=== PATIENT | female | born 1930 | race Two or more races ===

== ENCOUNTER 2016-05-08 20:47 | Inpatient (IN) | payer MEDICARE, OTHER ==
[~2016-05-08] VITALS: Ht 157.5 cm; Wt 71.2 kg
[2016-05-08 20:55] VITALS: BP 116/47
[2016-05-08] MEDS ORDERED: Albuterol ud Inhalation HHN SCH (21:30)
[2016-05-08] MEDS ORDERED: Ipratropium 0.02% Inh Soln 2.5ml UD HHN SCH (21:30)
[2016-05-08] MEDS ORDERED: Azithromycin 500 MG in NS 275 ML IV ONE (21:30)
[2016-05-08] MEDS ORDERED: Solu-MEDROL 125mg Inj IVP ONE (21:30)
[2016-05-08] MEDS ORDERED: FUROSEMIDE20 M1 ORAL (22:22)
[2016-05-08 22:28] VITALS: BP 111/32
[2016-05-08 22:50] LABS: MEAN CORPUSCULAR HEMOGLOBIN 28.2 PG (27.0-31.0); MEAN CORPUSCULAR HGB CONC 31.2 G/DL (32.0-36.0); MEAN CORPUSCULAR VOLUME 91 FL (80-99); MEAN PLATELET VOLUME 6.8 FL (6.5-10.1); PLATELET COUNT 260 K/UL (150-450); RED BLOOD COUNT 2.87 M/UL (4.20-5.40); RED CELL DISTRIBUTION WIDTH 13.7 % (11.6-14.8); WHITE BLOOD COUNT 19.9 K/UL (4.8-10.8)
[2016-05-08 23:01] LABS: ALANINE AMINOTRANSFERASE 34 U/L (3-33); ALBUMIN/GLOBULIN RATIO 1.1 (1.0-2.7); ANION GAP 16 (5-15); ASPARTATE AMINO TRANSFERASE 59 U/L (5-40); CALCIUM 9.6 mg/dL (8.6-10.2); CARBON DIOXIDE 22 mEQ/L (20-30); CHLORIDE 93 mEQ/L (98-107); HEMOLYSIS 3; SODIUM 131 mEQ/L (135-145); TOTAL PROTEIN 6.8 g/dL (6.6-8.7); TROPONIN I < 0.30 ng/mL (<=0.30)
[2016-05-08 23:12] LABS: CKMB < 1.5 ng/mL (< 3.8)
--- NOTE | 2016-05-08 23:14 | Emergency Room Report ---
History of Present Illness General Chief Complaint: Dyspnea/Respdistress Source: EMS Present Illness HPI 85 YO F SAV with acute respiratory distress. Daughter endorses history of CHF. Didnt take Lasix today. Patient not providing additional HPI at this time , ?Dementia. Family not available to talk with me at bedside. No other history available. Allergies: Coded Allergies: SPIRONOLACTONE (Unverified Allergy, Intermediate, 05/08/16) Patient History Past Medical History: CHF Past Surgical History: unable to obtain Pertinent Family History: unable to obtain Social History: Denies: alcohol use, drug use, smoking Now: No Immunizations: UTD Reviewed Nursing Documentation: PMH: Agreed, PSxH: Agreed Nursing Documentation-PMH Past Medical History: No History, Except For Hx Cardiac Problems: Yes - BRADYCARDIA Hx Hypertension: Yes Hx COPD: Yes Hx Diabetes: Yes Review of Systems All Other Systems: negative except mentioned in HPI Physical Exam Vital Signs Date Time Temp Pulse Resp B/P Pulse Ox O2 Delivery O2 Flow Rate FiO2 05/08/16 19:30 71 27 100 Facial 35 05/08/16 20:36 15.0 05/08/16 20:55 116/47 05/08/16 22:28 98.3 Sp02 EP Interpretation: reviewed, normal General Appearance: normal inspection, well appearing, alert, GCS 15, non-toxic , moderate distress Head: normocephalic, atraumatic Eyes: bilateral eye EOMI, bilateral eye PERRL ENT: normal ENT inspection, hearing grossly normal, normal voice Neck: normal inspection, full range of motion, supple, no bony tend Respiratory: normal inspection, respiratory distress, rhonchi, wheezing Cardiovascular #1: regular rate, rhythm, no edema Gastrointestinal: normal inspection, normal bowel sounds, non tender, soft, no guarding, no hernia Genitourinary: no CVA tenderness Musculoskeletal: normal inspection, back normal, normal range of motion, Massimo' s Sign negative Neurologic: normal inspection, alert, oriented x3, responsive, v block saw operator III-XII nml as tested, motor strength/tone normal, speech normal Psychiatric: normal inspection, judgement/insight normal, mood/affect normal Skin: normal inspection, normal color, no rash Medical Decision Making Medicare Attestation I Juancarlos Krishnamurthy MD hereby attest that the medical record entry for date of service, 03/04/16 accurately reflects signatures/notations that I made in my capacity as MD when I treated/diagnosed the above listed Medicare beneficiary. I attest that this information is true, accurate and complete to the best of my knowledge. I understand that any falsification, omission, or concealment of material fact may subject me to administrative, civil, or criminal liability. This patient warrants hospital admission for extreme of age and has a condition that cannot be treated as outpatient. Diagnostic Impression: Primary Impression: Acute on chronic diastolic CHF (congestive heart failure) Additional Impressions: Pneumonia Qualified Codes: J18.9 - Pneumonia, unspecified organism Respiratory distress Hyperkalemia LBBB (left bundle branch block) BRENDEN (acute kidney injury) ER Course 85 YOF with acute on chronic CHF, possible PNA Improved with BIPAP, Lasix, empiric ABX Leuks 19k CMP: HyperK. SerumCr 3. Glucose 402 Given hyperK and widened QRS, LBBB on ECG will give Calcium gluconate, insulin, and kayexelate. Insulin will also help lower hyperglycemia CXR with bilateral pulm congestion and PNA Endorsed to Dr Weir for [facility] admission at 1110pm EKG Diagnostic Results Rate: other - LBBB, LAD Rhythm Strip Diag. Results EP Interpretation: yes Rate: 74 Rhythm: no PVC's, no ectopy Chest X-Ray Diagnostic Results EP Interpretation: Yes Findings: no acute cardiopulmonary disease, other - bilateral pulm congeestion , PNA Last Vital Signs Date Time Temp Pulse Resp B/P Pulse Ox O2 Delivery O2 Flow Rate FiO2 05/08/16 22:28 98.3 64 17 111/32 100 Bi-pap 30 05/08/16 20:55 2.0 Status: improved Disposition: ADMITTED INPATIENT Condition: Critical Referrals: NON PHYSICIAN (PCP) JUANCARLOS KRISHNAMURTHY M.D. May 08, 2016 23:14
[2016-05-08] MEDS ORDERED: Piperacillin/Tazobactam 3.375 GM in NS 110 ML IVPB ONE (23:15)
[2016-05-08] MEDS ORDERED: Vancomycin 1 GM in NS 275 ML IVPB ONE (23:15)
[2016-05-08] MEDS ORDERED: Nitroglycerin Subl 0.4mg tab (Bottle Of 25) SL PRN (23:15)
[2016-05-08] MEDS ORDERED: Miralax 17gm pkt ORAL PRN (23:15)
[2016-05-08] MEDS ORDERED: Mylanta II UD 30ml ORAL PRN (23:15)
[2016-05-08 23:17] LABS: POTASSIUM 6.5 mEQ/L (3.4-4.9)
[2016-05-08] MEDS ORDERED: Zosyn 3.375gm inj ONE (23:17)
[2016-05-08 23:30] VITALS: BP 115/40
[2016-05-08 23:30] LABS: BAND NEUTROPHILS % (MANUAL) 12 % (0-8); LYMPHOCYTES % (MANUAL) 4 % (20-45); NEUTROPHILS % (MANUAL) 80 % (45-75); TOTAL CELLS COUNTED 100
[2016-05-08] MEDS ORDERED: Sodium Polystyrene Sulfonate 15gm Powder ORAL ONE (23:30)
[2016-05-08] MEDS ORDERED: Calcium Gluconate 10% 2 GM in NS 110 ML IVPB ONE (23:30)
[2016-05-08 23:31] LABS: BASOPHILS % (MANUAL) 0 % (0-2); EOSINOPHILS % (MANUAL) 0 % (0-3); PLATELET ESTIMATE ADEQUATE; PLATELET MORPHOLOGY NORMAL
[2016-05-08] MEDS ORDERED: Calcium Gluconate 1gm/10ml vial ONE (23:43)
[2016-05-08] MEDS ORDERED: Vancomycin 1gm inj IVPB ONE (23:44)
[2016-05-09] MEDS ORDERED: Calcium Gluconate 1gm/10ml vial ONE (00:49)
[2016-05-09 01:40] VITALS: BP 110/48
[2016-05-09 04:00] VITALS: BP_SYST 107; BP_SYST 108; BP_DIAS 52; BP_DIAS 62
[2016-05-09 04:34] LABS: MEAN CORPUSCULAR HEMOGLOBIN 28.5 PG (27.0-31.0); MEAN CORPUSCULAR HGB CONC 31.5 G/DL (32.0-36.0); MEAN CORPUSCULAR VOLUME 91 FL (80-99); MEAN PLATELET VOLUME 6.7 FL (6.5-10.1); PLATELET COUNT 235 K/UL (150-450); RED BLOOD COUNT 2.48 M/UL (4.20-5.40); RED CELL DISTRIBUTION WIDTH 13.6 % (11.6-14.8); WHITE BLOOD COUNT 17.4 K/UL (4.8-10.8)
[2016-05-09 04:39] LABS: INR 2.5 (0.9-1.1); PROTHROMBIN TIME 26.1 SEC (9.30-11.50)
[2016-05-09 04:51] LABS: ALANINE AMINOTRANSFERASE 32 U/L (3-33); ALBUMIN/GLOBULIN RATIO 0.9 (1.0-2.7); ANION GAP 17 (5-15); ASPARTATE AMINO TRANSFERASE 39 U/L (5-40); CALCIUM 9.2 mg/dL (8.6-10.2); CARBON DIOXIDE 20 mEQ/L (20-30); CHLORIDE 97 mEQ/L (98-107); CREATININE 2.9 mg/dL (0.5-0.9); HEMOLYSIS 0; MAGNESIUM 2.1 mg/dL (1.7-2.5); PHOSPHORUS 4.6 mg/dL (2.5-4.8); POTASSIUM 5.6 mEQ/L (3.4-4.9); SODIUM 134 mEQ/L (135-145); TOTAL PROTEIN 5.9 g/dL (6.6-8.7)
[2016-05-09] MEDS: NovoLOG Insulin Flexpen SUBQ SCH ×4 (06:34→22:10)
[2016-05-09] MEDS: DuoNeb 0.5-3(2.5)mg/3ml neb HHN PRN ×2 (07:17→15:24)
[2016-05-09 08:00] VITALS: BP 104/43
[2016-05-09] MEDS ORDERED: Heparin 5000 units/ml inj SUBQ SCH (09:00)
[2016-05-09] MEDS: Cefepime HCl 1 GM in D5W 55 ML IV SCH (09:06)
[2016-05-09 09:40] LABS: BAND NEUTROPHILS % (MANUAL) 2 % (0-8); BASOPHILS % (MANUAL) 0 % (0-2); EOSINOPHILS % (MANUAL) 0 % (0-3); HYPOCHROMASIA 1+; LYMPHOCYTES % (MANUAL) 8 % (20-45); NEUTROPHILS % (MANUAL) 86 % (45-75); PLATELET ESTIMATE ADEQUATE; PLATELET MORPHOLOGY NORMAL; TOTAL CELLS COUNTED 100
[2016-05-09] MEDS ORDERED: Vancomycin 500mg/D5W 110ml IVPB ONE ×2 (11:00)
[2016-05-09 12:00] VITALS: BP 99/42
--- NOTE | 2016-05-09 13:19 | History and Physical ---
History of Present Illness General Date patient seen: May 09, 2016 Reason for Hospitalization: Dyspnea/Respdistress Present Illness HPI 85 year old female with hx of CHF, COPD, home O2, Dementia, started having cough and dyspnea a few days ago, her daughter was taking her to [facility], when she got worse and the daughter had to chain puller and call 911. Initially she was unresponsive as reported by daughter. She received supplemental O2 from paramedics and transferred to [facility] [place]. She was diagnosed to have acute pulmonary edema and admitted to [facility]. Allergies: Coded Allergies: SPIRONOLACTONE (Unverified Allergy, Intermediate, 05/08/16) Medication History Scheduled Furosemide* (Lasix*), 20 MG ORAL DAILY, (Reported) Patient History Healthcare decision maker Resuscitation status Full Code Advanced Directive on File No Past Medical/Surgical History Past Medical/Surgical History: (1) CHF (congestive heart failure) (2) COPD (chronic obstructive pulmonary disease) (3) Dementia Social History Social History: (1) Lives in single-family home Review of Systems Constitutional: Reports: weakness Respiratory: Reports: shortness of breath, sputum Physical Exam General Appearance: WD/WN, no apparent distress Lines, tubes and drains: peripheral, central line HEENT: normocephalic, atraumatic Neck: non-tender, supple Respiratory/Chest: chest wall non-tender, lungs clear Cardiovascular/Chest: normal peripheral pulses, normal rate Abdomen: normal bowel sounds, non tender Genitourinary/Rectal: normal genital exam Last 24 Hour Vital Signs Date Time Temp Pulse Resp B/P Pulse Ox O2 Delivery O2 Flow Rate FiO2 05/09/16 12:00 59 05/09/16 08:00 72 05/09/16 08:00 98.0 70 19 104/43 100 Nasal Cannula 3.0 05/09/16 07:20 80 22 98 Venturi Mask 10.0 45 05/09/16 07:09 78 22 98 Venturi Mask 10.0 45 05/09/16 05:18 71 24 100 Facial 35 05/09/16 04:00 30 05/09/16 04:00 97.7 65 17 108/52 99 Bi-pap 35 05/09/16 03:47 61 05/09/16 03:09 35 05/09/16 03:05 79 24 100 Facial 35 05/09/16 02:04 74 05/09/16 02:00 30 05/09/16 01:40 98.4 72 22 110/48 100 2.0 35 05/09/16 01:40 98.4 72 22 110/48 100 2.0 35 05/09/16 01:13 72 25 100 Facial 35 05/08/16 23:30 68 16 115/40 100 Bi-pap 2.0 30 05/08/16 22:28 98.3 64 17 111/32 100 Bi-pap 30 05/08/16 21:20 79 26 100 Facial 35 05/08/16 20:55 35 05/08/16 20:55 70 22 116/47 94 Nasal Cannula 2.0 05/08/16 20:47 75 32 Non-Rebreather 15.0 05/08/16 20:36 75 32 100 Non-Rebreather 15.0 05/08/16 19:30 71 27 100 Facial 35 Intake and Output 05/08/16 05/09/16 19:00 07:00 Intake Total 361 ml Output Total 360 ml Balance 1 ml IV Total 361 ml Output Urine Total 360 ml # Bowel Movements 1 Laboratory Tests Test 05/08/16 20:56 05/09/16 03:50 05/09/16 09:05 White Blood Count 19.9 K/UL (4.8-10.8) H 17.4 K/UL (4.8-10.8) H Red Blood Count 2.87 M/UL (4.20-5.40) L 2.48 M/UL (4.20-5.40) L Hemoglobin 8.1 G/DL (12.0-16.0) L 7.1 G/DL (12.0-16.0) L Hematocrit 26.0 % (37.0-47.0) L 22.5 % (37.0-47.0) L Mean Corpuscular Volume 91 FL (80-99) 91 FL (80-99) Mean Corpuscular Hemoglobin 28.2 PG (27.0-31.0) 28.5 PG (27.0-31.0) Mean Corpuscular Hemoglobin Concent 31.2 G/DL (32.0-36.0) L 31.5 G/DL (32.0-36.0) L Red Cell Distribution Width 13.7 % (11.6-14.8) 13.6 % (11.6-14.8) Platelet Count 260 K/UL (150-450) 235 K/UL (150-450) Mean Platelet Volume 6.8 FL (6.5-10.1) 6.7 FL (6.5-10.1) Neutrophils (%) (Auto) % (45.0-75.0) % (45.0-75.0) Lymphocytes (%) (Auto) % (20.0-45.0) % (20.0-45.0) Monocytes (%) (Auto) % (1.0-10.0) % (1.0-10.0) Eosinophils (%) (Auto) % (0.0-3.0) % (0.0-3.0) Basophils (%) (Auto) % (0.0-2.0) % (0.0-2.0) Differential Total Cells Counted 100 100 Neutrophils % (Manual) 80 % (45-75) H 86 % (45-75) H Lymphocytes % (Manual) 4 % (20-45) L 8 % (20-45) L Monocytes % (Manual) 4 % (1-10) 4 % (1-10) Eosinophils % (Manual) 0 % (0-3) 0 % (0-3) Basophils % (Manual) 0 % (0-2) 0 % (0-2) Band Neutrophils 12 % (0-8) H 2 % (0-8) Platelet Estimate Adequate Adequate Platelet Morphology Normal Normal Red Blood Cell Morphology Normal Sodium Level 131 mEQ/L (135-145) L 134 mEQ/L (135-145) L Potassium Level 6.5 mEQ/L (3.4-4.9) *H 5.6 mEQ/L (3.4-4.9) H Chloride Level 93 mEQ/L (98-107) L 97 mEQ/L (98-107) L Carbon Dioxide Level 22 mEQ/L (20-30) 20 mEQ/L (20-30) Anion Gap 16 (5-15) H 17 (5-15) H Blood Urea Nitrogen 78 mg/dL (7-23) H 76 mg/dL (7-23) H Creatinine 3.0 mg/dL (0.5-0.9) H 2.9 mg/dL (0.5-0.9) H Estimat Glomerular Filtration Rate mL/min (>60) mL/min (>60) Glucose Level 402 mg/dL (74-106) H 387 mg/dL (74-106) H Calcium Level 9.6 mg/dL (8.6-10.2) 9.2 mg/dL (8.6-10.2) Total Bilirubin 0.4 mg/dL (0.0-1.2) 0.4 mg/dL (0.0-1.2) Aspartate Amino Transf (AST/SGOT) 59 U/L (5-40) H 39 U/L (5-40) Alanine Aminotransferase (ALT/SGPT) 34 U/L (3-33) H 32 U/L (3-33) Alkaline Phosphatase 112 U/L (35-104) H 90 U/L (35-104) Total Creatine Kinase 28 U/L (26-140) Creatine Kinase MB < 1.5 ng/mL (< 3.8) Creatine Kinase MB Relative Index Troponin I < 0.30 ng/mL (<=0.30) Pro-B-Type Natriuretic Peptide 20212 pg/mL (0-450) H Total Protein 6.8 g/dL (6.6-8.7) 5.9 g/dL (6.6-8.7) L Albumin 3.6 g/dL (3.5-5.2) 2.8 g/dL (3.5-5.2) L Globulin 3.2 g/dL 3.1 g/dL Albumin/Globulin Ratio 1.1 (1.0-2.7) 0.9 (1.0-2.7) L Hypochromasia 1+ Prothrombin Time 26.1 SEC (9.30-11.50) H Prothromb Time International Ratio 2.5 (0.9-1.1) H Activated Partial Thromboplast Time 35 SEC (23-33) H Phosphorus Level 4.6 mg/dL (2.5-4.8) Magnesium Level 2.1 mg/dL (1.7-2.5) Urine Legionella Antigen Pending Height (Feet): 5 Height (Inches): 2.00 Weight (Pounds): 157 Medications Current Medications Medications (Trade) Dose Ordered Sig/Abril Route PRN Reason Start Time Stop Time Status Last Admin Dose Admin Acetaminophen (Tylenol) 650 mg Q4H PRN ORAL fever 05/08/16 23:15 06/07/16 23:14 05/09/16 07:04 Al Hydroxide/Mg Hydroxide (Mylanta II) 30 ml Q6H PRN ORAL dyspepsia 05/08/16 23:15 06/07/16 23:14 Albuterol/ Ipratropium 3 ml 3 ml EVERY 4 HOURS PRN HHN Shortness of Breath 05/08/16 23:15 05/13/16 23:14 05/09/16 07:17 Cefepime HCl/ Dextrose (Maxipime/D5W) 55 ml @ 110 mls/hr Q24H IV 05/09/16 09:00 05/16/16 08:59 05/09/16 09:06 Dextrose (Dextrose 50%) STAT PRN IV Hypoglycemia 05/08/16 23:15 06/07/16 23:14 Furosemide/ Dextrose (Lasix/D5W) 110 ml @ 11 mls/hr Q10H IV 05/09/16 14:00 06/08/16 13:59 Heparin Sodium (Porcine) (Heparin 5000 units/ml) 5,000 units EVERY 12 HOURS SUBQ 05/09/16 09:00 06/08/16 08:59 Insulin Aspart (NovoLOG) BEFORE MEALS AND HS SUBQ 05/09/16 06:30 06/08/16 06:29 05/09/16 11:14 Nitroglycerin (Ntg) 0.4 mg Q5M PRN SL Prn Chest Pain 05/08/16 23:15 06/07/16 23:14 Ondansetron HCl (Zofran) 4 mg Q6H PRN IVP Nausea & Vomiting 05/08/16 23:15 06/07/16 23:14 Polyethylene Glycol (Miralax) 17 gm DAILYPRN PRN ORAL Constipation 05/08/16 23:15 06/07/16 23:14 Temazepam (Restoril) 15 mg HSPRN PRN ORAL Insomnia 05/08/16 23:15 05/15/16 23:14 Vancomycin HCl 1 ea 1 ea DAILY PRN MISC Per rx protocol 05/08/16 23:15 06/07/16 23:14 Assessment/Plan Problem List: (1) Acute respiratory distress ICD Codes: R06.00 - Dyspnea, unspecified SNOMED: 142392214 (2) Acute on chronic diastolic CHF (congestive heart failure) ICD Codes: I50.33 - Acute on chronic diastolic (congestive) heart failure SNOMED: 633373632, 44923739 (3) Hyperkalemia ICD Codes: E87.5 - Hyperkalemia SNOMED: 23339574 (4) LBBB (left bundle branch block) ICD Codes: I44.7 - Left bundle-branch block, unspecified SNOMED: 33905711 (5) BRENDEN (acute kidney injury) ICD Codes: N17.9 - Acute kidney failure, unspecified SNOMED: 89158408 (6) Severe anemia ICD Codes: D64.9 - Anemia, unspecified SNOMED: 101403423 (7) Purulent bronchitis ICD Codes: J41.1 - Mucopurulent chronic bronchitis SNOMED: 98125839 (8) Patient is Orthodox ICD Codes: Z78.9 - Other specified health status SNOMED: 72942288 (9) Dementia ICD Codes: F03.90 - Unspecified dementia without behavioral disturbance SNOMED: 22931444 Qualifiers: (10) COPD (chronic obstructive pulmonary disease) ICD Codes: J44.9 - Chronic obstructive pulmonary disease, unspecified SNOMED: 01697177 Assessment/Plan diuretic respiratory treatment IV antibiotics repeat cxr in am echo titrate cardiac meds check sputum ILIR WALLACE May 09, 2016 13:19
[2016-05-09] MEDS ORDERED: Vitamin B12 1000mcg/ml Inj IM ONE (14:00)
[2016-05-09 14:06] LABS: PATH BLOOD SMEAR/OMC SENT TO PATHOLOGIST
--- NOTE | 2016-05-09 15:45 | Consultation ---
Consult Note Consult Note ID CONSULT: Bill# [id number] Assessment/Plan ASSESSMENT: 85 y/o female with: // Possible CAP - unable to produce sputum, legionella UAg pending - CXR: pending // r/o UTI // Leukocytosis - improved, afebrile // Acute on chronic diastolic CHF exacerbation - trop(-) x1, elevated BNP // O2-dependent COPD // Elevated LFTs - resolved // ARF // Severe normocytic anemia - Faith, no blood products // Elevated CEA // DM2 // Dementia // No ABX allergies // Full Code PLAN: - continue empiric IV vancomycin, cefepime d# 1 - f/u cultures - monitor CBC, temperatures - monitor BMP - monitor CXR - f/u - diuresis d/w family at bedside Thanks! Will follow GEORGIE HOLLOWAY May 09, 2016 15:45
[2016-05-09 16:00] VITALS: BP 95/40
[2016-05-09 16:19] LABS: INR 2.6 (0.9-1.1); PROTHROMBIN TIME 27.8 SEC (9.30-11.50)
[2016-05-09 20:34] VITALS: BP 101/44
[2016-05-09] MEDS ORDERED: Epogen (for non ESRD use) SUBQ SCH (21:00)
[2016-05-09] MEDS ORDERED: Iron Sucrose 100 MG in NS 55 ML IVPB SCH (21:00)
[2016-05-09] MEDS: Epogen (for non ESRD use) SUBQ SCH (22:07)
--- NOTE | 2016-05-09 22:07 | Cardiology Progress Note ---
Assessment/Plan Assessment/Plan [id number] Bronchospam bronchitis / pneumonia anemia gavi bedoyaruhaley cm chronci LBBB chf chronic iron deff coagulopathy need hhn check of influenza conitneu diuretics continue anticoagulation standard chf med Past cardaic history 1. History of coronary artery disease and status post coronary artery bypass graft surgery to 3 vessels around 1994, with a coronary artery bypass graft surgery to the left anterior descending circumflex and right coronary artery at that time. 2. Status post multiple percutaneous transluminal coronary angioplasties and stenting of the right coronary artery obtuse marginal and diagonal branch. 3. Status post mitral valve replacement using a 25-mm Magna pericardial valve with a coronary artery bypass graft surgery using reverse saphenous vein graft to the left anterior descending on June 14, 2010, by Dr. Wen. 4. Postoperative paroxysmal atrial fibrillation complicated by thromboembolic event to the right femoral artery. 5. Status post right iliac embolectomy and extended endarterectomy of the common femoral artery, profunda femoris and superficial femoral artery on July 21, 2010, with subsequent incision and drainage of a right groin wound infection. 6. 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 7. History of systemic hypertension, resolved. 8. Adult-onset diabetes mellitus. 9. History of deep vein thrombosis and status post inferior vena cava filter placement in October of 2009. 10.History of small previous cerebrovascular accident with mild residual right upper extremity weakness. 11.History of pulmonary embolism related to deep vein thrombosis as previously described. 12.Peripheral vascular disease. prior med 2011: amiodarone (PACERONE) 200 mg tablet TAKE 1 TABLET BY MOUTH EVERY DAY amiodarone (PACERONE) 200 mg tablet TAKE 1 TABLET BY MOUTH EVERY DAY ASCORBIC ACID (VITAMIN C PO) Take 1 Tab by mouth daily. CALCIUM CARBONATE/VITAMIN D3 (VITAMIN D-3 PO) Take 1 capsule by mouth daily. carvedilol (COREG) 6.25 mg oral tablet Take 6.25 mg by mouth 2 times daily. cholecalciferol, Vitamin D3, (VITAMIN D) 1,000 unit oral tablet Take 400 Units by mouth daily. fluticasone-salmeterol (ADVAIR DISKUS) 250-50 mcg/dose disk device for inhalation Inhale 1 Puff 2 times daily. furosemide (LASIX) 20 mg oral tablet Take 40 mg by mouth 2 times daily. GLIPIZIDE PO, GLIPIZIDE, Take 5 mg by mouth. 5 mg qam 2.5 mg qpm. INSULIN LISPRO SC Inject 10 Units subcutaneously as needed. losartan (COZAAR) 50 mg oral tablet Take 50 mg by mouth 2 times daily. omeprazole 20 mg EC tablet Take 20 mg by mouth daily. potassium chloride (KLOR-CON) 8 mEq SR tablet Take 8 mEq by mouth daily. simvastatin (ZOCOR) 40 mg oral tablet Take 40 mg by mouth every evening. sitaGLIPtin (JANUVIA) 100 mg oral tablet Take 100 mg by mouth daily. spironolactone (ALDACTONE) 25 mg oral tablet Take 25 mg by mouth daily. tiotropium (SPIRIVA WITH HANDIHALER) 18 mcg inhaler device Inhale 1 Cap daily. tramadol-acetaminophen (ULTRACET) 37.5-325 mg oral tablet Take 1 Tab by mouth 4 times daily as needed. WARFARIN SODIUM (WARFARIN PO) Take by mouth. As directed Objective Last 24 Hour Vital Signs Date Time Temp Pulse Resp B/P Pulse Ox O2 Delivery O2 Flow Rate FiO2 05/09/16 20:34 97.0 56 20 101/44 99 Nasal Cannula 2.0 05/09/16 16:00 97.7 67 20 95/40 100 Nasal Cannula 3.0 05/09/16 16:00 67 05/09/16 15:30 69 20 100 Nasal Cannula 2.0 05/09/16 15:20 76 20 98 Nasal Cannula 2.0 05/09/16 12:00 97.0 63 19 99/42 99 Nasal Cannula 3.0 05/09/16 12:00 59 05/09/16 08:00 72 05/09/16 08:00 98.0 70 19 104/43 100 Nasal Cannula 3.0 05/09/16 07:20 80 22 98 Venturi Mask 10.0 45 05/09/16 07:09 78 22 98 Venturi Mask 10.0 45 05/09/16 05:18 71 24 100 Facial 35 05/09/16 04:00 30 05/09/16 04:00 97.7 65 17 108/52 99 Bi-pap 35 05/09/16 03:47 61 05/09/16 03:09 35 05/09/16 03:05 79 24 100 Facial 35 05/09/16 02:04 74 05/09/16 02:00 30 05/09/16 01:40 98.4 72 22 110/48 100 2.0 35 05/09/16 01:40 98.4 72 22 110/48 100 2.0 35 05/09/16 01:13 72 25 100 Facial 35 05/08/16 23:30 68 16 115/40 100 Bi-pap 2.0 30 05/08/16 22:28 98.3 64 17 111/32 100 Bi-pap 30 Intake and Output 05/08/16 05/09/16 19:00 07:00 Intake Total 361 ml Output Total 360 ml Balance 1 ml IV Total 361 ml Output Urine Total 360 ml # Bowel Movements 1 Laboratory Tests Test 05/09/16 03:50 05/09/16 09:05 05/09/16 14:56 White Blood Count 17.4 K/UL (4.8-10.8) H Red Blood Count 2.48 M/UL (4.20-5.40) L Hemoglobin 7.1 G/DL (12.0-16.0) L Hematocrit 22.5 % (37.0-47.0) L Mean Corpuscular Volume 91 FL (80-99) Mean Corpuscular Hemoglobin 28.5 PG (27.0-31.0) Mean Corpuscular Hemoglobin Concent 31.5 G/DL (32.0-36.0) L Red Cell Distribution Width 13.6 % (11.6-14.8) Platelet Count 235 K/UL (150-450) Mean Platelet Volume 6.7 FL (6.5-10.1) Neutrophils (%) (Auto) % (45.0-75.0) Lymphocytes (%) (Auto) % (20.0-45.0) Monocytes (%) (Auto) % (1.0-10.0) Eosinophils (%) (Auto) % (0.0-3.0) Basophils (%) (Auto) % (0.0-2.0) Differential Total Cells Counted 100 Neutrophils % (Manual) 86 % (45-75) H Lymphocytes % (Manual) 8 % (20-45) L Monocytes % (Manual) 4 % (1-10) Eosinophils % (Manual) 0 % (0-3) Basophils % (Manual) 0 % (0-2) Band Neutrophils 2 % (0-8) Platelet Estimate Adequate Platelet Morphology Normal Hypochromasia 1+ Prothrombin Time 26.1 SEC (9.30-11.50) H 27.8 SEC (9.30-11.50) H Prothromb Time International Ratio 2.5 (0.9-1.1) H 2.6 (0.9-1.1) H Activated Partial Thromboplast Time 35 SEC (23-33) H 37 SEC (23-33) H Sodium Level 134 mEQ/L (135-145) L Potassium Level 5.6 mEQ/L (3.4-4.9) H Chloride Level 97 mEQ/L (98-107) L Carbon Dioxide Level 20 mEQ/L (20-30) Anion Gap 17 (5-15) H Blood Urea Nitrogen 76 mg/dL (7-23) H Creatinine 2.9 mg/dL (0.5-0.9) H Estimat Glomerular Filtration Rate mL/min (>60) Glucose Level 387 mg/dL (74-106) H Calcium Level 9.2 mg/dL (8.6-10.2) Phosphorus Level 4.6 mg/dL (2.5-4.8) Magnesium Level 2.1 mg/dL (1.7-2.5) Iron Level 13 ug/dL (37-145) L Total Iron Binding Capacity 237 ug/dL (250-400) L Percent Iron Saturation 5 % (15-50) L Unsaturated Iron Binding 224 ug/dL (112-346) Total Bilirubin 0.4 mg/dL (0.0-1.2) Aspartate Amino Transf (AST/SGOT) 39 U/L (5-40) Alanine Aminotransferase (ALT/SGPT) 32 U/L (3-33) Alkaline Phosphatase 90 U/L (35-104) Lactate Dehydrogenase 259 U/L (135-230) H Total Protein 5.9 g/dL (6.6-8.7) L Albumin 2.8 g/dL (3.5-5.2) L Globulin 3.1 g/dL Albumin/Globulin Ratio 0.9 (1.0-2.7) L Carcinoembryonic Antigen 8.4 ng/mL H Vitamin B12 Level 1223 pg/mL (211-946) H Folate Pending Urine Legionella Antigen Pending Erythrocyte Sedimentation Rate 134 MM/HR (0-42) H Reticulocyte Count 1.0 % (0.0-2.0) GUILLE MEDINA May 09, 2016 22:07
--- NOTE | 2016-05-09 23:08 | Consultation ---
DATE OF CONSULTATION: 05/09/2016 INFECTIOUS DISEASE CONSULTATION CONSULTING PHYSICIAN: Saud Arias M.D. REQUESTING PHYSICIAN: Emilee Weir M.D. REASON FOR CONSULTATION: Leukocytosis. HISTORY OF PRESENT ILLNESS: This is an 85-year-old female with a history of oxygen-dependent chronic obstructive pulmonary disease, and diastolic congestive heart failure, admitted on 05/08 with shortness of breath. Her chest x-ray is pending. BNP is elevated and troponin is negative x1. Also, evidence of leukocytosis that is improved today and is afebrile. Cultures are pending and the patient has been started on empiric vancomycin and cefepime. ID now consulted to assist in management. PAST MEDICAL HISTORY: 1. Diastolic congestive heart failure. 2. Oxygen dependent chronic obstructive pulmonary disease. 3. Diabetes. 4. Dementia. 5. Chronic anemia. PAST SURGICAL HISTORY: None. FAMILY HISTORY: Noncontributory. SOCIAL HISTORY: The patient is a Christian. No active tobacco, alcohol, or illicit drug abuse. ALLERGIES: Spironolactone. MEDICATIONS: 1. Vancomycin day #1. 2. Cefepime day #1. 3. Lasix. 4. Procrit. 5. Iron. 6. Folate. REVIEW OF SYSTEMS: Unable to obtain. PHYSICAL EXAMINATION: VITAL SIGNS: Maximum temperature 98.4, blood pressure 104/43, heart rate in the 70s, respiratory rate 20, and saturating 98% on two liters nasal cannula. GENERAL: No apparent distress. Nontoxic appearing. CARDIOVASCULAR: Regular rate and rhythm. No murmurs. PULMONARY: Coarse breath sounds bilaterally. ABDOMEN: Bowel sounds present. Soft, nondistended, and nontender. Sheppard catheter in place with cloudy yellow urine. EXTREMITIES: Edema. LABORATORY DATA: White blood cell count 17.4, decreased from 19.9 with left shift, hemoglobin 7.1, platelets 235,00. Sodium 134, potassium 5.6, chloride 97, bicarbonate 20, BUN 76, creatinine 2.9. INR 2.5, troponin negative x1. BNP 39,159. MICROBIOLOGY: 1. On 05/08/2016, blood culture pending. 2. On 05/08/2016, sputum culture pending. IMAGING: On 05/08/2016 chest x-ray pending. ASSESSMENT: 1. Possible community-acquired pneumonia. The patient is unable to produce sputum. Legionella urine antigen and chest x-ray are pending. 2. Rule out urinary tract infection. 3. Leukocytosis, improved and afebrile. 4. Acute on chronic diastolic congestive heart failure exacerbation. BNP is elevated and troponin is negative x1. 5. Oxygen-dependent chronic obstructive pulmonary disease at baseline. 6. Elevated liver function tests, resolved. 7. Acute renal failure. 8. Severe normocytic anemia. 9. Elevated CEA. 10. Diabetes type 2. 11. Dementia. 12. No antibiotic allergies. 13. Full Code. PLAN: 1. Continue empiric IV vancomycin and cefepime day #1. 2. Follow up cultures. 3. Monitor CBC and temperatures. 4. Monitor BMP. 5. Monitor chest x-ray. 6. Diuresis. Discussed with family at bedside. Thank you. We will follow. Saud Arias M.D. DR: LARISA/DUSTIN JOB#: [id number] CC: Emilee Weir M.D.; Fax#: [phone] Smith, M.D. Andrea Zarate M.D; Fax#: [phone]
[2016-05-10] VITALS: BP 100/46
[2016-05-10] MEDS: DuoNeb 0.5-3(2.5)mg/3ml neb HHN PRN (03:58)
[2016-05-10 04:30] VITALS: BP 97/44
[2016-05-10 06:12] LABS: MEAN CORPUSCULAR HEMOGLOBIN 27.7 PG (27.0-31.0); MEAN CORPUSCULAR VOLUME 89 FL (80-99); MEAN PLATELET VOLUME 6.3 FL (6.5-10.1); PLATELET COUNT 253 K/UL (150-450); RED BLOOD COUNT 2.65 M/UL (4.20-5.40); RED CELL DISTRIBUTION WIDTH 13.4 % (11.6-14.8); WHITE BLOOD COUNT 18.3 K/UL (4.8-10.8)
[2016-05-10 06:22] LABS: INR 2.4 (0.9-1.1); PROTHROMBIN TIME 25.4 SEC (9.30-11.50)
[2016-05-10] MEDS: NovoLOG Insulin Flexpen SUBQ SCH ×4 (06:24→21:23)
[2016-05-10 07:00] LABS: ALANINE AMINOTRANSFERASE 28 U/L (3-33); ALBUMIN/GLOBULIN RATIO 0.9 (1.0-2.7); ANION GAP 20 (5-15); ASPARTATE AMINO TRANSFERASE 28 U/L (5-40); CALCIUM 8.9 mg/dL (8.6-10.2); CARBON DIOXIDE 23 mEQ/L (20-30); CHLORIDE 97 mEQ/L (98-107); CREATININE 3.1 mg/dL (0.5-0.9); HEMOLYSIS 2; POTASSIUM 3.4 mEQ/L (3.4-4.9); SODIUM 140 mEQ/L (135-145); TOTAL PROTEIN 6.1 g/dL (6.6-8.7)
[2016-05-10 07:24] LABS: APPEARANCE,URINE SLIGHTLY CLOUDY; KETONES,URINE NEGATIVE (NEGATIVE); LEUKOCYTE ESTERASE ,URINE 2+ (NEGATIVE); NITRITE,URINE NEGATIVE (NEGATIVE); PH,URINE 5 (4.5-8.0); PROTEIN,URINE 2+ (NEGATIVE); UROBILINOGEN,URINE NORMAL MG/DL (0.0-1.0)
[2016-05-10 07:46] LABS: BACTERIA,URINE OCCASIONAL /HPF; SQUAMOUS EPITHELIAL CELL,UR FEW /LPF (NONE/OCC)
[2016-05-10 08:00] VITALS: BP 87/45
[2016-05-10 09:22] LABS: BAND NEUTROPHILS % (MANUAL) 4 % (0-8); LYMPHOCYTES % (MANUAL) 5 % (20-45); NEUTROPHILS % (MANUAL) 88 % (45-75); TOTAL CELLS COUNTED 100
[2016-05-10 09:25] LABS: BASOPHILS % (MANUAL) 0 % (0-2); EOSINOPHILS % (MANUAL) 0 % (0-3); PLATELET ESTIMATE ADEQUATE; PLATELET MORPHOLOGY NORMAL
[2016-05-10] MEDS: Amiodarone 200mg tab ORAL SCH (10:33)
[2016-05-10] MEDS: Cefepime HCl 1 GM in D5W 55 ML IV SCH (10:34)
[2016-05-10 12:00] VITALS: BP 98/43
[2016-05-10] MEDS: Metolazone 5mg tab ORAL SCH (12:00)
--- NOTE | 2016-05-10 12:18 | Pulmonology Progress Note ---
Assessment/Plan Problems: (1) Acute respiratory distress (2) Acute on chronic diastolic CHF (congestive heart failure) (3) Hyperkalemia (4) LBBB (left bundle branch block) (5) BRENDEN (acute kidney injury) (6) Severe anemia (7) Purulent bronchitis (8) Patient is Cheondoism (9) Dementia (10) COPD (chronic obstructive pulmonary disease) Assessment/Plan on lasix drip add zaroxyline cxr still not changed CT abd, pelvis ordered for increased CEA contineu antibioitcs no cultures available yet cardiolgy note reviewed discussed with pts daughter. Subjective ROS Limited/Unobtainable: No Interval Events: feeling slightly better Allergies: Coded Allergies: SPIRONOLACTONE (Unverified Allergy, Intermediate, 05/08/16) Objective Last 24 Hour Vital Signs Date Time Temp Pulse Resp B/P Pulse Ox O2 Delivery O2 Flow Rate FiO2 05/10/16 08:00 96.8 60 18 87/45 99 Nasal Cannula 2.0 05/10/16 08:00 58 05/10/16 07:43 Nasal Cannula 2.0 05/10/16 07:42 100 Nasal Cannula 2.0 05/10/16 04:30 97.9 99 24 97/44 98 Nasal Cannula 2.0 05/10/16 04:08 74 05/10/16 04:04 77 22 98 Nasal Cannula 2.0 28 05/10/16 03:58 75 24 97 Nasal Cannula 2.0 28 05/10/16 00:00 97.5 65 24 100/46 98 Nasal Cannula 2.0 05/09/16 23:33 59 05/09/16 22:36 2.0 05/09/16 22:24 69 20 98 2.0 28 05/09/16 21:00 Nasal Cannula 2.0 28 05/09/16 21:00 98 Nasal Cannula 2.0 28 05/09/16 20:34 97.0 56 20 101/44 99 Nasal Cannula 2.0 05/09/16 20:00 67 05/09/16 16:00 97.7 67 20 95/40 100 Nasal Cannula 3.0 05/09/16 16:00 67 05/09/16 15:30 69 20 100 Nasal Cannula 2.0 05/09/16 15:20 76 20 98 Nasal Cannula 2.0 Intake and Output 05/09/16 05/10/16 19:00 07:00 Intake Total 461 ml 361 ml Output Total 200 ml 300 ml Balance 261 ml 61 ml Intake Oral 120 ml 240 ml IV Total 341 ml 121 ml Output Urine Total 200 ml 300 ml # Bowel Movements 3 3 General Appearance: WD/WN HEENT: normocephalic, anicteric Respiratory/Chest: chest wall non-tender, accessory muscle use, crackles/rales Cardiovascular: normal peripheral pulses, normal rate Abdomen: normal bowel sounds, no organomegaly Genitourinary: normal external genitalia Neurologic/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, normal mood/affect Microbiology Date/Time Source Procedure Growth Status 05/08/16 21:06 Arm Right Blood Culture - Preliminary NO GROWTH AFTER 24 HOURS Resulted 05/08/16 20:56 Arm Right Blood Culture - Preliminary NO GROWTH AFTER 24 HOURS Resulted Laboratory Tests 05/09/16 14:56: Erythrocyte Sedimentation Rate 134H, Reticulocyte Count 1.0, Prothrombin Time 27.8H, Prothromb Time International Ratio 2.6H, Activated Partial Thromboplast Time 37H 05/10/16 00:30: Stool Occult Blood Positive 05/10/16 04:00: Prothrombin Time 25.4H, Prothromb Time International Ratio 2.4H, White Blood Count 18.3H, Red Blood Count 2.65L, Hemoglobin 7.4L, Hematocrit 23.7L, Mean Corpuscular Volume 89, Mean Corpuscular Hemoglobin 27.7, Mean Corpuscular Hemoglobin Concent 31.0L, Red Cell Distribution Width 13.4, Platelet Count 253, Mean Platelet Volume 6.3L, Neutrophils (%) (Auto) , Lymphocytes (%) (Auto) , Monocytes (%) (Auto) , Eosinophils (%) (Auto) , Basophils (%) (Auto) , Differential Total Cells Counted 100, Neutrophils % (Manual) 88H, Lymphocytes % (Manual) 5L, Monocytes % (Manual) 3, Eosinophils % (Manual) 0, Basophils % ( Manual) 0, Band Neutrophils 4, Platelet Estimate Adequate, Platelet Morphology Normal, Red Blood Cell Morphology Normal, Sodium Level 140, Potassium Level 3.4 , Chloride Level 97L, Carbon Dioxide Level 23, Anion Gap 20H, Blood Urea Nitrogen 86H, Creatinine 3.1H, Estimat Glomerular Filtration Rate , Glucose Level 91#, Calcium Level 8.9, Total Bilirubin 0.3, Aspartate Amino Transf (AST/ SGOT) 28, Alanine Aminotransferase (ALT/SGPT) 28, Alkaline Phosphatase 129H, Pro -B-Type Natriuretic Peptide [id number], Total Protein 6.1L, Albumin 3.0L, Globulin 3.1, Albumin/Globulin Ratio 0.9L 05/10/16 05:00: Urine Color Yellow, Urine Appearance Slightly cloudy, Urine pH 5, Urine Specific [place] 1.015, Urine Protein 2+H, Urine Glucose (UA) Negative, Urine Ketones Negative, Urine Occult Blood 5+H, Urine Nitrite Negative, Urine Bilirubin Negative, Urine Urobilinogen Normal, Urine Leukocyte Esterase 2+H, Urine RBC 5-10H, Urine WBC 2-4, Urine Squamous Epithelial Cells Few, Urine Bacteria Occasional Current Medications Medications (Trade) Dose Ordered Sig/Abril Route PRN Reason Start Time Stop Time Status Last Admin Dose Admin Acetaminophen (Tylenol) 650 mg Q4H PRN ORAL fever 05/08/16 23:15 06/07/16 23:14 05/09/16 07:04 Al Hydroxide/Mg Hydroxide (Mylanta II) 30 ml Q6H PRN ORAL dyspepsia 05/08/16 23:15 06/07/16 23:14 Albuterol/ Ipratropium 3 ml 3 ml EVERY 4 HOURS PRN HHN Shortness of Breath 05/08/16 23:15 05/13/16 23:14 05/10/16 03:58 Amiodarone HCl (Cordarone) 200 mg DAILY ORAL 05/10/16 09:00 06/09/16 08:59 05/10/16 10:33 Atorvastatin Calcium (Lipitor) 40 mg BEDTIME ORAL 05/10/16 21:00 06/09/16 20:59 Cefepime HCl/ Dextrose (Maxipime/D5W) 55 ml @ 110 mls/hr Q24H IV 05/09/16 09:00 05/16/16 08:59 05/10/16 10:34 Dextrose (Dextrose 50%) STAT PRN IV Hypoglycemia 05/08/16 23:15 06/07/16 23:14 Epoetin Fish (Procrit (for non ESRD use)) 10,000 units Q48H SUBQ 05/09/16 21:00 06/08/16 20:59 05/09/16 22:07 Folic Acid (Folate) 1 mg DAILY ORAL 05/09/16 14:00 06/08/16 13:59 05/10/16 10:33 Furosemide/ Dextrose (Lasix/D5W) 110 ml @ 11 mls/hr Q10H IV 05/09/16 14:00 06/08/16 13:59 05/10/16 10:33 Insulin Aspart (NovoLOG) BEFORE MEALS AND HS SUBQ 05/09/16 06:30 06/08/16 06:29 05/10/16 11:47 Iron Sucrose/ Sodium Chloride (Venofer/Sodium Chloride) 115 ml @ 460 mls/hr BEDTIME IVPB 05/10/16 21:00 05/13/16 21:14 Nitroglycerin (Ntg) 0.4 mg Q5M PRN SL Prn Chest Pain 05/08/16 23:15 06/07/16 23:14 Ondansetron HCl (Zofran) 4 mg Q6H PRN IVP Nausea & Vomiting 05/08/16 23:15 06/07/16 23:14 Polyethylene Glycol (Miralax) 17 gm DAILYPRN PRN ORAL Constipation 05/08/16 23:15 06/07/16 23:14 Temazepam (Restoril) 15 mg HSPRN PRN ORAL Insomnia 05/08/16 23:15 05/15/16 23:14 Vancomycin HCl 1 ea 1 ea DAILY PRN MISC Per rx protocol 05/08/16 23:15 06/07/16 23:14 Warfarin Sodium (Coumadin per pharmacy) 1 ea DAILY PRN MISC Per rx protocol 05/10/16 10:00 06/09/16 09:59 Warfarin Sodium 3 mg 3 mg COUMADIN ORAL 05/10/16 17:00 05/15/16 16:59 ILIR WALLACE May 10, 2016 12:18
--- NOTE | 2016-05-10 14:05 | Infectious Diseases Prog Note ---
Assessment/Plan Assessment/Plan ASSESSMENT: 85 y/o female with: // Possible CAP - unable to produce sputum, legionella UAg pending - CXR: pending // Leukocytosis - persistent, stable, afebrile. Cultures NGTD // Acute on chronic diastolic CHF exacerbation - trop(-) x1, elevated BNP // O2-dependent COPD // Elevated LFTs - resolved // ARF - worse // Severe normocytic anemia - Hgb stable - Jewish, no blood products // Elevated CEA // DM2 // Dementia // No ABX allergies // Full Code PLAN: - continue empiric IV vancomycin, cefepime d# 2 - f/u cultures - f/u CT A/P - monitor CBC, temperatures - monitor BMP - monitor CXR - diuresis Subjective Allergies: Coded Allergies: SPIRONOLACTONE (Unverified Allergy, Intermediate, 05/08/16) Subjective remains afebrile persistent leukocytosis cultures NGTD CT A/P ordered Objective Vital Signs Last 24 Hour Vital Signs Date Time Temp Pulse Resp B/P Pulse Ox O2 Delivery O2 Flow Rate FiO2 05/10/16 08:00 96.8 60 18 87/45 99 Nasal Cannula 2.0 05/10/16 08:00 58 05/10/16 07:43 Nasal Cannula 2.0 05/10/16 07:42 100 Nasal Cannula 2.0 05/10/16 04:30 97.9 99 24 97/44 98 Nasal Cannula 2.0 05/10/16 04:08 74 05/10/16 04:04 77 22 98 Nasal Cannula 2.0 28 05/10/16 03:58 75 24 97 Nasal Cannula 2.0 28 05/10/16 00:00 97.5 65 24 100/46 98 Nasal Cannula 2.0 05/09/16 23:33 59 05/09/16 22:36 2.0 05/09/16 22:24 69 20 98 2.0 28 05/09/16 21:00 Nasal Cannula 2.0 28 05/09/16 21:00 98 Nasal Cannula 2.0 28 05/09/16 20:34 97.0 56 20 101/44 99 Nasal Cannula 2.0 05/09/16 20:00 67 05/09/16 16:00 97.7 67 20 95/40 100 Nasal Cannula 3.0 05/09/16 16:00 67 05/09/16 15:30 69 20 100 Nasal Cannula 2.0 05/09/16 15:20 76 20 98 Nasal Cannula 2.0 Height (Feet): 5 Height (Inches): 2.00 Weight (Pounds): 157 General Appearance: no acute distress Respiratory/Chest: no respiratory distress Cardiovascular: normal rate, regular rhythm Abdomen: normal bowel sounds, soft, non tender, non distended Microbiology Date/Time Source Procedure Growth Status 05/08/16 21:06 Arm Right Blood Culture - Preliminary NO GROWTH AFTER 24 HOURS Resulted 05/08/16 20:56 Arm Right Blood Culture - Preliminary NO GROWTH AFTER 24 HOURS Resulted Laboratory Tests Test 05/09/16 14:56 05/10/16 00:30 05/10/16 04:00 05/10/16 05:00 Erythrocyte Sedimentation Rate 134 MM/HR (0-42) H Reticulocyte Count 1.0 % (0.0-2.0) Prothrombin Time 27.8 SEC (9.30-11.50) H 25.4 SEC (9.30-11.50) H Prothromb Time International Ratio 2.6 (0.9-1.1) H 2.4 (0.9-1.1) H Activated Partial Thromboplast Time 37 SEC (23-33) H Stool Occult Blood Positive (NEGATIVE) White Blood Count 18.3 K/UL (4.8-10.8) H Red Blood Count 2.65 M/UL (4.20-5.40) L Hemoglobin 7.4 G/DL (12.0-16.0) L Hematocrit 23.7 % (37.0-47.0) L Mean Corpuscular Volume 89 FL (80-99) Mean Corpuscular Hemoglobin 27.7 PG (27.0-31.0) Mean Corpuscular Hemoglobin Concent 31.0 G/DL (32.0-36.0) L Red Cell Distribution Width 13.4 % (11.6-14.8) Platelet Count 253 K/UL (150-450) Mean Platelet Volume 6.3 FL (6.5-10.1) L Neutrophils (%) (Auto) % (45.0-75.0) Lymphocytes (%) (Auto) % (20.0-45.0) Monocytes (%) (Auto) % (1.0-10.0) Eosinophils (%) (Auto) % (0.0-3.0) Basophils (%) (Auto) % (0.0-2.0) Differential Total Cells Counted 100 Neutrophils % (Manual) 88 % (45-75) H Lymphocytes % (Manual) 5 % (20-45) L Monocytes % (Manual) 3 % (1-10) Eosinophils % (Manual) 0 % (0-3) Basophils % (Manual) 0 % (0-2) Band Neutrophils 4 % (0-8) Platelet Estimate Adequate Platelet Morphology Normal Red Blood Cell Morphology Normal Sodium Level 140 mEQ/L (135-145) Potassium Level 3.4 mEQ/L (3.4-4.9) Chloride Level 97 mEQ/L (98-107) L Carbon Dioxide Level 23 mEQ/L (20-30) Anion Gap 20 (5-15) H Blood Urea Nitrogen 86 mg/dL (7-23) H Creatinine 3.1 mg/dL (0.5-0.9) H Estimat Glomerular Filtration Rate mL/min (>60) Glucose Level 91 mg/dL (74-106) # Calcium Level 8.9 mg/dL (8.6-10.2) Total Bilirubin 0.3 mg/dL (0.0-1.2) Aspartate Amino Transf (AST/SGOT) 28 U/L (5-40) Alanine Aminotransferase (ALT/SGPT) 28 U/L (3-33) Alkaline Phosphatase 129 U/L (35-104) H Pro-B-Type Natriuretic Peptide 33569 pg/mL (0-450) H Total Protein 6.1 g/dL (6.6-8.7) L Albumin 3.0 g/dL (3.5-5.2) L Globulin 3.1 g/dL Albumin/Globulin Ratio 0.9 (1.0-2.7) L Urine Color Yellow Urine Appearance Slightly cloudy Urine pH 5 (4.5-8.0) Urine Specific [place] 1.015 (1.005-1.035) Urine Protein 2+ (NEGATIVE) H Urine Glucose (UA) Negative (NEGATIVE) Urine Ketones Negative (NEGATIVE) Urine Occult Blood 5+ (NEGATIVE) H Urine Nitrite Negative (NEGATIVE) Urine Bilirubin Negative (NEGATIVE) Urine Urobilinogen Normal MG/DL (0.0-1.0) Urine Leukocyte Esterase 2+ (NEGATIVE) H Urine RBC 5-10 /HPF (0 - 2) H Urine WBC 2-4 /HPF (0 - 2) Urine Squamous Epithelial Cells Few /LPF (NONE/OCC) Urine Bacteria Occasional /HPF (NONE) Current Medications Medications (Trade) Dose Ordered Sig/Abril Route PRN Reason Start Time Stop Time Status Last Admin Dose Admin Acetaminophen (Tylenol) 650 mg Q4H PRN ORAL fever 05/08/16 23:15 06/07/16 23:14 05/09/16 07:04 Al Hydroxide/Mg Hydroxide (Mylanta II) 30 ml Q6H PRN ORAL dyspepsia 05/08/16 23:15 06/07/16 23:14 Albuterol/ Ipratropium 3 ml 3 ml EVERY 4 HOURS PRN HHN Shortness of Breath 05/08/16 23:15 05/13/16 23:14 05/10/16 03:58 Amiodarone HCl (Cordarone) 200 mg DAILY ORAL 05/10/16 09:00 06/09/16 08:59 05/10/16 10:33 Atorvastatin Calcium (Lipitor) 40 mg BEDTIME ORAL 05/10/16 21:00 06/09/16 20:59 Cefepime HCl/ Dextrose (Maxipime/D5W) 55 ml @ 110 mls/hr Q24H IV 05/09/16 09:00 05/16/16 08:59 05/10/16 10:34 Dextrose (Dextrose 50%) STAT PRN IV Hypoglycemia 05/08/16 23:15 06/07/16 23:14 Epoetin Fish (Procrit (for non ESRD use)) 10,000 units Q48H SUBQ 05/09/16 21:00 06/08/16 20:59 05/09/16 22:07 Folic Acid (Folate) 1 mg DAILY ORAL 05/09/16 14:00 06/08/16 13:59 05/10/16 10:33 Furosemide/ Dextrose (Lasix/D5W) 110 ml @ 11 mls/hr Q10H IV 05/09/16 14:00 06/08/16 13:59 05/10/16 10:33 Insulin Aspart (NovoLOG) BEFORE MEALS AND HS SUBQ 05/09/16 06:30 06/08/16 06:29 05/10/16 11:47 Iron Sucrose/ Sodium Chloride (Venofer/Sodium Chloride) 115 ml @ 460 mls/hr BEDTIME IVPB 05/10/16 21:00 05/13/16 21:14 Metolazone (Zaroxolyn) 5 mg DAILY ORAL 05/10/16 12:00 06/09/16 11:59 05/10/16 12:00 Nitroglycerin (Ntg) 0.4 mg Q5M PRN SL Prn Chest Pain 05/08/16 23:15 06/07/16 23:14 Ondansetron HCl (Zofran) 4 mg Q6H PRN IVP Nausea & Vomiting 05/08/16 23:15 06/07/16 23:14 Polyethylene Glycol (Miralax) 17 gm DAILYPRN PRN ORAL Constipation 05/08/16 23:15 06/07/16 23:14 Temazepam (Restoril) 15 mg HSPRN PRN ORAL Insomnia 05/08/16 23:15 05/15/16 23:14 Vancomycin HCl 1 ea 1 ea DAILY PRN MISC Per rx protocol 05/08/16 23:15 06/07/16 23:14 Warfarin Sodium (Coumadin per pharmacy) 1 ea DAILY PRN MISC Per rx protocol 05/10/16 10:00 06/09/16 09:59 Warfarin Sodium 3 mg 3 mg COUMADIN ORAL 05/10/16 17:00 05/15/16 16:59 GEORGIE HOLLOWAY May 10, 2016 14:05
[2016-05-10 16:00] VITALS: BP 101/50
--- NOTE | 2016-05-10 16:50 | Consultation ---
Consult Note Consult Note asked to evaluate for renal failure- This is an 85-year-old female with a history of oxygen-dependent chronic obstructive pulmonary disease, and diastolic congestive heart failure, admitted on 05/08 with shortness of breath. PAST MEDICAL HISTORY: 1. Diastolic congestive heart failure. 2. Oxygen dependent chronic obstructive pulmonary disease. 3. Diabetes. 4. Dementia. 5. Chronic anemia. patient examined- data reviewed . Assessment/Plan Renal failure : Chronic vs Acute? status: - Acute respiratory distress - Acute on chronic diastolic CHF (congestive heart failure) - Hyperkalemia, on admission, resolved - LBBB (left bundle branch block) - Severe anemia - Purulent bronchitis - Patient is Tenriism - Dementia - COPD (chronic obstructive pulmonary disease) Plan: Kidney MISSY- Urine eosinophils- stop Vanco, check levels 2D Echo Urine studies- Per orders epo , folate, Iron Protonix GILLES CUELLAR May 10, 2016 16:50
[2016-05-10] MEDS: Warfarin Sodium 3mg ORAL SCH (17:29)
[2016-05-10] MEDS: Thiamine 100mg tab ORAL SCH (19:18)
[2016-05-10] MEDS: Vitamin B12 1000mcg/ml Inj SUBQ SCH (19:18)
--- NOTE | 2016-05-10 19:58 | Cardiology Progress Note ---
Assessment/Plan Assessment/Plan Bronchospam bronchitis / pneumonia anemia renal failure cm chronci LBBB chf chronic iron deff coagulopathy hs off dvt s/p ivc filter cad s/p cabg twice MVR bioprosthetic hx of thromboembolic complication previously off anticoagulation jahovah witness need hhn is anemic stool ob + but stable hgb in light of prior embolic evnet i am hesitant to dc anticoagulation unless acute bleeding of sig degree dtr feel pt has had hemorrhoids check of influenza continue diuretics continue anticoagulation standard chf med except bb until bronchospasm improve extensicvely d/w dtr Subjective Cardiovascular: Denies: chest pain Respiratory: Reports: cough, shortness of breath, sputum, wheezing Gastrointestinal/Abdominal: Denies: abdominal pain, blood in stool Genitourinary: Denies: burning Objective Last 24 Hour Vital Signs Date Time Temp Pulse Resp B/P Pulse Ox O2 Delivery O2 Flow Rate FiO2 05/10/16 19:18 97 Nasal Cannula 2.0 05/10/16 19:18 Nasal Cannula 2.0 05/10/16 16:00 96.6 67 17 101/50 100 Nasal Cannula 2.0 05/10/16 16:00 66 05/10/16 12:00 97.2 69 24 98/43 99 Nasal Cannula 2.0 05/10/16 08:00 96.8 60 18 87/45 99 Nasal Cannula 2.0 05/10/16 08:00 58 05/10/16 07:43 Nasal Cannula 2.0 05/10/16 07:42 100 Nasal Cannula 2.0 05/10/16 04:30 97.9 99 24 97/44 98 Nasal Cannula 2.0 05/10/16 04:08 74 05/10/16 04:04 77 22 98 Nasal Cannula 2.0 28 05/10/16 03:58 75 24 97 Nasal Cannula 2.0 28 05/10/16 00:00 97.5 65 24 100/46 98 Nasal Cannula 2.0 05/09/16 23:33 59 05/09/16 22:36 2.0 05/09/16 22:24 69 20 98 2.0 28 05/09/16 21:00 Nasal Cannula 2.0 28 05/09/16 21:00 98 Nasal Cannula 2.0 28 05/09/16 20:34 97.0 56 20 101/44 99 Nasal Cannula 2.0 05/09/16 20:00 67 General Appearance: no apparent distress, alert Neck: supple Cardiovascular: regular rhythm Respiratory/Chest: expiratory wheezing, inspiratory wheezing Abdomen: normal bowel sounds, non tender, soft Extremities: no swelling Intake and Output 05/09/16 05/10/16 19:00 07:00 Intake Total 461 ml 361 ml Output Total 200 ml 300 ml Balance 261 ml 61 ml Intake Oral 120 ml 240 ml IV Total 341 ml 121 ml Output Urine Total 200 ml 300 ml # Bowel Movements 3 3 Laboratory Tests Test 05/10/16 00:30 05/10/16 04:00 05/10/16 05:00 Stool Occult Blood Positive (NEGATIVE) White Blood Count 18.3 K/UL (4.8-10.8) H Red Blood Count 2.65 M/UL (4.20-5.40) L Hemoglobin 7.4 G/DL (12.0-16.0) L Hematocrit 23.7 % (37.0-47.0) L Mean Corpuscular Volume 89 FL (80-99) Mean Corpuscular Hemoglobin 27.7 PG (27.0-31.0) Mean Corpuscular Hemoglobin Concent 31.0 G/DL (32.0-36.0) L Red Cell Distribution Width 13.4 % (11.6-14.8) Platelet Count 253 K/UL (150-450) Mean Platelet Volume 6.3 FL (6.5-10.1) L Neutrophils (%) (Auto) % (45.0-75.0) Lymphocytes (%) (Auto) % (20.0-45.0) Monocytes (%) (Auto) % (1.0-10.0) Eosinophils (%) (Auto) % (0.0-3.0) Basophils (%) (Auto) % (0.0-2.0) Differential Total Cells Counted 100 Neutrophils % (Manual) 88 % (45-75) H Lymphocytes % (Manual) 5 % (20-45) L Monocytes % (Manual) 3 % (1-10) Eosinophils % (Manual) 0 % (0-3) Basophils % (Manual) 0 % (0-2) Band Neutrophils 4 % (0-8) Platelet Estimate Adequate Platelet Morphology Normal Red Blood Cell Morphology Normal Prothrombin Time 25.4 SEC (9.30-11.50) H Prothromb Time International Ratio 2.4 (0.9-1.1) H Sodium Level 140 mEQ/L (135-145) Potassium Level 3.4 mEQ/L (3.4-4.9) Chloride Level 97 mEQ/L (98-107) L Carbon Dioxide Level 23 mEQ/L (20-30) Anion Gap 20 (5-15) H Blood Urea Nitrogen 86 mg/dL (7-23) H Creatinine 3.1 mg/dL (0.5-0.9) H Estimat Glomerular Filtration Rate mL/min (>60) Glucose Level 91 mg/dL (74-106) # Calcium Level 8.9 mg/dL (8.6-10.2) Total Bilirubin 0.3 mg/dL (0.0-1.2) Aspartate Amino Transf (AST/SGOT) 28 U/L (5-40) Alanine Aminotransferase (ALT/SGPT) 28 U/L (3-33) Alkaline Phosphatase 129 U/L (35-104) H Pro-B-Type Natriuretic Peptide 66088 pg/mL (0-450) H Total Protein 6.1 g/dL (6.6-8.7) L Albumin 3.0 g/dL (3.5-5.2) L Globulin 3.1 g/dL Albumin/Globulin Ratio 0.9 (1.0-2.7) L Urine Color Yellow Urine Appearance Slightly cloudy Urine pH 5 (4.5-8.0) Urine Specific [place] 1.015 (1.005-1.035) Urine Protein 2+ (NEGATIVE) H Urine Glucose (UA) Negative (NEGATIVE) Urine Ketones Negative (NEGATIVE) Urine Occult Blood 5+ (NEGATIVE) H Urine Nitrite Negative (NEGATIVE) Urine Bilirubin Negative (NEGATIVE) Urine Urobilinogen Normal MG/DL (0.0-1.0) Urine Leukocyte Esterase 2+ (NEGATIVE) H Urine RBC 5-10 /HPF (0 - 2) H Urine WBC 2-4 /HPF (0 - 2) Urine Squamous Epithelial Cells Few /LPF (NONE/OCC) Urine Bacteria Occasional /HPF (NONE) Microbiology Date/Time Source Procedure Growth Status 05/08/16 21:06 Arm Right Blood Culture - Preliminary NO GROWTH AFTER 24 HOURS Resulted 05/08/16 20:56 Arm Right Blood Culture - Preliminary NO GROWTH AFTER 24 HOURS Resulted GUILLE MEDINA May 10, 2016 19:58
[2016-05-10 20:17] VITALS: BP 101/45
[2016-05-10] MEDS: Iron Sucrose 100 MG in NS 110 ML IVPB SCH (21:20)
[2016-05-11] VITALS: BP 109/44
--- NOTE | 2016-05-11 02:29 | Consultation ---
DATE OF CONSULTATION: 05/09/2016 CARDIOLOGY CONSULTATION: CONSULTING PHYSICIAN: Chris Gan M.D. REFERRING PHYSICIAN: Emilee Weir M.D. REASON FOR EVALUATION: Shortness of breath and congestive heart failure. HISTORY OF PRESENT ILLNESS: This is an elderly female whose information is obtained from the patient's daughter. It appears that the patient has a history of oxygen dependent at home as well as COPD, at home being taken care of by her daughter with suctioning and other equipment as needed. Apparently, she over the past few days has had increasing amounts of cough and mucus production, eventually got worse, saturations decreased, and the patient's daughters decided to take her [place]. Friend was driving and she became unresponsive and paramedics were summoned. The patient was brought to the emergency room at [facility] and has been admitted to the hospital. It has accepted the records from [facility], which I have had a chance to review and as a part of my event, it is including history of coronary artery disease, status post two separate coronary artery bypass graft, and history of multiple percutaneous coronary angioplasty to right coronary artery, history of mitral valve replacement, pericardial valve in 2010 postoperatively, and atrial fibrillation complicated by thromboembolic event to the right femoral artery, status post embolectomy and endarterectomy of the common femoral artery, profunda femoral superficial femoral artery in 2010, with subsequent drainage of right groin wound, history of moderate left ventricular systolic dysfunction, and left ventricular ejection fraction 30%, questionable tachycardia with cardiomyopathy, secondary rapid atrial fibrillation, aortic valvular heart disease and coronary artery disease, history of systemic hypertension, diabetes mellitus, deep venous thrombosis, and status post IVC filter placement in 2009, previous cerebrovascular accident, mild right-sided upper extremity weakness, history of pulmonary embolism related to DVT, and history of peripheral vascular disease as noted. ALLERGIES: The patient really is not allergic to any medication although records indicate allergies to Aldactone and she has continuously been taking Aldactone at home without any problems. MEDICATIONS: Her medications list is extensive and include amiodarone 200 mg, vitamin C, calcium carbonate, Coreg 6.25 mg two times daily, vitamin C, Lasix 20 mg, glipizide, insulin, losartan 50 mg daily, omeprazole, simvastatin 40 mg, Januvia 100 mg, spironolactone 25 mg, Spiriva inhaler, tramadol, and warfarin among others. REVIEW OF SYSTEMS: GI: There has been no reports of nausea or vomiting and no diarrhea. No bloody stools or black tarry stools. Genitourinary: Negative. Pulmonary: Positive for coughing and wheezing. Constitutional: No fevers, chills, or night sweats. Cardiac: No chest pain, pressure, or tightness, just excessive shortness of breath. PHYSICAL EXAMINATION: GENERAL: Shows to be an elderly female in no apparent respiratory distress, significant amount of wheezing is noted, anterior inspiratory and expiratory. VITAL SIGNS: Blood pressure is 95/40 with a heart rate of 100, and temperature 97.7 degrees. LUNGS: No crackles noted. CARDIAC: Regular rate and rhythm. ABDOMEN: Soft and obese. Positive bowel sounds. Nontender. EXTREMITIES: There is no clubbing, cyanosis, nor is there any edema. NEUROLOGIC: She is responsive. LABORATORY VALUES: Sodium is 134, potassium 5.6, chloride 97, bicarbonate 20, BUN 76, creatinine 2.9, and glucose 387. Liver function tests are normal. Total protein is 5.9. White count is 17.4, down from 19.9, hemoglobin 7.1, and platelet count of 235,000 and her INR was 2.6. ASSESSMENT: PROBLEMS: 1. Acute bronchospasm. 2. Bronchitis/pneumonia. 3. Anemia. 4. Renal failure. 5. Chronic cardiomyopathy. 6. Left bundle-branch block conduction defect, chronic. 7. Chronic congestive heart failure. 8. Iron-deficiency anemia. 9. 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 10. History of coronary artery disease. 11. History of deep venous thrombosis, status post inferior vena cava. 12. Mitral valve replacement bioprosthetic. 13. History of thromboembolic complications for history of anticoagulation under [facility]. RECOMMENDATIONS: Dr. Weir, this patient was seen in cardiac consultation. She sounds quite bronchospastic at the present time. I do agree with the management of influenza infection to be excluded. Diuretics to be continued. Anticoagulation to be continued. Standard congestive heart failure medications with angiotensin-receptor sruthi as well as beta-blockers, once her bronchospasms are improved. Her hemoglobin will be followed. INR will be followed and further recommendations as become necessary. Chris Gan M.D. DR: Nya JOB#: [id number] CC:
[2016-05-11 04:00] VITALS: BP 120/49
[2016-05-11 05:42] LABS: INR 2.3 (0.9-1.1); MEAN CORPUSCULAR HEMOGLOBIN 27.9 PG (27.0-31.0); MEAN CORPUSCULAR VOLUME 90 FL (80-99); MEAN PLATELET VOLUME 6.3 FL (6.5-10.1); PLATELET COUNT 249 K/UL (150-450); PROTHROMBIN TIME 23.6 SEC (9.30-11.50); RED BLOOD COUNT 2.59 M/UL (4.20-5.40); RED CELL DISTRIBUTION WIDTH 13.5 % (11.6-14.8); WHITE BLOOD COUNT 15.9 K/UL (4.8-10.8)
[2016-05-11 06:08] LABS: ALANINE AMINOTRANSFERASE 25 U/L (3-33); ANION GAP 19 (5-15); ASPARTATE AMINO TRANSFERASE 26 U/L (5-40); CALCIUM 8.8 mg/dL (8.6-10.2); CARBON DIOXIDE 25 mEQ/L (20-30); CHLORIDE 96 mEQ/L (98-107); CHOLESTEROL 160 mg/dL (< 200); CRP QUANT 18.7 mg/dL (< 0.5); HEMOLYSIS 2; LDL CHOLESTEROL (CALC.) 103 mg/dL (60-99); PHOSPHORUS 5.4 mg/dL (2.5-4.8); POTASSIUM 3.2 mEQ/L (3.4-4.9); SODIUM 140 mEQ/L (135-145); TOTAL PROTEIN 5.7 g/dL (6.6-8.7); URIC ACID 12.7 mg/dL (3.0-7.5)
[2016-05-11 06:20] LABS: THYROID STIMULATING HORMONE 0.383 uIU/mL (0.300-4.500)
[2016-05-11] MEDS: NovoLOG Insulin Flexpen SUBQ SCH ×4 (06:24→20:57)
[2016-05-11 07:24] LABS: HEMOGLOBIN A1C 6.4 % (< 6.0)
[2016-05-11 08:36] VITALS: BP 117/48
--- NOTE | 2016-05-11 09:11 | General Progress Note ---
Assessment/Plan Status: stable Status Narrative Cr Unchanged Assessment/Plan status: Renal failure : Chronic vs Acute? - Acute respiratory distress - Acute on chronic diastolic CHF (congestive heart failure) - Hyperkalemia, on admission, resolved - LBBB (left bundle branch block) - Severe anemia - Purulent bronchitis - Patient is [employer] - Dementia - COPD (chronic obstructive pulmonary disease) Plan: K supplement- Optimize cardiac status- Kidney MISSY- pending Urine eosinophils- stop Vanco, check levels ( 12), will resume 2D Echo pending Urine studies- Per orders epo , folate, Iron Protonix Subjective ROS Limited/Unobtainable: No Constitutional: Reports: other - clinically improved Allergies: Coded Allergies: SPIRONOLACTONE (Unverified Allergy, Intermediate, 05/08/16) Objective Last 24 Hour Vital Signs Date Time Temp Pulse Resp B/P Pulse Ox O2 Delivery O2 Flow Rate FiO2 05/11/16 08:36 97.7 77 19 117/48 97 Nasal Cannula 2.0 05/11/16 07:24 Nasal Cannula 2.0 05/11/16 07:23 98 Nasal Cannula 2.0 05/11/16 04:00 98.0 68 18 120/49 98 Nasal Cannula 2.0 05/11/16 03:36 59 05/11/16 00:00 98.2 58 18 109/44 100 Nasal Cannula 2.0 05/10/16 23:34 59 05/10/16 20:17 97.3 71 18 101/45 97 Nasal Cannula 2.0 05/10/16 20:00 75 05/10/16 19:18 97 Nasal Cannula 2.0 05/10/16 19:18 Nasal Cannula 2.0 05/10/16 16:00 96.6 67 17 101/50 100 Nasal Cannula 2.0 05/10/16 16:00 66 05/10/16 12:00 97.2 69 24 98/43 99 Nasal Cannula 2.0 Intake and Output 05/10/16 05/11/16 19:00 07:00 Intake Total 132 ml 379.5 ml Output Total 600 ml 850 ml Balance -468 ml -470.5 ml Intake Oral 160 ml IV Total 132 ml 219.5 ml Output Urine Total 600 ml 850 ml # Bowel Movements 7 5 Laboratory Tests 05/10/16 23:00: Urine Random Sodium 70 05/11/16 03:50: Urine Eosinophils None seen 05/11/16 04:30: White Blood Count 15.9H, Red Blood Count 2.59L, Hemoglobin 7.2L, Hematocrit 23.3L, Mean Corpuscular Volume 90, Mean Corpuscular Hemoglobin 27.9, Mean Corpuscular Hemoglobin Concent 31.0L, Red Cell Distribution Width 13.5, Platelet Count 249, Mean Platelet Volume 6.3L, Neutrophils (%) (Auto) , Lymphocytes (%) (Auto) , Monocytes (%) (Auto) , Eosinophils (%) (Auto) , Basophils (%) (Auto) , Neutrophils % (Manual) [Pending], Lymphocytes % (Manual) [Pending], Platelet Estimate [Pending], Platelet Morphology [Pending], Prothrombin Time 23.6H, Prothromb Time International Ratio 2.3H, Sodium Level 140, Potassium Level 3.2L, Chloride Level 96L, Carbon Dioxide Level 25, Anion Gap 19H, Blood Urea Nitrogen 81H, Creatinine 3.0H, Estimat Glomerular Filtration Rate , Glucose Level 82, Hemoglobin A1c 6.4H, Uric Acid 12.7H, Calcium Level 8.8, Phosphorus Level 5.4H, Magnesium Level 2.0, Total Bilirubin 0.2, Gamma Glutamyl Transpeptidase 57H, Aspartate Amino Transf (AST/SGOT) 26, Alanine Aminotransferase (ALT/SGPT) 25, Alkaline Phosphatase 79, Total Creatine Kinase 28, C-Reactive Protein, Quantitative 18.7H, Pro-B-Type Natriuretic Peptide 66294N, Total Protein 5.7L, Albumin 2.9L, Globulin 2.8, Albumin/ Globulin Ratio 1.0, Triglycerides Level 85, Cholesterol Level 160, LDL Cholesterol 103H, HDL Cholesterol 40, Cholesterol/HDL Ratio 4.0, Thyroid Stimulating Hormone (TSH) 0.383, Random Vancomycin Level 12.0 Height (Feet): 5 Height (Inches): 2.00 Weight (Pounds): 157 General Appearance: no apparent distress Cardiovascular: normal rate, arrhythmia Respiratory/Chest: decreased breath sounds Abdomen: soft GILLES CUELLAR May 11, 2016 09:11
[2016-05-11] MEDS: Thiamine 100mg tab ORAL SCH (09:42)
[2016-05-11] MEDS: Metolazone 5mg tab ORAL SCH (09:42)
[2016-05-11] MEDS: Amiodarone 200mg tab ORAL SCH (09:43)
[2016-05-11] MEDS: Cefepime HCl 1 GM in D5W 55 ML IV SCH (09:45)
[2016-05-11] MEDS: Vitamin B12 1000mcg/ml Inj SUBQ SCH (09:48)
--- NOTE | 2016-05-11 09:52 | Diagnostic Imaging Report ---
Indication: Acute renal failure Technique: Renal ultrasound Findings: The right kidney measures 9.6 cm in length. The left kidney measures 10.5 cm in length. There is no hydronephrosis. There is cortical thinning of the bilateral kidneys. No sonographically evident stones are seen. The visualized portions of the inferior vena cava are unremarkable. Bladder is collapsed by Sheppard catheter. Impression: No hydronephrosis. Bladder collapsed by Sheppard catheter. Cortical thinning of the bilateral kidneys.
--- NOTE | 2016-05-11 10:15 | Pulmonology Progress Note ---
Assessment/Plan Problems: (1) Acute respiratory distress (2) Acute on chronic diastolic CHF (congestive heart failure) (3) Hyperkalemia (4) LBBB (left bundle branch block) (5) BRENDEN (acute kidney injury) (6) Severe anemia (7) Purulent bronchitis (8) Patient is Baptist (9) Dementia (10) COPD (chronic obstructive pulmonary disease) Assessment/Plan on lasix drip + zaroxyline Responding very well, --[address] abdomen reviewed, large right pleural effusion cxr still not changed increased CEA + Ocult blood GI consult called contineu antibioitcs no cultures available yet cardiolgy note reviewed discussed with pts daughter. Subjective ROS Limited/Unobtainable: No Interval Events: no new complains, still sob Allergies: Coded Allergies: SPIRONOLACTONE (Unverified Allergy, Intermediate, 05/08/16) Objective Last 24 Hour Vital Signs Date Time Temp Pulse Resp B/P Pulse Ox O2 Delivery O2 Flow Rate FiO2 05/11/16 08:36 97.7 77 19 117/48 97 Nasal Cannula 2.0 05/11/16 07:24 Nasal Cannula 2.0 05/11/16 07:23 98 Nasal Cannula 2.0 05/11/16 04:00 98.0 68 18 120/49 98 Nasal Cannula 2.0 05/11/16 03:36 59 05/11/16 00:00 98.2 58 18 109/44 100 Nasal Cannula 2.0 05/10/16 23:34 59 05/10/16 20:17 97.3 71 18 101/45 97 Nasal Cannula 2.0 05/10/16 20:00 75 05/10/16 19:18 97 Nasal Cannula 2.0 05/10/16 19:18 Nasal Cannula 2.0 05/10/16 16:00 96.6 67 17 101/50 100 Nasal Cannula 2.0 05/10/16 16:00 66 05/10/16 12:00 97.2 69 24 98/43 99 Nasal Cannula 2.0 Intake and Output 05/10/16 05/11/16 19:00 07:00 Intake Total 132 ml 379.5 ml Output Total 600 ml 850 ml Balance -468 ml -470.5 ml Intake Oral 160 ml IV Total 132 ml 219.5 ml Output Urine Total 600 ml 850 ml # Bowel Movements 7 5 General Appearance: WD/WN HEENT: normocephalic, atraumatic Respiratory/Chest: accessory muscle use, crackles/rales Cardiovascular: normal peripheral pulses, normal rate Abdomen: normal bowel sounds, soft, non tender Extremities: no cyanosis, no clubbing Skin: no rash, no lesions Neurologic/Psychiatric: emergency department physician II-XII grossly normal, no motor/sensory deficits, normal mood/affect Lymphatic: no groin adenopathy Musculoskeletal: no effusion Microbiology Date/Time Source Procedure Growth Status 05/10/16 05:00 Indwelling Cath Urine Culture - Preliminary NO GROWTH AFTER 24 HOURS Resulted 05/08/16 21:06 Arm Right Blood Culture - Preliminary NO GROWTH AFTER 48 HOURS Resulted 05/08/16 20:56 Arm Right Blood Culture - Preliminary NO GROWTH AFTER 48 HOURS Resulted Laboratory Tests 05/10/16 23:00: Urine Random Sodium 70 05/11/16 03:50: Urine Eosinophils None seen 05/11/16 04:30: White Blood Count 15.9H, Red Blood Count 2.59L, Hemoglobin 7.2L, Hematocrit 23.3L, Mean Corpuscular Volume 90, Mean Corpuscular Hemoglobin 27.9, Mean Corpuscular Hemoglobin Concent 31.0L, Red Cell Distribution Width 13.5, Platelet Count 249, Mean Platelet Volume 6.3L, Neutrophils (%) (Auto) , Lymphocytes (%) (Auto) , Monocytes (%) (Auto) , Eosinophils (%) (Auto) , Basophils (%) (Auto) , Neutrophils % (Manual) [Pending], Lymphocytes % (Manual) [Pending], Platelet Estimate [Pending], Platelet Morphology [Pending], Prothrombin Time 23.6H, Prothromb Time International Ratio 2.3H, Sodium Level 140, Potassium Level 3.2L, Chloride Level 96L, Carbon Dioxide Level 25, Anion Gap 19H, Blood Urea Nitrogen 81H, Creatinine 3.0H, Estimat Glomerular Filtration Rate , Glucose Level 82, Hemoglobin A1c 6.4H, Uric Acid 12.7H, Calcium Level 8.8, Phosphorus Level 5.4H, Magnesium Level 2.0, Total Bilirubin 0.2, Gamma Glutamyl Transpeptidase 57H, Aspartate Amino Transf (AST/SGOT) 26, Alanine Aminotransferase (ALT/SGPT) 25, Alkaline Phosphatase 79, Total Creatine Kinase 28, C-Reactive Protein, Quantitative 18.7H, Pro-B-Type Natriuretic Peptide 78289Y, Total Protein 5.7L, Albumin 2.9L, Globulin 2.8, Albumin/ Globulin Ratio 1.0, Triglycerides Level 85, Cholesterol Level 160, LDL Cholesterol 103H, HDL Cholesterol 40, Cholesterol/HDL Ratio 4.0, Thyroid Stimulating Hormone (TSH) 0.383, Random Vancomycin Level 12.0 Current Medications Medications (Trade) Dose Ordered Sig/Abril Route PRN Reason Start Time Stop Time Status Last Admin Dose Admin Acetaminophen (Tylenol) 650 mg Q4H PRN ORAL fever 05/08/16 23:15 06/07/16 23:14 05/09/16 07:04 Albuterol/ Ipratropium 3 ml 3 ml EVERY 4 HOURS PRN HHN Shortness of Breath 05/08/16 23:15 05/13/16 23:14 05/10/16 03:58 Amiodarone HCl (Cordarone) 200 mg DAILY ORAL 05/10/16 09:00 06/09/16 08:59 05/11/16 09:43 Atorvastatin Calcium (Lipitor) 40 mg BEDTIME ORAL 05/10/16 21:00 06/09/16 20:59 05/10/16 21:20 Cefepime HCl/ Dextrose (Maxipime/D5W) 55 ml @ 110 mls/hr Q24H IV 05/09/16 09:00 05/16/16 08:59 05/11/16 09:45 Cyanocobalamin (Vitamin B12) 1,000 mcg DAILY SUBQ 05/10/16 18:00 05/12/16 09:01 05/11/16 09:48 Dextrose STAT PRN IV Hypoglycemia 05/08/16 23:15 06/07/16 23:14 Epoetin Fish (Procrit (for non ESRD use)) 10,000 units Q48H SUBQ 05/09/16 21:00 06/08/16 20:59 05/09/16 22:07 Folic Acid (Folate) 2 mg DAILY ORAL 05/11/16 09:00 06/10/16 08:59 05/11/16 09:44 Furosemide/ Dextrose (Lasix/D5W) 110 ml @ 11 mls/hr Q10H IV 05/09/16 14:00 06/08/16 13:59 05/11/16 06:10 Insulin Aspart (NovoLOG) BEFORE MEALS AND HS SUBQ 05/09/16 06:30 06/08/16 06:29 05/11/16 06:24 Iron Sucrose/ Sodium Chloride (Venofer/Sodium Chloride) 115 ml @ 460 mls/hr BEDTIME IVPB 05/10/16 21:00 05/13/16 21:14 05/10/16 21:20 Metolazone (Zaroxolyn) 5 mg DAILY ORAL 05/10/16 12:00 06/09/16 11:59 05/11/16 09:42 Nitroglycerin (Ntg) 0.4 mg Q5M PRN SL Prn Chest Pain 05/08/16 23:15 06/07/16 23:14 Ondansetron HCl (Zofran) 4 mg Q6H PRN IVP Nausea & Vomiting 05/08/16 23:15 06/07/16 23:14 Pantoprazole (Protonix) 40 mg EVERY 12 HOURS ORAL 05/10/16 21:00 06/09/16 20:59 05/11/16 09:43 Polyethylene Glycol (Miralax) 17 gm DAILYPRN PRN ORAL Constipation 05/08/16 23:15 06/07/16 23:14 Potassium Chloride (K-Dur) 40 meq TWICE A DAY ORAL 05/11/16 09:15 05/11/16 18:01 05/11/16 09:00 Temazepam (Restoril) 15 mg HSPRN PRN ORAL Insomnia 05/08/16 23:15 05/15/16 23:14 Thiamine HCl (Vitamin B1) 100 mg DAILY ORAL 05/10/16 18:00 06/09/16 17:59 05/11/16 09:42 Vancomycin HCl (Vanco rx to dose) 1 ea DAILY PRN MISC Per rx protocol 05/11/16 09:15 06/10/16 09:14 UNV Warfarin Sodium (Coumadin per pharmacy) 1 ea DAILY PRN MISC Per rx protocol 05/10/16 10:00 06/09/16 09:59 Warfarin Sodium 3 mg 3 mg COUMADIN ORAL 05/10/16 17:00 05/15/16 16:59 05/10/16 17:29 ILIR WALLACE May 11, 2016 10:15
[2016-05-11 10:16] LABS: BAND NEUTROPHILS % (MANUAL) 0 % (0-8); BASOPHILS % (MANUAL) 0 % (0-2); EOSINOPHILS % (MANUAL) 0 % (0-3); HYPOCHROMASIA 1+; LYMPHOCYTES % (MANUAL) 10 % (20-45); NEUTROPHILS % (MANUAL) 85 % (45-75); PLATELET ESTIMATE ADEQUATE; PLATELET MORPHOLOGY NORMAL; TOTAL CELLS COUNTED 100
[2016-05-11 10:17] LABS: POLYCHROMASIA OCCASIONAL
[2016-05-11 11:01] LABS: INR 2.3 (0.9-1.1); PROTHROMBIN TIME 24.1 SEC (9.30-11.50)
[2016-05-11 12:00] VITALS: BP 112/51
[2016-05-11] MEDS ORDERED: Vancomycin 1gm in D5W 275ml IVPB ONE (12:00)
[2016-05-11 16:00] VITALS: BP 114/51
[2016-05-11] MEDS: Warfarin Sodium 3mg ORAL SCH (16:52)
--- NOTE | 2016-05-11 17:11 | Cardiology Progress Note ---
Assessment/Plan Assessment/Plan recommend to change lasix to oral, her BUN and creatinine is creeping up. ordered CXR, will follow Subjective Subjective the patient is lethargic, arousable, c/o cough no chest pain Objective Last 24 Hour Vital Signs Date Time Temp Pulse Resp B/P Pulse Ox O2 Delivery O2 Flow Rate FiO2 05/11/16 16:00 97.7 71 18 114/51 99 Nasal Cannula 2.0 05/11/16 12:00 97.3 84 19 112/51 97 Nasal Cannula 2.0 05/11/16 12:00 84 05/11/16 08:36 97.7 77 19 117/48 97 Nasal Cannula 2.0 05/11/16 08:00 78 05/11/16 07:24 Nasal Cannula 2.0 05/11/16 07:23 98 Nasal Cannula 2.0 05/11/16 04:00 98.0 68 18 120/49 98 Nasal Cannula 2.0 05/11/16 03:36 59 05/11/16 00:00 98.2 58 18 109/44 100 Nasal Cannula 2.0 05/10/16 23:34 59 05/10/16 20:17 97.3 71 18 101/45 97 Nasal Cannula 2.0 05/10/16 20:00 75 05/10/16 19:18 97 Nasal Cannula 2.0 05/10/16 19:18 Nasal Cannula 2.0 General Appearance: moderate distress, lethargic EENT: PERRL/EOMI Neck: no JVD Rhythm: NSR, other - LBBB Cardiovascular: regular rhythm Respiratory/Chest: expiratory wheezing, inspiratory wheezing Abdomen: soft Intake and Output 05/10/16 05/11/16 19:00 07:00 Intake Total 132 ml 390.5 ml Output Total 600 ml 850 ml Balance -468 ml -459.5 ml Intake Oral 160 ml IV Total 132 ml 230.5 ml Output Urine Total 600 ml 850 ml # Bowel Movements 7 5 Laboratory Tests Test 05/10/16 23:00 05/11/16 03:50 05/11/16 04:30 05/11/16 10:30 Urine Random Sodium 70 mmol/L Urine Eosinophils None seen White Blood Count 15.9 K/UL (4.8-10.8) H Red Blood Count 2.59 M/UL (4.20-5.40) L Hemoglobin 7.2 G/DL (12.0-16.0) L Hematocrit 23.3 % (37.0-47.0) L Mean Corpuscular Volume 90 FL (80-99) Mean Corpuscular Hemoglobin 27.9 PG (27.0-31.0) Mean Corpuscular Hemoglobin Concent 31.0 G/DL (32.0-36.0) L Red Cell Distribution Width 13.5 % (11.6-14.8) Platelet Count 249 K/UL (150-450) Mean Platelet Volume 6.3 FL (6.5-10.1) L Neutrophils (%) (Auto) % (45.0-75.0) Lymphocytes (%) (Auto) % (20.0-45.0) Monocytes (%) (Auto) % (1.0-10.0) Eosinophils (%) (Auto) % (0.0-3.0) Basophils (%) (Auto) % (0.0-2.0) Differential Total Cells Counted 100 Neutrophils % (Manual) 85 % (45-75) H Lymphocytes % (Manual) 10 % (20-45) L Monocytes % (Manual) 5 % (1-10) Eosinophils % (Manual) 0 % (0-3) Basophils % (Manual) 0 % (0-2) Band Neutrophils 0 % (0-8) Platelet Estimate Adequate Platelet Morphology Normal Polychromasia Occasional Hypochromasia 1+ Prothrombin Time 23.6 SEC (9.30-11.50) H 24.1 SEC (9.30-11.50) H Prothromb Time International Ratio 2.3 (0.9-1.1) H 2.3 (0.9-1.1) H Sodium Level 140 mEQ/L (135-145) Potassium Level 3.2 mEQ/L (3.4-4.9) L Chloride Level 96 mEQ/L (98-107) L Carbon Dioxide Level 25 mEQ/L (20-30) Anion Gap 19 (5-15) H Blood Urea Nitrogen 81 mg/dL (7-23) H Creatinine 3.0 mg/dL (0.5-0.9) H Estimat Glomerular Filtration Rate mL/min (>60) Glucose Level 82 mg/dL (74-106) Hemoglobin A1c 6.4 % (< 6.0) H Uric Acid 12.7 mg/dL (3.0-7.5) H Calcium Level 8.8 mg/dL (8.6-10.2) Phosphorus Level 5.4 mg/dL (2.5-4.8) H Magnesium Level 2.0 mg/dL (1.7-2.5) Total Bilirubin 0.2 mg/dL (0.0-1.2) Gamma Glutamyl Transpeptidase 57 U/L (5-36) H Aspartate Amino Transf (AST/SGOT) 26 U/L (5-40) Alanine Aminotransferase (ALT/SGPT) 25 U/L (3-33) Alkaline Phosphatase 79 U/L (35-104) Total Creatine Kinase 28 U/L (26-140) C-Reactive Protein, Quantitative 18.7 mg/dL (< 0.5) H Pro-B-Type Natriuretic Peptide 52835 pg/mL (0-450) H Total Protein 5.7 g/dL (6.6-8.7) L Albumin 2.9 g/dL (3.5-5.2) L Globulin 2.8 g/dL Albumin/Globulin Ratio 1.0 (1.0-2.7) Triglycerides Level 85 mg/dL (< 150) Cholesterol Level 160 mg/dL (< 200) LDL Cholesterol 103 mg/dL (60-99) H HDL Cholesterol 40 mg/dL (> 60) Cholesterol/HDL Ratio 4.0 (3.3-4.4) Thyroid Stimulating Hormone (TSH) 0.383 uIU/mL (0.300-4.500) Random Vancomycin Level 12.0 ug/mL Activated Partial Thromboplast Time 39 SEC (23-33) H Microbiology Date/Time Source Procedure Growth Status 05/10/16 05:00 Indwelling Cath Urine Culture - Preliminary NO GROWTH AFTER 24 HOURS Resulted 05/08/16 21:06 Arm Right Blood Culture - Preliminary NO GROWTH AFTER 48 HOURS Resulted 05/08/16 20:56 Arm Right Blood Culture - Preliminary NO GROWTH AFTER 48 HOURS Resulted KARINE MEJIA May 11, 2016 17:11
[2016-05-11 20:00] VITALS: BP 110/50
--- NOTE | 2016-05-11 20:11 | General Progress Note ---
Assessment/Plan Assessment/Plan Assessment - OB (+) - Iron deficiency anemia - elevated CEA - CAD / CABG - MVR - HTN - h/o DVT - reactive airways - PVD Recommendations - follow CBC - no transfusion ([place]hova) - PPI - endoscopy and/or colonoscopy when stable Subjective Allergies: Coded Allergies: SPIRONOLACTONE (Unverified Allergy, Intermediate, 05/08/16) Objective Last 24 Hour Vital Signs Date Time Temp Pulse Resp B/P Pulse Ox O2 Delivery O2 Flow Rate FiO2 05/11/16 16:20 74 05/11/16 16:00 97.7 71 18 114/51 99 Nasal Cannula 2.0 05/11/16 12:00 97.3 84 19 112/51 97 Nasal Cannula 2.0 05/11/16 12:00 84 05/11/16 08:36 97.7 77 19 117/48 97 Nasal Cannula 2.0 05/11/16 08:00 78 05/11/16 07:24 Nasal Cannula 2.0 05/11/16 07:23 98 Nasal Cannula 2.0 05/11/16 04:00 98.0 68 18 120/49 98 Nasal Cannula 2.0 05/11/16 03:36 59 05/11/16 00:00 98.2 58 18 109/44 100 Nasal Cannula 2.0 05/10/16 23:34 59 05/10/16 20:17 97.3 71 18 101/45 97 Nasal Cannula 2.0 Intake and Output 05/10/16 05/11/16 19:00 07:00 Intake Total 132 ml 390.5 ml Output Total 600 ml 850 ml Balance -468 ml -459.5 ml Intake Oral 160 ml IV Total 132 ml 230.5 ml Output Urine Total 600 ml 850 ml # Bowel Movements 7 5 Laboratory Tests 05/10/16 23:00: Urine Random Sodium 70 05/11/16 03:50: Urine Eosinophils None seen 05/11/16 04:30: White Blood Count 15.9H, Red Blood Count 2.59L, Hemoglobin 7.2L, Hematocrit 23.3L, Mean Corpuscular Volume 90, Mean Corpuscular Hemoglobin 27.9, Mean Corpuscular Hemoglobin Concent 31.0L, Red Cell Distribution Width 13.5, Platelet Count 249, Mean Platelet Volume 6.3L, Neutrophils (%) (Auto) , Lymphocytes (%) (Auto) , Monocytes (%) (Auto) , Eosinophils (%) (Auto) , Basophils (%) (Auto) , Differential Total Cells Counted 100, Neutrophils % ( Manual) 85H, Lymphocytes % (Manual) 10L, Monocytes % (Manual) 5, Eosinophils % ( Manual) 0, Basophils % (Manual) 0, Band Neutrophils 0, Platelet Estimate Adequate, Platelet Morphology Normal, Polychromasia Occasional, Hypochromasia 1+ , Prothrombin Time 23.6H, Prothromb Time International Ratio 2.3H, Sodium Level 140, Potassium Level 3.2L, Chloride Level 96L, Carbon Dioxide Level 25, Anion Gap 19H, Blood Urea Nitrogen 81H, Creatinine 3.0H, Estimat Glomerular Filtration Rate , Glucose Level 82, Hemoglobin A1c 6.4H, Uric Acid 12.7H, Calcium Level 8.8, Phosphorus Level 5.4H, Magnesium Level 2.0, Total Bilirubin 0.2, Gamma Glutamyl Transpeptidase 57H, Aspartate Amino Transf (AST/SGOT) 26, Alanine Aminotransferase (ALT/SGPT) 25, Alkaline Phosphatase 79, Total Creatine Kinase 28, C-Reactive Protein, Quantitative 18.7H, Pro-B-Type Natriuretic Peptide 61629D, Total Protein 5.7L, Albumin 2.9L, Globulin 2.8, Albumin/ Globulin Ratio 1.0, Triglycerides Level 85, Cholesterol Level 160, LDL Cholesterol 103H, HDL Cholesterol 40, Cholesterol/HDL Ratio 4.0, Thyroid Stimulating Hormone (TSH) 0.383, Random Vancomycin Level 12.0 05/11/16 10:30: Prothrombin Time 24.1H, Prothromb Time International Ratio 2.3H, Activated Partial Thromboplast Time 39H Height (Feet): 5 Height (Inches): 2.00 Weight (Pounds): 157 Objective Elderly woman NCAT supple chest b/l wheeze and ronchi RR obese soft NT abd no edema GUILLE GOETZ May 11, 2016 20:11
[2016-05-11] MEDS: Iron Sucrose 100 MG in NS 110 ML IVPB SCH (20:53)
[2016-05-11] MEDS: Epogen (for non ESRD use) SUBQ SCH (20:58)
[2016-05-12] VITALS: BP 93/44
[2016-05-12 04:00] VITALS: BP 117/56
[2016-05-12 05:21] LABS: INR 2.3 (0.9-1.1); PROTHROMBIN TIME 23.9 SEC (9.30-11.50)
[2016-05-12] MEDS: NovoLOG Insulin Flexpen SUBQ SCH ×4 (06:00→21:20)
[2016-05-12] MEDS: DuoNeb 0.5-3(2.5)mg/3ml neb HHN PRN ×2 (06:37→21:58)
--- NOTE | 2016-05-12 06:39 | Consultation ---
DATE OF CONSULTATION: 05/11/2016 NOTE: POOR AUDIO QUALITY GASTROENTEROLOGY CONSULTATION CHIEF COMPLAINT: I was asked to see this patient for evaluation of anemia and heme-positive stools. HISTORY OF PRESENT ILLNESS: The patient is a debilitated 85-year-old woman with a history of COPD and is oxygen dependent and heart failure who was brought in the hospital due to shortness of breath. The patient has been seen by pulmonary and cardiology services . She is minimally interactive and the family is at bedside. She was found to have heme-positive stools, iron-deficient anemia, and elevated CEA. There are no reports of any endoscopy or colonoscopy . PAST MEDICAL HISTORY: History of diastolic congestive heart failure, COPD, diabetes, dementia, history of anemia, history of coronary artery disease, status post bypass procedure in May 2015, hypertension, and history of deep vein thrombosis. FAMILY HISTORY: Noncontributory. SOCIAL HISTORY: The patient lives . REVIEW OF SYSTEMS: Otherwise unobtainable. PHYSICAL EXAMINATION: GENERAL: Debilitated white woman who is coughing, on oxygen, in no distress. HEENT: Normocephalic and atraumatic. Sclerae are anicteric. Oropharynx is clear. Dentition is poor. NECK: Supple. CHEST: Revealed scattered wheezes and rhonchi. CARDIOVASCULAR: Revealed regular rate. ABDOMEN: Obese and soft. Good bowel sounds. There is no organomegaly. EXTREMITIES: Revealed no edema. LABORATORY DATA: Noted. ASSESSMENT: This patient presents with anemia and heme-positive stools as well as iron deficiency and elevated CEA, all of which point to possible malignancy or significant lesion in the upper gastrointestinal or lower gastrointestinal tract. However, the patient has oxygen-dependent COPD and she is having congestion. Therefore, stabilized . At that time, can be made to proceed with endoscopy, colonoscopy the patient has overall poor health. once the patient has improved. RECOMMENDATIONS: 1. Supportive care. 2. Oral intake as tolerated. 3. Continue to monitor CBC. 4. Possible endoscopy or colonoscopy once stabilized. Thank you for asking me to participate in the care of this patient. Aliyah Castelan M.D. DR: MISA JOB#: [id number] CC:
[2016-05-12 08:00] VITALS: BP 113/50
[2016-05-12] MEDS: Vitamin B12 1000mcg/ml Inj SUBQ SCH (09:24)
[2016-05-12] MEDS: Amiodarone 200mg tab ORAL SCH (09:24)
[2016-05-12] MEDS: Metolazone 5mg tab ORAL SCH (09:25)
[2016-05-12] MEDS: Thiamine 100mg tab ORAL SCH (09:25)
[2016-05-12] MEDS: Cefepime HCl 1 GM in D5W 55 ML IV SCH (09:28)
--- NOTE | 2016-05-12 10:44 | Infectious Diseases Prog Note ---
Assessment/Plan Assessment/Plan ASSESSMENT: 85 y/o female with: // Possible CAP - unable to produce sputum, legionella UAg pending - CXR: pending // Leukocytosis - improved , afebrile. Cultures NGTD // Acute on chronic diastolic CHF exacerbation - trop(-) x1, elevated BNP // O2-dependent COPD // Elevated LFTs - resolved // ARF - worse // Severe normocytic anemia - Hgb stable - Cheondoism, no blood products // Elevated CEA // DM2 // Dementia // No ABX allergies // Full Code PLAN: - continue empiric IV vancomycin, cefepime d# 4 - f/u cultures - f/u CT A/P - monitor CBC, temperatures - monitor BMP - monitor CXR - diuresis Subjective Constitutional: Denies: anorexia, chills, drenching sweats, fatigue, fever, no symptoms, other Allergies: Coded Allergies: SPIRONOLACTONE (Unverified Allergy, Intermediate, 05/08/16) Objective Vital Signs Last 24 Hour Vital Signs Date Time Temp Pulse Resp B/P Pulse Ox O2 Delivery O2 Flow Rate FiO2 05/12/16 08:00 96.9 70 19 113/50 99 Nasal Cannula 2.0 05/12/16 08:00 64 05/12/16 07:04 Nasal Cannula 2.0 28 05/12/16 07:04 98 Nasal Cannula 2.0 28 05/12/16 06:30 68 20 100 Nasal Cannula 2.0 28 05/12/16 06:25 64 20 99 Nasal Cannula 2.0 28 05/12/16 04:00 97.5 64 20 117/56 100 Nasal Cannula 2.0 05/12/16 04:00 66 05/12/16 00:00 70 05/12/16 00:00 97.7 67 20 93/44 100 Nasal Cannula 2.0 05/11/16 20:00 71 05/11/16 20:00 97.8 69 19 110/50 95 Nasal Cannula 2.0 05/11/16 19:53 98 Nasal Cannula 2.0 28 05/11/16 19:53 Nasal Cannula 2.0 28 05/11/16 16:20 74 05/11/16 16:00 97.7 71 18 114/51 99 Nasal Cannula 2.0 05/11/16 12:00 97.3 84 19 112/51 97 Nasal Cannula 2.0 05/11/16 12:00 84 Height (Feet): 5 Height (Inches): 2.00 Weight (Pounds): 157 HEENT: atraumatic Respiratory/Chest: lungs clear Cardiovascular: regular rhythm Abdomen: no organomegaly Microbiology Date/Time Source Procedure Growth Status 05/10/16 05:00 Indwelling Cath Urine Culture - Final NO GROWTH AFTER 48 HOURS Complete Laboratory Tests Test 05/12/16 03:55 05/12/16 04:00 Prothrombin Time 23.9 SEC (9.30-11.50) H Prothromb Time International Ratio 2.3 (0.9-1.1) H Urine Eosinophils None seen Current Medications Medications (Trade) Dose Ordered Sig/Abril Route PRN Reason Start Time Stop Time Status Last Admin Dose Admin Acetaminophen (Tylenol) 650 mg Q4H PRN ORAL fever 05/08/16 23:15 06/07/16 23:14 05/09/16 07:04 Albuterol/ Ipratropium 3 ml 3 ml EVERY 4 HOURS PRN HHN Shortness of Breath 05/08/16 23:15 05/13/16 23:14 05/12/16 06:37 Amiodarone HCl (Cordarone) 200 mg DAILY ORAL 05/10/16 09:00 06/09/16 08:59 05/12/16 09:24 Atorvastatin Calcium (Lipitor) 40 mg BEDTIME ORAL 05/10/16 21:00 06/09/16 20:59 05/11/16 20:54 Cefepime HCl/ Dextrose (Maxipime/D5W) 55 ml @ 110 mls/hr Q24H IV 05/09/16 09:00 05/16/16 08:59 05/12/16 09:28 Dextrose STAT PRN IV Hypoglycemia 05/08/16 23:15 06/07/16 23:14 Epoetin Fish (Procrit (for non ESRD use)) 10,000 units Q48H SUBQ 05/09/16 21:00 06/08/16 20:59 05/11/16 20:58 Folic Acid (Folate) 2 mg DAILY ORAL 05/11/16 09:00 06/10/16 08:59 05/12/16 09:25 Furosemide/ Dextrose (Lasix/D5W) 110 ml @ 11 mls/hr Q10H IV 05/09/16 14:00 06/08/16 13:59 05/12/16 01:07 Insulin Aspart (NovoLOG) BEFORE MEALS AND HS SUBQ 05/09/16 06:30 06/08/16 06:29 05/12/16 06:00 Iron Sucrose/ Sodium Chloride (Venofer/Sodium Chloride) 115 ml @ 460 mls/hr BEDTIME IVPB 05/10/16 21:00 05/13/16 21:14 05/11/16 20:53 Metolazone (Zaroxolyn) 5 mg DAILY ORAL 05/10/16 12:00 06/09/16 11:59 05/12/16 09:25 Nitroglycerin (Ntg) 0.4 mg Q5M PRN SL Prn Chest Pain 05/08/16 23:15 06/07/16 23:14 Ondansetron HCl (Zofran) 4 mg Q6H PRN IVP Nausea & Vomiting 05/08/16 23:15 06/07/16 23:14 Pantoprazole (Protonix) 40 mg EVERY 12 HOURS ORAL 05/10/16 21:00 06/09/16 20:59 05/12/16 09:24 Polyethylene Glycol (Miralax) 17 gm DAILYPRN PRN ORAL Constipation 05/08/16 23:15 06/07/16 23:14 Temazepam (Restoril) 15 mg HSPRN PRN ORAL Insomnia 05/08/16 23:15 05/15/16 23:14 Thiamine HCl (Vitamin B1) 100 mg DAILY ORAL 05/10/16 18:00 06/09/16 17:59 05/12/16 09:25 Vancomycin HCl (Vanco rx to dose) 1 ea DAILY PRN MISC Per rx protocol 05/11/16 09:15 06/10/16 09:14 Warfarin Sodium (Coumadin per pharmacy) 1 ea DAILY PRN MISC Per rx protocol 05/10/16 10:00 06/09/16 09:59 Warfarin Sodium 3 mg 3 mg COUMADIN ORAL 05/10/16 17:00 05/15/16 16:59 05/11/16 16:52 LULU PIEDRA M.D. May 12, 2016 10:44
[2016-05-12 12:00] VITALS: BP 118/47
--- NOTE | 2016-05-12 12:12 | General Progress Note ---
Assessment/Plan Status: unchanged Assessment/Plan status: Renal failure : Chronic vs Acute? - Acute respiratory distress - Acute on chronic diastolic CHF (congestive heart failure) - Hyperkalemia, on admission, resolved - LBBB (left bundle branch block) - Severe anemia - Purulent bronchitis - Patient is Shinto - Dementia - COPD (chronic obstructive pulmonary disease) Plan: no labs today- K supplement- as needed Optimize cardiac status- Kidney MISSY- no hydro- cortical thinning-normal size- Urine eosinophils- stop Vanco, check levels ( 12), will resume 2D Echo pending Urine studies- Per orders epo , folate, Iron Protonix Subjective ROS Limited/Unobtainable: No Constitutional: Reports: malaise Allergies: Coded Allergies: SPIRONOLACTONE (Unverified Allergy, Intermediate, 05/08/16) Objective Last 24 Hour Vital Signs Date Time Temp Pulse Resp B/P Pulse Ox O2 Delivery O2 Flow Rate FiO2 05/12/16 08:00 96.9 70 19 113/50 99 Nasal Cannula 2.0 05/12/16 08:00 64 05/12/16 07:04 Nasal Cannula 2.0 28 05/12/16 07:04 98 Nasal Cannula 2.0 28 05/12/16 06:30 68 20 100 Nasal Cannula 2.0 28 05/12/16 06:25 64 20 99 Nasal Cannula 2.0 28 05/12/16 04:00 97.5 64 20 117/56 100 Nasal Cannula 2.0 05/12/16 04:00 66 05/12/16 00:00 70 05/12/16 00:00 97.7 67 20 93/44 100 Nasal Cannula 2.0 05/11/16 20:00 71 05/11/16 20:00 97.8 69 19 110/50 95 Nasal Cannula 2.0 05/11/16 19:53 98 Nasal Cannula 2.0 28 05/11/16 19:53 Nasal Cannula 2.0 28 05/11/16 16:20 74 05/11/16 16:00 97.7 71 18 114/51 99 Nasal Cannula 2.0 Intake and Output 05/11/16 05/12/16 19:00 07:00 Intake Total 654.416 ml 286 ml Output Total 400 ml 600 ml Balance 254.416 ml -314 ml Intake Oral 100 ml 50 ml IV Total 554.416 ml 236 ml Output Urine Total 400 ml 600 ml # Bowel Movements 5 1 Laboratory Tests 05/12/16 03:55: Prothrombin Time 23.9H, Prothromb Time International Ratio 2.3H 05/12/16 04:00: Urine Eosinophils None seen Height (Feet): 5 Height (Inches): 2.00 Weight (Pounds): 157 General Appearance: no apparent distress Cardiovascular: normal rate, arrhythmia Respiratory/Chest: decreased breath sounds Abdomen: soft Objective other physical exam not changed GILLES CUELLAR May 12, 2016 12:12
--- NOTE | 2016-05-12 12:16 | Diagnostic Imaging Report ---
Clinical history: Shortness of breath Technique: Portable AP chest radiograph was obtained. Comparison: 05/10/16. Findings: There is interval worsening of right-sided aeration with increasing confluent patchy and interstitial opacities compatible with worsening pulmonary edema or multifocal pneumonia. Post cardiothoracic surgical changes noted. There is otherwise no significant interval change in the interval, allowing for differences in technique and positioning. Impression: Cardiomegaly with increasing airspace opacities compatible with worsening pulmonary edema and/or multifocal pneumonia. Small pleural effusions noted, right greater than left.
--- NOTE | 2016-05-12 12:19 | Pulmonology Progress Note ---
Assessment/Plan Problems: (1) Acute respiratory distress (2) Acute on chronic diastolic CHF (congestive heart failure) (3) Hyperkalemia (4) LBBB (left bundle branch block) (5) BRENDEN (acute kidney injury) (6) Severe anemia (7) Purulent bronchitis (8) Patient is Baptist (9) Dementia (10) COPD (chronic obstructive pulmonary disease) Assessment/Plan on lasix drip + zaroxyline Responding very well, --[address] abdomen reviewed, large right pleural effusion increased CEA + Ocult blood GI consult called contineu antibioitcs no cultures available yet cardiolgy note reviewed discussed with pts grand daughter. Subjective ROS Limited/Unobtainable: No Interval Events: still short of breath Constitutional: Reports: no symptoms HEENT: Repors: no symptoms Respiratory: Reports: no symptoms Allergies: Coded Allergies: SPIRONOLACTONE (Unverified Allergy, Intermediate, 05/08/16) Objective Last 24 Hour Vital Signs Date Time Temp Pulse Resp B/P Pulse Ox O2 Delivery O2 Flow Rate FiO2 05/12/16 08:00 96.9 70 19 113/50 99 Nasal Cannula 2.0 05/12/16 08:00 64 05/12/16 07:04 Nasal Cannula 2.0 28 05/12/16 07:04 98 Nasal Cannula 2.0 28 05/12/16 06:30 68 20 100 Nasal Cannula 2.0 28 05/12/16 06:25 64 20 99 Nasal Cannula 2.0 28 05/12/16 04:00 97.5 64 20 117/56 100 Nasal Cannula 2.0 05/12/16 04:00 66 05/12/16 00:00 70 05/12/16 00:00 97.7 67 20 93/44 100 Nasal Cannula 2.0 05/11/16 20:00 71 05/11/16 20:00 97.8 69 19 110/50 95 Nasal Cannula 2.0 05/11/16 19:53 98 Nasal Cannula 2.0 28 05/11/16 19:53 Nasal Cannula 2.0 28 05/11/16 16:20 74 05/11/16 16:00 97.7 71 18 114/51 99 Nasal Cannula 2.0 Intake and Output 05/11/16 05/12/16 19:00 07:00 Intake Total 654.416 ml 286 ml Output Total 400 ml 600 ml Balance 254.416 ml -314 ml Intake Oral 100 ml 50 ml IV Total 554.416 ml 236 ml Output Urine Total 400 ml 600 ml # Bowel Movements 5 1 General Appearance: WD/WN HEENT: normocephalic, atraumatic Respiratory/Chest: chest wall non-tender, lungs clear Cardiovascular: normal peripheral pulses, normal rate Abdomen: normal bowel sounds, soft, non tender Extremities: no cyanosis, no clubbing Skin: no rash 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, no motor/sensory deficits Lymphatic: no neck adenopathy Microbiology Date/Time Source Procedure Growth Status 05/10/16 05:00 Indwelling Cath Urine Culture - Final NO GROWTH AFTER 48 HOURS Complete Laboratory Tests 05/12/16 03:55: Prothrombin Time 23.9H, Prothromb Time International Ratio 2.3H 05/12/16 04:00: Urine Eosinophils None seen Current Medications Medications (Trade) Dose Ordered Sig/Abril Route PRN Reason Start Time Stop Time Status Last Admin Dose Admin Acetaminophen (Tylenol) 650 mg Q4H PRN ORAL fever 05/08/16 23:15 06/07/16 23:14 05/09/16 07:04 Albuterol/ Ipratropium 3 ml 3 ml EVERY 4 HOURS PRN HHN Shortness of Breath 05/08/16 23:15 05/13/16 23:14 05/12/16 06:37 Amiodarone HCl (Cordarone) 200 mg DAILY ORAL 05/10/16 09:00 06/09/16 08:59 05/12/16 09:24 Atorvastatin Calcium (Lipitor) 40 mg BEDTIME ORAL 05/10/16 21:00 06/09/16 20:59 05/11/16 20:54 Cefepime HCl/ Dextrose (Maxipime/D5W) 55 ml @ 110 mls/hr Q24H IV 05/09/16 09:00 05/16/16 08:59 05/12/16 09:28 Dextrose STAT PRN IV Hypoglycemia 05/08/16 23:15 06/07/16 23:14 Epoetin Fish (Procrit (for non ESRD use)) 10,000 units Q48H SUBQ 05/09/16 21:00 06/08/16 20:59 05/11/16 20:58 Folic Acid (Folate) 2 mg DAILY ORAL 05/11/16 09:00 06/10/16 08:59 05/12/16 09:25 Furosemide/ Dextrose (Lasix/D5W) 110 ml @ 11 mls/hr Q10H IV 05/09/16 14:00 06/08/16 13:59 05/12/16 11:57 Insulin Aspart (NovoLOG) BEFORE MEALS AND HS SUBQ 05/09/16 06:30 06/08/16 06:29 05/12/16 06:00 Iron Sucrose/ Sodium Chloride (Venofer/Sodium Chloride) 115 ml @ 460 mls/hr BEDTIME IVPB 05/10/16 21:00 05/13/16 21:14 05/11/16 20:53 Metolazone (Zaroxolyn) 5 mg DAILY ORAL 05/10/16 12:00 06/09/16 11:59 05/12/16 09:25 Nitroglycerin (Ntg) 0.4 mg Q5M PRN SL Prn Chest Pain 05/08/16 23:15 06/07/16 23:14 Ondansetron HCl (Zofran) 4 mg Q6H PRN IVP Nausea & Vomiting 05/08/16 23:15 06/07/16 23:14 Pantoprazole (Protonix) 40 mg EVERY 12 HOURS ORAL 05/10/16 21:00 06/09/16 20:59 05/12/16 09:24 Polyethylene Glycol (Miralax) 17 gm DAILYPRN PRN ORAL Constipation 05/08/16 23:15 06/07/16 23:14 Temazepam (Restoril) 15 mg HSPRN PRN ORAL Insomnia 05/08/16 23:15 05/15/16 23:14 Thiamine HCl (Vitamin B1) 100 mg DAILY ORAL 05/10/16 18:00 06/09/16 17:59 05/12/16 09:25 Vancomycin HCl (Vanco rx to dose) 1 ea DAILY PRN MISC Per rx protocol 05/11/16 09:15 06/10/16 09:14 Warfarin Sodium (Coumadin per pharmacy) 1 ea DAILY PRN MISC Per rx protocol 05/10/16 10:00 06/09/16 09:59 Warfarin Sodium 3 mg 3 mg COUMADIN ORAL 05/10/16 17:00 05/15/16 16:59 05/11/16 16:52 ILIR WALLACE May 12, 2016 12:19
--- NOTE | 2016-05-12 15:35 | General Progress Note ---
Assessment/Plan Assessment/Plan Assessment - OB (+) - Iron deficiency anemia - elevated CEA - CAD / CABG - MVR - HTN - h/o DVT - reactive airways - PVD Recommendations - follow CBC - no transfusion (Simonhocristofer) - PPI - endoscopy and/or colonoscopy when stable Subjective Allergies: Coded Allergies: SPIRONOLACTONE (Unverified Allergy, Intermediate, 05/08/16) Subjective Feels OK no new symptoms Objective Last 24 Hour Vital Signs Date Time Temp Pulse Resp B/P Pulse Ox O2 Delivery O2 Flow Rate FiO2 05/12/16 12:00 97.2 69 20 118/47 100 Nasal Cannula 2.5 05/12/16 12:00 71 05/12/16 08:00 96.9 70 19 113/50 99 Nasal Cannula 2.0 05/12/16 08:00 64 05/12/16 07:04 Nasal Cannula 2.0 28 05/12/16 07:04 98 Nasal Cannula 2.0 28 05/12/16 06:30 68 20 100 Nasal Cannula 2.0 28 05/12/16 06:25 64 20 99 Nasal Cannula 2.0 28 05/12/16 04:00 97.5 64 20 117/56 100 Nasal Cannula 2.0 05/12/16 04:00 66 05/12/16 00:00 70 05/12/16 00:00 97.7 67 20 93/44 100 Nasal Cannula 2.0 05/11/16 20:00 71 05/11/16 20:00 97.8 69 19 110/50 95 Nasal Cannula 2.0 05/11/16 19:53 98 Nasal Cannula 2.0 28 05/11/16 19:53 Nasal Cannula 2.0 28 05/11/16 16:20 74 05/11/16 16:00 97.7 71 18 114/51 99 Nasal Cannula 2.0 Intake and Output 05/11/16 05/12/16 19:00 07:00 Intake Total 654.416 ml 297 ml Output Total 400 ml 600 ml Balance 254.416 ml -303 ml Intake Oral 100 ml 50 ml IV Total 554.416 ml 247 ml Output Urine Total 400 ml 600 ml # Bowel Movements 5 1 Laboratory Tests 05/12/16 03:55: Prothrombin Time 23.9H, Prothromb Time International Ratio 2.3H 05/12/16 04:00: Urine Eosinophils None seen Height (Feet): 5 Height (Inches): 2.00 Weight (Pounds): 157 Objective Elderly woman NCAT supple chest b/l wheeze and ronchi RR obese soft NT abd no edema GUILLE GOETZ May 12, 2016 15:35
[2016-05-12 16:00] VITALS: BP 107/67
--- NOTE | 2016-05-12 16:48 | Cardiology Progress Note ---
Assessment/Plan Assessment/Plan respiratory insufficiency asthma CHF hypokalemia severe anemia kidney disease will f/u CXr replace KI Subjective Subjective sleeping, more comfortable less dyspnea Objective Last 24 Hour Vital Signs Date Time Temp Pulse Resp B/P Pulse Ox O2 Delivery O2 Flow Rate FiO2 05/12/16 16:00 98.2 62 19 107/67 98 Nasal Cannula 2.0 05/12/16 12:00 97.2 69 20 118/47 100 Nasal Cannula 2.5 05/12/16 12:00 71 05/12/16 08:00 96.9 70 19 113/50 99 Nasal Cannula 2.0 05/12/16 08:00 64 05/12/16 07:04 Nasal Cannula 2.0 28 05/12/16 07:04 98 Nasal Cannula 2.0 28 05/12/16 06:30 68 20 100 Nasal Cannula 2.0 28 05/12/16 06:25 64 20 99 Nasal Cannula 2.0 28 05/12/16 04:00 97.5 64 20 117/56 100 Nasal Cannula 2.0 05/12/16 04:00 66 05/12/16 00:00 70 05/12/16 00:00 97.7 67 20 93/44 100 Nasal Cannula 2.0 05/11/16 20:00 71 05/11/16 20:00 97.8 69 19 110/50 95 Nasal Cannula 2.0 05/11/16 19:53 98 Nasal Cannula 2.0 28 05/11/16 19:53 Nasal Cannula 2.0 28 General Appearance: mild distress EENT: PERRL/EOMI Rhythm: NSR Cardiovascular: normal rate Respiratory/Chest: expiratory wheezing Abdomen: non tender Extremities: no swelling Intake and Output 05/11/16 05/12/16 19:00 07:00 Intake Total 654.416 ml 297 ml Output Total 400 ml 600 ml Balance 254.416 ml -303 ml Intake Oral 100 ml 50 ml IV Total 554.416 ml 247 ml Output Urine Total 400 ml 600 ml # Bowel Movements 5 1 Laboratory Tests Test 05/12/16 03:55 05/12/16 04:00 Prothrombin Time 23.9 SEC (9.30-11.50) H Prothromb Time International Ratio 2.3 (0.9-1.1) H Urine Eosinophils None seen Microbiology Date/Time Source Procedure Growth Status 05/10/16 05:00 Indwelling Cath Urine Culture - Final NO GROWTH AFTER 48 HOURS Complete KARINE MEJIA May 12, 2016 16:48
[2016-05-12] MEDS ORDERED: Tubing IV Secondary IV ONE (17:36)
[2016-05-12] MEDS ORDERED: NS 275ml ONE ×2 (17:36→22:31)
[2016-05-12] MEDS: Furosemide 40mg tab ORAL SCH (17:37)
[2016-05-12] MEDS: Warfarin Sodium 3mg ORAL SCH (17:37)
[2016-05-12 20:00] VITALS: BP 106/68
--- NOTE | 2016-05-12 20:20 | Cardiology Report ---
APPROVED REPORT EXAM: Two-dimensional and M-mode echocardiogram with Doppler and color Doppler. INDICATION Arrhythmia M-Mode DIMENSIONS IVSd.9 (0.7-1.1cm)Left Atrium (MM)5.5 (1.6-4.0cm) LVDd6.5 (3.5-5.6cm)Aortic Root1.6 (2.0-3.7cm) PWd1.0 (0.7-1.1cm)Aortic Cusp Exc.1.5 (1.5-2.0cm) IVSs1.3 cm LVDs5.2 (2.5-4.0cm) PWs1.4 cm Technically difficult study due to poor acoustic windows. Study quality precludes accurate assessment of regional wall motion. Global left ventricular hypokinesis.best motion in infer and anterolateral muniz Left ventricular ejection fraction estimated to be 30-35 %. No evidence of ventricular hypertrophy. Anterior Echo-free space, may be due to pericardial fat or effusion. No evidence of pericardial effusion. Mild right ventricular enlargement. Mild left ventricular enlargement. Left ventricle D-shape, consistent with right ventricle overload pattern. Left atrial chamber size is within normal limits. Right atrial chamber size is within normal limits. Mitral bioprosthesis is noted Aortic root calcification. Pulmonic valve not well visualized. Normal tricuspid valve structure. IVC dilated at 1.6 cm with minimal physiologic collapse. A color flow and spectral Doppler study was performed and revealed: Trace aortic regurgitation. Mild mitral regurgitation.Mitral valve area by presssure halffiem ei sestimated at 1.9 cm2. Mitral inflow velocities non diagnostic Severe tricuspid regurgitation. Tricuspid systolic velocities suggests peak right ventricular systolic pressure of 55-60 mmHg, consistent with moderate pulmonary hypertension. Moderate pulmonic regurgitation present.
[2016-05-12] MEDS: Iron Sucrose 100 MG in NS 110 ML IVPB SCH (21:11)
[2016-05-13] VITALS: BP 110/75
[2016-05-13 04:00] VITALS: BP 119/46
[2016-05-13] MEDS: DuoNeb 0.5-3(2.5)mg/3ml neb HHN PRN (04:32)
[2016-05-13 05:10] LABS: MEAN CORPUSCULAR HEMOGLOBIN 28.2 PG (27.0-31.0); MEAN CORPUSCULAR HGB CONC 31.6 G/DL (32.0-36.0); MEAN CORPUSCULAR VOLUME 89 FL (80-99); MEAN PLATELET VOLUME 5.6 FL (6.5-10.1); PLATELET COUNT 289 K/UL (150-450); RED BLOOD COUNT 2.75 M/UL (4.20-5.40); RED CELL DISTRIBUTION WIDTH 13.9 % (11.6-14.8); WHITE BLOOD COUNT 16.4 K/UL (4.8-10.8)
[2016-05-13] MEDS: NovoLOG Insulin Flexpen SUBQ SCH ×4 (06:25→21:27)
[2016-05-13 06:57] LABS: ALANINE AMINOTRANSFERASE 28 U/L (3-33); ALBUMIN/GLOBULIN RATIO 0.9 (1.0-2.7); ANION GAP 17 (5-15); ASPARTATE AMINO TRANSFERASE 34 U/L (5-40); CALCIUM 9.1 mg/dL (8.6-10.2); CARBON DIOXIDE 25 mEQ/L (20-30); CHLORIDE 96 mEQ/L (98-107); CREATININE 2.7 mg/dL (0.5-0.9); CRP QUANT 12.4 mg/dL (< 0.5); HEMOLYSIS 8; MAGNESIUM 1.9 mg/dL (1.7-2.5); PHOSPHORUS 3.4 mg/dL (2.5-4.8); POTASSIUM 4.8 mEQ/L (3.4-4.9); SODIUM 138 mEQ/L (135-145); TOTAL PROTEIN 6.1 g/dL (6.6-8.7); URIC ACID 13.9 mg/dL (3.0-7.5)
[2016-05-13] MEDS: Cefepime HCl 1 GM in D5W 55 ML IV SCH (08:08)
[2016-05-13] MEDS: Metolazone 5mg tab ORAL SCH (08:11)
[2016-05-13] MEDS: Amiodarone 200mg tab ORAL SCH (08:11)
[2016-05-13] MEDS: Thiamine 100mg tab ORAL SCH (08:11)
[2016-05-13] MEDS: Furosemide 40mg tab ORAL SCH (08:11)
[2016-05-13 08:59] VITALS: BP 116/73
[2016-05-13 10:17] LABS: ANISOCYTOSIS 1+; BAND NEUTROPHILS % (MANUAL) 0 % (0-8); BASOPHILS % (MANUAL) 0 % (0-2); EOSINOPHILS % (MANUAL) 0 % (0-3); HYPOCHROMASIA 3+; LYMPHOCYTES % (MANUAL) 19 % (20-45); NEUTROPHILS % (MANUAL) 77 % (45-75); NUCLEATED RED BLOOD CELLS 1 /100 WBC; PLATELET ESTIMATE ADEQUATE; PLATELET MORPHOLOGY NORMAL; TOTAL CELLS COUNTED 100
--- NOTE | 2016-05-13 11:08 | General Progress Note ---
Assessment/Plan Status: stable Status Narrative Cr down to 2.7 Assessment/Plan status: Renal failure : Chronic vs Acute? - Acute respiratory distress - Acute on chronic diastolic CHF (congestive heart failure) - Hyperkalemia, on admission, resolved - LBBB (left bundle branch block) - Severe anemia - Purulent bronchitis - Patient is [place] - Dementia - COPD (chronic obstructive pulmonary disease) Plan: K supplement- as needed Optimize cardiac status- Kidney MISSY- no hydro- cortical thinning-normal size- Urine eosinophils- stop Vanco, check levels ( 12), will resume 2D Echo pending Urine studies- Per orders epo , folate, Iron Protonix Subjective ROS Limited/Unobtainable: No Allergies: Coded Allergies: SPIRONOLACTONE (Unverified Allergy, Intermediate, 05/08/16) Objective Last 24 Hour Vital Signs Date Time Temp Pulse Resp B/P Pulse Ox O2 Delivery O2 Flow Rate FiO2 05/13/16 09:00 59 05/13/16 08:59 97.7 59 22 116/73 95 Nasal Cannula 2.0 05/13/16 08:30 79 21 99 Facial 30 05/13/16 07:27 40 05/13/16 07:25 73 17 100 Facial 40 05/13/16 05:50 89 16 100 Facial 35 05/13/16 04:30 40 05/13/16 04:29 89 29 100 Facial 35 05/13/16 04:10 76 20 100 Nasal Cannula 2.0 28 05/13/16 04:00 76 20 96 Nasal Cannula 2.0 28 05/13/16 04:00 97.3 84 20 119/46 98 Nasal Cannula 2.0 05/13/16 04:00 82 05/13/16 00:00 98.1 71 20 110/75 99 Nasal Cannula 2.0 05/13/16 00:00 66 05/12/16 22:00 70 20 100 Nasal Cannula 2.0 28 05/12/16 21:58 66 20 96 Nasal Cannula 2.0 28 05/12/16 20:00 69 05/12/16 20:00 97.9 71 20 106/68 99 Nasal Cannula 2.0 05/12/16 19:05 Nasal Cannula 2.0 28 05/12/16 19:00 98 Nasal Cannula 2.0 28 05/12/16 16:00 73 05/12/16 16:00 98.2 62 19 107/67 98 Nasal Cannula 2.0 05/12/16 12:00 97.2 69 20 118/47 100 Nasal Cannula 2.5 05/12/16 12:00 71 Intake and Output 05/12/16 05/13/16 19:00 07:00 Intake Total 429 ml 498 ml Output Total 825 ml 2000 ml Balance -396 ml -1502 ml Intake Oral 220 ml 240 ml IV Total 209 ml 258 ml Output Urine Total 825 ml 2000 ml # Bowel Movements 1 Laboratory Tests 05/13/16 03:50: White Blood Count 16.4H, Red Blood Count 2.75L, Hemoglobin 7.8L, Hematocrit 24.5L, Mean Corpuscular Volume 89, Mean Corpuscular Hemoglobin 28.2, Mean Corpuscular Hemoglobin Concent 31.6L, Red Cell Distribution Width 13.9, Platelet Count 289, Mean Platelet Volume 5.6L, Neutrophils (%) (Auto) , Lymphocytes (%) (Auto) , Monocytes (%) (Auto) , Eosinophils (%) (Auto) , Basophils (%) (Auto) , Differential Total Cells Counted 100, Neutrophils % ( Manual) 77H, Lymphocytes % (Manual) 19L, Monocytes % (Manual) 4, Eosinophils % ( Manual) 0, Basophils % (Manual) 0, Band Neutrophils 0, Nucleated Red Blood Cells 1, Platelet Estimate Adequate, Platelet Morphology Normal, Hypochromasia 3 +, Anisocytosis 1+, Prothrombin Time 21.0H, Prothromb Time International Ratio 2.0H, Sodium Level 138, Potassium Level 4.8, Chloride Level 96L, Carbon Dioxide Level 25, Anion Gap 17H, Blood Urea Nitrogen 77H, Creatinine 2.7H, Estimat Glomerular Filtration Rate , Glucose Level 194H, Uric Acid 13.9H, Calcium Level 9.1, Phosphorus Level 3.4, Magnesium Level 1.9, Total Bilirubin 0.2, Gamma Glutamyl Transpeptidase 67H, Aspartate Amino Transf (AST/SGOT) 34, Alanine Aminotransferase (ALT/SGPT) 28, Alkaline Phosphatase 94, Total Creatine Kinase 27, C-Reactive Protein, Quantitative 12.4H, Pro-B-Type Natriuretic Peptide 75021I, Total Protein 6.1L, Albumin 3.0L, Globulin 3.1, Albumin/Globulin Ratio 0.9L, Random Vancomycin Level 20.3 Height (Feet): 5 Height (Inches): 2.00 Weight (Pounds): 157 General Appearance: no apparent distress Cardiovascular: normal rate, arrhythmia Respiratory/Chest: decreased breath sounds Objective other physical exam not changed GILLES CUELLAR May 13, 2016 11:08
[2016-05-13 12:00] VITALS: BP 128/54
--- NOTE | 2016-05-13 12:02 | Pulmonology Progress Note ---
Assessment/Plan Problems: (1) Acute respiratory distress (2) Acute on chronic diastolic CHF (congestive heart failure) (3) Hyperkalemia (4) LBBB (left bundle branch block) (5) BRENDEN (acute kidney injury) (6) Severe anemia (7) Purulent bronchitis (8) Patient is [employer] (9) Dementia (10) COPD (chronic obstructive pulmonary disease) Assessment/Plan on lasix drip + zaroxyline Responding very well, --[address] abdomen reviewed, large right pleural effusion increased CEA + Ocult blood GI consult called contineu antibioitcs no cultures available yet cardiolgy note reviewed will transfuse ffp to [place] the high INR discussed with pts grand daughter. Subjective ROS Limited/Unobtainable: No Interval Events: still short of breath Allergies: Coded Allergies: SPIRONOLACTONE (Unverified Allergy, Intermediate, 05/08/16) Objective Last 24 Hour Vital Signs Date Time Temp Pulse Resp B/P Pulse Ox O2 Delivery O2 Flow Rate FiO2 05/13/16 09:00 59 05/13/16 08:59 97.7 59 22 116/73 95 Nasal Cannula 2.0 05/13/16 08:30 79 21 99 Facial 30 05/13/16 07:30 Nasal Cannula 4.0 40 05/13/16 07:30 100 5.0 40 05/13/16 07:27 40 05/13/16 07:25 73 17 100 Facial 40 05/13/16 05:50 89 16 100 Facial 35 05/13/16 04:30 40 05/13/16 04:29 89 29 100 Facial 35 05/13/16 04:10 76 20 100 Nasal Cannula 2.0 28 05/13/16 04:00 76 20 96 Nasal Cannula 2.0 28 05/13/16 04:00 97.3 84 20 119/46 98 Nasal Cannula 2.0 05/13/16 04:00 82 05/13/16 00:00 98.1 71 20 110/75 99 Nasal Cannula 2.0 05/13/16 00:00 66 05/12/16 22:00 70 20 100 Nasal Cannula 2.0 28 05/12/16 21:58 66 20 96 Nasal Cannula 2.0 28 05/12/16 20:00 69 05/12/16 20:00 97.9 71 20 106/68 99 Nasal Cannula 2.0 05/12/16 19:05 Nasal Cannula 2.0 28 05/12/16 19:00 98 Nasal Cannula 2.0 28 05/12/16 16:00 73 05/12/16 16:00 98.2 62 19 107/67 98 Nasal Cannula 2.0 Intake and Output 05/12/16 05/13/16 19:00 07:00 Intake Total 429 ml 498 ml Output Total 825 ml 2000 ml Balance -396 ml -1502 ml Intake Oral 220 ml 240 ml IV Total 209 ml 258 ml Output Urine Total 825 ml 2000 ml # Bowel Movements 1 General Appearance: WD/WN HEENT: normocephalic, anicteric Respiratory/Chest: decreased breath sounds, crackles/rales Cardiovascular: normal peripheral pulses Abdomen: normal bowel sounds Extremities: no cyanosis Skin: no rash Laboratory Tests 05/13/16 03:50: White Blood Count 16.4H, Red Blood Count 2.75L, Hemoglobin 7.8L, Hematocrit 24.5L, Mean Corpuscular Volume 89, Mean Corpuscular Hemoglobin 28.2, Mean Corpuscular Hemoglobin Concent 31.6L, Red Cell Distribution Width 13.9, Platelet Count 289, Mean Platelet Volume 5.6L, Neutrophils (%) (Auto) , Lymphocytes (%) (Auto) , Monocytes (%) (Auto) , Eosinophils (%) (Auto) , Basophils (%) (Auto) , Differential Total Cells Counted 100, Neutrophils % ( Manual) 77H, Lymphocytes % (Manual) 19L, Monocytes % (Manual) 4, Eosinophils % ( Manual) 0, Basophils % (Manual) 0, Band Neutrophils 0, Nucleated Red Blood Cells 1, Platelet Estimate Adequate, Platelet Morphology Normal, Hypochromasia 3 +, Anisocytosis 1+, Prothrombin Time 21.0H, Prothromb Time International Ratio 2.0H, Sodium Level 138, Potassium Level 4.8, Chloride Level 96L, Carbon Dioxide Level 25, Anion Gap 17H, Blood Urea Nitrogen 77H, Creatinine 2.7H, Estimat Glomerular Filtration Rate , Glucose Level 194H, Uric Acid 13.9H, Calcium Level 9.1, Phosphorus Level 3.4, Magnesium Level 1.9, Total Bilirubin 0.2, Gamma Glutamyl Transpeptidase 67H, Aspartate Amino Transf (AST/SGOT) 34, Alanine Aminotransferase (ALT/SGPT) 28, Alkaline Phosphatase 94, Total Creatine Kinase 27, C-Reactive Protein, Quantitative 12.4H, Pro-B-Type Natriuretic Peptide 48217I, Total Protein 6.1L, Albumin 3.0L, Globulin 3.1, Albumin/Globulin Ratio 0.9L, Random Vancomycin Level 20.3 Current Medications Medications (Trade) Dose Ordered Sig/Abril Route PRN Reason Start Time Stop Time Status Last Admin Dose Admin Acetaminophen (Tylenol) 650 mg Q4H PRN ORAL fever 05/08/16 23:15 06/07/16 23:14 05/09/16 07:04 Albuterol/ Ipratropium 3 ml 3 ml EVERY 4 HOURS PRN HHN Shortness of Breath 05/08/16 23:15 05/13/16 23:14 05/13/16 04:32 Amiodarone HCl 200 mg 200 mg DAILY ORAL 05/10/16 09:00 06/09/16 08:59 05/13/16 08:11 Atorvastatin Calcium (Lipitor) 40 mg BEDTIME ORAL 05/10/16 21:00 06/09/16 20:59 05/12/16 21:10 Cefepime HCl/ Dextrose (Maxipime/D5W) 55 ml @ 110 mls/hr Q24H IV 05/09/16 09:00 05/16/16 08:59 05/13/16 08:08 Dextrose (Dextrose 50%) STAT PRN IV Hypoglycemia 05/08/16 23:15 06/07/16 23:14 Epoetin Fish (Procrit (for non ESRD use)) 10,000 units Q48H SUBQ 05/09/16 21:00 06/08/16 20:59 05/11/16 20:58 Folic Acid (Folate) 2 mg DAILY ORAL 05/11/16 09:00 06/10/16 08:59 05/13/16 08:12 Furosemide 40 mg 40 mg DAILY ORAL 05/12/16 17:00 06/11/16 16:59 05/13/16 08:11 Insulin Aspart (NovoLOG) BEFORE MEALS AND HS SUBQ 05/09/16 06:30 06/08/16 06:29 05/13/16 06:25 Iron Sucrose/ Sodium Chloride (Venofer/Sodium Chloride) 115 ml @ 460 mls/hr BEDTIME IVPB 05/10/16 21:00 2/13/17 21:14 05/12/16 21:11 Metolazone (Zaroxolyn) 5 mg DAILY ORAL 05/10/16 12:00 06/09/16 11:59 05/13/16 08:11 Nitroglycerin (Ntg) 0.4 mg Q5M PRN SL Prn Chest Pain 05/08/16 23:15 06/07/16 23:14 Ondansetron HCl (Zofran) 4 mg Q6H PRN IVP Nausea & Vomiting 05/08/16 23:15 06/07/16 23:14 Pantoprazole (Protonix) 40 mg EVERY 12 HOURS ORAL 05/10/16 21:00 06/09/16 20:59 05/13/16 08:11 Polyethylene Glycol (Miralax) 17 gm DAILYPRN PRN ORAL Constipation 05/08/16 23:15 06/07/16 23:14 Potassium Chloride (K-Dur) 40 meq TWICE A DAY ORAL 05/12/16 18:00 06/11/16 17:59 05/13/16 08:11 Temazepam (Restoril) 15 mg HSPRN PRN ORAL Insomnia 05/08/16 23:15 05/15/16 23:14 Thiamine HCl (Vitamin B1) 100 mg DAILY ORAL 05/10/16 18:00 06/09/16 17:59 05/13/16 08:11 Vancomycin HCl (Vanco rx to dose) 1 ea DAILY PRN MISC Per rx protocol 05/11/16 09:15 06/10/16 09:14 Vancomycin HCl/ Dextrose (Vancomycin/D5W) 275 ml @ 183.708 mls/hr ONCE ONCE IVPB 05/13/16 12:30 05/13/16 13:59 ILIR WALLACE May 13, 2016 12:02
--- NOTE | 2016-05-13 12:20 | Diagnostic Imaging Report ---
Indication: COUGH Technique: One view of the chest Comparison: T12 to 17 Findings: Heart is enlarged. There is decrease in previously demonstrated interstitial and alveolar edema bilaterally, but edema persists, right greater than left.. Pleural effusions are unchanged. The heart remains enlarged. Prior CABG Impression: Decreased but persistent pulmonary edema, over one-day
[2016-05-13] MEDS ORDERED: Vancomycin 1gm in D5W 275ml IVPB ONE (12:30)
--- NOTE | 2016-05-13 12:42 | GI Progress Note ---
Assessment/Plan Problems: (1) Severe anemia ICD Codes: D64.9 - Anemia, unspecified SNOMED: 549532165 (2) Dementia ICD Codes: F03.90 - Unspecified dementia without behavioral disturbance SNOMED: 03810632 Qualifiers: (3) Refusal of blood transfusions as patient is [employer] ICD Codes: Z53.1 - Procedure and treatment not carried out because of patient' s decision for reasons of belief and group pressure SNOMED: 467417880 (4) Iron deficiency anemia ICD Codes: D50.9 - Iron deficiency anemia, unspecified SNOMED: 92291940 (5) Elevated CEA ICD Codes: R97.0 - Elevated carcinoembryonic antigen [CEA] SNOMED: 43326996, 631827030 Status: unchanged Status Narrative Discussed with Dr. Siegel. Assessment/Plan iron deficient anemia elevated CEA >> 8.4 OB stool positive pt on coumadin RECOMMENDATIONS: Supportive care. Oral intake as tolerated. Continue to monitor CBC. Ordered additional OB stool Ordered APCT Possible endoscopy or colonoscopy once stabilized. fu labs The patient was seen and examined at bedside and all new and available data was reviewed in the patients chart. I agree with the above findings, impression and plan. (Patient seen earlier today. Signature stamp does not reflect patient encounter time.). -Freddie Siegel MD Subjective Subjective limited Objective Last 24 Hour Vital Signs Date Time Temp Pulse Resp B/P Pulse Ox O2 Delivery O2 Flow Rate FiO2 05/13/16 09:00 59 05/13/16 08:59 97.7 59 22 116/73 95 Nasal Cannula 2.0 05/13/16 08:30 79 21 99 Facial 30 05/13/16 07:30 Nasal Cannula 4.0 40 05/13/16 07:30 100 5.0 40 05/13/16 07:27 40 05/13/16 07:25 73 17 100 Facial 40 05/13/16 05:50 89 16 100 Facial 35 05/13/16 04:30 40 05/13/16 04:29 89 29 100 Facial 35 05/13/16 04:10 76 20 100 Nasal Cannula 2.0 28 05/13/16 04:00 76 20 96 Nasal Cannula 2.0 28 05/13/16 04:00 97.3 84 20 119/46 98 Nasal Cannula 2.0 05/13/16 04:00 82 05/13/16 00:00 98.1 71 20 110/75 99 Nasal Cannula 2.0 05/13/16 00:00 66 05/12/16 22:00 70 20 100 Nasal Cannula 2.0 28 05/12/16 21:58 66 20 96 Nasal Cannula 2.0 28 05/12/16 20:00 69 05/12/16 20:00 97.9 71 20 106/68 99 Nasal Cannula 2.0 05/12/16 19:05 Nasal Cannula 2.0 28 05/12/16 19:00 98 Nasal Cannula 2.0 28 05/12/16 16:00 73 05/12/16 16:00 98.2 62 19 107/67 98 Nasal Cannula 2.0 Intake and Output 05/12/16 05/13/16 19:00 07:00 Intake Total 429 ml 498 ml Output Total 825 ml 2000 ml Balance -396 ml -1502 ml Intake Oral 220 ml 240 ml IV Total 209 ml 258 ml Output Urine Total 825 ml 2000 ml # Bowel Movements 1 Laboratory Tests Test 05/13/16 03:50 White Blood Count 16.4 K/UL (4.8-10.8) H Red Blood Count 2.75 M/UL (4.20-5.40) L Hemoglobin 7.8 G/DL (12.0-16.0) L Hematocrit 24.5 % (37.0-47.0) L Mean Corpuscular Volume 89 FL (80-99) Mean Corpuscular Hemoglobin 28.2 PG (27.0-31.0) Mean Corpuscular Hemoglobin Concent 31.6 G/DL (32.0-36.0) L Red Cell Distribution Width 13.9 % (11.6-14.8) Platelet Count 289 K/UL (150-450) Mean Platelet Volume 5.6 FL (6.5-10.1) L Neutrophils (%) (Auto) % (45.0-75.0) Lymphocytes (%) (Auto) % (20.0-45.0) Monocytes (%) (Auto) % (1.0-10.0) Eosinophils (%) (Auto) % (0.0-3.0) Basophils (%) (Auto) % (0.0-2.0) Differential Total Cells Counted 100 Neutrophils % (Manual) 77 % (45-75) H Lymphocytes % (Manual) 19 % (20-45) L Monocytes % (Manual) 4 % (1-10) Eosinophils % (Manual) 0 % (0-3) Basophils % (Manual) 0 % (0-2) Band Neutrophils 0 % (0-8) Nucleated Red Blood Cells 1 /100 WBC Platelet Estimate Adequate Platelet Morphology Normal Hypochromasia 3+ Anisocytosis 1+ Prothrombin Time 21.0 SEC (9.30-11.50) H Prothromb Time International Ratio 2.0 (0.9-1.1) H Sodium Level 138 mEQ/L (135-145) Potassium Level 4.8 mEQ/L (3.4-4.9) Chloride Level 96 mEQ/L (98-107) L Carbon Dioxide Level 25 mEQ/L (20-30) Anion Gap 17 (5-15) H Blood Urea Nitrogen 77 mg/dL (7-23) H Creatinine 2.7 mg/dL (0.5-0.9) H Estimat Glomerular Filtration Rate mL/min (>60) Glucose Level 194 mg/dL (74-106) H Uric Acid 13.9 mg/dL (3.0-7.5) H Calcium Level 9.1 mg/dL (8.6-10.2) Phosphorus Level 3.4 mg/dL (2.5-4.8) Magnesium Level 1.9 mg/dL (1.7-2.5) Total Bilirubin 0.2 mg/dL (0.0-1.2) Gamma Glutamyl Transpeptidase 67 U/L (5-36) H Aspartate Amino Transf (AST/SGOT) 34 U/L (5-40) Alanine Aminotransferase (ALT/SGPT) 28 U/L (3-33) Alkaline Phosphatase 94 U/L (35-104) Total Creatine Kinase 27 U/L (26-140) C-Reactive Protein, Quantitative 12.4 mg/dL (< 0.5) H Pro-B-Type Natriuretic Peptide 75467 pg/mL (0-450) H Total Protein 6.1 g/dL (6.6-8.7) L Albumin 3.0 g/dL (3.5-5.2) L Globulin 3.1 g/dL Albumin/Globulin Ratio 0.9 (1.0-2.7) L Random Vancomycin Level 20.3 ug/mL Height (Feet): 5 Height (Inches): 2.00 Weight (Pounds): 157 General Appearance: no apparent distress Cardiovascular: normal rate Respiratory/Chest: other - 2LNC Abdominal Exam: normal bowel sounds, non tender, soft Solange Rowell N.PNara May 13, 2016 12:42 FREDDIE SIEGEL May 15, 2016 12:43
--- NOTE | 2016-05-13 14:59 | Infectious Diseases Prog Note ---
Assessment/Plan Assessment/Plan ASSESSMENT: 85 y/o female with: // Possible CAP - unable to produce sputum, legionella UAg(-) - CXR 05/13: Decreased but persistent pulmonary edema // Leukocytosis - persistent, stable, afebrile. Cultures NGTD // Acute on chronic systolic + diastolic CHF exacerbation - trop(-) x1, elevated BNP - TTE: EF 30-35%, mild MR, mod [place], sev TR, mod pulmonary HTN // O2-dependent COPD // Elevated LFTs - resolved // ARF - improved // Severe FOBT(+) normocytic anemia - Hgb stable - EGD/colonoscopy: pending - Faith, no blood products // Elevated CEA // DM2 // Dementia // No ABX allergies // Full Code PLAN: - continue empiric IV vancomycin, cefepime d# 5 / - EGD, colonoscopy per GI - f/u cultures - f/u CT A/P - monitor CBC, temperatures - monitor BMP - monitor CXR - diuresis Subjective Allergies: Coded Allergies: SPIRONOLACTONE (Unverified Allergy, Intermediate, 05/08/16) Subjective remains afebrile persistent leukocytosis cultures NGTD CT A/P pending Objective Vital Signs Last 24 Hour Vital Signs Date Time Temp Pulse Resp B/P Pulse Ox O2 Delivery O2 Flow Rate FiO2 05/13/16 14:11 88 31 100 Facial 30 05/13/16 12:00 97.5 75 18 128/54 100 Nasal Cannula 2.0 05/13/16 12:00 40 05/13/16 09:00 59 05/13/16 08:59 97.7 59 22 116/73 95 Nasal Cannula 2.0 05/13/16 08:30 79 21 99 Facial 30 05/13/16 07:30 Nasal Cannula 4.0 40 05/13/16 07:30 100 5.0 40 05/13/16 07:27 40 05/13/16 07:25 73 17 100 Facial 40 05/13/16 05:50 89 16 100 Facial 35 05/13/16 04:30 40 05/13/16 04:29 89 29 100 Facial 35 05/13/16 04:10 76 20 100 Nasal Cannula 2.0 28 05/13/16 04:00 76 20 96 Nasal Cannula 2.0 28 05/13/16 04:00 97.3 84 20 119/46 98 Nasal Cannula 2.0 05/13/16 04:00 82 05/13/16 00:00 98.1 71 20 110/75 99 Nasal Cannula 2.0 05/13/16 00:00 66 05/12/16 22:00 70 20 100 Nasal Cannula 2.0 28 05/12/16 21:58 66 20 96 Nasal Cannula 2.0 28 05/12/16 20:00 69 05/12/16 20:00 97.9 71 20 106/68 99 Nasal Cannula 2.0 05/12/16 19:05 Nasal Cannula 2.0 28 05/12/16 19:00 98 Nasal Cannula 2.0 28 05/12/16 16:00 73 05/12/16 16:00 98.2 62 19 107/67 98 Nasal Cannula 2.0 Height (Feet): 5 Height (Inches): 2.00 Weight (Pounds): 157 General Appearance: no acute distress Respiratory/Chest: no respiratory distress Cardiovascular: normal rate, regular rhythm Abdomen: normal bowel sounds, soft, non tender, non distended Laboratory Tests Test 05/13/16 03:50 White Blood Count 16.4 K/UL (4.8-10.8) H Red Blood Count 2.75 M/UL (4.20-5.40) L Hemoglobin 7.8 G/DL (12.0-16.0) L Hematocrit 24.5 % (37.0-47.0) L Mean Corpuscular Volume 89 FL (80-99) Mean Corpuscular Hemoglobin 28.2 PG (27.0-31.0) Mean Corpuscular Hemoglobin Concent 31.6 G/DL (32.0-36.0) L Red Cell Distribution Width 13.9 % (11.6-14.8) Platelet Count 289 K/UL (150-450) Mean Platelet Volume 5.6 FL (6.5-10.1) L Neutrophils (%) (Auto) % (45.0-75.0) Lymphocytes (%) (Auto) % (20.0-45.0) Monocytes (%) (Auto) % (1.0-10.0) Eosinophils (%) (Auto) % (0.0-3.0) Basophils (%) (Auto) % (0.0-2.0) Differential Total Cells Counted 100 Neutrophils % (Manual) 77 % (45-75) H Lymphocytes % (Manual) 19 % (20-45) L Monocytes % (Manual) 4 % (1-10) Eosinophils % (Manual) 0 % (0-3) Basophils % (Manual) 0 % (0-2) Band Neutrophils 0 % (0-8) Nucleated Red Blood Cells 1 /100 WBC Platelet Estimate Adequate Platelet Morphology Normal Hypochromasia 3+ Anisocytosis 1+ Prothrombin Time 21.0 SEC (9.30-11.50) H Prothromb Time International Ratio 2.0 (0.9-1.1) H Sodium Level 138 mEQ/L (135-145) Potassium Level 4.8 mEQ/L (3.4-4.9) Chloride Level 96 mEQ/L (98-107) L Carbon Dioxide Level 25 mEQ/L (20-30) Anion Gap 17 (5-15) H Blood Urea Nitrogen 77 mg/dL (7-23) H Creatinine 2.7 mg/dL (0.5-0.9) H Estimat Glomerular Filtration Rate mL/min (>60) Glucose Level 194 mg/dL (74-106) H Uric Acid 13.9 mg/dL (3.0-7.5) H Calcium Level 9.1 mg/dL (8.6-10.2) Phosphorus Level 3.4 mg/dL (2.5-4.8) Magnesium Level 1.9 mg/dL (1.7-2.5) Total Bilirubin 0.2 mg/dL (0.0-1.2) Gamma Glutamyl Transpeptidase 67 U/L (5-36) H Aspartate Amino Transf (AST/SGOT) 34 U/L (5-40) Alanine Aminotransferase (ALT/SGPT) 28 U/L (3-33) Alkaline Phosphatase 94 U/L (35-104) Total Creatine Kinase 27 U/L (26-140) C-Reactive Protein, Quantitative 12.4 mg/dL (< 0.5) H Pro-B-Type Natriuretic Peptide 21264 pg/mL (0-450) H Total Protein 6.1 g/dL (6.6-8.7) L Albumin 3.0 g/dL (3.5-5.2) L Globulin 3.1 g/dL Albumin/Globulin Ratio 0.9 (1.0-2.7) L Random Vancomycin Level 20.3 ug/mL Current Medications Medications (Trade) Dose Ordered Sig/Abril Route PRN Reason Start Time Stop Time Status Last Admin Dose Admin Acetaminophen (Tylenol) 650 mg Q4H PRN ORAL fever 05/08/16 23:15 06/07/16 23:14 05/09/16 07:04 Albuterol/ Ipratropium 3 ml 3 ml EVERY 4 HOURS PRN HHN Shortness of Breath 05/08/16 23:15 05/13/16 23:14 05/13/16 04:32 Amiodarone HCl 200 mg 200 mg DAILY ORAL 05/10/16 09:00 06/09/16 08:59 05/13/16 08:11 Atorvastatin Calcium (Lipitor) 40 mg BEDTIME ORAL 05/10/16 21:00 06/09/16 20:59 05/12/16 21:10 Cefepime HCl/ Dextrose (Maxipime/D5W) 55 ml @ 110 mls/hr Q24H IV 05/09/16 09:00 05/16/16 08:59 05/13/16 08:08 Dextrose (Dextrose 50%) STAT PRN IV Hypoglycemia 05/08/16 23:15 06/07/16 23:14 Epoetin Fish (Procrit (for non ESRD use)) 10,000 units Q48H SUBQ 05/09/16 21:00 06/08/16 20:59 05/11/16 20:58 Folic Acid (Folate) 2 mg DAILY ORAL 05/11/16 09:00 06/10/16 08:59 05/13/16 08:12 Furosemide (Lasix) 40 mg DAILY ORAL 05/12/16 17:00 06/11/16 16:59 05/13/16 08:11 Insulin Aspart (NovoLOG) BEFORE MEALS AND HS SUBQ 05/09/16 06:30 06/08/16 06:29 05/13/16 12:21 Iron Sucrose/ Sodium Chloride (Venofer/Sodium Chloride) 115 ml @ 460 mls/hr BEDTIME IVPB 05/10/16 21:00 05/13/16 21:14 05/12/16 21:11 Metolazone (Zaroxolyn) 5 mg DAILY ORAL 05/10/16 12:00 06/09/16 11:59 05/13/16 08:11 Nitroglycerin (Ntg) 0.4 mg Q5M PRN SL Prn Chest Pain 05/08/16 23:15 06/07/16 23:14 Ondansetron HCl (Zofran) 4 mg Q6H PRN IVP Nausea & Vomiting 05/08/16 23:15 06/07/16 23:14 Pantoprazole (Protonix) 40 mg EVERY 12 HOURS ORAL 05/10/16 21:00 06/09/16 20:59 05/13/16 08:11 Polyethylene Glycol (Miralax) 17 gm DAILYPRN PRN ORAL Constipation 05/08/16 23:15 06/07/16 23:14 Potassium Chloride (K-Dur) 40 meq TWICE A DAY ORAL 05/12/16 18:00 06/11/16 17:59 05/13/16 08:11 Temazepam (Restoril) 15 mg HSPRN PRN ORAL Insomnia 05/08/16 23:15 05/15/16 23:14 Thiamine HCl (Vitamin B1) 100 mg DAILY ORAL 05/10/16 18:00 06/09/16 17:59 05/13/16 08:11 Vancomycin HCl (Vanco rx to dose) 1 ea DAILY PRN MISC Per rx protocol 05/11/16 09:15 06/10/16 09:14 GEORGIE HOLLOWAY May 13, 2016 14:59
[2016-05-13 16:00] VITALS: BP 117/52
[2016-05-13] MEDS ORDERED: Phytonadione 10 MG in D5W 55 ML IVPB ONE (17:30)
[2016-05-13 20:00] VITALS: BP 120/56
[2016-05-13] MEDS: Epogen (for non ESRD use) SUBQ SCH (21:23)
[2016-05-13] MEDS: Iron Sucrose 100 MG in NS 110 ML IVPB SCH (21:23)
--- NOTE | 2016-05-13 21:25 | Cardiology Progress Note ---
Assessment/Plan Assessment/Plan Bronchospam bronchitis / pneumonia anemia renal failure cm chronci LBBB chf chronic iron deff coagulopathy hs off dvt s/p ivc filter cad s/p cabg twice MVR bioprosthetic hx of thromboembolic complication previously off anticoagulation jahovah witness need hhn is anemic stool ob + but stable hgb in light of prior embolic evnet i am hesitant to dc anticoagulation unless acute bleeding of sig degree dtr feel pt has had hemorrhoids continue diuretics iv gianluca as respiratory issue requirng bipap continue anticoagulation standard chf med except bb until bronchospasm improve Subjective ROS Limited/Unobtainable: Yes Objective Last 24 Hour Vital Signs Date Time Temp Pulse Resp B/P Pulse Ox O2 Delivery O2 Flow Rate FiO2 05/13/16 21:18 96 25 98 Facial 30 05/13/16 20:00 98.0 77 20 120/56 99 Nasal Cannula 2.0 05/13/16 20:00 2.0 05/13/16 19:15 99 Nasal Cannula 3.0 32 05/13/16 19:15 Nasal Cannula 3.0 32 05/13/16 16:00 2.0 05/13/16 16:00 97.5 72 22 117/52 99 Mechanical Ventilator 72 05/13/16 16:00 70 05/13/16 14:11 88 31 100 Facial 30 05/13/16 12:00 97.5 75 18 128/54 100 Nasal Cannula 2.0 05/13/16 12:00 40 05/13/16 09:00 59 05/13/16 08:59 97.7 59 22 116/73 95 Nasal Cannula 2.0 05/13/16 08:30 79 21 99 Facial 30 05/13/16 07:30 Nasal Cannula 4.0 40 05/13/16 07:30 100 5.0 40 05/13/16 07:27 40 05/13/16 07:25 73 17 100 Facial 40 05/13/16 05:50 89 16 100 Facial 35 05/13/16 04:30 40 05/13/16 04:29 89 29 100 Facial 35 05/13/16 04:10 76 20 100 Nasal Cannula 2.0 28 05/13/16 04:00 76 20 96 Nasal Cannula 2.0 28 05/13/16 04:00 97.3 84 20 119/46 98 Nasal Cannula 2.0 05/13/16 04:00 82 05/13/16 00:00 98.1 71 20 110/75 99 Nasal Cannula 2.0 05/13/16 00:00 66 05/12/16 22:00 70 20 100 Nasal Cannula 2.0 28 05/12/16 21:58 66 20 96 Nasal Cannula 2.0 28 General Appearance: no apparent distress, other - on biopap Cardiovascular: normal rate, regular rhythm Respiratory/Chest: decreased breath sounds Abdomen: normal bowel sounds, non tender, soft Extremities: no swelling Intake and Output 05/12/16 05/13/16 19:00 07:00 Intake Total 429 ml 498 ml Output Total 825 ml 2000 ml Balance -396 ml -1502 ml Intake Oral 220 ml 240 ml IV Total 209 ml 258 ml Output Urine Total 825 ml 2000 ml # Bowel Movements 1 Laboratory Tests Test 05/13/16 03:50 White Blood Count 16.4 K/UL (4.8-10.8) H Red Blood Count 2.75 M/UL (4.20-5.40) L Hemoglobin 7.8 G/DL (12.0-16.0) L Hematocrit 24.5 % (37.0-47.0) L Mean Corpuscular Volume 89 FL (80-99) Mean Corpuscular Hemoglobin 28.2 PG (27.0-31.0) Mean Corpuscular Hemoglobin Concent 31.6 G/DL (32.0-36.0) L Red Cell Distribution Width 13.9 % (11.6-14.8) Platelet Count 289 K/UL (150-450) Mean Platelet Volume 5.6 FL (6.5-10.1) L Neutrophils (%) (Auto) % (45.0-75.0) Lymphocytes (%) (Auto) % (20.0-45.0) Monocytes (%) (Auto) % (1.0-10.0) Eosinophils (%) (Auto) % (0.0-3.0) Basophils (%) (Auto) % (0.0-2.0) Differential Total Cells Counted 100 Neutrophils % (Manual) 77 % (45-75) H Lymphocytes % (Manual) 19 % (20-45) L Monocytes % (Manual) 4 % (1-10) Eosinophils % (Manual) 0 % (0-3) Basophils % (Manual) 0 % (0-2) Band Neutrophils 0 % (0-8) Nucleated Red Blood Cells 1 /100 WBC Platelet Estimate Adequate Platelet Morphology Normal Hypochromasia 3+ Anisocytosis 1+ Prothrombin Time 21.0 SEC (9.30-11.50) H Prothromb Time International Ratio 2.0 (0.9-1.1) H Sodium Level 138 mEQ/L (135-145) Potassium Level 4.8 mEQ/L (3.4-4.9) Chloride Level 96 mEQ/L (98-107) L Carbon Dioxide Level 25 mEQ/L (20-30) Anion Gap 17 (5-15) H Blood Urea Nitrogen 77 mg/dL (7-23) H Creatinine 2.7 mg/dL (0.5-0.9) H Estimat Glomerular Filtration Rate mL/min (>60) Glucose Level 194 mg/dL (74-106) H Uric Acid 13.9 mg/dL (3.0-7.5) H Calcium Level 9.1 mg/dL (8.6-10.2) Phosphorus Level 3.4 mg/dL (2.5-4.8) Magnesium Level 1.9 mg/dL (1.7-2.5) Total Bilirubin 0.2 mg/dL (0.0-1.2) Gamma Glutamyl Transpeptidase 67 U/L (5-36) H Aspartate Amino Transf (AST/SGOT) 34 U/L (5-40) Alanine Aminotransferase (ALT/SGPT) 28 U/L (3-33) Alkaline Phosphatase 94 U/L (35-104) Total Creatine Kinase 27 U/L (26-140) C-Reactive Protein, Quantitative 12.4 mg/dL (< 0.5) H Pro-B-Type Natriuretic Peptide 74511 pg/mL (0-450) H Total Protein 6.1 g/dL (6.6-8.7) L Albumin 3.0 g/dL (3.5-5.2) L Globulin 3.1 g/dL Albumin/Globulin Ratio 0.9 (1.0-2.7) L Random Vancomycin Level 20.3 ug/mL GUILLE MEDINA May 13, 2016 21:25
[2016-05-14] VITALS: BP 128/41
[2016-05-14 04:00] VITALS: BP 113/45
[2016-05-14 05:49] LABS: MEAN CORPUSCULAR HEMOGLOBIN 28.4 PG (27.0-31.0); MEAN CORPUSCULAR VOLUME 92 FL (80-99); MEAN PLATELET VOLUME 5.4 FL (6.5-10.1); PLATELET COUNT 278 K/UL (150-450); RED BLOOD COUNT 2.71 M/UL (4.20-5.40); RED CELL DISTRIBUTION WIDTH 13.5 % (11.6-14.8); WHITE BLOOD COUNT 18.8 K/UL (4.8-10.8)
[2016-05-14 05:57] LABS: INR 1.5 (0.9-1.1); PROTHROMBIN TIME 15.5 SEC (9.30-11.50)
[2016-05-14] MEDS: NovoLOG Insulin Flexpen SUBQ SCH ×4 (05:59→21:16)
[2016-05-14 06:19] LABS: ANION GAP 14 (5-15); CALCIUM 9.3 mg/dL (8.6-10.2); CARBON DIOXIDE 27 mEQ/L (20-30); CHLORIDE 98 mEQ/L (98-107); CREATININE 2.4 mg/dL (0.5-0.9); HEMOLYSIS 1; MAGNESIUM 1.7 mg/dL (1.7-2.5); PHOSPHORUS 1.7 mg/dL (2.5-4.8); POTASSIUM 5.8 mEQ/L (3.4-4.9); SODIUM 139 mEQ/L (135-145)
[2016-05-14 08:00] VITALS: BP 130/49
--- NOTE | 2016-05-14 08:11 | Cardiology Progress Note ---
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 hx of thromboembolic complication previously off anticoagulation jahovah witness contineue hhn but also now treat for chf exacerbation is anemic stool ob + but stable hgb in light of prior embolic evnet i am hesitant to dc anticoagulation unless acute bleeding of sig degree dtr feel pt has had hemorrhoids continue diuretics iv for now until tomorrow then reevlaute 05/15/2015 continue anticoagulation cr improved neg fluid status cxr form yest reviewed not on beta sruthi due to bronchospasm not on acei due to renal insuf Subjective ROS Limited/Unobtainable: Yes Subjective on bipap still over ntie awake and responsive seems to answer with her hand seem sob "so-so" Objective Last 24 Hour Vital Signs Date Time Temp Pulse Resp B/P Pulse Ox O2 Delivery O2 Flow Rate FiO2 05/14/16 07:03 Bi-pap 30 05/14/16 07:03 99 Bi-pap 30 05/14/16 07:03 67 14 99 Facial 30 05/14/16 04:51 76 16 99 Facial 30 05/14/16 04:00 97.4 69 16 113/45 100 Bi-pap 30 05/14/16 04:00 40 05/14/16 03:46 78 29 99 Facial 30 05/14/16 01:28 75 29 96 Facial 30 05/14/16 00:00 67 05/14/16 00:00 2.0 05/14/16 00:00 97.7 68 20 128/41 100 Bi-pap 30 05/13/16 23:30 96 11 96 Facial 30 05/13/16 21:18 96 25 98 Facial 30 05/13/16 20:00 84 05/13/16 20:00 98.0 77 20 120/56 99 Nasal Cannula 2.0 05/13/16 20:00 2.0 05/13/16 19:15 99 Nasal Cannula 3.0 32 05/13/16 19:15 Nasal Cannula 3.0 32 05/13/16 16:00 2.0 05/13/16 16:00 97.5 72 22 117/52 99 Mechanical Ventilator 72 05/13/16 16:00 70 05/13/16 14:11 88 31 100 Facial 30 05/13/16 12:00 97.5 75 18 128/54 100 Nasal Cannula 2.0 05/13/16 12:00 40 05/13/16 09:00 59 05/13/16 08:59 97.7 59 22 116/73 95 Nasal Cannula 2.0 05/13/16 08:30 79 21 99 Facial 30 General Appearance: no apparent distress, patient on isolation, other - on bipap Neck: supple, no JVD Cardiovascular: normal rate, regular rhythm Respiratory/Chest: lungs clear, expiratory wheezing Abdomen: non tender, soft Extremities: no swelling Intake and Output 05/13/16 05/14/16 19:00 07:00 Intake Total 706 ml Output Total 900 ml 2300 ml Balance -194 ml -2300 ml Intake Oral 640 ml IV Total 66 ml Output Urine Total 900 ml 2300 ml # Bowel Movements 1 2 Laboratory Tests Test 05/14/16 03:45 05/14/16 04:30 White Blood Count 18.8 K/UL (4.8-10.8) H Red Blood Count 2.71 M/UL (4.20-5.40) L Hemoglobin 7.7 G/DL (12.0-16.0) L Hematocrit 24.9 % (37.0-47.0) L Mean Corpuscular Volume 92 FL (80-99) Mean Corpuscular Hemoglobin 28.4 PG (27.0-31.0) Mean Corpuscular Hemoglobin Concent 31.0 G/DL (32.0-36.0) L Red Cell Distribution Width 13.5 % (11.6-14.8) Platelet Count 278 K/UL (150-450) Mean Platelet Volume 5.4 FL (6.5-10.1) L Neutrophils (%) (Auto) % (45.0-75.0) Lymphocytes (%) (Auto) % (20.0-45.0) Monocytes (%) (Auto) % (1.0-10.0) Eosinophils (%) (Auto) % (0.0-3.0) Basophils (%) (Auto) % (0.0-2.0) Neutrophils % (Manual) Pending Lymphocytes % (Manual) Pending Platelet Estimate Pending Platelet Morphology Pending Prothrombin Time 15.5 SEC (9.30-11.50) H Prothromb Time International Ratio 1.5 (0.9-1.1) H Sodium Level 139 mEQ/L (135-145) Potassium Level 5.8 mEQ/L (3.4-4.9) H Chloride Level 98 mEQ/L (98-107) Carbon Dioxide Level 27 mEQ/L (20-30) Anion Gap 14 (5-15) Blood Urea Nitrogen 70 mg/dL (7-23) H Creatinine 2.4 mg/dL (0.5-0.9) H Estimat Glomerular Filtration Rate mL/min (>60) Glucose Level 138 mg/dL (74-106) H Calcium Level 9.3 mg/dL (8.6-10.2) Phosphorus Level 1.7 mg/dL (2.5-4.8) L Magnesium Level 1.7 mg/dL (1.7-2.5) Stool Occult Blood Pending GUILLE MEDINA May 14, 2016 08:11
[2016-05-14 08:15] LABS: BAND NEUTROPHILS % (MANUAL) 0 % (0-8); BASOPHILS % (MANUAL) 0 % (0-2); EOSINOPHILS % (MANUAL) 3 % (0-3); LYMPHOCYTES % (MANUAL) 9 % (20-45); NEUTROPHILS % (MANUAL) 85 % (45-75); PLATELET ESTIMATE ADEQUATE; PLATELET MORPHOLOGY NORMAL; TOTAL CELLS COUNTED 100
[2016-05-14 08:18] LABS: HYPOCHROMASIA 2+
[2016-05-14] MEDS: Cefepime HCl 1 GM in D5W 55 ML IV SCH (08:50)
[2016-05-14] MEDS: Amiodarone 200mg tab ORAL SCH (08:50)
[2016-05-14] MEDS: Metolazone 5mg tab ORAL SCH (08:51)
[2016-05-14] MEDS: Thiamine 100mg tab ORAL SCH (08:51)
--- NOTE | 2016-05-14 09:45 | GI Progress Note ---
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 Siegel. Assessment/Plan iron deficient anemia elevated CEA >> 8.4 OB stool positive, #2 pending pt on coumadin RECOMMENDATIONS: Supportive care. PO intake as tolerated. Continue to monitor CBC. fu OB stool #2 APCT reviewed from chart. Possible endoscopy or colonoscopy once stabilized. fu labs Subjective Subjective limited Objective Last 24 Hour Vital Signs Date Time Temp Pulse Resp B/P Pulse Ox O2 Delivery O2 Flow Rate FiO2 05/14/16 09:05 71 30 100 Facial 30 05/14/16 08:00 40 05/14/16 08:00 97.7 73 20 130/49 98 Bi-pap 30 05/14/16 08:00 73 05/14/16 07:03 Bi-pap 30 05/14/16 07:03 99 Bi-pap 30 05/14/16 07:03 67 14 99 Facial 30 05/14/16 04:51 76 16 99 Facial 30 05/14/16 04:00 97.4 69 16 113/45 100 Bi-pap 30 05/14/16 04:00 40 05/14/16 03:46 78 29 99 Facial 30 05/14/16 01:28 75 29 96 Facial 30 05/14/16 00:00 67 05/14/16 00:00 2.0 05/14/16 00:00 97.7 68 20 128/41 100 Bi-pap 30 05/13/16 23:30 96 11 96 Facial 30 05/13/16 21:18 96 25 98 Facial 30 05/13/16 20:00 84 05/13/16 20:00 98.0 77 20 120/56 99 Nasal Cannula 2.0 05/13/16 20:00 2.0 05/13/16 19:15 99 Nasal Cannula 3.0 32 05/13/16 19:15 Nasal Cannula 3.0 32 05/13/16 16:00 2.0 05/13/16 16:00 97.5 72 22 117/52 99 Mechanical Ventilator 72 05/13/16 16:00 70 05/13/16 14:11 88 31 100 Facial 30 05/13/16 12:00 97.5 75 18 128/54 100 Nasal Cannula 2.0 05/13/16 12:00 40 Intake and Output 05/13/16 05/14/16 19:00 07:00 Intake Total 706 ml Output Total 900 ml 2300 ml Balance -194 ml -2300 ml Intake Oral 640 ml IV Total 66 ml Output Urine Total 900 ml 2300 ml # Bowel Movements 1 2 Laboratory Tests Test 05/14/16 03:45 05/14/16 04:30 White Blood Count 18.8 K/UL (4.8-10.8) H Red Blood Count 2.71 M/UL (4.20-5.40) L Hemoglobin 7.7 G/DL (12.0-16.0) L Hematocrit 24.9 % (37.0-47.0) L Mean Corpuscular Volume 92 FL (80-99) Mean Corpuscular Hemoglobin 28.4 PG (27.0-31.0) Mean Corpuscular Hemoglobin Concent 31.0 G/DL (32.0-36.0) L Red Cell Distribution Width 13.5 % (11.6-14.8) Platelet Count 278 K/UL (150-450) Mean Platelet Volume 5.4 FL (6.5-10.1) L Neutrophils (%) (Auto) % (45.0-75.0) Lymphocytes (%) (Auto) % (20.0-45.0) Monocytes (%) (Auto) % (1.0-10.0) Eosinophils (%) (Auto) % (0.0-3.0) Basophils (%) (Auto) % (0.0-2.0) Differential Total Cells Counted 100 Neutrophils % (Manual) 85 % (45-75) H Lymphocytes % (Manual) 9 % (20-45) L Monocytes % (Manual) 3 % (1-10) Eosinophils % (Manual) 3 % (0-3) Basophils % (Manual) 0 % (0-2) Band Neutrophils 0 % (0-8) Platelet Estimate Adequate Platelet Morphology Normal Hypochromasia 2+ Prothrombin Time 15.5 SEC (9.30-11.50) H Prothromb Time International Ratio 1.5 (0.9-1.1) H Sodium Level 139 mEQ/L (135-145) Potassium Level 5.8 mEQ/L (3.4-4.9) H Chloride Level 98 mEQ/L (98-107) Carbon Dioxide Level 27 mEQ/L (20-30) Anion Gap 14 (5-15) Blood Urea Nitrogen 70 mg/dL (7-23) H Creatinine 2.4 mg/dL (0.5-0.9) H Estimat Glomerular Filtration Rate mL/min (>60) Glucose Level 138 mg/dL (74-106) H Calcium Level 9.3 mg/dL (8.6-10.2) Phosphorus Level 1.7 mg/dL (2.5-4.8) L Magnesium Level 1.7 mg/dL (1.7-2.5) Stool Occult Blood Pending Height (Feet): 5 Height (Inches): 2.00 Weight (Pounds): 157 General Appearance: no apparent distress, alert, obese Cardiovascular: normal rate Respiratory/Chest: other - facial Abdominal Exam: normal bowel sounds, non tender, soft Solange Rowell N.P. May 14, 2016 09:45
--- NOTE | 2016-05-14 11:01 | Pulmonology Progress Note ---
Assessment/Plan Problems: (1) Acute respiratory distress (2) Acute on chronic diastolic CHF (congestive heart failure) (3) Hyperkalemia (4) LBBB (left bundle branch block) (5) BRENDEN (acute kidney injury) (6) Severe anemia (7) Purulent bronchitis (8) Patient is Jewish (9) Dementia (10) COPD (chronic obstructive pulmonary disease) Assessment/Plan on lasix d+ zaroxyline Responding very well, --2494 urine prem yesterday, total fluid balance is -- [address] abdomen reviewed, large right pleural effusion increased CEA + Ocult blood GI consult called contineu antibioitcs, wbc remains high no cultures available yet cardiolgy note reviewed will transfuse ffp to [place] the high INR( family refused ffp, pt is Jehovahs witness) discussed with pts grand daughter. Subjective ROS Limited/Unobtainable: No Interval Events: no new complains Respiratory: Reports: productive cough, shortness of breath Allergies: Coded Allergies: SPIRONOLACTONE (Unverified Allergy, Intermediate, 05/08/16) Objective Last 24 Hour Vital Signs Date Time Temp Pulse Resp B/P Pulse Ox O2 Delivery O2 Flow Rate FiO2 05/14/16 09:05 71 30 100 Facial 30 05/14/16 08:00 40 05/14/16 08:00 97.7 73 20 130/49 98 Bi-pap 30 05/14/16 08:00 73 05/14/16 07:03 Bi-pap 30 05/14/16 07:03 99 Bi-pap 30 05/14/16 07:03 67 14 99 Facial 30 05/14/16 04:51 76 16 99 Facial 30 05/14/16 04:00 97.4 69 16 113/45 100 Bi-pap 30 05/14/16 04:00 40 05/14/16 03:46 78 29 99 Facial 30 05/14/16 01:28 75 29 96 Facial 30 05/14/16 00:00 67 05/14/16 00:00 2.0 05/14/16 00:00 97.7 68 20 128/41 100 Bi-pap 30 05/13/16 23:30 96 11 96 Facial 30 05/13/16 21:18 96 25 98 Facial 30 05/13/16 20:00 84 05/13/16 20:00 98.0 77 20 120/56 99 Nasal Cannula 2.0 05/13/16 20:00 2.0 05/13/16 19:15 99 Nasal Cannula 3.0 32 05/13/16 19:15 Nasal Cannula 3.0 32 05/13/16 16:00 2.0 05/13/16 16:00 97.5 72 22 117/52 99 Mechanical Ventilator 72 05/13/16 16:00 70 05/13/16 14:11 88 31 100 Facial 30 05/13/16 12:00 97.5 75 18 128/54 100 Nasal Cannula 2.0 05/13/16 12:00 40 Intake and Output 05/13/16 05/14/16 19:00 07:00 Intake Total 706 ml Output Total 900 ml 2300 ml Balance -194 ml -2300 ml Intake Oral 640 ml IV Total 66 ml Output Urine Total 900 ml 2300 ml # Bowel Movements 1 2 General Appearance: WD/WN HEENT: normocephalic, atraumatic Respiratory/Chest: chest wall non-tender, lungs clear Cardiovascular: normal peripheral pulses, normal rate Abdomen: normal bowel sounds, soft, non tender Genitourinary: normal external genitalia Extremities: no cyanosis Skin: no lesions 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/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 grossly normal, no motor/sensory deficits Laboratory Tests 05/14/16 03:45: White Blood Count 18.8H, Red Blood Count 2.71L, Hemoglobin 7.7L, Hematocrit 24.9L, Mean Corpuscular Volume 92, Mean Corpuscular Hemoglobin 28.4, Mean Corpuscular Hemoglobin Concent 31.0L, Red Cell Distribution Width 13.5, Platelet Count 278, Mean Platelet Volume 5.4L, Neutrophils (%) (Auto) , Lymphocytes (%) (Auto) , Monocytes (%) (Auto) , Eosinophils (%) (Auto) , Basophils (%) (Auto) , Differential Total Cells Counted 100, Neutrophils % ( Manual) 85H, Lymphocytes % (Manual) 9L, Monocytes % (Manual) 3, Eosinophils % ( Manual) 3, Basophils % (Manual) 0, Band Neutrophils 0, Platelet Estimate Adequate, Platelet Morphology Normal, Hypochromasia 2+, Prothrombin Time 15.5H, Prothromb Time International Ratio 1.5H, Sodium Level 139, Potassium Level 5.8H , Chloride Level 98, Carbon Dioxide Level 27, Anion Gap 14, Blood Urea Nitrogen 70H, Creatinine 2.4H, Estimat Glomerular Filtration Rate , Glucose Level 138H, Calcium Level 9.3, Phosphorus Level 1.7L, Magnesium Level 1.7 05/14/16 04:30: Stool Occult Blood [Pending] Current Medications Medications (Trade) Dose Ordered Sig/Abril Route PRN Reason Start Time Stop Time Status Last Admin Dose Admin Acetaminophen (Tylenol) 650 mg Q4H PRN ORAL fever 05/08/16 23:15 06/07/16 23:14 05/09/16 07:04 Amiodarone HCl (Cordarone) 200 mg DAILY ORAL 05/10/16 09:00 06/09/16 08:59 05/14/16 08:50 Atorvastatin Calcium (Lipitor) 40 mg BEDTIME ORAL 05/10/16 21:00 06/09/16 20:59 05/13/16 21:23 Cefepime HCl/ Dextrose (Maxipime/D5W) 55 ml @ 110 mls/hr Q24H IV 05/09/16 09:00 05/16/16 08:59 05/14/16 08:50 Dextrose (Dextrose 50%) STAT PRN IV Hypoglycemia 05/08/16 23:15 06/07/16 23:14 Epoetin Fish (Procrit (for non ESRD use)) 10,000 units Q48H SUBQ 05/09/16 21:00 06/08/16 20:59 05/13/16 21:23 Folic Acid (Folate) 2 mg DAILY ORAL 05/11/16 09:00 06/10/16 08:59 05/14/16 08:50 Furosemide 40 mg 40 mg EVERY 12 HOURS IV 05/13/16 22:00 06/12/16 21:59 05/14/16 08:51 Insulin Aspart (NovoLOG) BEFORE MEALS AND HS SUBQ 05/09/16 06:30 06/08/16 06:29 05/14/16 05:59 Metolazone (Zaroxolyn) 5 mg DAILY ORAL 05/10/16 12:00 06/09/16 11:59 05/14/16 08:51 Nitroglycerin (Ntg) 0.4 mg Q5M PRN SL Prn Chest Pain 05/08/16 23:15 06/07/16 23:14 Ondansetron HCl (Zofran) 4 mg Q6H PRN IVP Nausea & Vomiting 05/08/16 23:15 06/07/16 23:14 Pantoprazole (Protonix) 40 mg EVERY 12 HOURS ORAL 05/10/16 21:00 06/09/16 20:59 05/14/16 08:50 Polyethylene Glycol (Miralax) 17 gm DAILYPRN PRN ORAL Constipation 05/08/16 23:15 06/07/16 23:14 Sodium Phosphate/ Sodium Chloride (NaPO4/Sodium Chloride) 285 ml @ 47.5 mls/hr ONCE ONCE IVPB 05/14/16 11:30 05/14/16 17:29 Temazepam (Restoril) 15 mg HSPRN PRN ORAL Insomnia 05/08/16 23:15 05/15/16 23:14 Thiamine HCl (Vitamin B1) 100 mg DAILY ORAL 05/10/16 18:00 06/09/16 17:59 05/14/16 08:51 Vancomycin HCl (Vanco rx to dose) 1 ea DAILY PRN MISC Per rx protocol 05/11/16 09:15 06/10/16 09:14 ILIR WALLACE May 14, 2016 11:01
[2016-05-14] MEDS ORDERED: Sodium Phosphate 30 MM in NS 275 ML IVPB ONE (11:30)
[2016-05-14 12:00] VITALS: BP 110/49
--- NOTE | 2016-05-14 12:42 | General Progress Note ---
Assessment/Plan Status: unchanged Status Narrative Cr lower Assessment/Plan status: Renal failure : Chronic vs Acute? - Acute respiratory distress - Acute on chronic diastolic CHF (congestive heart failure)- low Ej Fx - Hyperkalemia, on admission, resolved - LBBB (left bundle branch block) - Severe anemia - Purulent bronchitis - Patient is Methodist - Dementia - COPD (chronic obstructive pulmonary disease) Plan: K supplement- as needed Optimize cardiac status- Kidney MISSY- no hydro- cortical thinning-normal size- Urine eosinophils- stop Vanco, check levels ( 12), will resume 2D Echo 30% Ej Fx Urine studies- Per orders epo , folate, Iron Protonix Subjective ROS Limited/Unobtainable: No Constitutional: Reports: malaise, weakness Allergies: Coded Allergies: SPIRONOLACTONE (Unverified Allergy, Intermediate, 05/08/16) Objective Last 24 Hour Vital Signs Date Time Temp Pulse Resp B/P Pulse Ox O2 Delivery O2 Flow Rate FiO2 05/14/16 09:05 71 30 100 Facial 30 05/14/16 08:00 40 05/14/16 08:00 97.7 73 20 130/49 98 Bi-pap 30 05/14/16 08:00 73 05/14/16 07:03 Bi-pap 30 05/14/16 07:03 99 Bi-pap 30 05/14/16 07:03 67 14 99 Facial 30 05/14/16 04:51 76 16 99 Facial 30 05/14/16 04:00 97.4 69 16 113/45 100 Bi-pap 30 05/14/16 04:00 40 05/14/16 03:46 78 29 99 Facial 30 05/14/16 01:28 75 29 96 Facial 30 05/14/16 00:00 67 05/14/16 00:00 2.0 05/14/16 00:00 97.7 68 20 128/41 100 Bi-pap 30 05/13/16 23:30 96 11 96 Facial 30 05/13/16 21:18 96 25 98 Facial 30 05/13/16 20:00 84 05/13/16 20:00 98.0 77 20 120/56 99 Nasal Cannula 2.0 05/13/16 20:00 2.0 05/13/16 19:15 99 Nasal Cannula 3.0 32 05/13/16 19:15 Nasal Cannula 3.0 32 2/13/17 16:00 2.0 05/13/16 16:00 97.5 72 22 117/52 99 Mechanical Ventilator 72 05/13/16 16:00 70 05/13/16 14:11 88 31 100 Facial 30 Intake and Output 05/13/16 05/14/16 19:00 07:00 Intake Total 706 ml Output Total 900 ml 2300 ml Balance -194 ml -2300 ml Intake Oral 640 ml IV Total 66 ml Output Urine Total 900 ml 2300 ml # Bowel Movements 1 2 Laboratory Tests 05/14/16 03:45: White Blood Count 18.8H, Red Blood Count 2.71L, Hemoglobin 7.7L, Hematocrit 24.9L, Mean Corpuscular Volume 92, Mean Corpuscular Hemoglobin 28.4, Mean Corpuscular Hemoglobin Concent 31.0L, Red Cell Distribution Width 13.5, Platelet Count 278, Mean Platelet Volume 5.4L, Neutrophils (%) (Auto) , Lymphocytes (%) (Auto) , Monocytes (%) (Auto) , Eosinophils (%) (Auto) , Basophils (%) (Auto) , Differential Total Cells Counted 100, Neutrophils % ( Manual) 85H, Lymphocytes % (Manual) 9L, Monocytes % (Manual) 3, Eosinophils % ( Manual) 3, Basophils % (Manual) 0, Band Neutrophils 0, Platelet Estimate Adequate, Platelet Morphology Normal, Hypochromasia 2+, Prothrombin Time 15.5H, Prothromb Time International Ratio 1.5H, Sodium Level 139, Potassium Level 5.8H , Chloride Level 98, Carbon Dioxide Level 27, Anion Gap 14, Blood Urea Nitrogen 70H, Creatinine 2.4H, Estimat Glomerular Filtration Rate , Glucose Level 138H, Calcium Level 9.3, Phosphorus Level 1.7L, Magnesium Level 1.7 05/14/16 04:30: Stool Occult Blood [Pending] Height (Feet): 5 Height (Inches): 2.00 Weight (Pounds): 157 General Appearance: no apparent distress Cardiovascular: normal rate Respiratory/Chest: decreased breath sounds Abdomen: soft Objective other physical exam not changed GILLES CUELLAR May 14, 2016 12:42
--- NOTE | 2016-05-14 13:05 | Infectious Diseases Prog Note ---
Assessment/Plan Assessment/Plan ASSESSMENT: 85 y/o female with: // Possible CAP - unable to produce sputum, legionella UAg(-) - CXR 05/13: Decreased but persistent pulmonary edema // Leukocytosis - persistent, stable, afebrile. Cultures NGTD // Acute on chronic systolic + diastolic CHF exacerbation - trop(-) x1, elevated BNP - TTE: EF 30-35%, mild MR, mod TN, sev TR, mod pulmonary HTN // O2-dependent COPD // Elevated LFTs - resolved // ARF - improved // Severe FOBT(+) normocytic anemia - Hgb stable - EGD/colonoscopy: pending - Yazdanism, no blood products // Elevated CEA // DM2 // Dementia // No ABX allergies // Full Code PLAN: - continue empiric IV vancomycin, cefepime d# 6 / 7 - EGD, colonoscopy per GI - f/u cultures - f/u CT A/P - monitor CBC, temperatures - monitor BMP - monitor CXR Subjective Allergies: Coded Allergies: SPIRONOLACTONE (Unverified Allergy, Intermediate, 05/08/16) Subjective remains afebrile persistent leukocytosis cultures NGTD CT A/P pending Objective Vital Signs Last 24 Hour Vital Signs Date Time Temp Pulse Resp B/P Pulse Ox O2 Delivery O2 Flow Rate FiO2 05/14/16 12:00 98.2 78 18 110/49 100 Nasal Cannula 3.0 05/14/16 12:00 3.0 05/14/16 09:05 71 30 100 Facial 30 05/14/16 08:00 40 05/14/16 08:00 97.7 73 20 130/49 98 Bi-pap 30 05/14/16 08:00 73 05/14/16 07:03 Bi-pap 30 05/14/16 07:03 99 Bi-pap 30 05/14/16 07:03 67 14 99 Facial 30 05/14/16 04:51 76 16 99 Facial 30 05/14/16 04:00 97.4 69 16 113/45 100 Bi-pap 30 05/14/16 04:00 40 05/14/16 03:46 78 29 99 Facial 30 05/14/16 01:28 75 29 96 Facial 30 05/14/16 00:00 67 05/14/16 00:00 2.0 05/14/16 00:00 97.7 68 20 128/41 100 Bi-pap 30 05/13/16 23:30 96 11 96 Facial 30 05/13/16 21:18 96 25 98 Facial 30 05/13/16 20:00 84 05/13/16 20:00 98.0 77 20 120/56 99 Nasal Cannula 2.0 05/13/16 20:00 2.0 05/13/16 19:15 99 Nasal Cannula 3.0 32 05/13/16 19:15 Nasal Cannula 3.0 32 05/13/16 16:00 2.0 05/13/16 16:00 97.5 72 22 117/52 99 Mechanical Ventilator 72 05/13/16 16:00 70 05/13/16 14:11 88 31 100 Facial 30 Height (Feet): 5 Height (Inches): 2.00 Weight (Pounds): 157 General Appearance: no acute distress Respiratory/Chest: no respiratory distress Cardiovascular: normal rate, regular rhythm Abdomen: normal bowel sounds, soft, non tender, non distended Laboratory Tests Test 05/14/16 03:45 05/14/16 04:30 White Blood Count 18.8 K/UL (4.8-10.8) H Red Blood Count 2.71 M/UL (4.20-5.40) L Hemoglobin 7.7 G/DL (12.0-16.0) L Hematocrit 24.9 % (37.0-47.0) L Mean Corpuscular Volume 92 FL (80-99) Mean Corpuscular Hemoglobin 28.4 PG (27.0-31.0) Mean Corpuscular Hemoglobin Concent 31.0 G/DL (32.0-36.0) L Red Cell Distribution Width 13.5 % (11.6-14.8) Platelet Count 278 K/UL (150-450) Mean Platelet Volume 5.4 FL (6.5-10.1) L Neutrophils (%) (Auto) % (45.0-75.0) Lymphocytes (%) (Auto) % (20.0-45.0) Monocytes (%) (Auto) % (1.0-10.0) Eosinophils (%) (Auto) % (0.0-3.0) Basophils (%) (Auto) % (0.0-2.0) Differential Total Cells Counted 100 Neutrophils % (Manual) 85 % (45-75) H Lymphocytes % (Manual) 9 % (20-45) L Monocytes % (Manual) 3 % (1-10) Eosinophils % (Manual) 3 % (0-3) Basophils % (Manual) 0 % (0-2) Band Neutrophils 0 % (0-8) Platelet Estimate Adequate Platelet Morphology Normal Hypochromasia 2+ Prothrombin Time 15.5 SEC (9.30-11.50) H Prothromb Time International Ratio 1.5 (0.9-1.1) H Sodium Level 139 mEQ/L (135-145) Potassium Level 5.8 mEQ/L (3.4-4.9) H Chloride Level 98 mEQ/L (98-107) Carbon Dioxide Level 27 mEQ/L (20-30) Anion Gap 14 (5-15) Blood Urea Nitrogen 70 mg/dL (7-23) H Creatinine 2.4 mg/dL (0.5-0.9) H Estimat Glomerular Filtration Rate mL/min (>60) Glucose Level 138 mg/dL (74-106) H Calcium Level 9.3 mg/dL (8.6-10.2) Phosphorus Level 1.7 mg/dL (2.5-4.8) L Magnesium Level 1.7 mg/dL (1.7-2.5) Stool Occult Blood Positive (NEGATIVE) Current Medications Medications (Trade) Dose Ordered Sig/Abril Route PRN Reason Start Time Stop Time Status Last Admin Dose Admin Acetaminophen (Tylenol) 650 mg Q4H PRN ORAL fever 05/08/16 23:15 06/07/16 23:14 05/09/16 07:04 Amiodarone HCl (Cordarone) 200 mg DAILY ORAL 05/10/16 09:00 06/09/16 08:59 05/14/16 08:50 Atorvastatin Calcium (Lipitor) 40 mg BEDTIME ORAL 05/10/16 21:00 06/09/16 20:59 05/13/16 21:23 Cefepime HCl/ Dextrose (Maxipime/D5W) 55 ml @ 110 mls/hr Q24H IV 05/09/16 09:00 05/16/16 08:59 05/14/16 08:50 Dextrose (Dextrose 50%) STAT PRN IV Hypoglycemia 05/08/16 23:15 3/10/17 23:14 Epoetin Fish (Procrit (for non ESRD use)) 10,000 units Q48H SUBQ 05/09/16 21:00 06/08/16 20:59 05/13/16 21:23 Folic Acid (Folate) 2 mg DAILY ORAL 05/11/16 09:00 06/10/16 08:59 05/14/16 08:50 Furosemide 40 mg 40 mg EVERY 12 HOURS IV 05/13/16 22:00 06/12/16 21:59 05/14/16 08:51 Insulin Aspart (NovoLOG) BEFORE MEALS AND HS SUBQ 05/09/16 06:30 06/08/16 06:29 05/14/16 11:38 Metolazone (Zaroxolyn) 5 mg DAILY ORAL 05/10/16 12:00 06/09/16 11:59 05/14/16 08:51 Nitroglycerin (Ntg) 0.4 mg Q5M PRN SL Prn Chest Pain 05/08/16 23:15 06/07/16 23:14 Ondansetron HCl (Zofran) 4 mg Q6H PRN IVP Nausea & Vomiting 05/08/16 23:15 06/07/16 23:14 Pantoprazole (Protonix) 40 mg EVERY 12 HOURS ORAL 05/10/16 21:00 06/09/16 20:59 05/14/16 08:50 Polyethylene Glycol (Miralax) 17 gm DAILYPRN PRN ORAL Constipation 05/08/16 23:15 06/07/16 23:14 Sodium Phosphate/ Sodium Chloride (NaPO4/Sodium Chloride) 285 ml @ 47.5 mls/hr ONCE ONCE IVPB 05/14/16 11:30 05/14/16 17:29 05/14/16 11:42 Temazepam (Restoril) 15 mg HSPRN PRN ORAL Insomnia 05/08/16 23:15 05/15/16 23:14 Thiamine HCl (Vitamin B1) 100 mg DAILY ORAL 05/10/16 18:00 06/09/16 17:59 05/14/16 08:51 Vancomycin HCl (Vanco rx to dose) 1 ea DAILY PRN MISC Per rx protocol 05/11/16 09:15 06/10/16 09:14 GEORGIE HOLLOWAY May 14, 2016 13:05
[2016-05-14] MEDS ORDERED: Promethazine/Codeine 5ml UD ORAL PRN (14:00)
[2016-05-14 16:00] VITALS: BP 125/48
[2016-05-14] MEDS ORDERED: NS 275ml ONE (18:01)
[2016-05-14] MEDS ORDERED: Tubing IV Secondary IV ONE (18:01)
[2016-05-14 20:00] VITALS: BP 112/43
[2016-05-15] VITALS: BP 104/38
[2016-05-15 04:00] VITALS: BP 104/40
[2016-05-15 05:05] LABS: MEAN CORPUSCULAR HGB CONC 30.9 G/DL (32.0-36.0); MEAN CORPUSCULAR VOLUME 91 FL (80-99); MEAN PLATELET VOLUME 5.3 FL (6.5-10.1); PLATELET COUNT 252 K/UL (150-450); RED BLOOD COUNT 2.93 M/UL (4.20-5.40); RED CELL DISTRIBUTION WIDTH 13.4 % (11.6-14.8); WHITE BLOOD COUNT 18.9 K/UL (4.8-10.8)
[2016-05-15 05:13] LABS: INR 1.3 (0.9-1.1); PROTHROMBIN TIME 13.4 SEC (9.30-11.50)
[2016-05-15 05:27] LABS: ANION GAP 15 (5-15); CALCIUM 9.2 mg/dL (8.6-10.2); CARBON DIOXIDE 30 mEQ/L (20-30); CHLORIDE 100 mEQ/L (98-107); CREATININE 2.2 mg/dL (0.5-0.9); HEMOLYSIS 2; PHOSPHORUS 3.7 mg/dL (2.5-4.8); POTASSIUM 5.3 mEQ/L (3.4-4.9); SODIUM 145 mEQ/L (135-145)
[2016-05-15] MEDS: NovoLOG Insulin Flexpen SUBQ SCH ×4 (06:30→21:05)
[2016-05-15 07:29] LABS: EOSINOPHILS % (MANUAL) 2 % (0-3); LYMPHOCYTES % (MANUAL) 15 % (20-45); NEUTROPHILS % (MANUAL) 75 % (45-75); TOTAL CELLS COUNTED 100
[2016-05-15 07:30] LABS: BAND NEUTROPHILS % (MANUAL) 0 % (0-8); BASOPHILS % (MANUAL) 0 % (0-2); PLATELET ESTIMATE ADEQUATE; PLATELET MORPHOLOGY NORMAL
[2016-05-15 07:31] LABS: POLYCHROMASIA 1+
[2016-05-15 07:32] LABS: HYPOCHROMASIA 2+
[2016-05-15 08:00] VITALS: BP 112/50
[2016-05-15] MEDS: Cefepime HCl 1 GM in D5W 55 ML IV SCH (08:55)
[2016-05-15] MEDS: Thiamine 100mg tab ORAL SCH (08:56)
[2016-05-15] MEDS: Amiodarone 200mg tab ORAL SCH (08:56)
[2016-05-15] MEDS: Metolazone 5mg tab ORAL SCH (08:56)
--- NOTE | 2016-05-15 11:09 | GI Progress Note ---
Assessment/Plan Problems: (1) Severe anemia ICD Codes: D64.9 - Anemia, unspecified SNOMED: 216992119 (2) Dementia ICD Codes: F03.90 - Unspecified dementia without behavioral disturbance SNOMED: 77110226 Qualifiers: (3) Refusal of blood transfusions as patient is Bapt[employer] ICD Codes: Z53.1 - Procedure and treatment not carried out because of patient' s decision for reasons of belief and group pressure SNOMED: 132082400 (4) Iron deficiency anemia ICD Codes: D50.9 - Iron deficiency anemia, unspecified SNOMED: 19865279 (5) Elevated CEA ICD Codes: R97.0 - Elevated carcinoembryonic antigen [CEA] SNOMED: 09177985, 870524470 Status: progressing Status Narrative Discussed with Dr. Siegel. Assessment/Plan iron deficient anemia elevated CEA >> 8.4 OB stool positive x 2 RECOMMENDATIONS: Supportive care. PO intake as tolerated. Continue to monitor CBC. fu OB stool #2 APCT reviewed from chart. Possible endoscopy or colonoscopy friday. fu labs Subjective Subjective limited Objective Last 24 Hour Vital Signs Date Time Temp Pulse Resp B/P Pulse Ox O2 Delivery O2 Flow Rate FiO2 05/15/16 09:53 97.9 05/15/16 08:00 97.9 71 19 112/50 99 Nasal Cannula 2.0 05/15/16 06:50 97 Nasal Cannula 2.0 05/15/16 06:50 Nasal Cannula 2.0 28 05/15/16 04:39 81 05/15/16 04:34 2.0 05/15/16 04:00 98.2 95 20 104/40 98 Nasal Cannula 2.0 05/15/16 00:00 3.0 05/15/16 00:00 98.2 82 20 104/38 98 Nasal Cannula 2.0 05/15/16 00:00 80 05/14/16 20:00 76 05/14/16 20:00 98.1 72 21 112/43 98 Nasal Cannula 2.0 05/14/16 20:00 3.0 05/14/16 19:00 Nasal Cannula 3.0 32 05/14/16 19:00 98 Nasal Cannula 2.0 05/14/16 16:00 97.5 71 18 125/48 99 05/14/16 16:00 3.0 05/14/16 12:00 80 05/14/16 12:00 98.2 78 18 110/49 100 Nasal Cannula 3.0 05/14/16 12:00 3.0 Intake and Output 05/14/16 05/15/16 19:00 07:00 Intake Total 337.5 ml 300 ml Output Total 1900 ml 1675 ml Balance -1562.5 ml -1375 ml Intake Oral 300 ml IV Total 337.5 ml Output Urine Total 1000 ml 1675 ml Other 900 ml # Bowel Movements 2 Laboratory Tests Test 05/14/16 18:00 05/15/16 04:15 Body Fluid Source Pending Body Fluid Volume Pending Body Fluid Glucose Pending Body Fluid Total Protein Pending Body Fluid Lactate Dehydrogenase Pending White Blood Count 18.9 K/UL (4.8-10.8) H Red Blood Count 2.93 M/UL (4.20-5.40) L Hemoglobin 8.2 G/DL (12.0-16.0) L Hematocrit 26.6 % (37.0-47.0) L Mean Corpuscular Volume 91 FL (80-99) Mean Corpuscular Hemoglobin 28.0 PG (27.0-31.0) Mean Corpuscular Hemoglobin Concent 30.9 G/DL (32.0-36.0) L Red Cell Distribution Width 13.4 % (11.6-14.8) Platelet Count 252 K/UL (150-450) Mean Platelet Volume 5.3 FL (6.5-10.1) L Neutrophils (%) (Auto) % (45.0-75.0) Lymphocytes (%) (Auto) % (20.0-45.0) Monocytes (%) (Auto) % (1.0-10.0) Eosinophils (%) (Auto) % (0.0-3.0) Basophils (%) (Auto) % (0.0-2.0) Differential Total Cells Counted 100 Neutrophils % (Manual) 75 % (45-75) Lymphocytes % (Manual) 15 % (20-45) L Monocytes % (Manual) 8 % (1-10) Eosinophils % (Manual) 2 % (0-3) Basophils % (Manual) 0 % (0-2) Band Neutrophils 0 % (0-8) Platelet Estimate Adequate Platelet Morphology Normal Polychromasia 1+ Hypochromasia 2+ Prothrombin Time 13.4 SEC (9.30-11.50) H Prothromb Time International Ratio 1.3 (0.9-1.1) H Sodium Level 145 mEQ/L (135-145) Potassium Level 5.3 mEQ/L (3.4-4.9) H Chloride Level 100 mEQ/L (98-107) Carbon Dioxide Level 30 mEQ/L (20-30) Anion Gap 15 (5-15) Blood Urea Nitrogen 64 mg/dL (7-23) H Creatinine 2.2 mg/dL (0.5-0.9) H Estimat Glomerular Filtration Rate mL/min (>60) Glucose Level 165 mg/dL (74-106) H Calcium Level 9.2 mg/dL (8.6-10.2) Phosphorus Level 3.7 mg/dL (2.5-4.8) Height (Feet): 5 Height (Inches): 2.00 Weight (Pounds): 157 General Appearance: no apparent distress, alert Cardiovascular: normal rate Respiratory/Chest: normal breath sounds, no respiratory distress, other - on room air now Abdominal Exam: normal bowel sounds, non tender, soft Objective s/p thoracentesis Solange Rowell N.P. May 15, 2016 11:09
[2016-05-15 12:00] VITALS: BP 120/46
--- NOTE | 2016-05-15 12:09 | Pulmonology Progress Note ---
Assessment/Plan Problems: (1) Acute respiratory distress (2) Acute on chronic diastolic CHF (congestive heart failure) (3) Hyperkalemia (4) LBBB (left bundle branch block) (5) BRENDEN (acute kidney injury) (6) Severe anemia (7) Purulent bronchitis (8) Patient is Hinduism (9) Dementia (10) COPD (chronic obstructive pulmonary disease) Assessment/Plan on lasix d+ zaroxyline Responding very well, -- still diuresing strongly CT abdomen reviewed, large right pleural effusion increased CEA + Ocult blood GI consult called for colonoscopy on friday contineu antibioitcs, wbc remains high no cultures available yet cardiolgy note reviewed discussed with pts grand daughter. Subjective Interval Events: s/p thoracentesis, less short of breath Allergies: Coded Allergies: SPIRONOLACTONE (Unverified Allergy, Intermediate, 05/08/16) Objective Last 24 Hour Vital Signs Date Time Temp Pulse Resp B/P Pulse Ox O2 Delivery O2 Flow Rate FiO2 05/15/16 09:53 97.9 05/15/16 08:00 97.9 71 19 112/50 99 Nasal Cannula 2.0 05/15/16 06:50 97 Nasal Cannula 2.0 05/15/16 06:50 Nasal Cannula 2.0 28 05/15/16 04:39 81 05/15/16 04:34 2.0 05/15/16 04:00 98.2 95 20 104/40 98 Nasal Cannula 2.0 05/15/16 00:00 3.0 05/15/16 00:00 98.2 82 20 104/38 98 Nasal Cannula 2.0 05/15/16 00:00 80 05/14/16 20:00 76 05/14/16 20:00 98.1 72 21 112/43 98 Nasal Cannula 2.0 05/14/16 20:00 3.0 05/14/16 19:00 Nasal Cannula 3.0 32 05/14/16 19:00 98 Nasal Cannula 2.0 05/14/16 16:00 97.5 71 18 125/48 99 05/14/16 16:00 3.0 Intake and Output 05/14/16 05/15/16 19:00 07:00 Intake Total 337.5 ml 300 ml Output Total 1900 ml 1675 ml Balance -1562.5 ml -1375 ml Intake Oral 300 ml IV Total 337.5 ml Output Urine Total 1000 ml 1675 ml Other 900 ml # Bowel Movements 2 General Appearance: WD/WN HEENT: normocephalic Respiratory/Chest: chest wall non-tender, lungs clear, accessory muscle use, crackles/rales Cardiovascular: normal peripheral pulses Abdomen: normal bowel sounds, soft, non tender Genitourinary: normal external genitalia Extremities: no cyanosis Skin: no rash Neurologic/Psychiatric: 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 grossly normal, no motor/sensory deficits Laboratory Tests 05/14/16 18:00: Body Fluid Source [Pending], Body Fluid Volume [Pending], Body Fluid Glucose [ Pending], Body Fluid Total Protein [Pending], Body Fluid Lactate Dehydrogenase [ Pending] 05/15/16 04:15: White Blood Count 18.9H, Red Blood Count 2.93L, Hemoglobin 8.2L, Hematocrit 26.6L, Mean Corpuscular Volume 91, Mean Corpuscular Hemoglobin 28.0, Mean Corpuscular Hemoglobin Concent 30.9L, Red Cell Distribution Width 13.4, Platelet Count 252, Mean Platelet Volume 5.3L, Neutrophils (%) (Auto) , Lymphocytes (%) (Auto) , Monocytes (%) (Auto) , Eosinophils (%) (Auto) , Basophils (%) (Auto) , Differential Total Cells Counted 100, Neutrophils % ( Manual) 75, Lymphocytes % (Manual) 15L, Monocytes % (Manual) 8, Eosinophils % ( Manual) 2, Basophils % (Manual) 0, Band Neutrophils 0, Platelet Estimate Adequate, Platelet Morphology Normal, Polychromasia 1+, Hypochromasia 2+, Prothrombin Time 13.4H, Prothromb Time International Ratio 1.3H, Sodium Level 145, Potassium Level 5.3H, Chloride Level 100, Carbon Dioxide Level 30, Anion Gap 15, Blood Urea Nitrogen 64H, Creatinine 2.2H, Estimat Glomerular Filtration Rate , Glucose Level 165H, Calcium Level 9.2, Phosphorus Level 3.7 Current Medications Medications (Trade) Dose Ordered Sig/Abril Route PRN Reason Start Time Stop Time Status Last Admin Dose Admin Acetaminophen (Tylenol) 650 mg Q4H PRN ORAL fever 05/08/16 23:15 06/07/16 23:14 05/15/16 08:54 Amiodarone HCl (Cordarone) 200 mg DAILY ORAL 05/10/16 09:00 06/09/16 08:59 05/15/16 08:56 Atorvastatin Calcium (Lipitor) 40 mg BEDTIME ORAL 05/10/16 21:00 06/09/16 20:59 05/14/16 21:10 Cefepime HCl/ Dextrose (Maxipime/D5W) 55 ml @ 110 mls/hr Q24H IV 05/09/16 09:00 05/16/16 08:59 05/15/16 08:55 Dextrose (Dextrose 50%) STAT PRN IV Hypoglycemia 05/08/16 23:15 06/07/16 23:14 Epoetin Fish (Procrit (for non ESRD use)) 10,000 units Q48H SUBQ 05/09/16 21:00 06/08/16 20:59 05/13/16 21:23 Folic Acid (Folate) 2 mg DAILY ORAL 05/11/16 09:00 06/10/16 08:59 05/15/16 08:56 Furosemide (Lasix) 40 mg EVERY 12 HOURS IV 05/13/16 22:00 06/12/16 21:59 05/15/16 08:54 Insulin Aspart (NovoLOG) BEFORE MEALS AND HS SUBQ 05/09/16 06:30 06/08/16 06:29 05/15/16 06:30 Metolazone (Zaroxolyn) 5 mg DAILY ORAL 05/10/16 12:00 06/09/16 11:59 05/15/16 08:56 Nitroglycerin (Ntg) 0.4 mg Q5M PRN SL Prn Chest Pain 05/08/16 23:15 06/07/16 23:14 Ondansetron HCl (Zofran) 4 mg Q6H PRN IVP Nausea & Vomiting 05/08/16 23:15 06/07/16 23:14 Pantoprazole (Protonix) 40 mg EVERY 12 HOURS ORAL 05/10/16 21:00 06/09/16 20:59 05/15/16 08:56 Polyethylene Glycol (Miralax) 17 gm DAILYPRN PRN ORAL Constipation 05/08/16 23:15 06/07/16 23:14 Promethazine HCl/ Codeine (Phenergan with Codeine) 5 ml Q4H PRN ORAL For Cough 05/14/16 14:00 06/13/16 13:59 Temazepam (Restoril) 15 mg HSPRN PRN ORAL Insomnia 05/08/16 23:15 05/15/16 23:14 Thiamine HCl (Vitamin B1) 100 mg DAILY ORAL 05/10/16 18:00 06/09/16 17:59 05/15/16 08:56 Vancomycin HCl (Vanco rx to dose) 1 ea DAILY PRN MISC Per rx protocol 05/11/16 09:15 06/10/16 09:14 ILIR WALLACE May 15, 2016 12:08
[2016-05-15] MEDS ORDERED: Bisacodyl EC 5mg tab ORAL ONE (12:15)
--- NOTE | 2016-05-15 12:51 | General Progress Note ---
Assessment/Plan Status: unchanged Status Narrative Cr down 2.2 Assessment/Plan status: Renal failure : Chronic vs Acute? - Acute respiratory distress - Acute on chronic diastolic CHF (congestive heart failure)- low Ej Fx - Hyperkalemia, on admission, resolved - LBBB (left bundle branch block) - Severe anemia - Purulent bronchitis - Patient is Anglican - Dementia - COPD (chronic obstructive pulmonary disease) Plan: Optimize cardiac status- Kidney MISSY- no hydro- cortical thinning-normal size- Urine eosinophils- stop Vanco, check levels ( 12), will resume 2D Echo 30% Ej Fx Urine studies- Per orders epo , folate, Iron Protonix Subjective ROS Limited/Unobtainable: No Constitutional: Reports: malaise, weakness Allergies: Coded Allergies: SPIRONOLACTONE (Unverified Allergy, Intermediate, 05/08/16) Objective Last 24 Hour Vital Signs Date Time Temp Pulse Resp B/P Pulse Ox O2 Delivery O2 Flow Rate FiO2 05/15/16 12:00 2.0 05/15/16 09:53 97.9 05/15/16 08:00 97.9 71 19 112/50 99 Nasal Cannula 2.0 05/15/16 08:00 2.0 05/15/16 06:50 97 Nasal Cannula 2.0 05/15/16 06:50 Nasal Cannula 2.0 28 05/15/16 04:39 81 05/15/16 04:34 2.0 05/15/16 04:00 98.2 95 20 104/40 98 Nasal Cannula 2.0 05/15/16 00:00 3.0 05/15/16 00:00 98.2 82 20 104/38 98 Nasal Cannula 2.0 05/15/16 00:00 80 05/14/16 20:00 76 05/14/16 20:00 98.1 72 21 112/43 98 Nasal Cannula 2.0 05/14/16 20:00 3.0 05/14/16 19:00 Nasal Cannula 3.0 32 05/14/16 19:00 98 Nasal Cannula 2.0 05/14/16 16:00 97.5 71 18 125/48 99 05/14/16 16:00 3.0 Intake and Output 05/14/16 05/15/16 19:00 07:00 Intake Total 337.5 ml 300 ml Output Total 1900 ml 1675 ml Balance -1562.5 ml -1375 ml Intake Oral 300 ml IV Total 337.5 ml Output Urine Total 1000 ml 1675 ml Other 900 ml # Bowel Movements 2 Laboratory Tests 05/14/16 18:00: Body Fluid Source [Pending], Body Fluid Volume [Pending], Body Fluid Glucose [ Pending], Body Fluid Total Protein [Pending], Body Fluid Lactate Dehydrogenase [ Pending] 05/15/16 04:15: White Blood Count 18.9H, Red Blood Count 2.93L, Hemoglobin 8.2L, Hematocrit 26.6L, Mean Corpuscular Volume 91, Mean Corpuscular Hemoglobin 28.0, Mean Corpuscular Hemoglobin Concent 30.9L, Red Cell Distribution Width 13.4, Platelet Count 252, Mean Platelet Volume 5.3L, Neutrophils (%) (Auto) , Lymphocytes (%) (Auto) , Monocytes (%) (Auto) , Eosinophils (%) (Auto) , Basophils (%) (Auto) , Differential Total Cells Counted 100, Neutrophils % ( Manual) 75, Lymphocytes % (Manual) 15L, Monocytes % (Manual) 8, Eosinophils % ( Manual) 2, Basophils % (Manual) 0, Band Neutrophils 0, Platelet Estimate Adequate, Platelet Morphology Normal, Polychromasia 1+, Hypochromasia 2+, Prothrombin Time 13.4H, Prothromb Time International Ratio 1.3H, Sodium Level 145, Potassium Level 5.3H, Chloride Level 100, Carbon Dioxide Level 30, Anion Gap 15, Blood Urea Nitrogen 64H, Creatinine 2.2H, Estimat Glomerular Filtration Rate , Glucose Level 165H, Calcium Level 9.2, Phosphorus Level 3.7 Height (Feet): 5 Height (Inches): 2.00 Weight (Pounds): 157 General Appearance: no apparent distress Objective other physical exam not changed GILLES CUELLAR May 15, 2016 12:51
[2016-05-15] MEDS ORDERED: Sodium Polystyrene Sulfonate 15gm Powder ORAL ONE (13:00)
[2016-05-15] MEDS ORDERED: Polyethylene Glycol 238gm bottle ORAL ONE (13:30)
--- NOTE | 2016-05-15 13:30 | Diagnostic Imaging Report ---
Indications: Status post right thoracentesis Technique: Portable AP chest Findings: Comparison: 05/13/2016 Right pleural effusion has decreased in volume. No pneumothorax identified. Cardiomegaly, pulmonary vascular redistribution, bilateral interstitial infiltrates, left pleural effusion unchanged. No new abnormality identified. IMPRESSION: Decrease in right pleural effusion following thoracentesis; no pneumothorax Bilateral congestive changes otherwise unchanged
--- NOTE | 2016-05-15 13:30 | Diagnostic Imaging Report ---
Indications: Shortness of breath, right pleural effusion Technique: Procedure, indications, risks and alternatives were explained to the patient's family who understands and gives consent to proceed. The right pleural space was surveyed sonographically. The skin over the posterior aspect of the right hemithorax was sterilely prepped and draped in usual fashion. Skin and subcutaneous soft tissues were infiltrated with 1% lidocaine and sodium bicarbonate. A small dermatotomy was made, through which an 8 Greek thoracentesis catheter was advanced under direct sonographic guidance into the right pleural space. Pleural fluid was maximally drained via vacuum apparatus.. Followup imaging was performed. Catheter was removed. Dermatotomy site was manually compressed to achieve stasis, then cleansed and bandaged. Patient tolerated the procedure well without immediate complications. Fluid was sent to laboratory and pathology for analysis, as ordered. Findings: Initial imaging demonstrates a large amount of fluid within the right pleural space. Post procedure imaging demonstrates high-resolution of fluid. Thoracentesis yields 900 cc of orange colored fluid. IMPRESSION: Ultrasound-guided right thoracentesis yielding 100 cc of of pleural fluid , laboratory and pathology results pending. Followup chest radiograph pending.
--- NOTE | 2016-05-15 14:56 | Infectious Diseases Prog Note ---
Assessment/Plan Assessment/Plan ASSESSMENT: 85 y/o female with: // Possible CAP - unable to produce sputum, legionella UAg(-) - CXR 05/13: Decreased but persistent pulmonary edema // Leukocytosis - persistent, stable, afebrile. Cultures NGTD // Pleural effusion - SP thoracentesis 900cc 05/14 - Cx pending // Acute on chronic systolic + diastolic CHF exacerbation - trop(-) x1, elevated BNP - TTE: EF 30-35%, mild MR, mod MN, sev TR, mod pulmonary HTN // O2-dependent COPD // Elevated LFTs - resolved // ARF - improved // Severe FOBT(+) normocytic anemia - Hgb stable - EGD/colonoscopy: pending - Moravian, no blood products // Elevated CEA // DM2 // Dementia // No ABX allergies // Full Code PLAN: - limit empiric IV vancomycin, cefepime after today d# 7 / 7, monitor pt off of ABX - EGD, colonoscopy per GI - f/u cultures - f/u CT A/P - monitor CBC, temperatures - monitor BMP - monitor CXR Subjective Allergies: Coded Allergies: SPIRONOLACTONE (Unverified Allergy, Intermediate, 05/08/16) Subjective remains afebrile persistent leukocytosis cultures NGTD SP thoracentesis 900cc Objective Vital Signs Last 24 Hour Vital Signs Date Time Temp Pulse Resp B/P Pulse Ox O2 Delivery O2 Flow Rate FiO2 05/15/16 12:00 98.1 70 20 120/46 94 Nasal Cannula 2.0 05/15/16 12:00 2.0 05/15/16 09:53 97.9 05/15/16 08:00 97.9 71 19 112/50 99 Nasal Cannula 2.0 05/15/16 08:00 2.0 05/15/16 06:50 97 Nasal Cannula 2.0 05/15/16 06:50 Nasal Cannula 2.0 28 05/15/16 04:39 81 05/15/16 04:34 2.0 05/15/16 04:00 98.2 95 20 104/40 98 Nasal Cannula 2.0 05/15/16 00:00 3.0 05/15/16 00:00 98.2 82 20 104/38 98 Nasal Cannula 2.0 05/15/16 00:00 80 05/14/16 20:00 76 05/14/16 20:00 98.1 72 21 112/43 98 Nasal Cannula 2.0 05/14/16 20:00 3.0 05/14/16 19:00 Nasal Cannula 3.0 32 05/14/16 19:00 98 Nasal Cannula 2.0 05/14/16 16:00 97.5 71 18 125/48 99 05/14/16 16:00 3.0 Height (Feet): 5 Height (Inches): 2.00 Weight (Pounds): 157 General Appearance: no acute distress Respiratory/Chest: no respiratory distress Cardiovascular: normal rate, regular rhythm Abdomen: normal bowel sounds, soft, non tender, non distended Microbiology Date/Time Source Procedure Growth Status 05/14/16 18:00 Thoracic Fluid Gram Stain - Final Resulted 05/14/16 18:00 Thoracic Fluid Body Fluid Culture Pending Resulted Laboratory Tests Test 05/14/16 18:00 05/15/16 04:15 Body Fluid Source Pending Body Fluid Volume Pending Body Fluid Glucose Pending Body Fluid Total Protein Pending Body Fluid Lactate Dehydrogenase Pending White Blood Count 18.9 K/UL (4.8-10.8) H Red Blood Count 2.93 M/UL (4.20-5.40) L Hemoglobin 8.2 G/DL (12.0-16.0) L Hematocrit 26.6 % (37.0-47.0) L Mean Corpuscular Volume 91 FL (80-99) Mean Corpuscular Hemoglobin 28.0 PG (27.0-31.0) Mean Corpuscular Hemoglobin Concent 30.9 G/DL (32.0-36.0) L Red Cell Distribution Width 13.4 % (11.6-14.8) Platelet Count 252 K/UL (150-450) Mean Platelet Volume 5.3 FL (6.5-10.1) L Neutrophils (%) (Auto) % (45.0-75.0) Lymphocytes (%) (Auto) % (20.0-45.0) Monocytes (%) (Auto) % (1.0-10.0) Eosinophils (%) (Auto) % (0.0-3.0) Basophils (%) (Auto) % (0.0-2.0) Differential Total Cells Counted 100 Neutrophils % (Manual) 75 % (45-75) Lymphocytes % (Manual) 15 % (20-45) L Monocytes % (Manual) 8 % (1-10) Eosinophils % (Manual) 2 % (0-3) Basophils % (Manual) 0 % (0-2) Band Neutrophils 0 % (0-8) Platelet Estimate Adequate Platelet Morphology Normal Polychromasia 1+ Hypochromasia 2+ Prothrombin Time 13.4 SEC (9.30-11.50) H Prothromb Time International Ratio 1.3 (0.9-1.1) H Sodium Level 145 mEQ/L (135-145) Potassium Level 5.3 mEQ/L (3.4-4.9) H Chloride Level 100 mEQ/L (98-107) Carbon Dioxide Level 30 mEQ/L (20-30) Anion Gap 15 (5-15) Blood Urea Nitrogen 64 mg/dL (7-23) H Creatinine 2.2 mg/dL (0.5-0.9) H Estimat Glomerular Filtration Rate mL/min (>60) Glucose Level 165 mg/dL (74-106) H Calcium Level 9.2 mg/dL (8.6-10.2) Phosphorus Level 3.7 mg/dL (2.5-4.8) Current Medications Medications (Trade) Dose Ordered Sig/Abril Route PRN Reason Start Time Stop Time Status Last Admin Dose Admin Acetaminophen (Tylenol) 650 mg Q4H PRN ORAL fever 05/08/16 23:15 06/07/16 23:14 05/15/16 08:54 Amiodarone HCl (Cordarone) 200 mg DAILY ORAL 05/10/16 09:00 06/09/16 08:59 05/15/16 08:56 Atorvastatin Calcium (Lipitor) 40 mg BEDTIME ORAL 05/10/16 21:00 06/09/16 20:59 05/14/16 21:10 Cefepime HCl/ Dextrose (Maxipime/D5W) 55 ml @ 110 mls/hr Q24H IV 05/09/16 09:00 05/16/16 08:59 05/15/16 08:55 Dextrose (Dextrose 50%) STAT PRN IV Hypoglycemia 05/08/16 23:15 06/07/16 23:14 Epoetin Fish (Procrit (for non ESRD use)) 10,000 units Q48H SUBQ 05/09/16 21:00 06/08/16 20:59 05/13/16 21:23 Folic Acid (Folate) 2 mg DAILY ORAL 05/11/16 09:00 06/10/16 08:59 05/15/16 08:56 Furosemide (Lasix) 40 mg EVERY 12 HOURS IV 05/13/16 22:00 06/12/16 21:59 05/15/16 08:54 Insulin Aspart (NovoLOG) BEFORE MEALS AND HS SUBQ 05/09/16 06:30 06/08/16 06:29 05/15/16 12:44 Metolazone (Zaroxolyn) 5 mg DAILY ORAL 05/10/16 12:00 06/09/16 11:59 05/15/16 08:56 Nitroglycerin (Ntg) 0.4 mg Q5M PRN SL Prn Chest Pain 05/08/16 23:15 06/07/16 23:14 Ondansetron HCl (Zofran) 4 mg Q6H PRN IVP Nausea & Vomiting 05/08/16 23:15 06/07/16 23:14 Pantoprazole (Protonix) 40 mg EVERY 12 HOURS ORAL 05/10/16 21:00 06/09/16 20:59 05/15/16 08:56 Polyethylene Glycol (Miralax) 17 gm DAILYPRN PRN ORAL Constipation 05/08/16 23:15 06/07/16 23:14 Promethazine HCl/ Codeine (Phenergan with Codeine) 5 ml Q4H PRN ORAL For Cough 05/14/16 14:00 06/13/16 13:59 Temazepam (Restoril) 15 mg HSPRN PRN ORAL Insomnia 05/08/16 23:15 05/15/16 23:14 Thiamine HCl (Vitamin B1) 100 mg DAILY ORAL 05/10/16 18:00 06/09/16 17:59 05/15/16 08:56 Vancomycin HCl (Vanco rx to dose) 1 ea DAILY PRN MISC Per rx protocol 05/11/16 09:15 06/10/16 09:14 GEORGIE HOLLOWAY May 15, 2016 14:56
[2016-05-15 16:00] VITALS: BP 100/44
[2016-05-15] MEDS ORDERED: Warfarin Sodium 3mg ORAL SCH (17:00)
--- NOTE | 2016-05-15 18:11 | Cardiology Progress Note ---
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 hx of thromboembolic complication previously off anticoagulation jahovah witness contineue hhn but also now treat for chf exacerbation is anemic stool ob + but stable hgb in light of prior embolic evnet i am hesitant to dc anticoagulation unless acute bleeding of sig degree dtr feel pt has had hemorrhoids continue diuretics iv for now until tomorrow then reevlaute 05/15/2015 continue anticoagulation cr improved neg fluid status cxr form yest reviewed not on beta sruthi due to bronchospasm not on acei due to renal insuf Subjective Subjective on bipap still over ntie awake and responsive seems to answer with her hand seem sob "so-so" Objective Last 24 Hour Vital Signs Date Time Temp Pulse Resp B/P Pulse Ox O2 Delivery O2 Flow Rate FiO2 05/15/16 16:00 97.2 73 20 100/44 97 Nasal Cannula 2.0 05/15/16 16:00 2.0 05/15/16 12:00 98.1 70 20 120/46 94 Nasal Cannula 2.0 05/15/16 12:00 71 05/15/16 12:00 2.0 05/15/16 09:53 97.9 05/15/16 08:00 97.9 71 19 112/50 99 Nasal Cannula 2.0 05/15/16 08:00 2.0 05/15/16 08:00 76 05/15/16 06:50 97 Nasal Cannula 2.0 05/15/16 06:50 Nasal Cannula 2.0 28 05/15/16 04:39 81 05/15/16 04:34 2.0 05/15/16 04:00 98.2 95 20 104/40 98 Nasal Cannula 2.0 05/15/16 00:00 3.0 05/15/16 00:00 98.2 82 20 104/38 98 Nasal Cannula 2.0 05/15/16 00:00 80 05/14/16 20:00 76 05/14/16 20:00 98.1 72 21 112/43 98 Nasal Cannula 2.0 05/14/16 20:00 3.0 05/14/16 19:00 Nasal Cannula 3.0 32 05/14/16 19:00 98 Nasal Cannula 2.0 Intake and Output 05/14/16 05/15/16 19:00 07:00 Intake Total 337.5 ml 300 ml Output Total 1900 ml 1675 ml Balance -1562.5 ml -1375 ml Intake Oral 300 ml IV Total 337.5 ml Output Urine Total 1000 ml 1675 ml Other 900 ml # Bowel Movements 2 Laboratory Tests Test 05/15/16 04:15 White Blood Count 18.9 K/UL (4.8-10.8) H Red Blood Count 2.93 M/UL (4.20-5.40) L Hemoglobin 8.2 G/DL (12.0-16.0) L Hematocrit 26.6 % (37.0-47.0) L Mean Corpuscular Volume 91 FL (80-99) Mean Corpuscular Hemoglobin 28.0 PG (27.0-31.0) Mean Corpuscular Hemoglobin Concent 30.9 G/DL (32.0-36.0) L Red Cell Distribution Width 13.4 % (11.6-14.8) Platelet Count 252 K/UL (150-450) Mean Platelet Volume 5.3 FL (6.5-10.1) L Neutrophils (%) (Auto) % (45.0-75.0) Lymphocytes (%) (Auto) % (20.0-45.0) Monocytes (%) (Auto) % (1.0-10.0) Eosinophils (%) (Auto) % (0.0-3.0) Basophils (%) (Auto) % (0.0-2.0) Differential Total Cells Counted 100 Neutrophils % (Manual) 75 % (45-75) Lymphocytes % (Manual) 15 % (20-45) L Monocytes % (Manual) 8 % (1-10) Eosinophils % (Manual) 2 % (0-3) Basophils % (Manual) 0 % (0-2) Band Neutrophils 0 % (0-8) Platelet Estimate Adequate Platelet Morphology Normal Polychromasia 1+ Hypochromasia 2+ Prothrombin Time 13.4 SEC (9.30-11.50) H Prothromb Time International Ratio 1.3 (0.9-1.1) H Sodium Level 145 mEQ/L (135-145) Potassium Level 5.3 mEQ/L (3.4-4.9) H Chloride Level 100 mEQ/L (98-107) Carbon Dioxide Level 30 mEQ/L (20-30) Anion Gap 15 (5-15) Blood Urea Nitrogen 64 mg/dL (7-23) H Creatinine 2.2 mg/dL (0.5-0.9) H Estimat Glomerular Filtration Rate mL/min (>60) Glucose Level 165 mg/dL (74-106) H Calcium Level 9.2 mg/dL (8.6-10.2) Phosphorus Level 3.7 mg/dL (2.5-4.8) Microbiology Date/Time Source Procedure Growth Status 05/14/16 18:00 Thoracic Fluid Gram Stain - Final Resulted 05/14/16 18:00 Thoracic Fluid Body Fluid Culture Pending Resulted GUILLE MEDINA May 15, 2016 18:11
[2016-05-15 20:00] VITALS: BP 108/50
[2016-05-15] MEDS: Epogen (for non ESRD use) SUBQ SCH (20:52)
[2016-05-16] VITALS (10 sets, daily range): BP systolic 95–130; BP diastolic 35–68
[2016-05-16 04:31] LABS: BASOPHILS % (AUTO) 0.2 % (0.0-2.0); EOSINOPHILS % (AUTO) 2.5 % (0.0-3.0); LYMPHOCYTES % (AUTO) 9.6 % (20.0-45.0); MEAN CORPUSCULAR HGB CONC 31.8 G/DL (32.0-36.0); MEAN CORPUSCULAR VOLUME 91 FL (80-99); MEAN PLATELET VOLUME 5.7 FL (6.5-10.1); MONOCYTES % (AUTO) 6.9 % (1.0-10.0); NEUTROPHILS % (AUTO) 80.7 % (45.0-75.0); PLATELET COUNT 254 K/UL (150-450); RED BLOOD COUNT 2.86 M/UL (4.20-5.40); WHITE BLOOD COUNT 12.5 K/UL (4.8-10.8)
[2016-05-16 04:44] LABS: INR 1.3 (0.9-1.1); PROTHROMBIN TIME 12.9 SEC (9.30-11.50)
[2016-05-16 05:19] LABS: ALANINE AMINOTRANSFERASE 32 U/L (3-33); ALBUMIN/GLOBULIN RATIO 0.9 (1.0-2.7); ANION GAP 14 (5-15); ASPARTATE AMINO TRANSFERASE 39 U/L (5-40); CALCIUM 9.2 mg/dL (8.6-10.2); CARBON DIOXIDE 32 mEQ/L (20-30); CHLORIDE 103 mEQ/L (98-107); CREATININE 2.4 mg/dL (0.5-0.9); HEMOLYSIS 2; POTASSIUM 4.2 mEQ/L (3.4-4.9); SODIUM 149 mEQ/L (135-145); TOTAL PROTEIN 5.9 g/dL (6.6-8.7)
[2016-05-16 07:01] LABS: MAGNESIUM 1.7 mg/dL (1.7-2.5); PHOSPHORUS 3.6 mg/dL (2.5-4.8)
[2016-05-16] MEDS: NovoLOG Insulin Flexpen SUBQ SCH ×4 (07:12→20:45)
--- NOTE | 2016-05-16 10:31 | General Progress Note ---
Assessment/Plan Status: unchanged Assessment/Plan status: Renal failure : Chronic vs Acute? - Acute respiratory distress - Acute on chronic diastolic CHF (congestive heart failure)- low Ej Fx - Hyperkalemia, on admission, resolved - LBBB (left bundle branch block) - Severe anemia - Purulent bronchitis - Patient is Quaker - Dementia - COPD (chronic obstructive pulmonary disease) Plan: decrease diuretics- Optimize cardiac status- Kidney MISSY- no hydro- cortical thinning-normal size- Urine eosinophils- Negative stoped Vanco, checked levels ( 12), will resume 2D Echo 30% Ej Fx Urine studies- Per orders epo , folate, Iron Protonix Subjective ROS Limited/Unobtainable: No Constitutional: Reports: malaise, weakness Allergies: Coded Allergies: SPIRONOLACTONE (Unverified Allergy, Intermediate, 05/08/16) Objective Last 24 Hour Vital Signs Date Time Temp Pulse Resp B/P Pulse Ox O2 Delivery O2 Flow Rate FiO2 05/16/16 08:00 97.9 66 20 95/35 100 Nasal Cannula 2.0 05/16/16 07:46 Nasal Cannula 2.0 05/16/16 07:45 98 Nasal Cannula 2.0 05/16/16 04:50 2.0 05/16/16 04:27 66 05/16/16 04:00 97.9 74 20 110/61 100 Nasal Cannula 2.0 110 05/16/16 00:59 2.0 05/16/16 00:00 98.1 75 20 98/44 99 Nasal Cannula 2.0 05/16/16 00:00 72 05/15/16 20:00 75 05/15/16 20:00 2.0 05/15/16 20:00 98.3 76 20 108/50 96 Nasal Cannula 2.0 05/15/16 19:30 Nasal Cannula 2.0 28 05/15/16 19:30 97 Nasal Cannula 2.0 05/15/16 16:00 97.2 73 20 100/44 97 Nasal Cannula 2.0 05/15/16 16:00 71 05/15/16 16:00 2.0 05/15/16 12:00 98.1 70 20 120/46 94 Nasal Cannula 2.0 05/15/16 12:00 71 05/15/16 12:00 2.0 Intake and Output 05/15/16 05/16/16 19:00 07:00 Intake Total 700 ml 100 ml Output Total 500 ml 900 ml Balance 200 ml -800 ml Intake Oral 700 ml 100 ml Output Urine Total 500 ml 900 ml # Bowel Movements 3 5 Laboratory Tests 05/16/16 04:05: White Blood Count 12.5H, Red Blood Count 2.86L, Hemoglobin 8.3L, Hematocrit 26.1L, Mean Corpuscular Volume 91, Mean Corpuscular Hemoglobin 29.0, Mean Corpuscular Hemoglobin Concent 31.8L, Red Cell Distribution Width 14.0, Platelet Count 254, Mean Platelet Volume 5.7L, Neutrophils (%) (Auto) 80.7H, Lymphocytes (%) (Auto) 9.6L, Monocytes (%) (Auto) 6.9, Eosinophils (%) (Auto) 2.5, Basophils (%) (Auto) 0.2, Prothrombin Time 12.9H, Prothromb Time International Ratio 1.3H, Activated Partial Thromboplast Time 29, Sodium Level 149H, Potassium Level 4.2, Chloride Level 103, Carbon Dioxide Level 32H, Anion Gap 14, Blood Urea Nitrogen 61H, Creatinine 2.4H, Estimat Glomerular Filtration Rate , Glucose Level 239H, Calcium Level 9.2, Phosphorus Level 3.6, Magnesium Level 1.7, Total Bilirubin 0.4, Aspartate Amino Transf (AST/SGOT) 39, Alanine Aminotransferase (ALT/SGPT) 32, Alkaline Phosphatase 81, Total Protein 5.9L, Albumin 2.8L, Globulin 3.1, Albumin/Globulin Ratio 0.9L, Random Vancomycin Level 21.8 Height (Feet): 4 Height (Inches): 10.00 Weight (Pounds): 156 General Appearance: no apparent distress Respiratory/Chest: decreased breath sounds Objective other physical exam not changed GILLES CUELLAR May 16, 2016 10:31
[2016-05-16] MEDS ORDERED: ePHEDrine 50mg/ml Inj ONE (12:00)
[2016-05-16] MEDS ORDERED: Propofol 10mg/ml 20ml IV ONE (12:00)
[2016-05-16] MEDS ORDERED: NS 110ml ONE (12:00)
[2016-05-16] MEDS ORDERED: Lidocaine 1% MPF 10mg/ml 5ml ONE (12:00)
--- NOTE | 2016-05-16 12:00 | Pre-Procedure Note/Attestation ---
Pre-Procedure Note/Attestation Complete Prior to Procedure Planned Procedure: not applicable Procedure Narrative: esophagogastroduodenoscopy and colonoscopy Indications for Procedure Pre-Operative Diagnosis: gib, anemia Attestation I attest that I discussed the nature of the procedure; its benefits; risks and complications; and alternatives (and the risks and benefits of such alternatives ), prior to the procedure, with the patient (or the patient's legal dermatology sales representative). I attest that, if there was a reasonable possibility of needing a blood transfusion, the patient (or the patient's legal dermatology sales representative) was given the [facility] standardized written summary, pursuant to the Preet Christmas Blood Safety Act ([place] Health and Safety Code # 1645, as amended). I attest that I re-evaluated the patient just prior to the surgery and that there has been no change in the patient's H&P, except as documented below: PEARL BLUM May 16, 2016 12:00
[2016-05-16] MEDS ORDERED: NS 550ML IV ONE (12:15)
--- NOTE | 2016-05-16 12:26 | Endoscopy Procedure Note ---
Endoscopy Procedure Note Indication for Procedure: anemia Procedures Performed: EGD, colonoscopy Operative Findings/Diagnosis: gastritis,hemorrhoids Specimen: yes Pt Tolerated Procedure Well: Yes Estimated Blood Loss: none Anesthesiologist: maurice Anesthesia: MAC Implant(s) used?: No 50 yrs or older w/o bx or poly: Not Applicable 10yrs. F/U not recommended: Not Applicable PEARL BLUM May 16, 2016 12:26
--- NOTE | 2016-05-16 13:00 | Immediate Post-Op Evaluation ---
Immediate Post-Op Evalulation Immediate Post-Op Evalulation Procedure: egd/colonoscopy Date of Evaluation: May 16, 2016 Time of Evaluation: 12:55 IV Fluids: 300 Blood Pressure Systolic: 105 Blood Pressure Diastolic: 36 Pulse Rate: 64 Respiratory Rate: 14 O2 Sat by Pulse Oximetry: 97 Temperature (Fahrenheit): 97.7 Nausea: No Vomiting: No Complications none Patient Status: awake, reacts, patent Hydration Status: adequate Drug: none ALBERTO STOKES CRNA May 16, 2016 13:00
--- NOTE | 2016-05-16 13:05 | Anethesia Preoperative Eval ---
Anesthesia Pre-op PMH/ROS General Date of Evaluation: May 16, 2016 Time of Evaluation: 12:10 Anesthesiologist: milton ASA Score: ASA 3 Mallampati Score Class I : Soft palate, uvula, fauces, pillars visible Class II: Soft palate, uvula, fauces visible Class III: Soft palate, base of uvula visible Class IV: Only hard plate visible Mallampati Classification: Class III Surgeon: rickey Diagnosis: anemia Surgical Procedure: egd/colonoscopy Anesthesia History: none Family History: no anesthesia problems Allergies: Coded Allergies: SPIRONOLACTONE (Unverified Allergy, Intermediate, 05/08/16) Medications: see eMAR Past Medical History Cardiovascular: Reports: CAD, HTN, arrhythmia - bbb, other - chf Pulmonary: Reports: COPD Gastrointestinal/Genitourinary: Denies: CRI, ESRD, GERD, other Neurologic/Psychiatric: Denies: CVA, TIA, dementia, depression/anxiety, other Endocrine: Reports: DM HEENT: Denies: CANTWELL (L), CANTWELL (R), cataract (L), cataract (R), glaucoma, other Hematology/Immune: Reports: anemia Musculoskeletal/Integumentary: Denies: DDD, DJD, OA, RA, edema, other Other: obesity PSxH Narrative: cabg x2 Anesthesia Pre-op Phys. Exam Physician Exam Last Vital Signs Date Time Temp Pulse Resp B/P Pulse Ox O2 Delivery O2 Flow Rate FiO2 05/16/16 08:00 2.0 05/16/16 08:00 97.9 66 20 95/35 100 Nasal Cannula 05/15/16 19:30 28 Constitutional: NAD Neurologic: CN 2-12 intact Cardiovascular: other Respiratory: CTA Gastrointestinal: S/NT/ND Airway Exam Mallampati Classification 3 Mallampati Score: Class III MO: limited Neck: thick ROM: limited Dentures: no lower, no upper Anesthesia Pre-op A/P Labs Hematology Test 05/16/16 04:05 White Blood Count 12.5 K/UL (4.8-10.8) H Red Blood Count 2.86 M/UL (4.20-5.40) L Hemoglobin 8.3 G/DL (12.0-16.0) L Hematocrit 26.1 % (37.0-47.0) L Mean Corpuscular Volume 91 FL (80-99) Mean Corpuscular Hemoglobin 29.0 PG (27.0-31.0) Mean Corpuscular Hemoglobin Concent 31.8 G/DL (32.0-36.0) L Red Cell Distribution Width 14.0 % (11.6-14.8) Platelet Count 254 K/UL (150-450) Mean Platelet Volume 5.7 FL (6.5-10.1) L Neutrophils (%) (Auto) 80.7 % (45.0-75.0) H Lymphocytes (%) (Auto) 9.6 % (20.0-45.0) L Monocytes (%) (Auto) 6.9 % (1.0-10.0) Eosinophils (%) (Auto) 2.5 % (0.0-3.0) Basophils (%) (Auto) 0.2 % (0.0-2.0) Coagulation Test 05/16/16 04:05 Prothrombin Time 12.9 SEC (9.30-11.50) H Prothromb Time International Ratio 1.3 (0.9-1.1) H Activated Partial Thromboplast Time 29 SEC (23-33) Chemistry Test 05/16/16 04:05 Sodium Level 149 mEQ/L (135-145) H Potassium Level 4.2 mEQ/L (3.4-4.9) Chloride Level 103 mEQ/L (98-107) Carbon Dioxide Level 32 mEQ/L (20-30) H Anion Gap 14 (5-15) Blood Urea Nitrogen 61 mg/dL (7-23) H Creatinine 2.4 mg/dL (0.5-0.9) H Estimat Glomerular Filtration Rate mL/min (>60) Glucose Level 239 mg/dL (74-106) H Calcium Level 9.2 mg/dL (8.6-10.2) Phosphorus Level 3.6 mg/dL (2.5-4.8) Magnesium Level 1.7 mg/dL (1.7-2.5) Total Bilirubin 0.4 mg/dL (0.0-1.2) Aspartate Amino Transf (AST/SGOT) 39 U/L (5-40) Alanine Aminotransferase (ALT/SGPT) 32 U/L (3-33) Alkaline Phosphatase 81 U/L (35-104) Total Protein 5.9 g/dL (6.6-8.7) L Albumin 2.8 g/dL (3.5-5.2) L Globulin 3.1 g/dL Albumin/Globulin Ratio 0.9 (1.0-2.7) L Studies Pre-op Studies: EKG - V Risk Assessment & Plan Plan: mac Status Change Before Surgery: No Pre-Antibiotics Drug: none Given Within 1 Hr of Incision: No ALBERTO STOKES CRNA May 16, 2016 13:05
--- NOTE | 2016-05-16 13:06 | 48 Hour Post Anesthesia Eval ---
Post Anesthesia Evaluation Procedure: egd/colonoscopy Date of Evaluation: May 16, 2016 Time of Evaluation: 13:06 Blood Pressure Systolic: 105 0: 60 Pulse Rate: 74 O2 Sat by Pulse Oximetry: 97 Airway: patent Nausea: No Vomiting: No Hydration Status: adequate Cardiopulmonary Status: normal Mental Status/LOC: patient returned to baseline Post-Anesthesia Complications: none Follow-up care needed: N/A ALBERTO STOKES CRNA May 16, 2016 13:06
--- NOTE | 2016-05-16 14:24 | Infectious Diseases Prog Note ---
Assessment/Plan Assessment/Plan ASSESSMENT: 85 y/o female with: // Possible CAP - unable to produce sputum, legionella UAg(-) - CXR 05/13: Decreased but persistent pulmonary edema // Leukocytosis - persistent, improved, afebrile. Cultures NGTD // Pleural effusion - SP thoracentesis 900cc 05/14 - Cx NGTD // Acute on chronic systolic + diastolic CHF exacerbation - trop(-) x1, elevated BNP - TTE: EF 30-35%, mild MR, mod CO, sev TR, mod pulmonary HTN // O2-dependent COPD // Elevated LFTs - resolved // ARF - improved // Severe FOBT(+) normocytic anemia - Hgb stable - EGD/colonoscopy: pending - Jew, no blood products // Elevated CEA // DM2 // Dementia // No ABX allergies // Full Code PLAN: - monitor pt off of ABX for now ( 05/15 SP IV vancomycin, cefepime d# 7 / ) - EGD, colonoscopy per GI - f/u cultures - f/u CT A/P - monitor CBC, temperatures - monitor BMP - monitor CXR Subjective Allergies: Coded Allergies: SPIRONOLACTONE (Unverified Allergy, Intermediate, 05/08/16) Subjective remains afebrile persistent leukocytosis improved cultures NGTD Objective Vital Signs Last 24 Hour Vital Signs Date Time Temp Pulse Resp B/P Pulse Ox O2 Delivery O2 Flow Rate FiO2 05/16/16 13:19 97.6 61 24 114/41 97 Nasal Cannula 2.0 61 05/16/16 13:10 61 25 116/41 97 Nasal Cannula 2.0 61 05/16/16 13:06 74 97 05/16/16 13:00 63 23 111/40 96 Nasal Cannula 2.0 63 05/16/16 13:00 64 14 97 05/16/16 12:55 66 24 107/39 99 Nasal Cannula 2.0 66 05/16/16 12:50 97.7 66 22 105/38 100 Simple Mask 6.0 66 05/16/16 08:00 2.0 05/16/16 08:00 97.9 66 20 95/35 100 Nasal Cannula 2.0 05/16/16 08:00 68 05/16/16 07:46 Nasal Cannula 2.0 05/16/16 07:45 98 Nasal Cannula 2.0 05/16/16 04:50 2.0 05/16/16 04:27 66 05/16/16 04:00 97.9 74 20 110/61 100 Nasal Cannula 2.0 110 05/16/16 00:59 2.0 05/16/16 00:00 98.1 75 20 98/44 99 Nasal Cannula 2.0 05/16/16 00:00 72 05/15/16 20:00 75 05/15/16 20:00 2.0 05/15/16 20:00 98.3 76 20 108/50 96 Nasal Cannula 2.0 05/15/16 19:30 Nasal Cannula 2.0 28 05/15/16 19:30 97 Nasal Cannula 2.0 05/15/16 16:00 97.2 73 20 100/44 97 Nasal Cannula 2.0 05/15/16 16:00 71 05/15/16 16:00 2.0 Height (Feet): 4 Height (Inches): 10.00 Weight (Pounds): 156 General Appearance: no acute distress Respiratory/Chest: no respiratory distress Cardiovascular: normal rate, regular rhythm Abdomen: normal bowel sounds, soft, non tender, non distended Microbiology Date/Time Source Procedure Growth Status 05/14/16 18:00 Thoracic Fluid Gram Stain - Final Resulted 05/14/16 18:00 Thoracic Fluid Body Fluid Culture - Preliminary NO GROWTH AFTER 24 HOURS Resulted Laboratory Tests Test 05/16/16 04:05 White Blood Count 12.5 K/UL (4.8-10.8) H Red Blood Count 2.86 M/UL (4.20-5.40) L Hemoglobin 8.3 G/DL (12.0-16.0) L Hematocrit 26.1 % (37.0-47.0) L Mean Corpuscular Volume 91 FL (80-99) Mean Corpuscular Hemoglobin 29.0 PG (27.0-31.0) Mean Corpuscular Hemoglobin Concent 31.8 G/DL (32.0-36.0) L Red Cell Distribution Width 14.0 % (11.6-14.8) Platelet Count 254 K/UL (150-450) Mean Platelet Volume 5.7 FL (6.5-10.1) L Neutrophils (%) (Auto) 80.7 % (45.0-75.0) H Lymphocytes (%) (Auto) 9.6 % (20.0-45.0) L Monocytes (%) (Auto) 6.9 % (1.0-10.0) Eosinophils (%) (Auto) 2.5 % (0.0-3.0) Basophils (%) (Auto) 0.2 % (0.0-2.0) Prothrombin Time 12.9 SEC (9.30-11.50) H Prothromb Time International Ratio 1.3 (0.9-1.1) H Activated Partial Thromboplast Time 29 SEC (23-33) Sodium Level 149 mEQ/L (135-145) H Potassium Level 4.2 mEQ/L (3.4-4.9) Chloride Level 103 mEQ/L (98-107) Carbon Dioxide Level 32 mEQ/L (20-30) H Anion Gap 14 (5-15) Blood Urea Nitrogen 61 mg/dL (7-23) H Creatinine 2.4 mg/dL (0.5-0.9) H Estimat Glomerular Filtration Rate mL/min (>60) Glucose Level 239 mg/dL (74-106) H Calcium Level 9.2 mg/dL (8.6-10.2) Phosphorus Level 3.6 mg/dL (2.5-4.8) Magnesium Level 1.7 mg/dL (1.7-2.5) Total Bilirubin 0.4 mg/dL (0.0-1.2) Aspartate Amino Transf (AST/SGOT) 39 U/L (5-40) Alanine Aminotransferase (ALT/SGPT) 32 U/L (3-33) Alkaline Phosphatase 81 U/L (35-104) Total Protein 5.9 g/dL (6.6-8.7) L Albumin 2.8 g/dL (3.5-5.2) L Globulin 3.1 g/dL Albumin/Globulin Ratio 0.9 (1.0-2.7) L Random Vancomycin Level 21.8 ug/mL Current Medications Medications (Trade) Dose Ordered Sig/Abril Route PRN Reason Start Time Stop Time Status Last Admin Dose Admin Acetaminophen (Tylenol) 650 mg Q4H PRN ORAL fever 05/08/16 23:15 06/07/16 23:14 05/15/16 08:54 Amiodarone HCl (Cordarone) 200 mg DAILY ORAL 05/10/16 09:00 06/09/16 08:59 05/15/16 08:56 Atorvastatin Calcium (Lipitor) 40 mg BEDTIME ORAL 05/10/16 21:00 06/09/16 20:59 05/15/16 20:48 Dextrose (Dextrose 50%) STAT PRN IV Hypoglycemia 05/08/16 23:15 06/07/16 23:14 Epoetin Fish (Procrit (for non ESRD use)) 10,000 units Q48H SUBQ 05/09/16 21:00 06/08/16 20:59 05/15/16 20:52 Folic Acid (Folate) 2 mg DAILY ORAL 05/11/16 09:00 06/10/16 08:59 05/15/16 08:56 Furosemide (Lasix) 40 mg DAILY IV 05/16/16 11:00 06/15/16 10:59 05/16/16 10:52 Insulin Aspart (NovoLOG) BEFORE MEALS AND HS SUBQ 05/09/16 06:30 06/08/16 06:29 05/16/16 07:12 Nitroglycerin (Ntg) 0.4 mg Q5M PRN SL Prn Chest Pain 05/08/16 23:15 06/07/16 23:14 Ondansetron HCl (Zofran) 4 mg Q6H PRN IVP Nausea & Vomiting 05/08/16 23:15 06/07/16 23:14 Pantoprazole (Protonix) 40 mg EVERY 12 HOURS ORAL 05/10/16 21:00 06/09/16 20:59 05/15/16 20:48 Polyethylene Glycol (Miralax) 17 gm DAILYPRN PRN ORAL Constipation 05/08/16 23:15 06/07/16 23:14 Promethazine HCl/ Codeine (Phenergan with Codeine) 5 ml Q4H PRN ORAL For Cough 05/14/16 14:00 06/13/16 13:59 Thiamine HCl (Vitamin B1) 100 mg DAILY ORAL 05/10/16 18:00 06/09/16 17:59 05/15/16 08:56 Warfarin Sodium (Coumadin per pharmacy) 1 ea DAILY PRN MISC Per rx protocol 05/16/16 10:45 06/15/16 10:44 Warfarin Sodium (Coumadin) 4 mg COUMADIN ONCE PO 05/16/16 17:00 05/16/16 17:01 GEORGIE HOLLOWAY May 16, 2016 14:24
[2016-05-16] MEDS: Thiamine 100mg tab ORAL SCH (14:41)
[2016-05-16] MEDS: Amiodarone 200mg tab ORAL SCH (14:42)
--- NOTE | 2016-05-16 14:52 | Pulmonology Progress Note ---
Assessment/Plan Problems: (1) Acute respiratory distress (2) Acute on chronic diastolic CHF (congestive heart failure) (3) Hyperkalemia (4) LBBB (left bundle branch block) (5) BRENDEN (acute kidney injury) (6) Severe anemia (7) Purulent bronchitis (8) Patient is Caodaism (9) Dementia (10) COPD (chronic obstructive pulmonary disease) Assessment/Plan on lasix d+ zaroxyline Responding very well, -- still diuresing strongly CT abdomen reviewed, large right pleural effusion increased CEA + Ocult blood GI consult called for colonoscopy on friday contineu antibioitcs, wbc remains high conoscopy showed bleeding lesion in transverse colon, biopsy done discussed with pts grand daughter. Subjective ROS Limited/Unobtainable: No Constitutional: Reports: no symptoms HEENT: Repors: no symptoms Allergies: Coded Allergies: SPIRONOLACTONE (Unverified Allergy, Intermediate, 05/08/16) Objective Last 24 Hour Vital Signs Date Time Temp Pulse Resp B/P Pulse Ox O2 Delivery O2 Flow Rate FiO2 05/16/16 13:19 97.6 61 24 114/41 97 Nasal Cannula 2.0 61 05/16/16 13:10 61 25 116/41 97 Nasal Cannula 2.0 61 05/16/16 13:06 74 97 05/16/16 13:00 63 23 111/40 96 Nasal Cannula 2.0 63 05/16/16 13:00 64 14 97 05/16/16 12:55 66 24 107/39 99 Nasal Cannula 2.0 66 05/16/16 12:50 97.7 66 22 105/38 100 Simple Mask 6.0 66 05/16/16 08:00 2.0 05/16/16 08:00 97.9 66 20 95/35 100 Nasal Cannula 2.0 05/16/16 08:00 68 05/16/16 07:46 Nasal Cannula 2.0 05/16/16 07:45 98 Nasal Cannula 2.0 05/16/16 04:50 2.0 05/16/16 04:27 66 05/16/16 04:00 97.9 74 20 110/61 100 Nasal Cannula 2.0 110 05/16/16 00:59 2.0 05/16/16 00:00 98.1 75 20 98/44 99 Nasal Cannula 2.0 05/16/16 00:00 72 05/15/16 20:00 75 05/15/16 20:00 2.0 05/15/16 20:00 98.3 76 20 108/50 96 Nasal Cannula 2.0 05/15/16 19:30 Nasal Cannula 2.0 28 05/15/16 19:30 97 Nasal Cannula 2.0 05/15/16 16:00 97.2 73 20 100/44 97 Nasal Cannula 2.0 05/15/16 16:00 71 05/15/16 16:00 2.0 Intake and Output 05/15/16 05/16/16 19:00 07:00 Intake Total 700 ml 100 ml Output Total 500 ml 900 ml Balance 200 ml -800 ml Intake Oral 700 ml 100 ml Output Urine Total 500 ml 900 ml # Bowel Movements 3 5 General Appearance: WD/WN HEENT: normocephalic, atraumatic Respiratory/Chest: chest wall non-tender, lungs clear Cardiovascular: normal peripheral pulses, normal rate Abdomen: normal bowel sounds, no organomegaly Genitourinary: normal external genitalia Extremities: no cyanosis, no clubbing Skin: no rash, no lesions Neurologic/Psychiatric: band straightener II-XII grossly normal, no motor/sensory deficits Microbiology Date/Time Source Procedure Growth Status 05/14/16 18:00 Thoracic Fluid Gram Stain - Final Resulted 05/14/16 18:00 Thoracic Fluid Body Fluid Culture - Preliminary NO GROWTH AFTER 24 HOURS Resulted Laboratory Tests 05/16/16 04:05: White Blood Count 12.5H, Red Blood Count 2.86L, Hemoglobin 8.3L, Hematocrit 26.1L, Mean Corpuscular Volume 91, Mean Corpuscular Hemoglobin 29.0, Mean Corpuscular Hemoglobin Concent 31.8L, Red Cell Distribution Width 14.0, Platelet Count 254, Mean Platelet Volume 5.7L, Neutrophils (%) (Auto) 80.7H, Lymphocytes (%) (Auto) 9.6L, Monocytes (%) (Auto) 6.9, Eosinophils (%) (Auto) 2.5, Basophils (%) (Auto) 0.2, Prothrombin Time 12.9H, Prothromb Time International Ratio 1.3H, Activated Partial Thromboplast Time 29, Sodium Level 149H, Potassium Level 4.2, Chloride Level 103, Carbon Dioxide Level 32H, Anion Gap 14, Blood Urea Nitrogen 61H, Creatinine 2.4H, Estimat Glomerular Filtration Rate , Glucose Level 239H, Calcium Level 9.2, Phosphorus Level 3.6, Magnesium Level 1.7, Total Bilirubin 0.4, Aspartate Amino Transf (AST/SGOT) 39, Alanine Aminotransferase (ALT/SGPT) 32, Alkaline Phosphatase 81, Total Protein 5.9L, Albumin 2.8L, Globulin 3.1, Albumin/Globulin Ratio 0.9L, Random Vancomycin Level 21.8 Current Medications Medications (Trade) Dose Ordered Sig/Abril Route PRN Reason Start Time Stop Time Status Last Admin Dose Admin Acetaminophen (Tylenol) 650 mg Q4H PRN ORAL fever 05/08/16 23:15 06/07/16 23:14 05/15/16 08:54 Amiodarone HCl (Cordarone) 200 mg DAILY ORAL 05/10/16 09:00 06/09/16 08:59 05/16/16 14:42 Atorvastatin Calcium (Lipitor) 40 mg BEDTIME ORAL 05/10/16 21:00 06/09/16 20:59 05/15/16 20:48 Dextrose (Dextrose 50%) STAT PRN IV Hypoglycemia 05/08/16 23:15 06/07/16 23:14 Epoetin Fish (Procrit (for non ESRD use)) 10,000 units Q48H SUBQ 05/09/16 21:00 06/08/16 20:59 05/15/16 20:52 Folic Acid (Folate) 2 mg DAILY ORAL 05/11/16 09:00 06/10/16 08:59 05/16/16 14:42 Furosemide (Lasix) 40 mg DAILY IV 05/16/16 11:00 06/15/16 10:59 05/16/16 10:52 Insulin Aspart (NovoLOG) BEFORE MEALS AND HS SUBQ 05/09/16 06:30 06/08/16 06:29 05/16/16 07:12 Nitroglycerin (Ntg) 0.4 mg Q5M PRN SL Prn Chest Pain 05/08/16 23:15 06/07/16 23:14 Ondansetron HCl (Zofran) 4 mg Q6H PRN IVP Nausea & Vomiting 05/08/16 23:15 06/07/16 23:14 Pantoprazole (Protonix) 40 mg EVERY 12 HOURS ORAL 05/10/16 21:00 06/09/16 20:59 05/16/16 14:42 Polyethylene Glycol (Miralax) 17 gm DAILYPRN PRN ORAL Constipation 05/08/16 23:15 06/07/16 23:14 Promethazine HCl/ Codeine (Phenergan with Codeine) 5 ml Q4H PRN ORAL For Cough 05/14/16 14:00 06/13/16 13:59 Thiamine HCl (Vitamin B1) 100 mg DAILY ORAL 05/10/16 18:00 06/09/16 17:59 05/16/16 14:41 Warfarin Sodium (Coumadin per pharmacy) 1 ea DAILY PRN MISC Per rx protocol 05/16/16 10:45 06/15/16 10:44 Warfarin Sodium (Coumadin) 4 mg COUMADIN ONCE PO 05/16/16 17:00 05/16/16 17:01 ILIR WALLACE May 16, 2016 14:52
[2016-05-16] MEDS: Warfarin Sodium 4mg PO ONE ×2 (17:00→17:36)
--- NOTE | 2016-05-16 19:35 | Cardiology Progress Note ---
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 hx of thromboembolic complication previously off anticoagulation jahovah witness pulsatile visible vessel in stomach contineue hhn but also now treat for chf exacerbation is anemic stool ob + but stable hgb in light of prior embolic evnet i am hesitant to dc anticoagulation unless acute bleeding of sig degree dtr feel pt has had hemorrhoids continue diuretics iv for now until tomorrow then reevlaute 05/15/2015 continue anticoagulation cr improved neg fluid status cxr form yest reviewed not on beta sruthi due to bronchospasm not on acei due to renal insuf at hig risk of gib d/w gi and pulm will hold coumadin Subjective ROS Limited/Unobtainable: Yes Subjective off biapap seem comfortable Objective Last 24 Hour Vital Signs Date Time Temp Pulse Resp B/P Pulse Ox O2 Delivery O2 Flow Rate FiO2 05/16/16 19:26 100 Nasal Cannula 3.0 05/16/16 19:26 Nasal Cannula 3.0 32 05/16/16 16:13 97.8 78 20 130/68 97 05/16/16 16:00 2.0 05/16/16 16:00 76 05/16/16 13:19 97.6 61 24 114/41 97 Nasal Cannula 2.0 61 05/16/16 13:10 61 25 116/41 97 Nasal Cannula 2.0 61 05/16/16 13:06 74 97 05/16/16 13:00 63 23 111/40 96 Nasal Cannula 2.0 63 05/16/16 13:00 64 14 97 05/16/16 12:55 66 24 107/39 99 Nasal Cannula 2.0 66 05/16/16 12:50 97.7 66 22 105/38 100 Simple Mask 6.0 66 05/16/16 12:00 61 05/16/16 08:00 2.0 05/16/16 08:00 97.9 66 20 95/35 100 Nasal Cannula 2.0 05/16/16 08:00 68 05/16/16 07:46 Nasal Cannula 2.0 05/16/16 07:45 98 Nasal Cannula 2.0 05/16/16 04:50 2.0 05/16/16 04:27 66 05/16/16 04:00 97.9 74 20 110/61 100 Nasal Cannula 2.0 110 05/16/16 00:59 2.0 05/16/16 00:00 98.1 75 20 98/44 99 Nasal Cannula 2.0 05/16/16 00:00 72 05/15/16 20:00 75 05/15/16 20:00 2.0 05/15/16 20:00 98.3 76 20 108/50 96 Nasal Cannula 2.0 General Appearance: no apparent distress, alert Cardiovascular: normal rate, regular rhythm Respiratory/Chest: decreased breath sounds Abdomen: normal bowel sounds, non tender, soft Extremities: no swelling Intake and Output 05/15/16 05/16/16 19:00 07:00 Intake Total 700 ml 100 ml Output Total 500 ml 900 ml Balance 200 ml -800 ml Intake Oral 700 ml 100 ml Output Urine Total 500 ml 900 ml # Bowel Movements 3 5 Laboratory Tests Test 05/16/16 04:05 White Blood Count 12.5 K/UL (4.8-10.8) H Red Blood Count 2.86 M/UL (4.20-5.40) L Hemoglobin 8.3 G/DL (12.0-16.0) L Hematocrit 26.1 % (37.0-47.0) L Mean Corpuscular Volume 91 FL (80-99) Mean Corpuscular Hemoglobin 29.0 PG (27.0-31.0) Mean Corpuscular Hemoglobin Concent 31.8 G/DL (32.0-36.0) L Red Cell Distribution Width 14.0 % (11.6-14.8) Platelet Count 254 K/UL (150-450) Mean Platelet Volume 5.7 FL (6.5-10.1) L Neutrophils (%) (Auto) 80.7 % (45.0-75.0) H Lymphocytes (%) (Auto) 9.6 % (20.0-45.0) L Monocytes (%) (Auto) 6.9 % (1.0-10.0) Eosinophils (%) (Auto) 2.5 % (0.0-3.0) Basophils (%) (Auto) 0.2 % (0.0-2.0) Prothrombin Time 12.9 SEC (9.30-11.50) H Prothromb Time International Ratio 1.3 (0.9-1.1) H Activated Partial Thromboplast Time 29 SEC (23-33) Sodium Level 149 mEQ/L (135-145) H Potassium Level 4.2 mEQ/L (3.4-4.9) Chloride Level 103 mEQ/L (98-107) Carbon Dioxide Level 32 mEQ/L (20-30) H Anion Gap 14 (5-15) Blood Urea Nitrogen 61 mg/dL (7-23) H Creatinine 2.4 mg/dL (0.5-0.9) H Estimat Glomerular Filtration Rate mL/min (>60) Glucose Level 239 mg/dL (74-106) H Calcium Level 9.2 mg/dL (8.6-10.2) Phosphorus Level 3.6 mg/dL (2.5-4.8) Magnesium Level 1.7 mg/dL (1.7-2.5) Total Bilirubin 0.4 mg/dL (0.0-1.2) Aspartate Amino Transf (AST/SGOT) 39 U/L (5-40) Alanine Aminotransferase (ALT/SGPT) 32 U/L (3-33) Alkaline Phosphatase 81 U/L (35-104) Total Protein 5.9 g/dL (6.6-8.7) L Albumin 2.8 g/dL (3.5-5.2) L Globulin 3.1 g/dL Albumin/Globulin Ratio 0.9 (1.0-2.7) L Random Vancomycin Level 21.8 ug/mL Microbiology Date/Time Source Procedure Growth Status 05/14/16 18:00 Thoracic Fluid Gram Stain - Final Resulted 05/14/16 18:00 Thoracic Fluid Body Fluid Culture - Preliminary NO GROWTH AFTER 24 HOURS Resulted GUILLE MEDINA May 16, 2016 19:35
--- NOTE | 2016-05-16 20:30 | Procedure Note ---
DATE OF PROCEDURE: 05/16/2016 SURGEON: Freddie Siegel M.D. PROCEDURE: Upper endoscopy with biopsy and colonoscopy with hemostasis and ANESTHESIOLOGIST: Joyce Valencia. Dick. INSTRUMENT: Olympus adult flexible upper endoscope and colonoscope. INDICATION: Gastrointestinal bleeding. DESCRIPTION OF PROCEDURE: Informed consent was obtained and the patient was adequately sedated, Olympus upper endoscope was advanced through mouth into the duodenum and retroflexion was performed of the stomach. The patient had diffuse gastritis. Random biopsy from antrum of the stomach was H. pylori infection. Otherwise, the rest of the upper endoscopic exam showed within normal limits. At this time, the upper endoscope was retrieved and the patient was turned over for colonoscopy. First, a rectal exam was performed, which shows positive for internal hemorrhoids and was advanced from the rectum into the mid transverse colon. The patient had evidence of significant sigmoid diverticulosis. In the transverse colon, we saw an ulcerative lesion over a centimeter in size on the previous lesion was very unusual not atypical for AVM, possibility of with actually mucosal blanching when the polyp with the lesion was pulsating to could actually see the blood to the surface and then moved back again. There was also some evidence of oozing blood from this lesion most probably is causing the source of bleeding. Then we started our hemostasis. We placed two clips on each side of this lesion. There was no bleeding from this procedure. Given the two clips were placed and we did not want to advance the scope beyond this one because we were worried that the scope might take the clips and the clips will come off cause more trouble so at this time, we decided to tattoo the area, which we used a needle and injected into two different muniz about total of 5 mL of tattoo for the future references. At this time, the scope was retrieved and procedure was terminated. FINDINGS: 1. Gastritis, status post biopsy. 2. Diverticulosis. 3. Vascular lesion in the transverse colon, lesion, so some of the findings was gastritis and acute diverticulosis. 4. Endovascular lesion in the transverse colon, status post hemoclip x2 intact going for future references. 5. Internal hemorrhoids. RECOMMENDATIONS: I had a long discussion with the human resources associate, Dr. Daneshrad. The patient is a [employer], so if she bleeds it is going to be a problem also she is on Coumadin for cardiac issues and also she is living on insufficiency with BUN and creatinine, BUN of 71 creatinine over 2, so she cannot get a CT angio to further characterise this lesion in the colon, so our hands are really tied in terms of how we are going to manage her, in one hand we will stop the Coumadin, she is risking the stroke if we continue on Coumadin if she bleeds from this lesion as she is [employer] and that one will be a life-threatening situation. So for now we decided to keep the patient on clear liquid diet, hold the Coumadin for few days. At this time, see if she repeat and if she does not bleed then may be slowly start the Coumadin back on. I want to thank, Dr. Weir, for this kind referral. Please see copies of Dr. Weir. Freddie Siegel M.D. DR: Ben JOB#: [id number] CC: HENRY
[2016-05-17] VITALS: BP 103/42
[2016-05-17 04:00] VITALS: BP 110/46
[2016-05-17 05:41] LABS: BASOPHILS % (AUTO) 0.3 % (0.0-2.0); EOSINOPHILS % (AUTO) 4.4 % (0.0-3.0); LYMPHOCYTES % (AUTO) 14.5 % (20.0-45.0); MEAN CORPUSCULAR HEMOGLOBIN 28.5 PG (27.0-31.0); MEAN CORPUSCULAR HGB CONC 31.4 G/DL (32.0-36.0); MEAN CORPUSCULAR VOLUME 91 FL (80-99); MEAN PLATELET VOLUME 6.5 FL (6.5-10.1); MONOCYTES % (AUTO) 7.3 % (1.0-10.0); NEUTROPHILS % (AUTO) 73.4 % (45.0-75.0); PLATELET COUNT 247 K/UL (150-450); RED BLOOD COUNT 3.01 M/UL (4.20-5.40); RED CELL DISTRIBUTION WIDTH 17.2 % (11.6-14.8); WHITE BLOOD COUNT 10.4 K/UL (4.8-10.8)
[2016-05-17 06:10] LABS: INR 1.2 (0.9-1.1); PROTHROMBIN TIME 12.5 SEC (9.30-11.50)
[2016-05-17 06:19] LABS: ANION GAP 15 (5-15); CALCIUM 9.1 mg/dL (8.6-10.2); CARBON DIOXIDE 31 mEQ/L (20-30); CHLORIDE 98 mEQ/L (98-107); CREATININE 2.3 mg/dL (0.5-0.9); HEMOLYSIS 0; SODIUM 144 mEQ/L (135-145)
[2016-05-17] MEDS: NovoLOG Insulin Flexpen SUBQ SCH ×4 (06:35→21:12)
[2016-05-17 08:00] VITALS: BP 94/41
[2016-05-17] MEDS: Thiamine 100mg tab ORAL SCH (08:47)
[2016-05-17] MEDS: Amiodarone 200mg tab ORAL SCH (08:48)
[2016-05-17 09:14] LABS: PROTEIN, BODY FLUID 1.5 g/dL (.)
[2016-05-17] MEDS ORDERED: NOVOLOG100 UNITS1 SUBQ (11:18)
[2016-05-17] MEDS ORDERED: COUMADIN4 MG PO (11:18)
[2016-05-17] MEDS ORDERED: PROTONIX40 MG ORAL (11:18)
[2016-05-17] MEDS ORDERED: PACERONE200 MG ORAL (11:18)
[2016-05-17 12:00] VITALS: BP 106/42
--- NOTE | 2016-05-17 12:55 | Infectious Diseases Prog Note ---
Assessment/Plan Assessment/Plan ASSESSMENT: 85 y/o female with: // Possible CAP - unable to produce sputum, legionella UAg(-) SP Rx - CXR 05/13: Decreased but persistent pulmonary edema // Leukocytosis - resolved, afebrile. Cultures(-) // Pleural effusion - SP thoracentesis 900cc 05/14 - Cx NGTD // Acute on chronic systolic + diastolic CHF exacerbation - trop(-) x1, elevated BNP - TTE: EF 30-35%, mild MR, mod SC, sev TR, mod pulmonary HTN // O2-dependent COPD // Elevated LFTs - resolved // ARF - improved // Severe FOBT(+) normocytic anemia - Hgb stable - EGD/colonoscopy 05/16: gastritis, hemorrhoids - Yazidism, no blood products // Elevated CEA // DM2 // Dementia // No ABX allergies // Full Code PLAN: - monitor pt off of ABX ( 05/15 SP IV vancomycin, cefepime d# 7 / ) - monitor CBC, temperatures, re-culture if acute change - monitor BMP - monitor CXR Subjective Allergies: Coded Allergies: SPIRONOLACTONE (Unverified Allergy, Intermediate, 05/08/16) Subjective remains afebrile persistent leukocytosis resolved cultures NGTD SP EGD/colonoscopy: gastritis, hemorrhoids Objective Vital Signs Last 24 Hour Vital Signs Date Time Temp Pulse Resp B/P Pulse Ox O2 Delivery O2 Flow Rate FiO2 05/17/16 12:00 3.0 05/17/16 08:51 3.0 05/17/16 08:00 98.2 64 18 94/41 100 Nasal Cannula 2.0 05/17/16 08:00 65 05/17/16 07:07 100 Nasal Cannula 2.0 05/17/16 07:06 Nasal Cannula 2.0 05/17/16 04:00 2.0 05/17/16 04:00 97.6 61 20 110/46 100 Nasal Cannula 2.0 05/17/16 03:38 69 05/17/16 00:00 59 05/17/16 00:00 2.0 05/17/16 00:00 97.4 63 24 103/42 99 Nasal Cannula 2.0 05/16/16 20:04 97.5 70 18 99/49 99 Nasal Cannula 05/16/16 20:00 67 05/16/16 20:00 2.0 05/16/16 19:26 100 Nasal Cannula 3.0 05/16/16 19:26 Nasal Cannula 3.0 32 05/16/16 16:13 97.8 78 20 130/68 97 05/16/16 16:00 2.0 05/16/16 16:00 76 05/16/16 13:19 97.6 61 24 114/41 97 Nasal Cannula 2.0 61 05/16/16 13:10 61 25 116/41 97 Nasal Cannula 2.0 61 05/16/16 13:06 74 97 05/16/16 13:00 63 23 111/40 96 Nasal Cannula 2.0 63 05/16/16 13:00 64 14 97 05/16/16 12:55 66 24 107/39 99 Nasal Cannula 2.0 66 Height (Feet): 4 Height (Inches): 10.00 Weight (Pounds): 156 General Appearance: no acute distress Respiratory/Chest: no respiratory distress Cardiovascular: normal rate, regular rhythm Abdomen: normal bowel sounds, soft, non tender, non distended Microbiology Date/Time Source Procedure Growth Status 05/14/16 18:00 Thoracic Fluid Gram Stain - Final Resulted 05/14/16 18:00 Thoracic Fluid Body Fluid Culture - Preliminary NO GROWTH AFTER 48 HOURS Resulted Laboratory Tests Test 05/17/16 04:00 White Blood Count 10.4 K/UL (4.8-10.8) Red Blood Count 3.01 M/UL (4.20-5.40) L Hemoglobin 8.6 G/DL (12.0-16.0) L Hematocrit 27.3 % (37.0-47.0) L Mean Corpuscular Volume 91 FL (80-99) Mean Corpuscular Hemoglobin 28.5 PG (27.0-31.0) Mean Corpuscular Hemoglobin Concent 31.4 G/DL (32.0-36.0) L Red Cell Distribution Width 17.2 % (11.6-14.8) H Platelet Count 247 K/UL (150-450) Mean Platelet Volume 6.5 FL (6.5-10.1) Neutrophils (%) (Auto) 73.4 % (45.0-75.0) Lymphocytes (%) (Auto) 14.5 % (20.0-45.0) L Monocytes (%) (Auto) 7.3 % (1.0-10.0) Eosinophils (%) (Auto) 4.4 % (0.0-3.0) H Basophils (%) (Auto) 0.3 % (0.0-2.0) Prothrombin Time 12.5 SEC (9.30-11.50) H Prothromb Time International Ratio 1.2 (0.9-1.1) H Sodium Level 144 mEQ/L (135-145) Potassium Level 4.0 mEQ/L (3.4-4.9) Chloride Level 98 mEQ/L (98-107) Carbon Dioxide Level 31 mEQ/L (20-30) H Anion Gap 15 (5-15) Blood Urea Nitrogen 56 mg/dL (7-23) H Creatinine 2.3 mg/dL (0.5-0.9) H Estimat Glomerular Filtration Rate mL/min (>60) Glucose Level 186 mg/dL (74-106) H Calcium Level 9.1 mg/dL (8.6-10.2) Current Medications Medications (Trade) Dose Ordered Sig/Abril Route PRN Reason Start Time Stop Time Status Last Admin Dose Admin Acetaminophen (Tylenol) 650 mg Q4H PRN ORAL fever 05/08/16 23:15 06/07/16 23:14 05/15/16 08:54 Amiodarone HCl (Cordarone) 200 mg DAILY ORAL 05/10/16 09:00 06/09/16 08:59 05/16/16 14:42 Atorvastatin Calcium (Lipitor) 40 mg BEDTIME ORAL 05/10/16 21:00 06/09/16 20:59 05/16/16 20:44 Dextrose (Dextrose 50%) STAT PRN IV Hypoglycemia 05/08/16 23:15 06/07/16 23:14 Epoetin Fish (Procrit (for non ESRD use)) 10,000 units Q48H SUBQ 05/09/16 21:00 06/08/16 20:59 05/15/16 20:52 Folic Acid (Folate) 2 mg DAILY ORAL 05/11/16 09:00 06/10/16 08:59 05/17/16 08:47 Furosemide (Lasix) 40 mg DAILY IV 05/16/16 11:00 06/15/16 10:59 2/17/17 08:48 Insulin Aspart (NovoLOG) BEFORE MEALS AND HS SUBQ 05/09/16 06:30 06/08/16 06:29 05/17/16 12:06 Nitroglycerin (Ntg) 0.4 mg Q5M PRN SL Prn Chest Pain 05/08/16 23:15 06/07/16 23:14 Ondansetron HCl (Zofran) 4 mg Q6H PRN IVP Nausea & Vomiting 05/08/16 23:15 06/07/16 23:14 Pantoprazole (Protonix) 40 mg EVERY 12 HOURS ORAL 05/10/16 21:00 06/09/16 20:59 05/17/16 08:47 Polyethylene Glycol (Miralax) 17 gm DAILYPRN PRN ORAL Constipation 05/08/16 23:15 06/07/16 23:14 Promethazine HCl/ Codeine (Phenergan with Codeine) 5 ml Q4H PRN ORAL For Cough 05/14/16 14:00 06/13/16 13:59 Thiamine HCl (Vitamin B1) 100 mg DAILY ORAL 05/10/16 18:00 06/09/16 17:59 05/17/16 08:47 Warfarin Sodium (Coumadin per pharmacy) 1 ea DAILY PRN MISC Per rx protocol 05/16/16 10:45 06/15/16 10:44 Warfarin Sodium (Coumadin) 4 mg COUMADIN PO 05/17/16 17:00 05/17/16 17:01 GEORGIE HOLLOWAY May 17, 2016 12:55
--- NOTE | 2016-05-17 14:10 | General Progress Note ---
Assessment/Plan Status: unchanged Status Narrative Cr lower Assessment/Plan status: Renal failure : Chronic vs Acute? - Acute respiratory distress - Acute on chronic diastolic CHF (congestive heart failure)- low Ej Fx - Hyperkalemia, on admission, resolved - LBBB (left bundle branch block) - Severe anemia - Purulent bronchitis - Patient is [employer]ism - Dementia - COPD (chronic obstructive pulmonary disease) Plan: decrease diuretics- Optimize cardiac status- Kidney MISSY- no hydro- cortical thinning-normal size- Urine eosinophils- Negative stoped Vanco, checked levels ( 12), will resume 2D Echo 30% Ej Fx Urine studies- Per orders epo , folate, Iron Protonix Subjective ROS Limited/Unobtainable: No Constitutional: Reports: malaise, weakness Allergies: Coded Allergies: SPIRONOLACTONE (Unverified Allergy, Intermediate, 05/08/16) Objective Last 24 Hour Vital Signs Date Time Temp Pulse Resp B/P Pulse Ox O2 Delivery O2 Flow Rate FiO2 05/17/16 12:00 3.0 05/17/16 12:00 97.0 68 16 106/42 100 Nasal Cannula 3.0 32 05/17/16 08:51 3.0 05/17/16 08:00 98.2 64 18 94/41 100 Nasal Cannula 2.0 05/17/16 08:00 65 05/17/16 07:07 100 Nasal Cannula 2.0 05/17/16 07:06 Nasal Cannula 2.0 05/17/16 04:00 2.0 05/17/16 04:00 97.6 61 20 110/46 100 Nasal Cannula 2.0 05/17/16 03:38 69 05/17/16 00:00 59 05/17/16 00:00 2.0 05/17/16 00:00 97.4 63 24 103/42 99 Nasal Cannula 2.0 05/16/16 20:04 97.5 70 18 99/49 99 Nasal Cannula 05/16/16 20:00 67 05/16/16 20:00 2.0 05/16/16 19:26 100 Nasal Cannula 3.0 05/16/16 19:26 Nasal Cannula 3.0 32 05/16/16 16:13 97.8 78 20 130/68 97 05/16/16 16:00 2.0 05/16/16 16:00 76 Intake and Output 05/16/16 05/17/16 19:00 07:00 Intake Total 650 ml 220 ml Output Total 0 ml 450 ml Balance 650 ml -230 ml Intake Oral 220 ml IV Total 600 ml Other 50 ml Output Urine Total 450 ml Estimated Blood Loss 0 ml Laboratory Tests 05/17/16 04:00: White Blood Count 10.4, Red Blood Count 3.01L, Hemoglobin 8.6L, Hematocrit 27.3L , Mean Corpuscular Volume 91, Mean Corpuscular Hemoglobin 28.5, Mean Corpuscular Hemoglobin Concent 31.4L, Red Cell Distribution Width 17.2H, Platelet Count 247, Mean Platelet Volume 6.5, Neutrophils (%) (Auto) 73.4, Lymphocytes (%) (Auto) 14.5L, Monocytes (%) (Auto) 7.3, Eosinophils (%) (Auto) 4.4H, Basophils (%) (Auto) 0.3, Prothrombin Time 12.5H, Prothromb Time International Ratio 1.2H, Sodium Level 144, Potassium Level 4.0, Chloride Level 98, Carbon Dioxide Level 31H, Anion Gap 15, Blood Urea Nitrogen 56H, Creatinine 2.3H, Estimat Glomerular Filtration Rate , Glucose Level 186H, Calcium Level 9.1 Height (Feet): 4 Height (Inches): 10.00 Weight (Pounds): 156 General Appearance: no apparent distress Cardiovascular: normal rate Respiratory/Chest: decreased breath sounds Abdomen: soft Objective other physical exam not changed GILLES CUELLAR May 17, 2016 14:10
--- NOTE | 2016-05-17 14:46 | Diagnostic Imaging Report ---
Indication: DYSPNEA Technique: One view of the chest Comparison: 05/08/2016 Findings: There is increasing pleural fluid on the right. Congestive changes persist, mostly unchanged but may be slightly worse in the right upper lung periphery. There is probably a small left pleural effusion. The heart remains borderline enlarged Impression: Increasing right pleural fluid Possibly increased parenchymal disease on the right, over 2 days, as described Other stable findings as noted
--- NOTE | 2016-05-17 14:46 | Diagnostic Imaging Report ---
Indication: Acute kidney injury, abnormal CEA, anemia Technique: Spiral acquisitions obtained through the abdomen and pelvis. Patient given oral contrast. No IV contrast utilized, the renal insufficiency.. Multiplanar reconstructions were generated. Total dose length product 854 mGycm. CTDIvol(s) 17 mGy Comparison: None Findings: There is considerable perineal soft tissue thickening posterior and lateral to the anus, could represent decubitus changes. There is extensive sigmoid and colonic diverticulosis. Associated mild sigmoid wall thickening suggests circular muscle hypertrophy. No findings to suggest acute diverticulitis. The appendix is normal. No small bowel distention. No small bowel wall thickening. Ingested contrast is seen throughout entirety of the small bowel and colon. The distal esophagus, stomach, and duodenum are unremarkable. A small amount of intraperitoneal fluid is seen within the pelvis adjacent to the right hepatic lobe. There are bilateral fat-containing inguinal hernias. Surgical clips are seen in the right groin. Lack of IV contrast limits assessment of the solid organs. The gallbladder contains gallstones. There is some edema of the gallbladder wall. There is no significant infiltration of the pericholecystic fat, however. The liver is grossly unremarkable. There is mild distention of the inferior vena cava and hepatic veins. The bile ducts are nondilated. The pancreas is atrophic, fatty replaced. There is an ovoid 17 mm fluid attenuation lesion coming off of or adjacent to the pancreatic tail. The spleen is unremarkable. The kidneys demonstrate bilateral perinephric fat stranding, are otherwise unremarkable. No mesenteric or retroperitoneal mass or adenopathy. There is an inferior vena cava filter in place. Patency of the inferior vena cava is indeterminate in the absence of IV contrast. The uterus is absent, presumably postsurgically. There is a Sheppard catheter present within the bladder. Air within the bladder likely relates to the Sheppard catheterization. There are bilateral pleural effusions, moderate to large on the right, small on the left. There is associated interstitial and alveolar edema and bronchial wall thickening. This the heart is enlarged. There are dense mitral annular calcifications. There is evidence of prior cardiac surgery. There are degenerative changes of the lumbar spine Impression: Perineal soft tissue thickening posterior lateral to the anus, possibly representing decubitus changes. Correlation with clinical findings is recommended Moderate to large right, small left pleural effusions. Associated parenchymal interstitial and alveolar congestion and atelectasis Cholelithiasis. Gallbladder wall edema, suspect is a manifestation of congestive heart failure, but acute cholecystitis not completely excludable. If there is high clinical suspicion, consider hepatobiliary nuclear scan Cardiomegaly. Distended inferior vena cava and hepatic veins suggests right heart failure Small amount of ascites fluid Extensive colonic diverticulosis. Evidence of associated sigmoid circular muscular hypertrophy. No evidence of diverticulitis 17 mm fluid lesion coming off or adjacent to the pancreatic tail. Most likely a small old stenosis, less likely pancreatic cystic neoplasm. Incidental findings as noted, including degenerative lumbar spondylosis, mitral and aortic calcifications, Sheppard catheter with associated air within the bladder, postsurgical absence of the uterus, inferior vena cava filter, bilateral fat-containing inguinal hernias, evidence of prior right groin surgery The CT scanner at [facility] is accredited by the [employer] and the scans are performed using protocols designed to limit radiation exposure to as low as reasonably achievable to attain images of sufficient resolution adequate for diagnostic evaluation.
--- NOTE | 2016-05-17 14:46 | Diagnostic Imaging Report ---
Indication: SOB Technique: One view of the chest Comparison: 04/24/2010 Findings: There is generalized mild interstitial congestion. There are probable small bilateral pleural effusions, smaller than those demonstrated on the prior study. The heart is mildly enlarged. There is evidence of prior cardiac surgery Impression: Findings compatible with congestive heart failure Electronic medical record indicates patient was admitted with this diagnosis
[2016-05-17 16:46] VITALS: BP 104/43
[2016-05-17] MEDS ORDERED: Warfarin Sodium 4mg PO SCH (17:00)
[2016-05-17] MEDS ORDERED: Warfarin Sodium 3mg ORAL SCH (17:00)
--- NOTE | 2016-05-17 19:22 | Cardiology Progress Note ---
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 hx of thromboembolic complication previously off anticoagulation jahovah witness pulsatile visible vessel in stomach contineue hhn but also now treat for chf exacerbation continue anticoagulation cr improved neg fluid status cxr form yest reviewed not on beta sruthi due to bronchospasm not on acei due to renal insuf at high risk of gib due to vissible vessel d/w gi and pulm will hold coumadin for a few days in on lasix willnot accpet transfusion so if bleed may have sig issues Subjective Cardiovascular: Denies: chest pain, lightheadedness Respiratory: Reports: shortness of breath Subjective off biapap seem comfortable Objective Last 24 Hour Vital Signs Date Time Temp Pulse Resp B/P Pulse Ox O2 Delivery O2 Flow Rate FiO2 05/17/16 19:03 Nasal Cannula 2.0 05/17/16 19:03 99 Nasal Cannula 2.0 05/17/16 16:51 65 05/17/16 16:46 97.0 67 24 104/43 99 Nasal Cannula 2.0 05/17/16 16:00 3.0 05/17/16 12:00 3.0 05/17/16 12:00 97.0 68 16 106/42 100 Nasal Cannula 3.0 32 05/17/16 08:51 3.0 05/17/16 08:00 98.2 64 18 94/41 100 Nasal Cannula 2.0 05/17/16 08:00 65 05/17/16 07:07 100 Nasal Cannula 2.0 05/17/16 07:06 Nasal Cannula 2.0 05/17/16 04:00 2.0 05/17/16 04:00 97.6 61 20 110/46 100 Nasal Cannula 2.0 05/17/16 03:38 69 05/17/16 00:00 59 05/17/16 00:00 2.0 05/17/16 00:00 97.4 63 24 103/42 99 Nasal Cannula 2.0 05/16/16 20:04 97.5 70 18 99/49 99 Nasal Cannula 05/16/16 20:00 67 05/16/16 20:00 2.0 05/16/16 19:26 100 Nasal Cannula 3.0 05/16/16 19:26 Nasal Cannula 3.0 32 General Appearance: alert Neck: supple Cardiovascular: normal rate, regular rhythm Respiratory/Chest: rhonchi - bilaterally Abdomen: normal bowel sounds, non tender, soft Extremities: no swelling Intake and Output 05/16/16 05/17/16 19:00 07:00 Intake Total 650 ml 220 ml Output Total 0 ml 450 ml Balance 650 ml -230 ml Intake Oral 220 ml IV Total 600 ml Other 50 ml Output Urine Total 450 ml Estimated Blood Loss 0 ml Laboratory Tests Test 05/17/16 04:00 White Blood Count 10.4 K/UL (4.8-10.8) Red Blood Count 3.01 M/UL (4.20-5.40) L Hemoglobin 8.6 G/DL (12.0-16.0) L Hematocrit 27.3 % (37.0-47.0) L Mean Corpuscular Volume 91 FL (80-99) Mean Corpuscular Hemoglobin 28.5 PG (27.0-31.0) Mean Corpuscular Hemoglobin Concent 31.4 G/DL (32.0-36.0) L Red Cell Distribution Width 17.2 % (11.6-14.8) H Platelet Count 247 K/UL (150-450) Mean Platelet Volume 6.5 FL (6.5-10.1) Neutrophils (%) (Auto) 73.4 % (45.0-75.0) Lymphocytes (%) (Auto) 14.5 % (20.0-45.0) L Monocytes (%) (Auto) 7.3 % (1.0-10.0) Eosinophils (%) (Auto) 4.4 % (0.0-3.0) H Basophils (%) (Auto) 0.3 % (0.0-2.0) Prothrombin Time 12.5 SEC (9.30-11.50) H Prothromb Time International Ratio 1.2 (0.9-1.1) H Sodium Level 144 mEQ/L (135-145) Potassium Level 4.0 mEQ/L (3.4-4.9) Chloride Level 98 mEQ/L (98-107) Carbon Dioxide Level 31 mEQ/L (20-30) H Anion Gap 15 (5-15) Blood Urea Nitrogen 56 mg/dL (7-23) H Creatinine 2.3 mg/dL (0.5-0.9) H Estimat Glomerular Filtration Rate mL/min (>60) Glucose Level 186 mg/dL (74-106) H Calcium Level 9.1 mg/dL (8.6-10.2) GUILLE MEDINA May 17, 2016 19:22
[2016-05-17 20:00] VITALS: BP 91/44
[2016-05-17] MEDS: Epogen (for non ESRD use) SUBQ SCH (21:24)
[2016-05-18] VITALS: BP 103/42
[2016-05-18 03:56] LABS: BASOPHILS % (AUTO) 0.3 % (0.0-2.0); EOSINOPHILS % (AUTO) 3.8 % (0.0-3.0); LYMPHOCYTES % (AUTO) 12.3 % (20.0-45.0); MEAN CORPUSCULAR HEMOGLOBIN 27.6 PG (27.0-31.0); MEAN CORPUSCULAR HGB CONC 30.4 G/DL (32.0-36.0); MEAN CORPUSCULAR VOLUME 91 FL (80-99); MEAN PLATELET VOLUME 5.4 FL (6.5-10.1); MONOCYTES % (AUTO) 5.8 % (1.0-10.0); NEUTROPHILS % (AUTO) 77.9 % (45.0-75.0); PLATELET COUNT 251 K/UL (150-450); RED BLOOD COUNT 3.06 M/UL (4.20-5.40); RED CELL DISTRIBUTION WIDTH 17.2 % (11.6-14.8); WHITE BLOOD COUNT 11.3 K/UL (4.8-10.8)
[2016-05-18 04:08] LABS: INR 1.3 (0.9-1.1); PROTHROMBIN TIME 12.9 SEC (9.30-11.50)
[2016-05-18 04:10] VITALS: BP 112/47
[2016-05-18 04:21] LABS: ANION GAP 11 (5-15); CALCIUM 8.9 mg/dL (8.6-10.2); CARBON DIOXIDE 34 mEQ/L (20-30); CHLORIDE 101 mEQ/L (98-107); CREATININE 2.4 mg/dL (0.5-0.9); HEMOLYSIS 1; POTASSIUM 4.1 mEQ/L (3.4-4.9); SODIUM 146 mEQ/L (135-145)
[2016-05-18] MEDS: NovoLOG Insulin Flexpen SUBQ SCH ×4 (06:25→21:00)
[2016-05-18 08:00] VITALS: BP 120/47
[2016-05-18] MEDS: Amiodarone 200mg tab ORAL SCH (08:46)
[2016-05-18] MEDS: Thiamine 100mg tab ORAL SCH (08:46)
--- NOTE | 2016-05-18 10:30 | Pulmonology Progress Note ---
Assessment/Plan Problems: (1) Acute respiratory distress (2) Acute on chronic diastolic CHF (congestive heart failure) (3) Hyperkalemia (4) LBBB (left bundle branch block) (5) BRENDEN (acute kidney injury) (6) Severe anemia (7) Purulent bronchitis (8) Patient is Mandaeism (9) Dementia (10) COPD (chronic obstructive pulmonary disease) Assessment/Plan on lasix d+ zaroxyline Responding very well, -- still diuresing strongly CT abdomen reviewed, large right pleural effusion increased CEA + Ocult blood GI consult called for colonoscopy on friday contineu antibioitcs, wbc remains high conoscopy showed bleeding lesion in transverse colon, biopsy done discussed with pts grand daughter. Subjective Allergies: Coded Allergies: SPIRONOLACTONE (Unverified Allergy, Intermediate, 05/08/16) Objective Last 24 Hour Vital Signs Date Time Temp Pulse Resp B/P Pulse Ox O2 Delivery O2 Flow Rate FiO2 05/18/16 09:00 3.0 05/18/16 08:00 97.2 62 20 120/47 97 Nasal Cannula 2.0 05/18/16 07:55 Nasal Cannula 2.0 28 05/18/16 07:55 99 Nasal Cannula 2.0 28 05/18/16 04:10 97.7 71 20 112/47 95 Nasal Cannula 2.0 05/18/16 04:00 3.0 05/18/16 04:00 70 05/18/16 00:00 97.7 74 20 103/42 100 Nasal Cannula 2.0 05/18/16 00:00 3.0 05/18/16 00:00 74 05/17/16 20:00 3.0 05/17/16 20:00 97.7 71 20 91/44 95 Nasal Cannula 2.0 05/17/16 19:51 66 05/17/16 19:03 Nasal Cannula 2.0 05/17/16 19:03 99 Nasal Cannula 2.0 05/17/16 16:51 65 05/17/16 16:46 97.0 67 24 104/43 99 Nasal Cannula 2.0 05/17/16 16:00 3.0 05/17/16 12:00 3.0 05/17/16 12:00 97.0 68 16 106/42 100 Nasal Cannula 3.0 32 Intake and Output 05/17/16 05/18/16 19:00 07:00 Intake Total 890 ml 200 ml Output Total 700 ml Balance 890 ml -500 ml Intake Oral 890 ml 200 ml Output Urine Total 700 ml # Bowel Movements 1 Laboratory Tests 05/18/16 03:40: White Blood Count 11.3H, Red Blood Count 3.06L, Hemoglobin 8.4L, Hematocrit 27.8L, Mean Corpuscular Volume 91, Mean Corpuscular Hemoglobin 27.6, Mean Corpuscular Hemoglobin Concent 30.4L, Red Cell Distribution Width 17.2H, Platelet Count 251, Mean Platelet Volume 5.4L, Neutrophils (%) (Auto) 77.9H, Lymphocytes (%) (Auto) 12.3L, Monocytes (%) (Auto) 5.8, Eosinophils (%) (Auto) 3.8H, Basophils (%) (Auto) 0.3, Prothrombin Time 12.9H, Prothromb Time International Ratio 1.3H, Sodium Level 146H, Potassium Level 4.1, Chloride Level 101, Carbon Dioxide Level 34H, Anion Gap 11, Blood Urea Nitrogen 53H, Creatinine 2.4H, Estimat Glomerular Filtration Rate , Glucose Level 175H, Calcium Level 8.9 Current Medications Medications (Trade) Dose Ordered Sig/Abril Route PRN Reason Start Time Stop Time Status Last Admin Dose Admin Acetaminophen (Tylenol) 650 mg Q4H PRN ORAL fever 05/08/16 23:15 06/07/16 23:14 05/15/16 08:54 Amiodarone HCl (Cordarone) 200 mg DAILY ORAL 05/10/16 09:00 06/09/16 08:59 05/18/16 08:46 Atorvastatin Calcium (Lipitor) 40 mg BEDTIME ORAL 05/10/16 21:00 06/09/16 20:59 05/17/16 21:07 Dextrose (Dextrose 50%) STAT PRN IV Hypoglycemia 05/08/16 23:15 06/07/16 23:14 Epoetin Fish (Procrit (for non ESRD use)) 10,000 units Q48H SUBQ 05/09/16 21:00 06/08/16 20:59 05/17/16 21:24 Folic Acid (Folate) 2 mg DAILY ORAL 05/11/16 09:00 06/10/16 08:59 05/18/16 08:46 Furosemide (Lasix) 40 mg DAILY IV 05/16/16 11:00 06/15/16 10:59 05/18/16 08:45 Insulin Aspart (NovoLOG) BEFORE MEALS AND HS SUBQ 05/09/16 06:30 06/08/16 06:29 05/18/16 06:25 Nitroglycerin (Ntg) 0.4 mg Q5M PRN SL Prn Chest Pain 05/08/16 23:15 06/07/16 23:14 Ondansetron HCl (Zofran) 4 mg Q6H PRN IVP Nausea & Vomiting 05/08/16 23:15 06/07/16 23:14 Pantoprazole (Protonix) 40 mg EVERY 12 HOURS ORAL 05/10/16 21:00 06/09/16 20:59 05/18/16 08:45 Polyethylene Glycol (Miralax) 17 gm DAILYPRN PRN ORAL Constipation 05/08/16 23:15 06/07/16 23:14 Promethazine HCl/ Codeine (Phenergan with Codeine) 5 ml Q4H PRN ORAL For Cough 05/14/16 14:00 06/13/16 13:59 Thiamine HCl (Vitamin B1) 100 mg DAILY ORAL 05/10/16 18:00 06/09/16 17:59 05/18/16 08:46 Warfarin Sodium (Coumadin per pharmacy) 1 ea DAILY PRN MISC Per rx protocol 05/16/16 10:45 06/15/16 10:44 Warfarin Sodium (Coumadin) 4 mg COUMADIN ONCE PO 05/18/16 17:00 05/18/16 17:01 ILIR WALLACE May 18, 2016 10:30
--- NOTE | 2016-05-18 11:52 | General Progress Note ---
Assessment/Plan Problem List: (1) Iron deficiency anemia ICD Codes: D50.9 - Iron deficiency anemia, unspecified SNOMED: 66533799 (2) Elevated CEA ICD Codes: R97.0 - Elevated carcinoembryonic antigen [CEA] SNOMED: 19491610, 446858525 (3) Dementia ICD Codes: F03.90 - Unspecified dementia without behavioral disturbance SNOMED: 97702035 Qualifiers: (4) COPD (chronic obstructive pulmonary disease) ICD Codes: J44.9 - Chronic obstructive pulmonary disease, unspecified SNOMED: 59590560 Assessment/Plan d/w cardiology plan to start heparin drip tomorrow and if no GIB plan to start coumadin soon Subjective ROS Limited/Unobtainable: Yes Allergies: Coded Allergies: SPIRONOLACTONE (Unverified Allergy, Intermediate, 05/08/16) Subjective no event Objective Last 24 Hour Vital Signs Date Time Temp Pulse Resp B/P Pulse Ox O2 Delivery O2 Flow Rate FiO2 05/18/16 09:00 3.0 05/18/16 08:00 97.2 62 20 120/47 97 Nasal Cannula 2.0 05/18/16 08:00 59 05/18/16 07:55 Nasal Cannula 2.0 28 05/18/16 07:55 99 Nasal Cannula 2.0 28 05/18/16 04:10 97.7 71 20 112/47 95 Nasal Cannula 2.0 05/18/16 04:00 3.0 05/18/16 04:00 70 05/18/16 00:00 97.7 74 20 103/42 100 Nasal Cannula 2.0 05/18/16 00:00 3.0 05/18/16 00:00 74 05/17/16 20:00 3.0 05/17/16 20:00 97.7 71 20 91/44 95 Nasal Cannula 2.0 05/17/16 19:51 66 05/17/16 19:03 Nasal Cannula 2.0 05/17/16 19:03 99 Nasal Cannula 2.0 05/17/16 16:51 65 05/17/16 16:46 97.0 67 24 104/43 99 Nasal Cannula 2.0 05/17/16 16:00 3.0 05/17/16 12:00 3.0 05/17/16 12:00 97.0 68 16 106/42 100 Nasal Cannula 3.0 32 Intake and Output 05/17/16 05/18/16 19:00 07:00 Intake Total 890 ml 200 ml Output Total 700 ml Balance 890 ml -500 ml Intake Oral 890 ml 200 ml Output Urine Total 700 ml # Bowel Movements 1 Laboratory Tests 05/18/16 03:40: White Blood Count 11.3H, Red Blood Count 3.06L, Hemoglobin 8.4L, Hematocrit 27.8L, Mean Corpuscular Volume 91, Mean Corpuscular Hemoglobin 27.6, Mean Corpuscular Hemoglobin Concent 30.4L, Red Cell Distribution Width 17.2H, Platelet Count 251, Mean Platelet Volume 5.4L, Neutrophils (%) (Auto) 77.9H, Lymphocytes (%) (Auto) 12.3L, Monocytes (%) (Auto) 5.8, Eosinophils (%) (Auto) 3.8H, Basophils (%) (Auto) 0.3, Prothrombin Time 12.9H, Prothromb Time International Ratio 1.3H, Sodium Level 146H, Potassium Level 4.1, Chloride Level 101, Carbon Dioxide Level 34H, Anion Gap 11, Blood Urea Nitrogen 53H, Creatinine 2.4H, Estimat Glomerular Filtration Rate , Glucose Level 175H, Calcium Level 8.9 Height (Feet): 4 Height (Inches): 10.00 Weight (Pounds): 156 General Appearance: alert EENT: normal ENT inspection Neck: supple Cardiovascular: normal rate Respiratory/Chest: decreased breath sounds Abdomen: normal bowel sounds, non tender, soft Extremities: non-tender PEARL BLUM May 18, 2016 11:52
[2016-05-18 12:00] VITALS: BP 100/35
--- NOTE | 2016-05-18 12:36 | General Progress Note ---
Assessment/Plan Status: unchanged Status Narrative Cr 2.4 Assessment/Plan status: Renal failure : Chronic vs Acute? - Acute respiratory distress - Acute on chronic diastolic CHF (congestive heart failure)- low Ej Fx - Hyperkalemia, on admission, resolved - LBBB (left bundle branch block) - Severe anemia - Purulent bronchitis - Patient is Christian - Dementia - COPD (chronic obstructive pulmonary disease) Plan: decrease diuretics- Optimize cardiac status- Kidney MISSY- no hydro- cortical thinning-normal size- Urine eosinophils- Negative stoped Vanco, checked levels ( 12), will resume 2D Echo 30% Ej Fx Urine studies- Per orders epo , folate, Iron Protonix Subjective ROS Limited/Unobtainable: No Constitutional: Reports: malaise Allergies: Coded Allergies: SPIRONOLACTONE (Unverified Allergy, Intermediate, 05/08/16) Objective Last 24 Hour Vital Signs Date Time Temp Pulse Resp B/P Pulse Ox O2 Delivery O2 Flow Rate FiO2 05/18/16 12:00 3.0 05/18/16 09:00 3.0 05/18/16 08:00 97.2 62 20 120/47 97 Nasal Cannula 2.0 05/18/16 08:00 59 05/18/16 07:55 Nasal Cannula 2.0 28 05/18/16 07:55 99 Nasal Cannula 2.0 28 05/18/16 04:10 97.7 71 20 112/47 95 Nasal Cannula 2.0 05/18/16 04:00 3.0 05/18/16 04:00 70 05/18/16 00:00 97.7 74 20 103/42 100 Nasal Cannula 2.0 05/18/16 00:00 3.0 05/18/16 00:00 74 05/17/16 20:00 3.0 05/17/16 20:00 97.7 71 20 91/44 95 Nasal Cannula 2.0 05/17/16 19:51 66 05/17/16 19:03 Nasal Cannula 2.0 05/17/16 19:03 99 Nasal Cannula 2.0 05/17/16 16:51 65 05/17/16 16:46 97.0 67 24 104/43 99 Nasal Cannula 2.0 05/17/16 16:00 3.0 Intake and Output 05/17/16 05/18/16 19:00 07:00 Intake Total 890 ml 200 ml Output Total 700 ml Balance 890 ml -500 ml Intake Oral 890 ml 200 ml Output Urine Total 700 ml # Bowel Movements 1 Laboratory Tests 05/18/16 03:40: White Blood Count 11.3H, Red Blood Count 3.06L, Hemoglobin 8.4L, Hematocrit 27.8L, Mean Corpuscular Volume 91, Mean Corpuscular Hemoglobin 27.6, Mean Corpuscular Hemoglobin Concent 30.4L, Red Cell Distribution Width 17.2H, Platelet Count 251, Mean Platelet Volume 5.4L, Neutrophils (%) (Auto) 77.9H, Lymphocytes (%) (Auto) 12.3L, Monocytes (%) (Auto) 5.8, Eosinophils (%) (Auto) 3.8H, Basophils (%) (Auto) 0.3, Prothrombin Time 12.9H, Prothromb Time International Ratio 1.3H, Sodium Level 146H, Potassium Level 4.1, Chloride Level 101, Carbon Dioxide Level 34H, Anion Gap 11, Blood Urea Nitrogen 53H, Creatinine 2.4H, Estimat Glomerular Filtration Rate , Glucose Level 175H, Calcium Level 8.9 Height (Feet): 4 Height (Inches): 10.00 Weight (Pounds): 156 General Appearance: no apparent distress, lethargic Respiratory/Chest: decreased breath sounds Abdomen: soft Objective other physical exam not changed GILLES CUELLAR May 18, 2016 12:36
[2016-05-18] MEDS ORDERED: Nitroglycerin Subl 0.4mg tab (Bottle Of 25) SL PRN (14:30)
[2016-05-18] MEDS ORDERED: Promethazine/Codeine 5ml UD ORAL PRN (15:00)
[2016-05-18] MEDS ORDERED: Miralax 17gm pkt ORAL PRN (15:00)
[2016-05-18 16:51] VITALS: BP 112/43
[2016-05-18] MEDS ORDERED: Warfarin Sodium 4mg PO ONE ×2 (17:00)
--- NOTE | 2016-05-18 18:24 | Cardiology Progress Note ---
Assessment/Plan Assessment/Plan respiratory insufficiency asthma CHF hypokalemia severe anemia kidney disease overall respiratory status improved Subjective Subjective wants to go home appetite is not good and weakness, but dyspnea is better Objective Last 24 Hour Vital Signs Date Time Temp Pulse Resp B/P Pulse Ox O2 Delivery O2 Flow Rate FiO2 05/18/16 16:51 97.7 58 14 112/43 98 Room Air 05/18/16 12:00 3.0 05/18/16 12:00 72 05/18/16 12:00 97.8 75 20 100/35 97 Nasal Cannula 2.0 05/18/16 09:00 3.0 05/18/16 08:00 97.2 62 20 120/47 97 Nasal Cannula 2.0 05/18/16 08:00 59 05/18/16 07:55 Nasal Cannula 2.0 28 05/18/16 07:55 99 Nasal Cannula 2.0 28 05/18/16 04:10 97.7 71 20 112/47 95 Nasal Cannula 2.0 05/18/16 04:00 3.0 05/18/16 04:00 70 05/18/16 00:00 97.7 74 20 103/42 100 Nasal Cannula 2.0 05/18/16 00:00 3.0 05/18/16 00:00 74 05/17/16 20:00 3.0 05/17/16 20:00 97.7 71 20 91/44 95 Nasal Cannula 2.0 05/17/16 19:51 66 05/17/16 19:03 Nasal Cannula 2.0 05/17/16 19:03 99 Nasal Cannula 2.0 General Appearance: mild distress EENT: PERRL/EOMI Neck: non-tender, JVD Rhythm: other - paced Cardiovascular: regular rhythm Respiratory/Chest: rhonchi - bilaterally Abdomen: soft, no organomegaly Intake and Output 05/17/16 05/18/16 19:00 07:00 Intake Total 890 ml 200 ml Output Total 700 ml Balance 890 ml -500 ml Intake Oral 890 ml 200 ml Output Urine Total 700 ml # Bowel Movements 1 Laboratory Tests Test 05/18/16 03:40 White Blood Count 11.3 K/UL (4.8-10.8) H Red Blood Count 3.06 M/UL (4.20-5.40) L Hemoglobin 8.4 G/DL (12.0-16.0) L Hematocrit 27.8 % (37.0-47.0) L Mean Corpuscular Volume 91 FL (80-99) Mean Corpuscular Hemoglobin 27.6 PG (27.0-31.0) Mean Corpuscular Hemoglobin Concent 30.4 G/DL (32.0-36.0) L Red Cell Distribution Width 17.2 % (11.6-14.8) H Platelet Count 251 K/UL (150-450) Mean Platelet Volume 5.4 FL (6.5-10.1) L Neutrophils (%) (Auto) 77.9 % (45.0-75.0) H Lymphocytes (%) (Auto) 12.3 % (20.0-45.0) L Monocytes (%) (Auto) 5.8 % (1.0-10.0) Eosinophils (%) (Auto) 3.8 % (0.0-3.0) H Basophils (%) (Auto) 0.3 % (0.0-2.0) Prothrombin Time 12.9 SEC (9.30-11.50) H Prothromb Time International Ratio 1.3 (0.9-1.1) H Sodium Level 146 mEQ/L (135-145) H Potassium Level 4.1 mEQ/L (3.4-4.9) Chloride Level 101 mEQ/L (98-107) Carbon Dioxide Level 34 mEQ/L (20-30) H Anion Gap 11 (5-15) Blood Urea Nitrogen 53 mg/dL (7-23) H Creatinine 2.4 mg/dL (0.5-0.9) H Estimat Glomerular Filtration Rate mL/min (>60) Glucose Level 175 mg/dL (74-106) H Calcium Level 8.9 mg/dL (8.6-10.2) KARINE MEJIA May 18, 2016 18:24
[2016-05-19] VITALS: BP 106/44
[2016-05-19 04:00] VITALS: BP 117/53
[2016-05-19 04:41] LABS: INR 1.3 (0.9-1.1); PROTHROMBIN TIME 13.7 SEC (9.30-11.50)
[2016-05-19] MEDS: NovoLOG Insulin Flexpen SUBQ SCH ×4 (06:29→21:16)
[2016-05-19 08:15] VITALS: BP 117/42
[2016-05-19] MEDS: Amiodarone 200mg tab ORAL SCH (08:35)
[2016-05-19] MEDS: Thiamine 100mg tab ORAL SCH (08:35)
--- NOTE | 2016-05-19 12:02 | General Progress Note ---
Assessment/Plan Status: stable Assessment/Plan status: Renal failure : Chronic vs Acute? - Acute respiratory distress - Acute on chronic diastolic CHF (congestive heart failure)- low Ej Fx - Hyperkalemia, on admission, resolved - LBBB (left bundle branch block) - Severe anemia - Purulent bronchitis - Patient is Zoroastrianism - Dementia - COPD (chronic obstructive pulmonary disease) Plan: no labs today decrease diuretics- Optimize cardiac status- Kidney MISSY- no hydro- cortical thinning-normal size- Urine eosinophils- Negative 2D Echo 30% Ej Fx Urine studies- Per orders epo , folate, Iron Protonix Subjective ROS Limited/Unobtainable: No Constitutional: Reports: malaise Allergies: Coded Allergies: SPIRONOLACTONE (Unverified Allergy, Intermediate, 05/08/16) Objective Last 24 Hour Vital Signs Date Time Temp Pulse Resp B/P Pulse Ox O2 Delivery O2 Flow Rate FiO2 05/19/16 08:15 97.6 64 19 117/42 97 Room Air 05/19/16 08:05 Nasal Cannula 2.0 28 05/19/16 08:05 98 Nasal Cannula 2.0 28 05/19/16 04:00 97.7 64 20 117/53 100 Nasal Cannula 2.0 05/19/16 00:00 97.7 70 20 106/44 96 Nasal Cannula 2.0 05/18/16 20:00 97.2 90 18 95 Nasal Cannula 3.0 05/18/16 20:00 3.0 05/18/16 19:30 Nasal Cannula 2.0 28 05/18/16 19:30 97 Nasal Cannula 2.0 28 05/18/16 16:51 97.7 58 14 112/43 98 Room Air 05/18/16 16:00 3.0 Intake and Output 05/18/16 05/19/16 19:00 07:00 Intake Total 700 ml 300 ml Output Total 350 ml 550 ml Balance 350 ml -250 ml Intake Oral 700 ml 300 ml Output Urine Total 350 ml 550 ml # Bowel Movements 4 1 Laboratory Tests 05/19/16 03:50: Prothrombin Time 13.7H, Prothromb Time International Ratio 1.3H Height (Feet): 4 Height (Inches): 10.00 Weight (Pounds): 147 General Appearance: no apparent distress Cardiovascular: normal rate Respiratory/Chest: decreased breath sounds Objective other physical exam not changed GILLES CUELLARb 19, 2017 12:01
[2016-05-19 12:15] VITALS: BP 141/73
--- NOTE | 2016-05-19 13:39 | Infectious Diseases Prog Note ---
Assessment/Plan Assessment/Plan ASSESSMENT: 85 y/o female with: // Possible CAP - unable to produce sputum, legionella UAg(-) SP Rx - CXR 05/13: Decreased but persistent pulmonary edema // Leukocytosis - recurrent, mild, afebrile. Cultures(-) // Pleural effusion - SP thoracentesis 900cc 05/14 - Cx(-), cytology(-) // Acute on chronic systolic + diastolic CHF exacerbation - trop(-) x1, elevated BNP - TTE: EF 30-35%, mild MR, mod VA, sev TR, mod pulmonary HTN // O2-dependent COPD // Elevated LFTs - resolved // ARF - improved // Severe FOBT(+) normocytic anemia - Hgb stable - EGD/colonoscopy 05/16: gastritis, hemorrhoids - Catholic, no blood products // Elevated CEA // DM2 // Dementia // No ABX allergies // Full Code PLAN: - monitor pt off of ABX ( 05/15 SP IV vancomycin, cefepime d# 7 / ) - monitor CBC, temperatures, re-culture if acute change - monitor BMP - monitor CXR Subjective Allergies: Coded Allergies: SPIRONOLACTONE (Unverified Allergy, Intermediate, 05/08/16) Subjective remains afebrile recurrent mild leukocytosis Objective Vital Signs Last 24 Hour Vital Signs Date Time Temp Pulse Resp B/P Pulse Ox O2 Delivery O2 Flow Rate FiO2 05/19/16 12:15 98.3 65 20 141/73 95 Room Air 05/19/16 08:15 97.6 64 19 117/42 97 Room Air 05/19/16 08:05 Nasal Cannula 2.0 28 05/19/16 08:05 98 Nasal Cannula 2.0 28 05/19/16 04:00 97.7 64 20 117/53 100 Nasal Cannula 2.0 05/19/16 00:00 97.7 70 20 106/44 96 Nasal Cannula 2.0 05/18/16 20:00 97.2 90 18 95 Nasal Cannula 3.0 05/18/16 20:00 3.0 05/18/16 19:30 Nasal Cannula 2.0 28 05/18/16 19:30 97 Nasal Cannula 2.0 28 05/18/16 16:51 97.7 58 14 112/43 98 Room Air 05/18/16 16:00 3.0 Height (Feet): 4 Height (Inches): 10.00 Weight (Pounds): 147 General Appearance: no acute distress Respiratory/Chest: no respiratory distress Cardiovascular: normal rate, regular rhythm Abdomen: normal bowel sounds, soft, non tender, non distended Laboratory Tests Test 05/19/16 03:50 Prothrombin Time 13.7 SEC (9.30-11.50) H Prothromb Time International Ratio 1.3 (0.9-1.1) H Current Medications Medications (Trade) Dose Ordered Sig/Abril Route PRN Reason Start Time Stop Time Status Last Admin Dose Admin Acetaminophen (Tylenol) 650 mg Q4H PRN ORAL T>100.5 05/18/16 15:15 06/17/16 15:14 Amiodarone HCl (Cordarone) 200 mg DAILY ORAL 05/19/16 09:00 06/18/16 08:59 05/19/16 08:35 Atorvastatin Calcium (Lipitor) 40 mg BEDTIME ORAL 05/18/16 21:00 06/17/16 20:59 05/18/16 21:35 Dextrose (Dextrose 50%) STAT PRN IV Hypoglycemia 05/18/16 15:00 06/17/16 14:59 Epoetin Fish (Procrit (for non ESRD use)) 10,000 units Q48H SUBQ 05/19/16 21:00 06/18/16 20:59 Folic Acid (Folate) 2 mg DAILY ORAL 05/19/16 09:00 06/18/16 08:59 05/19/16 08:35 Furosemide (Lasix) 40 mg DAILY IV 05/19/16 09:00 06/18/16 08:59 05/19/16 08:36 Insulin Aspart (NovoLOG) BEFORE MEALS AND HS SUBQ 05/18/16 16:30 06/17/16 16:29 05/19/16 12:54 Nitroglycerin (Ntg) 0.4 mg Q5M PRN SL Prn Chest Pain 05/18/16 14:30 06/17/16 14:29 Ondansetron HCl (Zofran) 4 mg Q6H PRN IVP Nausea & Vomiting 05/18/16 15:00 06/17/16 14:59 Pantoprazole (Protonix) 40 mg EVERY 12 HOURS ORAL 05/18/16 21:00 06/17/16 20:59 05/19/16 08:35 Polyethylene Glycol (Miralax) 17 gm DAILYPRN PRN ORAL Constipation 05/18/16 15:00 06/17/16 14:59 Promethazine HCl/ Codeine (Phenergan with Codeine) 5 ml Q4H PRN ORAL For Cough 05/18/16 15:00 06/17/16 14:59 Thiamine HCl (Vitamin B1) 100 mg DAILY ORAL 05/19/16 09:00 06/18/16 08:59 05/19/16 08:35 Warfarin Sodium (Coumadin per pharmacy) 1 ea DAILY PRN MISC Per rx protocol 05/18/16 15:00 06/17/16 14:59 Warfarin Sodium (Coumadin) 5 mg COUMADIN ONCE ORAL 05/19/16 17:00 05/19/16 17:01 GEORGIE HOLLOWAY May 19, 2016 13:39
--- NOTE | 2016-05-19 14:33 | Pulmonology Progress Note ---
Assessment/Plan Assessment/Plan ASSESSMENT Acute respiratory failure requiring BiPAP -resolved bronchospasm purulent bronchitis possible CAP, s/p Rx Acute on chronic systolic and diastolic CHF chronic cardiomyopathy moderate pulmonary HTN Hyperkalemia-resolved BRENDEN on ? chronic renal insufficiency R pleural effusion s/p thoracentesis 05/14 -900 cc hx of mitral valve replacement, bioprosthetic hx of DVT, s/p IVC filter severe TR LBBB DM dementia Severe anemia elevated CEA s/p endoscopy with findings fo gastritis, Patient is Jain PLAN OF CARE transferred to [facility] floor supplemental O2 HHN, improving s/p thoracentesis R pleural effusion post tap CXR -no pneumothorax, decrease in size of R pleural effusion cytology of pleural fluid negative for malignancy CXR in am all cx UTD negative, off abx, ID follows, observe off abx ECHO with EF 30-35%, RVSP of 55-60 c/w moderate pulmonary HTN, + severe TR cardio follows on diuretic , monitor I/O, renal parameters, lytes - stable continue statin, Amiodarone cardio restarted anticoagulation with Coumadin after endoscopy, INR still subtherapeutic, has IVC filter in place restart standard therapy with BB and JULI -as per cardio monitor HH, on EPO, no transfusion since patient is Jehovah witness BS management with SS of insulin bowel regimen case discussed and evaluated by supervising physician Subjective Allergies: Coded Allergies: SPIRONOLACTONE (Unverified Allergy, Intermediate, 05/08/16) Subjective denies chest pain, SOB, on RA pulse oximetry stable Objective Last 24 Hour Vital Signs Date Time Temp Pulse Resp B/P Pulse Ox O2 Delivery O2 Flow Rate FiO2 05/19/16 12:15 98.3 65 20 141/73 95 Room Air 05/19/16 08:15 97.6 64 19 117/42 97 Room Air 05/19/16 08:05 Nasal Cannula 2.0 28 05/19/16 08:05 98 Nasal Cannula 2.0 28 05/19/16 04:00 97.7 64 20 117/53 100 Nasal Cannula 2.0 05/19/16 00:00 97.7 70 20 106/44 96 Nasal Cannula 2.0 05/18/16 20:00 97.2 90 18 95 Nasal Cannula 3.0 05/18/16 20:00 3.0 05/18/16 19:30 Nasal Cannula 2.0 28 05/18/16 19:30 97 Nasal Cannula 2.0 28 05/18/16 16:51 97.7 58 14 112/43 98 Room Air 05/18/16 16:00 3.0 Intake and Output 05/18/16 05/19/16 19:00 07:00 Intake Total 700 ml 300 ml Output Total 350 ml 550 ml Balance 350 ml -250 ml Intake Oral 700 ml 300 ml Output Urine Total 350 ml 550 ml # Bowel Movements 4 1 General Appearance: no acute distress, other - awake, alert, elderly Kuwaiti speaking female HEENT: normocephalic, atraumatic, anicteric, mucous membranes moist Respiratory/Chest: lungs clear, no respiratory distress, no accessory muscle use, decreased breath sounds - at bases Cardiovascular: normal peripheral pulses, normal rate Abdomen: normal bowel sounds, soft, non tender, non distended Genitourinary: normal external genitalia Extremities: no edema Neurologic/Psychiatric: alert, responsive, normal mood/affect Musculoskeletal: atrophy - BLE Laboratory Tests 05/19/16 03:50: Prothrombin Time 13.7H, Prothromb Time International Ratio 1.3H Current Medications Medications (Trade) Dose Ordered Sig/Abril Route PRN Reason Start Time Stop Time Status Last Admin Dose Admin Acetaminophen (Tylenol) 650 mg Q4H PRN ORAL T>100.5 05/18/16 15:15 06/17/16 15:14 Amiodarone HCl (Cordarone) 200 mg DAILY ORAL 05/19/16 09:00 06/18/16 08:59 05/19/16 08:35 Atorvastatin Calcium (Lipitor) 40 mg BEDTIME ORAL 05/18/16 21:00 06/17/16 20:59 05/18/16 21:35 Dextrose (Dextrose 50%) STAT PRN IV Hypoglycemia 05/18/16 15:00 06/17/16 14:59 Epoetin Fish (Procrit (for non ESRD use)) 10,000 units Q48H SUBQ 05/19/16 21:00 06/18/16 20:59 Folic Acid (Folate) 2 mg DAILY ORAL 05/19/16 09:00 06/18/16 08:59 05/19/16 08:35 Furosemide (Lasix) 40 mg DAILY IV 05/19/16 09:00 06/18/16 08:59 05/19/16 08:36 Insulin Aspart (NovoLOG) BEFORE MEALS AND HS SUBQ 05/18/16 16:30 06/17/16 16:29 05/19/16 12:54 Nitroglycerin (Ntg) 0.4 mg Q5M PRN SL Prn Chest Pain 05/18/16 14:30 06/17/16 14:29 Ondansetron HCl (Zofran) 4 mg Q6H PRN IVP Nausea & Vomiting 05/18/16 15:00 06/17/16 14:59 Pantoprazole (Protonix) 40 mg EVERY 12 HOURS ORAL 05/18/16 21:00 06/17/16 20:59 05/19/16 08:35 Polyethylene Glycol (Miralax) 17 gm DAILYPRN PRN ORAL Constipation 05/18/16 15:00 06/17/16 14:59 Promethazine HCl/ Codeine (Phenergan with Codeine) 5 ml Q4H PRN ORAL For Cough 05/18/16 15:00 06/17/16 14:59 Thiamine HCl (Vitamin B1) 100 mg DAILY ORAL 05/19/16 09:00 06/18/16 08:59 05/19/16 08:35 Warfarin Sodium (Coumadin per pharmacy) 1 ea DAILY PRN MISC Per rx protocol 05/18/16 15:00 06/17/16 14:59 Warfarin Sodium (Coumadin) 5 mg COUMADIN ONCE ORAL 05/19/16 17:00 05/19/16 17:01 [facility] Lacey NP May 19, 2016 14:33
--- NOTE | 2016-05-19 15:56 | General Progress Note ---
Assessment/Plan Problem List: (1) Iron deficiency anemia ICD Codes: D50.9 - Iron deficiency anemia, unspecified SNOMED: 02926716 (2) Elevated CEA ICD Codes: R97.0 - Elevated carcinoembryonic antigen [CEA] SNOMED: 81482105, 256229132 (3) Dementia ICD Codes: F03.90 - Unspecified dementia without behavioral disturbance SNOMED: 24929425 Qualifiers: (4) COPD (chronic obstructive pulmonary disease) ICD Codes: J44.9 - Chronic obstructive pulmonary disease, unspecified SNOMED: 31391583 Assessment/Plan cardiology fu noted patient on coumadin now monitor closely Subjective ROS Limited/Unobtainable: No Allergies: Coded Allergies: SPIRONOLACTONE (Unverified Allergy, Intermediate, 05/08/16) Subjective no event Objective Last 24 Hour Vital Signs Date Time Temp Pulse Resp B/P Pulse Ox O2 Delivery O2 Flow Rate FiO2 05/19/16 12:15 98.3 65 20 141/73 95 Room Air 05/19/16 08:15 97.6 64 19 117/42 97 Room Air 05/19/16 08:05 Nasal Cannula 2.0 28 05/19/16 08:05 98 Nasal Cannula 2.0 28 05/19/16 04:00 97.7 64 20 117/53 100 Nasal Cannula 2.0 05/19/16 00:00 97.7 70 20 106/44 96 Nasal Cannula 2.0 05/18/16 20:00 97.2 90 18 95 Nasal Cannula 3.0 05/18/16 20:00 3.0 05/18/16 19:30 Nasal Cannula 2.0 28 05/18/16 19:30 97 Nasal Cannula 2.0 28 05/18/16 16:51 97.7 58 14 112/43 98 Room Air 05/18/16 16:00 3.0 Intake and Output 05/18/16 05/19/16 19:00 07:00 Intake Total 700 ml 300 ml Output Total 350 ml 550 ml Balance 350 ml -250 ml Intake Oral 700 ml 300 ml Output Urine Total 350 ml 550 ml # Bowel Movements 4 1 Laboratory Tests 05/19/16 03:50: Prothrombin Time 13.7H, Prothromb Time International Ratio 1.3H Height (Feet): 4 Height (Inches): 10.00 Weight (Pounds): 147 General Appearance: no apparent distress EENT: normal ENT inspection Neck: supple Cardiovascular: normal rate Respiratory/Chest: decreased breath sounds Abdomen: normal bowel sounds, non tender, soft Extremities: non-tender PEARL BLUM May 19, 2016 15:56
[2016-05-19 16:24] VITALS: BP 104/40
--- NOTE | 2016-05-19 16:35 | Cardiology Progress Note ---
Assessment/Plan Assessment/Plan respiratory insufficiency asthma CHF hypokalemia severe anemia kidney disease overall respiratory status improved Subjective Subjective wants to go home appetite is not good her dyspnea is better Objective Last 24 Hour Vital Signs Date Time Temp Pulse Resp B/P Pulse Ox O2 Delivery O2 Flow Rate FiO2 05/19/16 16:24 97.9 56 14 104/40 99 Nasal Cannula 05/19/16 12:15 98.3 65 20 141/73 95 Room Air 05/19/16 08:15 97.6 64 19 117/42 97 Room Air 05/19/16 08:05 Nasal Cannula 2.0 28 05/19/16 08:05 98 Nasal Cannula 2.0 28 05/19/16 04:00 97.7 64 20 117/53 100 Nasal Cannula 2.0 05/19/16 00:00 97.7 70 20 106/44 96 Nasal Cannula 2.0 05/18/16 20:00 97.2 90 18 95 Nasal Cannula 3.0 05/18/16 20:00 3.0 05/18/16 19:30 Nasal Cannula 2.0 28 05/18/16 19:30 97 Nasal Cannula 2.0 28 05/18/16 16:51 97.7 58 14 112/43 98 Room Air General Appearance: severe distress - chronically ill appearing, but breathing is better, other - sitting in her bed, EENT: PERRL/EOMI Neck: JVD Cardiovascular: normal rate Respiratory/Chest: crackles/rales Abdomen: soft Extremities: no calf tenderness Intake and Output 05/18/16 05/19/16 19:00 07:00 Intake Total 700 ml 300 ml Output Total 350 ml 550 ml Balance 350 ml -250 ml Intake Oral 700 ml 300 ml Output Urine Total 350 ml 550 ml # Bowel Movements 4 1 Laboratory Tests Test 05/19/16 03:50 Prothrombin Time 13.7 SEC (9.30-11.50) H Prothromb Time International Ratio 1.3 (0.9-1.1) H KARINE MEJIA May 19, 2016 16:35
[2016-05-19] MEDS ORDERED: Warfarin Sodium 5mg ORAL ONE (17:00)
[2016-05-19 20:00] VITALS: BP 118/50
[2016-05-19] MEDS ORDERED: Epogen (for non ESRD use) SUBQ SCH (21:00)
[2016-05-20] VITALS: BP 110/51
[2016-05-20 04:00] VITALS: BP 111/50
[2016-05-20] MEDS: NovoLOG Insulin Flexpen SUBQ SCH ×2 (06:29→11:30)
[2016-05-20 07:44] LABS: BASOPHILS % (AUTO) 0.4 % (0.0-2.0); EOSINOPHILS % (AUTO) 2.4 % (0.0-3.0); LYMPHOCYTES % (AUTO) 16.1 % (20.0-45.0); MEAN CORPUSCULAR HEMOGLOBIN 27.4 PG (27.0-31.0); MEAN CORPUSCULAR HGB CONC 29.8 G/DL (32.0-36.0); MEAN CORPUSCULAR VOLUME 92 FL (80-99); MEAN PLATELET VOLUME 6.7 FL (6.5-10.1); MONOCYTES % (AUTO) 4.8 % (1.0-10.0); NEUTROPHILS % (AUTO) 76.2 % (45.0-75.0); PLATELET COUNT 226 K/UL (150-450); RED BLOOD COUNT 3.26 M/UL (4.20-5.40); RED CELL DISTRIBUTION WIDTH 17.8 % (11.6-14.8); WHITE BLOOD COUNT 12.7 K/UL (4.8-10.8)
[2016-05-20 07:59] LABS: ALANINE AMINOTRANSFERASE 19 U/L (3-33); ALBUMIN/GLOBULIN RATIO 0.9 (1.0-2.7); ANION GAP 12 (5-15); ASPARTATE AMINO TRANSFERASE 22 U/L (5-40); CALCIUM 8.6 mg/dL (8.6-10.2); CARBON DIOXIDE 33 mEQ/L (20-30); CHLORIDE 98 mEQ/L (98-107); CREATININE 2.4 mg/dL (0.5-0.9); HEMOLYSIS 5; PHOSPHORUS 2.7 mg/dL (2.5-4.8); POTASSIUM 3.9 mEQ/L (3.4-4.9); SODIUM 143 mEQ/L (135-145); TOTAL PROTEIN 5.9 g/dL (6.6-8.7)
[2016-05-20 08:00] VITALS: BP 132/56
[2016-05-20 08:09] LABS: INR 1.7 (0.9-1.1); PROTHROMBIN TIME 18.1 SEC (9.30-11.50)
[2016-05-20] MEDS: Thiamine 100mg tab ORAL SCH (09:32)
[2016-05-20] MEDS: Amiodarone 200mg tab ORAL SCH (09:33)
[2016-05-20] MEDS ORDERED: Influenza Virus Vaccine 0.5ml IM ONE (10:15)
--- NOTE | 2016-05-20 10:48 | GI Progress Note ---
Assessment/Plan Problems: (1) Severe anemia ICD Codes: D64.9 - Anemia, unspecified SNOMED: 674600525 (2) Dementia ICD Codes: F03.90 - Unspecified dementia without behavioral disturbance SNOMED: 37301174 Qualifiers: (3) Refusal of blood transfusions as patient is Worship ICD Codes: Z53.1 - Procedure and treatment not carried out because of patient' s decision for reasons of belief and group pressure SNOMED: 620107158 (4) Iron deficiency anemia ICD Codes: D50.9 - Iron deficiency anemia, unspecified SNOMED: 31307782 (5) Elevated CEA ICD Codes: R97.0 - Elevated carcinoembryonic antigen [CEA] SNOMED: 43406393, 323369599 Status: stable Status Narrative Discussed with Dr. Siegel. Assessment/Plan iron deficient anemia elevated CEA >> 8.4 OB stool positive x 2 s/p EGD/colon >> gastritis, hemorrhoids ok for DC per GI standpoint cardiology fu noted patient on coumadin now monitor H&H, transfuse prn soft diet, tolerating fu labs Subjective Gastrointestinal/Abdominal: Reports: no symptoms Objective Last 24 Hour Vital Signs Date Time Temp Pulse Resp B/P Pulse Ox O2 Delivery O2 Flow Rate FiO2 05/20/16 08:00 97.5 62 18 132/56 98 Room Air 05/20/16 07:21 97 Nasal Cannula 2.0 28 05/20/16 07:21 Nasal Cannula 2.0 28 05/20/16 04:00 98.6 67 17 111/50 96 Room Air 05/20/16 00:00 98.6 70 16 110/51 98 Room Air 05/19/16 20:00 98.1 66 16 118/50 100 Room Air 05/19/16 19:29 Nasal Cannula 2.0 28 05/19/16 19:28 97 Nasal Cannula 2.0 28 05/19/16 16:24 97.9 56 14 104/40 99 Nasal Cannula 05/19/16 12:15 98.3 65 20 141/73 95 Room Air Intake and Output 05/19/16 05/20/16 19:00 07:00 Intake Total 1020 ml 200 ml Output Total 450 ml 450 ml Balance 570 ml -250 ml Intake Oral 1020 ml 200 ml Output Urine Total 450 ml 450 ml # Bowel Movements 1 Laboratory Tests Test 05/20/16 06:10 White Blood Count 12.7 K/UL (4.8-10.8) H Red Blood Count 3.26 M/UL (4.20-5.40) L Hemoglobin 8.9 G/DL (12.0-16.0) L Hematocrit 30.0 % (37.0-47.0) L Mean Corpuscular Volume 92 FL (80-99) Mean Corpuscular Hemoglobin 27.4 PG (27.0-31.0) Mean Corpuscular Hemoglobin Concent 29.8 G/DL (32.0-36.0) L Red Cell Distribution Width 17.8 % (11.6-14.8) H Platelet Count 226 K/UL (150-450) Mean Platelet Volume 6.7 FL (6.5-10.1) Neutrophils (%) (Auto) 76.2 % (45.0-75.0) H Lymphocytes (%) (Auto) 16.1 % (20.0-45.0) L Monocytes (%) (Auto) 4.8 % (1.0-10.0) Eosinophils (%) (Auto) 2.4 % (0.0-3.0) Basophils (%) (Auto) 0.4 % (0.0-2.0) Prothrombin Time 18.1 SEC (9.30-11.50) H Prothromb Time International Ratio 1.7 (0.9-1.1) H Sodium Level 143 mEQ/L (135-145) Potassium Level 3.9 mEQ/L (3.4-4.9) Chloride Level 98 mEQ/L (98-107) Carbon Dioxide Level 33 mEQ/L (20-30) H Anion Gap 12 (5-15) Blood Urea Nitrogen 50 mg/dL (7-23) H Creatinine 2.4 mg/dL (0.5-0.9) H Estimat Glomerular Filtration Rate mL/min (>60) Glucose Level 170 mg/dL (74-106) H Calcium Level 8.6 mg/dL (8.6-10.2) Phosphorus Level 2.7 mg/dL (2.5-4.8) Total Bilirubin 0.3 mg/dL (0.0-1.2) Aspartate Amino Transf (AST/SGOT) 22 U/L (5-40) Alanine Aminotransferase (ALT/SGPT) 19 U/L (3-33) Alkaline Phosphatase 81 U/L (35-104) Pro-B-Type Natriuretic Peptide 67519 pg/mL (0-450) H Total Protein 5.9 g/dL (6.6-8.7) L Albumin 2.9 g/dL (3.5-5.2) L Globulin 3.0 g/dL Albumin/Globulin Ratio 0.9 (1.0-2.7) L Height (Feet): 4 Height (Inches): 10.00 Weight (Pounds): 146 General Appearance: no apparent distress, alert Cardiovascular: normal rate Respiratory/Chest: normal breath sounds, no respiratory distress Abdominal Exam: normal bowel sounds, non tender, soft Objective Endoscopy Procedure Note Indication for Procedure: anemia Procedures Performed: EGD, colonoscopy Operative Findings/Diagnosis: gastritis,hemorrhoids PEARL SIEGEL - May 16, 2016 12:26 Solange Rowell N.P. May 20, 2016 10:48
[2016-05-20 12:00] VITALS: BP 119/52
--- NOTE | 2016-05-20 12:54 | General Progress Note ---
Assessment/Plan Status: unchanged Status Narrative Cr stable Assessment/Plan status: Renal failure : Chronic vs Acute? - Acute respiratory distress - Acute on chronic diastolic CHF (congestive heart failure)- low Ej Fx - Hyperkalemia, on admission, resolved - LBBB (left bundle branch block) - Severe anemia - Purulent bronchitis - Patient is Alevism - Dementia - COPD (chronic obstructive pulmonary disease) Plan: Optimize cardiac status- Kidney MISSY- no hydro- cortical thinning-normal size- Urine eosinophils- Negative 2D Echo 30% Ej Fx Urine studies- Per orders epo , folate, Iron Protonix Subjective ROS Limited/Unobtainable: No Constitutional: Reports: malaise Allergies: Coded Allergies: SPIRONOLACTONE (Unverified Allergy, Intermediate, 05/08/16) Objective Last 24 Hour Vital Signs Date Time Temp Pulse Resp B/P Pulse Ox O2 Delivery O2 Flow Rate FiO2 05/20/16 12:00 97.0 68 18 119/52 Nasal Cannula 2.0 05/20/16 08:00 97.5 62 18 132/56 98 Room Air 05/20/16 07:21 97 Nasal Cannula 2.0 28 05/20/16 07:21 Nasal Cannula 2.0 28 05/20/16 04:00 98.6 67 17 111/50 96 Room Air 05/20/16 00:00 98.6 70 16 110/51 98 Room Air 05/19/16 20:00 98.1 66 16 118/50 100 Room Air 05/19/16 19:29 Nasal Cannula 2.0 28 05/19/16 19:28 97 Nasal Cannula 2.0 28 05/19/16 16:24 97.9 56 14 104/40 99 Nasal Cannula Intake and Output 05/19/16 05/20/16 19:00 07:00 Intake Total 1020 ml 200 ml Output Total 450 ml 450 ml Balance 570 ml -250 ml Intake Oral 1020 ml 200 ml Output Urine Total 450 ml 450 ml # Bowel Movements 1 Laboratory Tests 05/20/16 06:10: White Blood Count 12.7H, Red Blood Count 3.26L, Hemoglobin 8.9L, Hematocrit 30.0L, Mean Corpuscular Volume 92, Mean Corpuscular Hemoglobin 27.4, Mean Corpuscular Hemoglobin Concent 29.8L, Red Cell Distribution Width 17.8H, Platelet Count 226, Mean Platelet Volume 6.7, Neutrophils (%) (Auto) 76.2H, Lymphocytes (%) (Auto) 16.1L, Monocytes (%) (Auto) 4.8, Eosinophils (%) (Auto) 2.4, Basophils (%) (Auto) 0.4, Prothrombin Time 18.1H, Prothromb Time International Ratio 1.7H, Sodium Level 143, Potassium Level 3.9, Chloride Level 98, Carbon Dioxide Level 33H, Anion Gap 12, Blood Urea Nitrogen 50H, Creatinine 2.4H, Estimat Glomerular Filtration Rate , Glucose Level 170H, Calcium Level 8.6 , Phosphorus Level 2.7, Total Bilirubin 0.3, Aspartate Amino Transf (AST/SGOT) 22, Alanine Aminotransferase (ALT/SGPT) 19, Alkaline Phosphatase 81, Pro-B-Type Natriuretic Peptide 53760P, Total Protein 5.9L, Albumin 2.9L, Globulin 3.0, Albumin/Globulin Ratio 0.9L Height (Feet): 5 Height (Inches): 2.00 Weight (Pounds): 157 General Appearance: no apparent distress Objective other physical exam not changed GILLES CUELLAR May 20, 2016 12:54
--- NOTE | 2016-05-20 15:33 | Infectious Diseases Prog Note ---
Assessment/Plan Assessment/Plan ASSESSMENT: 85 y/o female with: // Possible CAP - unable to produce sputum, legionella UAg(-) SP Rx - CXR 05/13: Decreased but persistent pulmonary edema // Leukocytosis - recurrent, mild, stable afebrile. Cultures(-) // Pleural effusion - SP thoracentesis 900cc 05/14 - Cx(-), cytology(-) // Acute on chronic systolic + diastolic CHF exacerbation - trop(-) x1, elevated BNP - TTE: EF 30-35%, mild MR, mod MI, sev TR, mod pulmonary HTN // O2-dependent COPD // Elevated LFTs - resolved // ARF - improved // Severe FOBT(+) normocytic anemia - Hgb stable - EGD/colonoscopy 05/16: chronic H.pylori(-) gastritis, hemorrhoids - Confucianism, no blood products // Elevated CEA // DM2 // Dementia // No ABX allergies // Full Code PLAN: - monitor pt off of ABX ( 05/15 SP IV vancomycin, cefepime d# 7 / ) - monitor CBC, temperatures, re-culture if acute change - monitor BMP - monitor CXR Subjective Allergies: Coded Allergies: SPIRONOLACTONE (Unverified Allergy, Intermediate, 05/08/16) Subjective remains afebrile recurrent mild leukocytosis, stable Objective Vital Signs Last 24 Hour Vital Signs Date Time Temp Pulse Resp B/P Pulse Ox O2 Delivery O2 Flow Rate FiO2 05/20/16 12:00 97.0 68 18 119/52 Nasal Cannula 2.0 05/20/16 08:00 97.5 62 18 132/56 98 Room Air 05/20/16 07:21 97 Nasal Cannula 2.0 28 05/20/16 07:21 Nasal Cannula 2.0 28 05/20/16 04:00 98.6 67 17 111/50 96 Room Air 05/20/16 00:00 98.6 70 16 110/51 98 Room Air 05/19/16 20:00 98.1 66 16 118/50 100 Room Air 05/19/16 19:29 Nasal Cannula 2.0 28 05/19/16 19:28 97 Nasal Cannula 2.0 28 05/19/16 16:24 97.9 56 14 104/40 99 Nasal Cannula Height (Feet): 5 Height (Inches): 2.00 Weight (Pounds): 157 General Appearance: no acute distress Respiratory/Chest: no respiratory distress Cardiovascular: normal rate, regular rhythm Abdomen: normal bowel sounds, soft, non tender, non distended Laboratory Tests Test 05/20/16 06:10 White Blood Count 12.7 K/UL (4.8-10.8) H Red Blood Count 3.26 M/UL (4.20-5.40) L Hemoglobin 8.9 G/DL (12.0-16.0) L Hematocrit 30.0 % (37.0-47.0) L Mean Corpuscular Volume 92 FL (80-99) Mean Corpuscular Hemoglobin 27.4 PG (27.0-31.0) Mean Corpuscular Hemoglobin Concent 29.8 G/DL (32.0-36.0) L Red Cell Distribution Width 17.8 % (11.6-14.8) H Platelet Count 226 K/UL (150-450) Mean Platelet Volume 6.7 FL (6.5-10.1) Neutrophils (%) (Auto) 76.2 % (45.0-75.0) H Lymphocytes (%) (Auto) 16.1 % (20.0-45.0) L Monocytes (%) (Auto) 4.8 % (1.0-10.0) Eosinophils (%) (Auto) 2.4 % (0.0-3.0) Basophils (%) (Auto) 0.4 % (0.0-2.0) Prothrombin Time 18.1 SEC (9.30-11.50) H Prothromb Time International Ratio 1.7 (0.9-1.1) H Sodium Level 143 mEQ/L (135-145) Potassium Level 3.9 mEQ/L (3.4-4.9) Chloride Level 98 mEQ/L (98-107) Carbon Dioxide Level 33 mEQ/L (20-30) H Anion Gap 12 (5-15) Blood Urea Nitrogen 50 mg/dL (7-23) H Creatinine 2.4 mg/dL (0.5-0.9) H Estimat Glomerular Filtration Rate mL/min (>60) Glucose Level 170 mg/dL (74-106) H Calcium Level 8.6 mg/dL (8.6-10.2) Phosphorus Level 2.7 mg/dL (2.5-4.8) Total Bilirubin 0.3 mg/dL (0.0-1.2) Aspartate Amino Transf (AST/SGOT) 22 U/L (5-40) Alanine Aminotransferase (ALT/SGPT) 19 U/L (3-33) Alkaline Phosphatase 81 U/L (35-104) Pro-B-Type Natriuretic Peptide 08418 pg/mL (0-450) H Total Protein 5.9 g/dL (6.6-8.7) L Albumin 2.9 g/dL (3.5-5.2) L Globulin 3.0 g/dL Albumin/Globulin Ratio 0.9 (1.0-2.7) L Current Medications Medications (Trade) Dose Ordered Sig/Abril Route PRN Reason Start Time Stop Time Status Last Admin Dose Admin Acetaminophen (Tylenol) 650 mg Q4H PRN ORAL T>100.5 05/18/16 15:15 06/17/16 15:14 Amiodarone HCl (Cordarone) 200 mg DAILY ORAL 05/19/16 09:00 06/18/16 08:59 05/20/16 09:33 Atorvastatin Calcium (Lipitor) 40 mg BEDTIME ORAL 05/18/16 21:00 06/17/16 20:59 05/19/16 21:13 Dextrose (Dextrose 50%) STAT PRN IV Hypoglycemia 05/18/16 15:00 06/17/16 14:59 Epoetin Fish (Procrit (for non ESRD use)) 10,000 units Q48H SUBQ 05/19/16 21:00 06/18/16 20:59 05/19/16 21:18 Folic Acid (Folate) 2 mg DAILY ORAL 05/19/16 09:00 06/18/16 08:59 05/20/16 09:33 Furosemide (Lasix) 40 mg DAILY IV 05/19/16 09:00 06/18/16 08:59 05/20/16 09:34 Insulin Aspart (NovoLOG) BEFORE MEALS AND HS SUBQ 05/18/16 16:30 06/17/16 16:29 05/20/16 06:29 Nitroglycerin (Ntg) 0.4 mg Q5M PRN SL Prn Chest Pain 05/18/16 14:30 06/17/16 14:29 Ondansetron HCl (Zofran) 4 mg Q6H PRN IVP Nausea & Vomiting 05/18/16 15:00 06/17/16 14:59 Pantoprazole (Protonix) 40 mg EVERY 12 HOURS ORAL 05/18/16 21:00 06/17/16 20:59 05/20/16 09:33 Polyethylene Glycol (Miralax) 17 gm DAILYPRN PRN ORAL Constipation 05/18/16 15:00 06/17/16 14:59 Promethazine HCl/ Codeine (Phenergan with Codeine) 5 ml Q4H PRN ORAL For Cough 05/18/16 15:00 06/17/16 14:59 Thiamine HCl (Vitamin B1) 100 mg DAILY ORAL 05/19/16 09:00 06/18/16 08:59 05/20/16 09:32 Warfarin Sodium (Coumadin per pharmacy) 1 ea DAILY PRN MISC Per rx protocol 05/18/16 15:00 06/17/16 14:59 Warfarin Sodium (Coumadin) 2 mg COUMADIN ORAL 05/20/16 17:00 05/20/16 17:01 GEORGIE HOLLOWAY May 20, 2016 15:33
[2016-05-20] MEDS ORDERED: Warfarin Sodium 2mg ORAL SCH (17:00)
--- NOTE | 2016-05-21 14:59 | Discharge Summary ---
Discharge Summary Hospital Course Date of Admission May 08, 2016 at 21:43 Date of Discharge May 20, 2016 at 13:15 Admitting Diagnosis Congestyive heart failure HPI Mayte Johnson is a 85 year old female who was admitted on May 08, 2016 at 21:43 for Congestive Heart Failure Hospital Course dc summary dictated # [id number] Discharge Medications New Medications: Amiodarone Hcl* (Pacerone*) 200 Mg Tablet 200 MG ORAL DAILY for 30 Days, TAB Insulin Aspart (Novolog Flexpen) 100 Unit/1 Ml Insuln.pen 0 UNITS SUBQ BEFORE MEALS AND HS for 30 Days, EA Pantoprazole* (Protonix*) 40 Mg Tablet.dr 40 MG ORAL EVERY 12 HOURS for 30 Days, TAB Warfarin Sod* (Coumadin*) 4 Mg Tablet 4 MG PO COUMADIN for 30 Days, TAB Discharge Condition Upon Discharge: stable Discharge Disposition Patient was discharged to SNF/Subacute Facility(03) Discharge Diagnoses: Jose Luis (Vanclorinein)Belia NP May 21, 2016 14:59
--- NOTE | 2016-05-22 06:48 | Discharge Summary 2 SIG ---
DATE OF ADMISSION: 05/08/2016 DATE OF DISCHARGE: 05/20/2016 REASON FOR ADMISSION: 85-year-old female was brought by paramedics with acute respiratory distress. The patient's daughter reported a history of congestive heart failure. The patient did not take Lasix on the day of admission. The patient could not provide any additional information. Patient with history of possible dementia. Workup in the emergency department revealed hypoxemia. The patient required placement on the BiPAP with 30% of FiO2 and started on Lasix. Empiric antibiotics were started. Leukocytosis of 19. The patient was hyperkalemic with potassium of 6.5, serum creatinine 3, and glucose 402. Calcium gluconate, insulin, and Kayexalate were all given. EKG revealed left bundle-branch block. Chest x-ray showed bilateral pulmonary congestion and possible evidence of pneumonia. The patient had been admitted to the hospital. ADMITTING DIAGNOSES: 1. Yazcd-nq-frcyisv diastolic congestive heart failure. 2. Pneumonia. 3. Acute respiratory failure, requiring BiPAP, 4. Hyperkalemia. 5. Acute kidney injury. 6. Left bundle-branch block. 7. Respiratory distress HOSPITAL STAY: The patient was initially admitted to [facility]. The patient was started on diuresis. Lasix drip. Supplemental oxygen and pulmonary toilet were provided. The patient was able subsequently to be weaned from the BiPAP. Follow up with the chest x-ray, pro BNP were done, renal parameters, and electrolytes were monitored. Nephrology followed. The patient status post thoracentesis of the right pleural effusion, which yielded 900 mL pleural fluid. Pleural fluid culture was negative. Cytology of pleural fluid was negative for malignant cells. All cultures up-to-date were negative. The patient off antibiotics. ID followed. The patient status post vancomycin and cefepime for seven days. ID recommended to observe the patient off antibiotics. Last chest x-ray demonstrated decrease in right pleural effusion , following thoracentesis with no pneumothorax and no evidence of pneumonia. Echocardiogram revealed ejection fraction of 30% to 35% and right ventricular systolic pressure of 55% to 60% consistent with moderate pulmonary hypertension and severe tricuspid regurgitation. Sodder followed the patient. The patient was on diuretic, taken out, renal parameters and electrolytes were stable. Creatinine was down from initial 3 to 2.4. Speedometer Inspector followed. Renal failure acute versus acute on chronic. Continue statin and amiodarone. Sodder restarted anticoagulation with Coumadin after endoscopy and discussion with the Gastrointestinal. Endoscopy revealed gastritis and hemorrhoids. Elevated CEA of 8.4. No obvious source of bleeding. The patient was a Jehovah Witness and was not able to accept any blood transfusion. The patient was on Epogen. and Venofer x 5 days. Anticoagulation with Coumadin was restarted. INR-1.7. Further titration at [facility] to keep INR in therapeutic range. The patient needs close monitoring of hemoglobin and hematocrit. She would not accept any blood transfusion due to jew beliefs. 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 Blood sugar was managed with a sliding scale of insulin. Bowel regimen was instituted. Pain management was provided. PPI was provided. Creatinine trending down. Leukocytosis trending down. Afebrile on room air pulse oximetry was stable. The patient was stable for transfer to group home facility. DISCHARGE DIAGNOSES: 1. Acute respiratory failure, requiring BiPAP, resolved. 2. Uzbqm-fx-knmgbld systolic and diastolic heart failure. 3. Chronic cardiomyopathy. 4. Moderate pulmonary hypertension. 5. Hyperkalemia, resolved. 6. Acute kidney injury on possible chronic renal insufficiency. 7. Right pleural effusion. 8. Status post thoracentesis of right pleural effusion. 9. Purulent bronchitis. 10. Possible community-acquired pneumonia. 11. Chronic obstructive pulmonary disease/asthma. 12. Severe tricuspid regurgitation. 13. Diabetes mellitus. 14. Dementia. 15. Severe anemia. 16. Status post endoscopy with finding of gastritis and hemorrhoids. 17. Elevated carcinoembryonic antigen. 18. Anemia of chronic disease. DISCHARGE MEDICATIONS: See medication reconciliation list. DISCHARGE INSTRUCTIONS: The patient was discharged to group home facility. Follow up with medical doctor at the facility. Emilee Weir M.D. [facility]United [facility] CenterAbhijit N.PNara DR: BRAXTON JOB#: [id number] CC: HENRY
== END 2016-05-20 13:15 | DRG 291 ==
LOC: EDBD 20:47 → EMR 21:38 → 2W 21:43 → EDBEDREQ 22:18 → 2W 05-10 13:27 → 4E 05-18 14:35
PROC: 5A09357 Assistance with Respiratory Ventilation, Less than 24 Consecutive Hours, Continuous Positive Airway Pressure (ICD-10-PCS; principal; 2016-05-08)
PROC: 0DB68ZX Excision of Stomach, Via Natural or Artificial Opening Endoscopic, Diagnostic (ICD-10-PCS; principal; 2016-05-08)
PROC: 0DJD8ZZ Inspection of Lower Intestinal Tract, Via Natural or Artificial Opening Endoscopic (ICD-10-PCS; principal; 2016-05-08)
PROC: 0W993ZZ Drainage of Right Pleural Cavity, Percutaneous Approach (ICD-10-PCS; 2016-05-11)
DX: I50.43 Acute on chronic combined systolic (congestive) and diastolic (congestive) heart failure (principal); J18.9 Pneumonia, unspecified organism; J96.00 Acute respiratory failure, unspecified whether with hypoxia or hypercapnia; N17.9 Acute kidney failure, unspecified; J90 Pleural effusion, not elsewhere classified; F03.90 Unspecified dementia, unspecified severity, without behavioral disturbance, psychotic disturbance, mood disturbance, and anxiety; I27.2 Other secondary pulmonary hypertension; I42.9 Cardiomyopathy, unspecified; E11.9 Type 2 diabetes mellitus without complications; D50.9 Iron deficiency anemia, unspecified; D64.9 Anemia, unspecified; E87.5 Hyperkalemia; I44.7 Left bundle-branch block, unspecified; J41.1 Mucopurulent chronic bronchitis; K29.70 Gastritis, unspecified, without bleeding; K64.9 Unspecified hemorrhoids; N18.9 Chronic kidney disease, unspecified; J44.9 Chronic obstructive pulmonary disease, unspecified; J45.909 Unspecified asthma, uncomplicated; I07.1 Rheumatic tricuspid insufficiency; R97.0 Elevated carcinoembryonic antigen [CEA]; Z88.8 Allergy status to other drugs, medicaments and biological substances; Z99.81 Dependence on supplemental oxygen; I25.10 Atherosclerotic heart disease of native coronary artery without angina pectoris; Z98.61 Coronary angioplasty status; Z95.1 Presence of aortocoronary bypass graft; I48.91 Unspecified atrial fibrillation; I12.9 Hypertensive chronic kidney disease with stage 1 through stage 4 chronic kidney disease, or unspecified chronic kidney disease; Z86.711 Personal history of pulmonary embolism; Z86.718 Personal history of other venous thrombosis and embolism; Z86.73 Personal history of transient ischemic attack (TIA), and cerebral infarction without residual deficits; I73.9 Peripheral vascular disease, unspecified; Z79.01 Long term (current) use of anticoagulants; Z95.2 Presence of prosthetic heart valve; Z23 Encounter for immunization
CPT/HCPCS: 36415; 71010; 74176; 76775; 76942; 80048; 80053; 80061; 80069; 80202; 81001; 82164; 82270; 82378; 82550; 82553; 82607; 82746; 82962; 82977; 83036; 83540; 83550; 83615; 83735; 83880; 84100; 84300; 84443; 84484; 84550; 85007; 85025; 85044; 85060; 85610; 85651; 85730; 86140; 87040; 87070; 87086; 87205; 88104; 89050; 93005; 93306; 94003; 94150; 94640; 94660; 94760; J1815; J7620; J8499; Q2036

== ENCOUNTER 2016-05-29 00:10 | Inpatient (IN) | payer MEDICARE, OTHER ==
[~2016-05-29] VITALS: Ht 154.9 cm; Wt 68.5 kg
[~2016-05-29 00:10] MED LIST: COUMADIN4 MG PO; FUROSEMIDE20 M1 ORAL; NOVOLOG100 UNITS1 SUBQ; PACERONE200 MG ORAL; PROTONIX40 MG ORAL
[2016-05-30] MEDS ORDERED: MOM30 ML ORAL (01:27)
[2016-05-30] MEDS ORDERED: ZOFRAN4 M1 ORAL (01:27)
[2016-05-30] MEDS ORDERED: PANTOPRAZOLE SO20 MG ORAL (01:27)
[2016-05-30] MEDS ORDERED: COUMADIN7.5 MG ORAL (01:27)
[2016-05-30] MEDS ORDERED: TYLENOL650 MG/20. ORAL (01:27)
[2016-05-30] MEDS ORDERED: LOSARTAN POTASS50 MG PO (01:27)
[2016-05-30] MEDS ORDERED: JANUVIA100 MG PO (01:27)
[2016-05-30] MEDS ORDERED: FERROUS SULFAT325 M2 ORAL (01:27)
[2016-05-30] MEDS ORDERED: FLEET ENEMA133 M1 RC (01:27)
[2016-05-30 04:05] VITALS: BP 118/64
[2016-05-30] MEDS ORDERED: Acetaminophen 650mg/20.3ml ORAL PRN (04:15)
[2016-05-30] MEDS: DuoNeb 0.5-3(2.5)mg/3ml neb HHN PRN ×3 (04:33→22:46)
[2016-05-30] MEDS: NovoLOG Insulin Flexpen SUBQ SCH ×4 (06:37→21:05)
[2016-05-30 08:17] VITALS: BP 118/59
[2016-05-30] MEDS: sitaGLIPtin 50mg tab ORAL SCH (08:45)
[2016-05-30] MEDS: Amiodarone 200mg tab ORAL SCH (08:45)
[2016-05-30] MEDS: Milk of Magnesia 30ml Ud ORAL SCH (08:46)
[2016-05-30 10:32] LABS: MEAN CORPUSCULAR HEMOGLOBIN 27.7 PG (27.0-31.0); MEAN CORPUSCULAR HGB CONC 28.7 G/DL (32.0-36.0); MEAN CORPUSCULAR VOLUME 96 FL (80-99); MEAN PLATELET VOLUME 7.5 FL (6.5-10.1); PLATELET COUNT 172 K/UL (150-450); RED BLOOD COUNT 3.08 M/UL (4.20-5.40); RED CELL DISTRIBUTION WIDTH 17.7 % (11.6-14.8)
[2016-05-30 10:55] LABS: CALCIUM 8.9 mg/dL (8.6-10.2); CARBON DIOXIDE 26 mEQ/L (20-30); CHLORIDE 99 mEQ/L (98-107); CREATININE 2.2 mg/dL (0.5-0.9); HEMOLYSIS 1; MAGNESIUM 1.8 mg/dL (1.7-2.5); PHOSPHORUS 4.6 mg/dL (2.5-4.8); SODIUM 139 mEQ/L (135-145)
[2016-05-30 11:02] LABS: ANION GAP 14 (5-15); POTASSIUM 5.9 mEQ/L (3.4-4.9)
[2016-05-30 11:03] LABS: TROPONIN I < 0.30 ng/mL (<=0.30)
[2016-05-30 11:51] LABS: INR 2.7 (0.9-1.1); PROTHROMBIN TIME 28.5 SEC (9.30-11.50)
[2016-05-30 12:05] VITALS: BP 125/56
[2016-05-30 12:06] LABS: ANISOCYTOSIS 1+; BAND NEUTROPHILS % (MANUAL) 0 % (0-8); BASOPHILS % (MANUAL) 0 % (0-2); EOSINOPHILS % (MANUAL) 0 % (0-3); HYPOCHROMASIA 1+; LYMPHOCYTES % (MANUAL) 4 % (20-45); NEUTROPHILS % (MANUAL) 94 % (45-75); PLATELET ESTIMATE ADEQUATE; PLATELET MORPHOLOGY NORMAL; TOTAL CELLS COUNTED 100
[2016-05-30] MEDS ORDERED: Levemir Flexpen SUBQ ONE (13:00)
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
--- NOTE | 2016-05-30 14:55 | Consultation ---
History of Present Illness General Date patient seen: May 30, 2016 Chief Complaint: Sob Referring physician: Dr. Tyler Reason for Consultation: dyspnea Present Illness HPI 85 year old female with hx of CHF, COPD, home O2, Dementia, Jehovas witness, recently discharged from [facility] to [facility], started having cough and dyspnea a few hours ago , She was taken to [facility] initially and treated for CHF and transferred to [place] for further care. Pt is still short of breath and coughing, has audible rhonchi. Allergies: Coded Allergies: SPIRONOLACTONE (Unverified Allergy, Intermediate, 05/08/16) Medication History Scheduled Amiodarone Hcl* (Pacerone*), 200 MG ORAL DAILY Ferrous Sulfate (Ferrous Sulfate), 325 MG ORAL DAILY, (Reported) Furosemide* (Lasix*), 20 MG ORAL DAILY, (Reported) Insulin Aspart (Novolog Flexpen), 0 UNITS SUBQ BEFORE MEALS AND HS Losartan Potassium* (Losartan Potassium*), 50 MG PO DAILY, (Reported) Magnesium Hydroxide (Milk of Magnesia), 30 ML ORAL DAILY, (Reported) Na Phos,M-B/Na Phos,Di-Ba (Fleet Enema), 118 ML RC PRN, (Reported) Pantoprazole (Pantoprazole), 40 MG ORAL EVERY 12 HOURS, (Reported) Sitagliptin (Januvia), 100 MG PO DAILY, (Reported) Warfarin Sod (Coumadin*), 3 MG ORAL DAILY, (Reported) Scheduled PRN Acetaminophen (Acetaminophen), 650 MG ORAL Q6H PRN for Mild Pain/Temp > 100.5, ( Reported) Ondansetron (Zofran), 4 MG ORAL Q6H PRN for Nausea & Vomiting, (Reported) Discontinued Medications Pantoprazole* (Protonix*), 40 MG ORAL EVERY 12 HOURS Discontinued Reason: Pt stopped taking med Warfarin Sod* (Coumadin*), 4 MG PO COUMADIN Discontinued Reason: Medication dose changed Patient History Healthcare decision maker Resuscitation status Full Code Advanced Directive on File Past Medical/Surgical History Past Medical/Surgical History: (1) COPD (chronic obstructive pulmonary disease) (2) Dementia (3) CHF (congestive heart failure) (4) ATN (acute tubular necrosis) (5) Elevated CEA Review of Systems All Other Systems: negative except mentioned in HPI Physical Exam General Appearance: WD/WN Lines, tubes and drains: peripheral, central line HEENT: normocephalic, atraumatic Neck: non-tender, normal alignment Respiratory/Chest: chest wall non-tender, lungs clear Cardiovascular/Chest: normal peripheral pulses, normal rate Abdomen: normal bowel sounds Last 24 Hour Vital Signs Date Time Temp Pulse Resp B/P Pulse Ox O2 Delivery O2 Flow Rate FiO2 05/30/16 12:05 97.5 80 24 125/56 99 Nasal Cannula 3.0 05/30/16 08:17 97.0 80 24 118/59 96 Nasal Cannula 3.0 05/30/16 08:00 80 05/30/16 04:44 80 22 99 Nasal Cannula 2.0 28 05/30/16 04:34 Nasal Cannula 2.0 28 05/30/16 04:34 98 Nasal Cannula 2.0 28 05/30/16 04:32 78 24 Nasal Cannula 2.0 28 05/30/16 04:32 28 05/30/16 04:31 78 24 98 Nasal Cannula 2.0 28 05/30/16 04:05 98.5 77 18 118/64 98 Nasal Cannula 3.0 05/30/16 04:00 75 Intake and Output 05/29/16 05/30/16 19:00 07:00 # Voids 2 Laboratory Tests Test 05/30/16 10:06 05/30/16 10:43 White Blood Count 6.0 K/UL (4.8-10.8) Red Blood Count 3.08 M/UL (4.20-5.40) L Hemoglobin 8.5 G/DL (12.0-16.0) L Hematocrit 29.7 % (37.0-47.0) L Mean Corpuscular Volume 96 FL (80-99) Mean Corpuscular Hemoglobin 27.7 PG (27.0-31.0) Mean Corpuscular Hemoglobin Concent 28.7 G/DL (32.0-36.0) L Red Cell Distribution Width 17.7 % (11.6-14.8) H Platelet Count 172 K/UL (150-450) Mean Platelet Volume 7.5 FL (6.5-10.1) Neutrophils (%) (Auto) % (45.0-75.0) Lymphocytes (%) (Auto) % (20.0-45.0) Monocytes (%) (Auto) % (1.0-10.0) Eosinophils (%) (Auto) % (0.0-3.0) Basophils (%) (Auto) % (0.0-2.0) Differential Total Cells Counted 100 Neutrophils % (Manual) 94 % (45-75) H Lymphocytes % (Manual) 4 % (20-45) L Monocytes % (Manual) 2 % (1-10) Eosinophils % (Manual) 0 % (0-3) Basophils % (Manual) 0 % (0-2) Band Neutrophils 0 % (0-8) Platelet Estimate Adequate Platelet Morphology Normal Hypochromasia 1+ Anisocytosis 1+ Sodium Level 139 mEQ/L (135-145) Potassium Level 5.9 mEQ/L (3.4-4.9) H Chloride Level 99 mEQ/L (98-107) Carbon Dioxide Level 26 mEQ/L (20-30) Anion Gap 14 (5-15) Blood Urea Nitrogen 38 mg/dL (7-23) H Creatinine 2.2 mg/dL (0.5-0.9) H Estimat Glomerular Filtration Rate mL/min (>60) Glucose Level 667 mg/dL (74-106) *H Calcium Level 8.9 mg/dL (8.6-10.2) Phosphorus Level 4.6 mg/dL (2.5-4.8) Magnesium Level 1.8 mg/dL (1.7-2.5) Troponin I < 0.30 ng/mL (<=0.30) Pro-B-Type Natriuretic Peptide 68931 pg/mL (0-450) H Prothrombin Time 28.5 SEC (9.30-11.50) H Prothromb Time International Ratio 2.7 (0.9-1.1) H Height (Feet): 5 Height (Inches): 1.00 Weight (Pounds): 157 Medications Current Medications Medications (Trade) Dose Ordered Sig/Abril Route PRN Reason Start Time Stop Time Status Last Admin Dose Admin Acetaminophen (Tylenol) 650 mg Q6H PRN ORAL Mild Pain/Temp > 100.5 05/30/16 04:15 06/29/16 04:14 Albuterol/ Ipratropium (DuoNeb 0.5-3(2.5)mg/3ml) 3 ml Q4H PRN HHN Shortness of Breath 05/30/16 04:15 06/04/16 04:14 05/30/16 04:33 Amiodarone HCl (Cordarone) 200 mg DAILY ORAL 05/30/16 09:00 06/29/16 08:59 05/30/16 08:45 Dextrose (Dextrose 50%) STAT PRN IV Hypoglycemia 05/30/16 04:15 06/29/16 04:14 Ferrous Sulfate (Feosol) 325 mg DAILY ORAL 05/30/16 12:00 06/29/16 11:59 05/30/16 12:33 Furosemide (Lasix) 40 mg EVERY 12 HOURS IV 05/30/16 09:00 06/29/16 08:59 05/30/16 08:45 Insulin Aspart (NovoLOG) BEFORE MEALS AND HS SUBQ 05/30/16 06:30 06/29/16 06:29 05/30/16 11:41 Insulin Detemir (Levemir) 20 units DAILY SUBQ 05/31/16 09:00 06/30/16 08:59 Magnesium Hydroxide (Mom) 30 ml DAILY ORAL 05/30/16 09:00 06/29/16 08:59 05/30/16 08:46 Ondansetron HCl (Zofran) 4 mg Q6H PRN ORAL Nausea & Vomiting 05/30/16 04:15 06/29/16 04:14 Pantoprazole (Protonix) 40 mg DAILY ORAL 05/30/16 09:00 06/29/16 08:59 05/30/16 08:45 Sitagliptin Phosphate (Januvia) 25 mg DAILY ORAL 05/30/16 09:00 06/29/16 08:59 05/30/16 08:45 Warfarin Sodium (Coumadin per pharmacy) 1 ea DAILY PRN MISC Per rx protocol 05/30/16 04:15 06/29/16 04:14 Warfarin Sodium (Coumadin) 3 mg COUMADIN ORAL 05/30/16 17:00 05/30/16 17:01 Assessment/Plan Problem List: (1) Acute respiratory distress ICD Codes: R06.00 - Dyspnea, unspecified SNOMED: 356516480 (2) Purulent bronchitis ICD Codes: J41.1 - Mucopurulent chronic bronchitis SNOMED: 95368814 (3) Severe anemia ICD Codes: D64.9 - Anemia, unspecified SNOMED: 604564112 (4) Uncontrolled diabetes mellitus ICD Codes: E11.65 - Type 2 diabetes mellitus with hyperglycemia SNOMED: 766990302 (5) COPD (chronic obstructive pulmonary disease) ICD Codes: J44.9 - Chronic obstructive pulmonary disease, unspecified SNOMED: 59269615 (6) Dementia ICD Codes: F03.90 - Unspecified dementia without behavioral disturbance SNOMED: 25427404 (7) Elevated CEA ICD Codes: R97.0 - Elevated carcinoembryonic antigen [CEA] SNOMED: 31992653, 178575326 Assessment/Plan respiratory treatment IV Laisx check sputum IV antibiotics sputum induction cardiology evaluation avoid blood transfusions ILIR WALLACE May 30, 2016 14:54
--- NOTE | 2016-05-30 15:10 | Diagnostic Imaging Report ---
Indication: Dyspnea Comparison: 05/14/16 A single view chest radiograph was obtained. Findings: Interstitial and vascular prominence appears increased since the last study. The heart is enlarged. Bilateral pleural effusions are present. Impression: Congestive heart failure
[2016-05-30 16:00] VITALS: BP 115/52
--- NOTE | 2016-05-30 16:32 | History & Physical ---
History and Physical History & Physicial Dictated for Int Med-Dr Tyler no. [id number]. MATEO BRANTLEY May 30, 2016 16:32
[2016-05-30] MEDS ORDERED: Warfarin Sodium 3mg ORAL SCH (17:00)
[2016-05-30 20:00] VITALS: BP 122/51
[2016-05-30] MEDS: guaiFENesin w/Codeine 5ml Liq ud ORAL PRN (21:00)
--- NOTE | 2016-05-30 22:30 | History and Physical Report ---
DATE OF ADMISSION: 05/29/2016 CHIEF COMPLAINT: The patient is an 85-year-old female, who presents with chief complaint of shortness of breath. HISTORY OF PRESENT ILLNESS: The patient was admitted to [facility] from 05/09/2016 to 05/22/2016. Please see History and Physical and discharge summary dictated at that time. The patient is currently resident of rehabilitation at [place]. The patient's son and daughter are at the bedside. The patient herself is alert and able to contribute to the History and Physical. According to the patient, she began to experience shortness of breath on 05/27/2016. The patient then began to experience a cough. Cough is productive of a whitish phlegm. The patient denies fevers or chills. The patient was transported via emergency medical services to [facility]. The patient was transferred to [facility] due to insurance purposes. The patient is admitted for shortness of breath and acute on chronic congestive heart failure. PAST MEDICAL HISTORY: Significant for: 1. Congestive heart failure. 2. Chronic obstructive pulmonary disease. 3. History of renal failure. 4. Diabetes type 2. 5. Hypertension. PAST SURGICAL HISTORY: Significant for heart valve replacement x2. CURRENT MEDICATIONS: 1. Amiodarone 200 mg one tablet p.o. daily. 2. Iron sulfate 325 mg one tablet p.o. daily. 3. Lasix 20 mg one tablet p.o. daily. 4. NovoLog sliding scale before meals and at bedtime. 5. Losartan 50 mg one tablet p.o. daily. 6. Zofran 4 mg one tablet p.o. every 6 hours as needed. 7. Protonix 20 mg one tablet p.o. daily. 8. Januvia 100 mg one tablet p.o. daily. 9. Coumadin 4 mg one tablet p.o. daily. ALLERGIES: To spironolactone. SOCIAL HISTORY: The patient is a . The patient is currently residing at [facility]. The patient denies tobacco use having quit when she was very young. The patient denies alcohol use. REVIEW OF SYSTEMS: Constitutional: The patient denies weight loss or weight gain. The patient denies fevers or chills. HEENT: The patient denies ear or throat pain. Cardiovascular: The patient denies palpitation or chest pain. Chest: The patient complains of shortness of breath as above. The patient denies wheezes. Abdomen: The patient denies nausea, vomiting, diarrhea, or constipation. Genitourinary: The patient denies dysuria or increased frequency of urination. Neuromuscular: The patient denies seizures or generalized weakness. PHYSICAL EXAMINATION: VITAL SIGNS: Temperature 97.0, respirations 24, pulse 80, and blood pressure 118/59. GENERAL: The patient is a well-developed and well-nourished female, in no apparent distress. HEENT: Eyes, pupils are equal and responsive to light and accommodation. Extraocular movements are intact. NECK: Supple without lymphadenopathy. CHEST: Lungs are with diffuse crackles on bilateral bases with occasional wheezes. Crackles are approximately 1[address] in each lung field. There is no accessory muscle use noted. CARDIOVASCULAR: Regular rate. S1 and S2 normal with a 2/6 systolic ejection murmur. ABDOMEN: Soft, nontender, and nondistended. Positive bowel sounds. No evidence of hepatosplenomegaly. Currently no rebound or guarding noted. EXTREMITIES: There is 1+ edema in bilateral lower extremities, otherwise, without clubbing or cyanosis. NEUROLOGIC: Cranial nerves II through XII are grossly intact without focal deficits. Motor strength is 5/5 bilaterally. Deep tendon reflexes are 2+ plantar. LABORATORY AND DIAGNOSTIC STUDIES: WBC 6.0, hemoglobin 8.5, hematocrit 29.7, and platelets 172,000. Sodium 139, potassium 5.9, chloride 99, CO2 of 26, BUN 38, and creatinine 2.2. Glucose is elevated at 667. BNP elevated at 32,445. Troponin less than 0.3. Chest x-ray showed increased pulmonary vascular congestion consistent with congestive heart failure. ASSESSMENT: This is an 85-year-old female: 1. Shortness of breath. 2. Acute on chronic congestive heart failure. 3. Chronic obstructive pulmonary disease. 4. Renal failure. 5. Diabetes type 2. 6. Hypertension. TREATMENT: 1. Shortness of breath/congestive heart failure. Cardiology consultation is pending. The patient is currently receiving intravenous Lasix. An echocardiogram is pending. We will follow recommendation of Cardiology. 2. Chronic obstructive pulmonary disease. A Pulmonary consultation has been obtained with Dr. Emilee Weir. We will follow recommendation of Dr. Weir. 3. Renal failure. This is probably secondary to congestive heart failure as above. 4. Diabetes type 2. Continue Humalog sliding scale as above. Continue Januvia as above. 5. Hypertension. Continue losartan as above. Lul Alex M.D. DR: CHERELLE JOB#: [id number] CC:
[2016-05-31] VITALS (8 sets, daily range): BP systolic 104–140; BP diastolic 43–56
[2016-05-31] MEDS: DuoNeb 0.5-3(2.5)mg/3ml neb HHN PRN ×4 (03:37→19:30)
[2016-05-31] MEDS: NovoLOG Insulin Flexpen SUBQ SCH ×4 (06:11→23:28)
[2016-05-31] MEDS: Milk of Magnesia 30ml Ud ORAL SCH (08:38)
[2016-05-31] MEDS: Amiodarone 200mg tab ORAL SCH (08:39)
[2016-05-31] MEDS: sitaGLIPtin 50mg tab ORAL SCH (08:39)
[2016-05-31 08:59] LABS: MEAN CORPUSCULAR HEMOGLOBIN 27.4 PG (27.0-31.0); MEAN CORPUSCULAR HGB CONC 29.3 G/DL (32.0-36.0); MEAN CORPUSCULAR VOLUME 93 FL (80-99); PLATELET COUNT 203 K/UL (150-450); RED BLOOD COUNT 3.35 M/UL (4.20-5.40); RED CELL DISTRIBUTION WIDTH 16.8 % (11.6-14.8); WHITE BLOOD COUNT 14.7 K/UL (4.8-10.8)
[2016-05-31] MEDS ORDERED: Levemir Flexpen SUBQ SCH (09:00)
[2016-05-31 09:07] LABS: INR 2.5 (0.9-1.1); PROTHROMBIN TIME 26.6 SEC (9.30-11.50)
[2016-05-31 09:14] LABS: TROPONIN I < 0.30 ng/mL (<=0.30)
[2016-05-31 09:26] LABS: ANION GAP 15 (5-15); CALCIUM 9.3 mg/dL (8.6-10.2); CARBON DIOXIDE 28 mEQ/L (20-30); CHLORIDE 99 mEQ/L (98-107); CREATININE 2.3 mg/dL (0.5-0.9); HEMOLYSIS 67; POTASSIUM 5.9 mEQ/L (3.4-4.9); SODIUM 142 mEQ/L (135-145)
[2016-05-31 10:53] LABS: ANISOCYTOSIS 1+; BAND NEUTROPHILS % (MANUAL) 0 % (0-8); BASOPHILS % (MANUAL) 0 % (0-2); EOSINOPHILS % (MANUAL) 0 % (0-3); HYPOCHROMASIA 1+; LYMPHOCYTES % (MANUAL) 8 % (20-45); NEUTROPHILS % (MANUAL) 85 % (45-75); PLATELET ESTIMATE ADEQUATE; PLATELET MORPHOLOGY NORMAL; TOTAL CELLS COUNTED 100
[2016-05-31] MEDS: guaiFENesin w/Codeine 5ml Liq ud ORAL PRN (12:54)
--- NOTE | 2016-05-31 14:00 | Cardiology Report ---
APPROVED REPORT EKG Measurement Heart [id number] Sinus rhythm with fist degree AV block. Rightward axis Left bundle branch block Abnormal ECG
--- NOTE | 2016-05-31 14:18 | Consultation ---
DATE OF CONSULTATION: ENDOCRINOLOGY CONSULTATION: CONSULTING PHYSICIAN: Owen Bee M.D. REFERRING PHYSICIAN: Randall Tyler M.D. REASON FOR CONSULTATION: Diabetes management. SOURCE: The patient is an 85-year-old female. It is important to note that the history is obtained mostly from the review of the chart and medical records since the patient is unable to provide any meaningful history. HISTORY OF PRESENT ILLNESS: The patient is an 85-year-old female who had a recent admission to [facility]. The patient was noted to have a glucose of 600. There was no evidence of ketoacidosis. She was treated with Levemir 20 units and sliding scale insulin and Januvia of 25 mg at this point. Blood glucose is 100. PAST MEDICAL HISTORY: 1. CHF. 2. COPD. 3. Renal failure. 4. Type 2 diabetes. 5. Hypertension. PAST SURGICAL HISTORY: Heart valve surgery twice. MEDICATIONS: Reviewed and reconciled. ALLERGIES: None. SOCIAL HISTORY: The patient is . Currently in SNF. No smoking. No alcohol. No drug use. REVIEW OF SYSTEM: Difficult to obtain. PHYSICAL EXAMINATION: VITAL SIGNS: Blood pressure 99/47, pulse 78, temperature 98.7 degrees, and respiration of 20. HEENT: Pupils are equal and reactive to light. Sclerae are anicteric. NECK: No JVD. HEART: Regular. LUNGS: Clear. ABDOMEN: Positive bowel sounds. Soft. EXTREMITIES: Trace edema. LABORATORY DATA: WBC 6, hemoglobin 9.5, hematocrit 29.7, and platelets 172,000. Sodium 139, potassium 5.9, chloride 99, bicarbonate 26, BUN 38, creatinine 2.2, and glucose of 667. ASSESSMENT: 1. Diabetes out of control. 2. Severe hyperglycemia without diabetic ketoacidosis. 3. Congestive heart failure. 4. Chronic obstructive pulmonary disease. PLAN: 1. Continue Levemir 20 units daily. 2. Continue Januvia renal dose. 3. Continue NovoLog insulin sliding scale. 4. Follow and adjust according to blood glucose value. Thank you, Dr. Tyler, for the courtesy of consultation. Owen Bee M.D. DR: RASHEED/ALMA JOB#: [id number] CC: HENRY
--- NOTE | 2016-05-31 14:44 | Pulmonology Progress Note ---
Assessment/Plan Problems: (1) Acute respiratory distress (2) Purulent bronchitis (3) Severe anemia (4) Uncontrolled diabetes mellitus (5) COPD (chronic obstructive pulmonary disease) (6) Dementia (7) Elevated CEA Assessment/Plan change to lasix drip add zaroxyline check BNP check sputum keep in teli watch h/h Subjective ROS Limited/Unobtainable: No Interval Events: still short of breath Constitutional: Reports: no symptoms Allergies: Coded Allergies: SPIRONOLACTONE (Unverified Allergy, Intermediate, 05/08/16) Objective Last 24 Hour Vital Signs Date Time Temp Pulse Resp B/P Pulse Ox O2 Delivery O2 Flow Rate FiO2 05/31/16 11:57 97.7 89 22 120/55 100 Nasal Cannula 3.0 05/31/16 10:55 85 22 99 Nasal Cannula 2.0 28 05/31/16 10:50 82 22 98 Nasal Cannula 2.0 28 05/31/16 08:40 106/55 05/31/16 08:24 97.3 80 22 104/43 100 Nasal Cannula 3.0 05/31/16 07:30 86 24 99 Nasal Cannula 2.0 28 05/31/16 07:25 80 22 98 Nasal Cannula 2.0 28 05/31/16 07:25 80 22 Nasal Cannula 3.0 32 05/31/16 07:25 98 Nasal Cannula 3.0 32 05/31/16 07:25 Nasal Cannula 3.0 32 05/31/16 04:08 98.7 78 20 111/47 99 Nasal Cannula 3.0 05/31/16 04:00 92 05/31/16 03:42 87 24 99 Nasal Cannula 2.0 28 05/31/16 03:38 28 05/31/16 03:37 78 24 99 Nasal Cannula 2.0 28 05/31/16 00:10 98.4 92 20 132/56 95 Nasal Cannula 05/31/16 00:00 80 05/30/16 22:48 93 26 96 Nasal Cannula 2.0 99 05/30/16 22:47 28 05/30/16 22:47 92 25 99 Nasal Cannula 2.0 28 05/30/16 20:01 78 24 99 Nasal Cannula 3.0 32 05/30/16 20:00 36 05/30/16 20:00 75 22 99 Nasal Cannula 4.0 36 05/30/16 20:00 97.6 75 20 122/51 96 Nasal Cannula 05/30/16 19:59 99 Nasal Cannula 4.0 36 05/30/16 19:59 Nasal Cannula 4.0 36 05/30/16 19:58 75 22 Nasal Cannula 4.0 36 05/30/16 16:00 98.1 75 20 115/52 99 Nasal Cannula 3.0 Intake and Output 05/30/16 05/31/16 19:00 07:00 Intake Total 240 ml 200 ml Output Total 400 ml 300 ml Balance -160 ml -100 ml Intake Oral 240 ml 200 ml Output Urine Total 400 ml 300 ml # Voids 1 General Appearance: WD/WN HEENT: normocephalic, atraumatic Respiratory/Chest: chest wall non-tender, normal breath sounds, crackles/rales Cardiovascular: normal peripheral pulses, normal rate Abdomen: normal bowel sounds, soft, non tender Extremities: no cyanosis Neurologic/Psychiatric: medical center manager II-XII grossly normal Lymphatic: no neck adenopathy Laboratory Tests 05/31/16 06:28: White Blood Count 14.7#H, Red Blood Count 3.35L, Hemoglobin 9.2L, Hematocrit 31.3L, Mean Corpuscular Volume 93, Mean Corpuscular Hemoglobin 27.4, Mean Corpuscular Hemoglobin Concent 29.3L, Red Cell Distribution Width 16.8H, Platelet Count 203, Mean Platelet Volume 7.0, Neutrophils (%) (Auto) , Lymphocytes (%) (Auto) , Monocytes (%) (Auto) , Eosinophils (%) (Auto) , Basophils (%) (Auto) , Differential Total Cells Counted 100, Neutrophils % ( Manual) 85H, Lymphocytes % (Manual) 8L, Monocytes % (Manual) 7, Eosinophils % ( Manual) 0, Basophils % (Manual) 0, Band Neutrophils 0, Platelet Estimate Adequate, Platelet Morphology Normal, Hypochromasia 1+, Anisocytosis 1+, Prothrombin Time 26.6H, Prothromb Time International Ratio 2.5H, Sodium Level 142, Potassium Level 5.9H, Chloride Level 99, Carbon Dioxide Level 28, Anion Gap 15, Blood Urea Nitrogen 47H, Creatinine 2.3H, Estimat Glomerular Filtration Rate , Glucose Level 110#H, Calcium Level 9.3, Troponin I < 0.30, Pro-B-Type Natriuretic Peptide 51693G Current Medications Medications (Trade) Dose Ordered Sig/Baril Route PRN Reason Start Time Stop Time Status Last Admin Dose Admin Acetaminophen (Tylenol) 650 mg Q6H PRN ORAL Mild Pain/Temp > 100.5 05/30/16 04:15 06/29/16 04:14 Albuterol/ Ipratropium (DuoNeb 0.5-3(2.5)mg/3ml) 3 ml Q4H PRN HHN Shortness of Breath 05/30/16 04:15 06/04/16 04:14 05/31/16 10:50 Amiodarone HCl (Cordarone) 200 mg DAILY ORAL 05/30/16 09:00 06/29/16 08:59 05/31/16 08:39 Dextrose (Dextrose 50%) STAT PRN IV Hypoglycemia 05/30/16 04:15 06/29/16 04:14 Ferrous Sulfate (Feosol) 325 mg DAILY ORAL 05/30/16 12:00 06/29/16 11:59 05/31/16 08:39 Furosemide (Lasix) 40 mg EVERY 12 HOURS IV 05/30/16 09:00 06/29/16 08:59 05/31/16 08:40 Guaifenesin/ Codeine Phosphate (Robitussin with codeine) 5 ml Q6H PRN ORAL For Cough 05/30/16 16:30 06/29/16 16:29 05/31/16 12:54 Insulin Aspart (NovoLOG) BEFORE MEALS AND HS SUBQ 05/30/16 06:30 06/29/16 06:29 05/31/16 12:33 Insulin Detemir (Levemir) 20 units DAILY SUBQ 05/31/16 09:00 06/30/16 08:59 05/31/16 08:44 Magnesium Hydroxide (Mom) 30 ml DAILY ORAL 05/30/16 09:00 06/29/16 08:59 05/31/16 08:38 Ondansetron HCl (Zofran) 4 mg Q6H PRN ORAL Nausea & Vomiting 05/30/16 04:15 06/29/16 04:14 05/31/16 08:39 Pantoprazole (Protonix) 40 mg DAILY ORAL 05/30/16 09:00 06/29/16 08:59 05/31/16 08:39 Sitagliptin Phosphate (Januvia) 25 mg DAILY ORAL 05/30/16 09:00 06/29/16 08:59 05/31/16 08:39 Warfarin Sodium (Coumadin per pharmacy) 1 ea DAILY PRN MISC Per rx protocol 05/30/16 04:15 06/29/16 04:14 Warfarin Sodium (Coumadin) 3 mg COUMADIN ONCE ORAL 05/31/16 17:00 05/31/16 17:01 ILIR WALLACE May 31, 2016 14:44
--- NOTE | 2016-05-31 14:49 | Consultation ---
Consult Note Consult Note asked to eval for high BUN and Cr DATE OF ADMISSION: 05/29/2016 The patient is an 85-year-old female, who presents with chief complaint of shortness of breath. he patient was admitted to [facility] from 05/09/2016 to 05/22/2016. Please see History and Physical and discharge summary dictated at that time. The patient is currently resident of rehabilitation at [place]. The patient's son and daughter are at the bedside. The patient herself is alert and able to contribute to the History and Physical. According to the patient, she began to experience shortness of breath on 05/27/2016. The patient then began to experience a cough. Cough is productive of a whitish phlegm. The patient denies fevers or chills. The patient was transported via emergency medical services to [facility]. The patient was transferred to [facility] due to insurance purposes. The patient is admitted for shortness of breath and acute on chronic congestive heart failure. patient examined- Data reviewed Assessment/Plan - Renal failure : mainly Chronic serum Cr unchanged since last admit- - HyperKalemia - Acute respiratory distress - Acute on chronic diastolic CHF (congestive heart failure)- low Ej Fx - LBBB (left bundle branch block) - Severe anemia - Patient is [employer] - Dementia - COPD (chronic obstructive pulmonary disease) Plan: kayexelate- Optimize cardiac and pulmonary status- Kidney MISSY- no hydro- cortical thinning-normal size- ( previous admit) Urine eosinophils- Negative 2D Echo 30% Ej Fx Per orders epo , folate, Iron Protonix GILLES CUELLAR May 31, 2016 14:49
[2016-05-31] MEDS ORDERED: Metolazone 5mg tab ORAL SCH ×2 (15:30→21:00)
[2016-05-31] MEDS ORDERED: Sodium Polystyrene Sulfonate 15gm Powder ORAL ONE (15:30)
[2016-05-31] MEDS ORDERED: Warfarin Sodium 3mg ORAL ONE (17:00)
--- NOTE | 2016-05-31 17:05 | Internal Med Progress Note ---
Subjective Date of Service: May 31, 2016 Physician Name Brantley,Mateo Attending Physician Emilee Weir Current Medications Medications (Trade) Dose Ordered Sig/Abril Route PRN Reason Start Time Stop Time Status Last Admin Dose Admin Acetaminophen (Tylenol) 650 mg Q6H PRN ORAL Mild Pain/Temp > 100.5 05/30/16 04:15 06/29/16 04:14 Albuterol/ Ipratropium (DuoNeb 0.5-3(2.5)mg/3ml) 3 ml Q4H PRN HHN Shortness of Breath 05/30/16 04:15 06/04/16 04:14 05/31/16 10:50 Amiodarone HCl (Cordarone) 200 mg DAILY ORAL 05/30/16 09:00 06/29/16 08:59 05/31/16 08:39 Dextrose (Dextrose 50%) STAT PRN IV Hypoglycemia 05/30/16 04:15 06/29/16 04:14 Epoetin Fish (Procrit (for non ESRD use)) 5,000 units FRI-FRI-FRI SUBQ 05/31/16 21:00 06/30/16 20:59 Furosemide/ Dextrose (Lasix/D5W) 100 ml @ 10 mls/hr Q10H IV 05/31/16 16:00 06/30/16 15:59 05/31/16 16:41 Guaifenesin/ Codeine Phosphate (Robitussin with codeine) 5 ml Q6H PRN ORAL For Cough 05/30/16 16:30 06/29/16 16:29 05/31/16 12:54 Insulin Aspart (NovoLOG) BEFORE MEALS AND HS SUBQ 05/30/16 06:30 06/29/16 06:29 05/31/16 16:45 Insulin Detemir (Levemir) 20 units DAILY SUBQ 05/31/16 09:00 06/30/16 08:59 05/31/16 08:44 Metolazone (Zaroxolyn) 5 mg DAILY ORAL 05/31/16 15:30 06/30/16 15:29 05/31/16 16:40 Ondansetron HCl (Zofran) 4 mg Q6H PRN ORAL Nausea & Vomiting 05/30/16 04:15 06/29/16 04:14 05/31/16 08:39 Pantoprazole (Protonix) 40 mg DAILY ORAL 05/30/16 09:00 06/29/16 08:59 05/31/16 08:39 Sitagliptin Phosphate (Januvia) 25 mg DAILY ORAL 05/30/16 09:00 06/29/16 08:59 05/31/16 08:39 Warfarin Sodium (Coumadin per pharmacy) 1 ea DAILY PRN MISC Per rx protocol 05/30/16 04:15 06/29/16 04:14 Warfarin Sodium 3 mg 3 mg COUMADIN ONCE ORAL 05/31/16 17:00 05/31/16 17:01 Allergies: Coded Allergies: SPIRONOLACTONE (Unverified Allergy, Intermediate, 05/08/16) ROS Limited/Unobtainable: No Constitutional: Reports: no symptoms HEENT: Reports: no symptoms Cardiovascular: Reports: no symptoms Respiratory: Reports: shortness of breath Gastrointestinal/Abdominal: Reports: no symptoms Genitourinary: Reports: no symptoms Neurologic/Psychiatric: Reports: no symptoms Subjective 85 YO F admitted with shortness of breath. Now CHF/COPD exacerbation. Cover for Int Med-Dr Tyler. Await cardiology consult. Tolerating nasal canula. Objective Last Vital Signs Date Time Temp Pulse Resp B/P Pulse Ox O2 Delivery O2 Flow Rate FiO2 05/31/16 16:00 97.9 98 21 140/49 94 Nasal Cannula 3.0 05/31/16 10:55 28 General Appearance: WD/WN, alert, moderate distress EENT: PERRL/EOMI, normal ENT inspection, TMs normal Neck: non-tender, normal alignment, supple, normal inspection Cardiovascular: normal peripheral pulses, normal rate, regular rhythm, no gallop/murmur, no JVD Respiratory/Chest: chest wall non-tender, respiratory distress, crackles/rales , rhonchi - bilaterally Abdomen: normal bowel sounds, non tender, soft, no organomegaly, no mass Extremities: normal range of motion Edema: moderate edema 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 normal, no motor/sensory deficits Skin: normal pigmentation, warm/dry Laboratory Tests Test 05/31/16 06:28 White Blood Count 14.7 K/UL (4.8-10.8) #H Red Blood Count 3.35 M/UL (4.20-5.40) L Hemoglobin 9.2 G/DL (12.0-16.0) L Hematocrit 31.3 % (37.0-47.0) L Mean Corpuscular Volume 93 FL (80-99) Mean Corpuscular Hemoglobin 27.4 PG (27.0-31.0) Mean Corpuscular Hemoglobin Concent 29.3 G/DL (32.0-36.0) L Red Cell Distribution Width 16.8 % (11.6-14.8) H Platelet Count 203 K/UL (150-450) Mean Platelet Volume 7.0 FL (6.5-10.1) Neutrophils (%) (Auto) % (45.0-75.0) Lymphocytes (%) (Auto) % (20.0-45.0) Monocytes (%) (Auto) % (1.0-10.0) Eosinophils (%) (Auto) % (0.0-3.0) Basophils (%) (Auto) % (0.0-2.0) Differential Total Cells Counted 100 Neutrophils % (Manual) 85 % (45-75) H Lymphocytes % (Manual) 8 % (20-45) L Monocytes % (Manual) 7 % (1-10) Eosinophils % (Manual) 0 % (0-3) Basophils % (Manual) 0 % (0-2) Band Neutrophils 0 % (0-8) Platelet Estimate Adequate Platelet Morphology Normal Hypochromasia 1+ Anisocytosis 1+ Prothrombin Time 26.6 SEC (9.30-11.50) H Prothromb Time International Ratio 2.5 (0.9-1.1) H Sodium Level 142 mEQ/L (135-145) Potassium Level 5.9 mEQ/L (3.4-4.9) H Chloride Level 99 mEQ/L (98-107) Carbon Dioxide Level 28 mEQ/L (20-30) Anion Gap 15 (5-15) Blood Urea Nitrogen 47 mg/dL (7-23) H Creatinine 2.3 mg/dL (0.5-0.9) H Estimat Glomerular Filtration Rate mL/min (>60) Glucose Level 110 mg/dL (74-106) #H Calcium Level 9.3 mg/dL (8.6-10.2) Troponin I < 0.30 ng/mL (<=0.30) Pro-B-Type Natriuretic Peptide 53753 pg/mL (0-450) H Intake and Output 05/30/16 05/31/16 19:00 07:00 Intake Total 240 ml 200 ml Output Total 400 ml 300 ml Balance -160 ml -100 ml Intake Oral 240 ml 200 ml Output Urine Total 400 ml 300 ml # Voids 1 Assessment/Plan Problem List: (1) Renal failure (2) HTN (hypertension) (3) CHF (congestive heart failure) Assessment & Plan: BNP > 32,000. LVEF 30-35%. Await cardiology consult. Cont lasix and metolazone. (4) Acute respiratory distress (5) COPD (chronic obstructive pulmonary disease) (6) Uncontrolled diabetes mellitus Assessment & Plan: See endocrinology note. Cont januvia, levemir and humolog sliding scale. (7) Atrial fibrillation Assessment & Plan: Cont amiodarone and coumadin. Await cardiology consult. Status: not improved MATEO BRANTLEY May 31, 2016 17:05
--- NOTE | 2016-05-31 18:54 | Cardiology Progress Note ---
Assessment/Plan Assessment/Plan Bronchospam porbable cardiac asthma acute on chf chronic anemia renal failure cm chronci LBBB iron deff coagulopathy hs off dvt s/p ivc filter cad s/p cabg twice MVR bioprosthetic hx of thromboembolic complication previously off anticoagulation jahovah witness pulsatile visible vessel in stomach in 05/2016 duiuretica lasix zoroxolyn acei whe ok wtih renal full note dicatedd [id number] Objective Last 24 Hour Vital Signs Date Time Temp Pulse Resp B/P Pulse Ox O2 Delivery O2 Flow Rate FiO2 05/31/16 16:00 97.9 98 21 140/49 94 Nasal Cannula 3.0 05/31/16 12:00 90 05/31/16 11:57 97.7 89 22 120/55 100 Nasal Cannula 3.0 05/31/16 10:55 85 22 99 Nasal Cannula 2.0 28 05/31/16 10:50 82 22 98 Nasal Cannula 2.0 28 05/31/16 08:40 106/55 05/31/16 08:24 97.3 80 22 104/43 100 Nasal Cannula 3.0 05/31/16 08:00 82 05/31/16 07:30 86 24 99 Nasal Cannula 2.0 28 05/31/16 07:25 80 22 98 Nasal Cannula 2.0 28 05/31/16 07:25 80 22 Nasal Cannula 3.0 32 05/31/16 07:25 98 Nasal Cannula 3.0 32 05/31/16 07:25 Nasal Cannula 3.0 32 05/31/16 04:08 98.7 78 20 111/47 99 Nasal Cannula 3.0 05/31/16 04:00 92 05/31/16 03:42 87 24 99 Nasal Cannula 2.0 28 05/31/16 03:38 28 05/31/16 03:37 78 24 99 Nasal Cannula 2.0 28 05/31/16 00:10 98.4 92 20 132/56 95 Nasal Cannula 05/31/16 00:00 80 05/30/16 22:48 93 26 96 Nasal Cannula 2.0 99 05/30/16 22:47 28 05/30/16 22:47 92 25 99 Nasal Cannula 2.0 28 05/30/16 20:01 78 24 99 Nasal Cannula 3.0 32 05/30/16 20:00 36 05/30/16 20:00 75 22 99 Nasal Cannula 4.0 36 05/30/16 20:00 97.6 75 20 122/51 96 Nasal Cannula 05/30/16 19:59 99 Nasal Cannula 4.0 36 05/30/16 19:59 Nasal Cannula 4.0 36 05/30/16 19:58 75 22 Nasal Cannula 4.0 36 Intake and Output 05/30/16 05/31/16 19:00 07:00 Intake Total 240 ml 200 ml Output Total 400 ml 300 ml Balance -160 ml -100 ml Intake Oral 240 ml 200 ml Output Urine Total 400 ml 300 ml # Voids 1 Laboratory Tests Test 05/31/16 06:28 White Blood Count 14.7 K/UL (4.8-10.8) #H Red Blood Count 3.35 M/UL (4.20-5.40) L Hemoglobin 9.2 G/DL (12.0-16.0) L Hematocrit 31.3 % (37.0-47.0) L Mean Corpuscular Volume 93 FL (80-99) Mean Corpuscular Hemoglobin 27.4 PG (27.0-31.0) Mean Corpuscular Hemoglobin Concent 29.3 G/DL (32.0-36.0) L Red Cell Distribution Width 16.8 % (11.6-14.8) H Platelet Count 203 K/UL (150-450) Mean Platelet Volume 7.0 FL (6.5-10.1) Neutrophils (%) (Auto) % (45.0-75.0) Lymphocytes (%) (Auto) % (20.0-45.0) Monocytes (%) (Auto) % (1.0-10.0) Eosinophils (%) (Auto) % (0.0-3.0) Basophils (%) (Auto) % (0.0-2.0) Differential Total Cells Counted 100 Neutrophils % (Manual) 85 % (45-75) H Lymphocytes % (Manual) 8 % (20-45) L Monocytes % (Manual) 7 % (1-10) Eosinophils % (Manual) 0 % (0-3) Basophils % (Manual) 0 % (0-2) Band Neutrophils 0 % (0-8) Platelet Estimate Adequate Platelet Morphology Normal Hypochromasia 1+ Anisocytosis 1+ Prothrombin Time 26.6 SEC (9.30-11.50) H Prothromb Time International Ratio 2.5 (0.9-1.1) H Sodium Level 142 mEQ/L (135-145) Potassium Level 5.9 mEQ/L (3.4-4.9) H Chloride Level 99 mEQ/L (98-107) Carbon Dioxide Level 28 mEQ/L (20-30) Anion Gap 15 (5-15) Blood Urea Nitrogen 47 mg/dL (7-23) H Creatinine 2.3 mg/dL (0.5-0.9) H Estimat Glomerular Filtration Rate mL/min (>60) Glucose Level 110 mg/dL (74-106) #H Calcium Level 9.3 mg/dL (8.6-10.2) Troponin I < 0.30 ng/mL (<=0.30) Pro-B-Type Natriuretic Peptide 16858 pg/mL (0-450) H GUILLE MEDINA May 31, 2016 18:54
[2016-05-31] MEDS ORDERED: Epogen (for non ESRD use) SUBQ SCH (21:00)
[2016-05-31 21:52] LABS: ABG ALLEN TEST POSITIVE; ABG BASE EXCESS 1.8
[2016-05-31 23:18] LABS: ABG ALLEN TEST POSITIVE; ABG BASE EXCESS 3.2; ABG PCO2 80.2 mmHg (35.0-45.0)
[2016-05-31] MEDS: Metolazone 5mg tab ORAL SCH (23:43)
[2016-06-01] VITALS (24 sets, daily range): BP systolic 92–141; BP diastolic 28–80
[2016-06-01 00:40] LABS: ABG ALLEN TEST POSITIVE; ABG BASE EXCESS 5.4; ABG PCO2 57.2 mmHg (35.0-45.0)
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
[2016-06-01] MEDS ORDERED: Acetaminophen 650mg/20.3ml ORAL PRN (04:15)
[2016-06-01] MEDS ORDERED: guaiFENesin w/Codeine 5ml Liq ud ORAL PRN (04:30)
[2016-06-01 05:01] LABS: MEAN CORPUSCULAR HGB CONC 30.3 G/DL (32.0-36.0); MEAN CORPUSCULAR VOLUME 92 FL (80-99); MEAN PLATELET VOLUME 7.5 FL (6.5-10.1); PLATELET COUNT 161 K/UL (150-450); RED BLOOD COUNT 3.19 M/UL (4.20-5.40); RED CELL DISTRIBUTION WIDTH 16.6 % (11.6-14.8); WHITE BLOOD COUNT 13.6 K/UL (4.8-10.8)
[2016-06-01 05:21] LABS: INR 2.6 (0.9-1.1); PROTHROMBIN TIME 27.3 SEC (9.30-11.50)
[2016-06-01 06:00] LABS: ALANINE AMINOTRANSFERASE 156 U/L (3-33); ANION GAP 12 (5-15); ASPARTATE AMINO TRANSFERASE 302 U/L (5-40); CALCIUM 8.8 mg/dL (8.6-10.2); CARBON DIOXIDE 30 mEQ/L (20-30); CHLORIDE 98 mEQ/L (98-107); CREATININE 2.5 mg/dL (0.5-0.9); HEMOLYSIS 7; POTASSIUM 5.6 mEQ/L (3.4-4.9); SODIUM 140 mEQ/L (135-145)
[2016-06-01 06:01] LABS: CRP QUANT 11.2 mg/dL (< 0.5); MAGNESIUM 2.2 mg/dL (1.7-2.5); PHOSPHORUS 3.1 mg/dL (2.5-4.8); URIC ACID 10.2 mg/dL (3.0-7.5)
[2016-06-01 06:13] LABS: FERRITIN 1000 ng/mL (13-150)
[2016-06-01] MEDS: NovoLOG Insulin Flexpen SUBQ SCH ×4 (06:30→21:23)
[2016-06-01] MEDS: sitaGLIPtin 50mg tab ORAL SCH (08:11)
[2016-06-01] MEDS: Amiodarone 200mg tab ORAL SCH (08:12)
--- NOTE | 2016-06-01 08:41 | Pulmonolgy Critical Care Note ---
Critical Care - Asmt/Plan Assessment/Plan: ASSESSMENT acute hypoxemic hypercapnic respiratory failure requiring BiPAP bronchospasm CHF acute on chronic chronic cardiomyopathy purulent bronchitis severe anemia ( iron deficiency and of chronic disease) DOOC COPD dementia elevated cEA hyperkalemia acute renal failure on CKD PAF Jehovah witness PLAN OF CARE ICU BiPAP last ABG at midnight- resolved acidosis, decreased hypercapnia declined ABG this am pulmonary toilet CXR and ABG in am initial CXR with CHF 1 dose of Solumedrol now antitussive prn continue Lasix drip and Metolazone, monitor renal parameters, lytes avoid nephrotic nephro follows renal US on prior admission with evidence of cortical thinning Kayexalate this am troponin x 2 negative cardio follows patient with known cardiomyopathy rate control with Amiodarone, Coumadin for a/coagulation INR therapeutic monitor HH, continue EPO, off iron supplement ( high ferritin) will deny any transfusion being Jehovah witness BS management with Levemir and SS od insulin, optimize as needed case discussed and evaluated by supervising physician Critical Care - Objective Last 24 Hour Vital Signs Date Time Temp Pulse Resp B/P Pulse Ox O2 Delivery O2 Flow Rate FiO2 06/01/16 06:00 77 25 113/39 97 Bi-pap 30 06/01/16 05:16 76 26 100 Full Face 30 06/01/16 05:00 77 24 121/41 100 Bi-pap 50 06/01/16 04:00 50 06/01/16 04:00 77 06/01/16 04:00 98.2 78 24 128/41 100 Bi-pap 50 06/01/16 03:12 70 25 100 Full Face 40 06/01/16 03:00 71 25 92/29 100 Bi-pap 100 06/01/16 02:00 77 17 104/38 100 Bi-pap 100 06/01/16 01:00 82 19 102/28 100 Bi-pap 100 06/01/16 00:40 86 24 100 Full Face 50 06/01/16 00:00 86 06/01/16 00:00 100.2 86 24 96/32 100 Bi-pap 100 06/01/16 00:00 100 05/31/16 23:17 89 28 100 Full Face 100 05/31/16 23:00 84 23 140/50 100 Bi-pap 100 05/31/16 21:45 87 25 100 Full Face 100 05/31/16 20:00 97.8 90 22 106/48 99 Nasal Cannula 3.0 05/31/16 20:00 89 05/31/16 19:30 83 24 98 Nasal Cannula 3.0 32 05/31/16 19:30 Nasal Cannula 3.0 32 05/31/16 19:30 84 20 98 Nasal Cannula 3.0 32 05/31/16 19:30 83 24 Nasal Cannula 3.0 32 05/31/16 19:30 98 Nasal Cannula 3.0 32 05/31/16 16:00 97 05/31/16 16:00 97.9 98 21 140/49 94 Nasal Cannula 3.0 05/31/16 12:00 90 05/31/16 11:57 97.7 89 22 120/55 100 Nasal Cannula 3.0 05/31/16 10:55 85 22 99 Nasal Cannula 2.0 28 05/31/16 10:50 82 22 98 Nasal Cannula 2.0 28 05/31/16 08:40 106/55 Status: awake Condition: critical HEENT: atraumatic, normocephalic, other - Bipap 20/5 Lungs: rales - at bases , wheezing - difused Heart: HR/BP stable, irregular Abdomen: soft, non-tender Extremities: edema - trace edema BLE Accucheck: 101 Critical Care - Subjective ROS Limited/Unobtainable: Yes Interval Events: transferred to ICU due to acute respiratory acidosis, placed on BiPAP last ABG at midnight with resolved acidosis, less hypercapnia declined this am ABG afebrile, no leukocytosis HH remains at baseline Condition: critical EKG Rhythm: Atrial Fibrillation FI02: 30 Sputum Amount: Small I&O: Intake and Output 05/31/16 06/01/16 19:00 07:00 Intake Total 263 ml 110 ml Output Total 300 ml 895 ml Balance -37 ml -785 ml Intake Oral 240 ml IV Total 23 ml 110 ml Output Urine Total 300 ml 895 ml CXR: 05/30 - congestive heart failure Belia Amaya NP ([place]) Jun 01, 2016 08:41
[2016-06-01] MEDS: DuoNeb 0.5-3(2.5)mg/3ml neb HHN PRN ×2 (08:53→13:05)
[2016-06-01] MEDS: Metolazone 5mg tab ORAL SCH ×2 (09:12→16:51)
[2016-06-01] MEDS: Levemir Flexpen SUBQ SCH (09:17)
[2016-06-01] MEDS ORDERED: Sodium Polystyrene Sulfonate 15gm Powder ORAL ONE ×2 (09:30→12:30)
[2016-06-01] MEDS ORDERED: NS 275ml ONE (10:23)
[2016-06-01] MEDS ORDERED: Tubing IV Secondary IV ONE (10:23)
[2016-06-01 10:29] LABS: BAND NEUTROPHILS % (MANUAL) 4 % (0-8); BASOPHILS % (MANUAL) 0 % (0-2); EOSINOPHILS % (MANUAL) 0 % (0-3); LYMPHOCYTES % (MANUAL) 15 % (20-45); NEUTROPHILS % (MANUAL) 80 % (45-75); PLATELET ESTIMATE ADEQUATE; PLATELET MORPHOLOGY NORMAL; TOTAL CELLS COUNTED 100
[2016-06-01 10:30] LABS: ANISOCYTOSIS 1+; HYPOCHROMASIA 1+
[2016-06-01] MEDS ORDERED: Solu-MEDROL 125mg Inj IVP ONE (10:30)
--- NOTE | 2016-06-01 12:22 | General Progress Note ---
Assessment/Plan Status: deteriorating Status Narrative on BIPAP now Assessment/Plan - Renal failure : mainly Chronic , superimposed acute serum Cr rising ! - HyperKalemia Other : - Acute respiratory distress - Acute on chronic diastolic CHF (congestive heart failure)- low Ej Fx - LBBB (left bundle branch block) - Severe anemia - Patient is Confucianism - Dementia - COPD (chronic obstructive pulmonary disease) Plan: kayexelate- IV Lasix , check UA Monitor renal parameters- Optimize cardiac and pulmonary status- Kidney MISSY- no hydro- cortical thinning-normal size- ( previous admit) Urine eosinophils- Negative 2D Echo 30% Ej Fx Per orders epo , folate, Iron Protonix Subjective ROS Limited/Unobtainable: No Constitutional: Reports: malaise, other - on BIPAPA Respiratory: Reports: shortness of breath Allergies: Coded Allergies: SPIRONOLACTONE (Unverified Allergy, Intermediate, 05/08/16) Objective Last 24 Hour Vital Signs Date Time Temp Pulse Resp B/P Pulse Ox O2 Delivery O2 Flow Rate FiO2 06/01/16 10:00 98 27 97/80 99 Nasal Cannula 3.0 06/01/16 09:03 92 20 100 Nasal Cannula 3.0 32 06/01/16 09:00 86 22 98/42 99 Nasal Cannula 3.0 06/01/16 08:53 90 22 100 Nasal Cannula 3.0 32 06/01/16 08:00 98.6 88 22 113/53 100 Nasal Cannula 3.0 06/01/16 08:00 3.0 06/01/16 08:00 88 06/01/16 07:57 Nasal Cannula 3.0 32 06/01/16 07:57 90 22 100 06/01/16 07:57 100 Nasal Cannula 3.0 32 06/01/16 07:57 90 22 Nasal Cannula 3.0 32 06/01/16 07:00 98.7 86 20 116/43 97 Nasal Cannula 3.0 06/01/16 06:00 77 25 113/39 97 Bi-pap 30 06/01/16 05:16 76 26 100 Full Face 30 06/01/16 05:00 77 24 121/41 100 Bi-pap 50 06/01/16 04:00 50 06/01/16 04:00 77 06/01/16 04:00 98.2 78 24 128/41 100 Bi-pap 50 06/01/16 03:12 70 25 100 Full Face 40 06/01/16 03:00 71 25 92/29 100 Bi-pap 100 06/01/16 02:00 77 17 104/38 100 Bi-pap 100 06/01/16 01:00 82 19 102/28 100 Bi-pap 100 06/01/16 00:40 86 24 100 Full Face 50 06/01/16 00:00 86 06/01/16 00:00 100.2 86 24 96/32 100 Bi-pap 100 06/01/16 00:00 100 05/31/16 23:17 89 28 100 Full Face 100 05/31/16 23:00 84 23 140/50 100 Bi-pap 100 05/31/16 21:45 87 25 100 Full Face 100 05/31/16 20:00 97.8 90 22 106/48 99 Nasal Cannula 3.0 05/31/16 20:00 89 05/31/16 19:30 83 24 98 Nasal Cannula 3.0 32 05/31/16 19:30 Nasal Cannula 3.0 32 05/31/16 19:30 84 20 98 Nasal Cannula 3.0 32 05/31/16 19:30 83 24 Nasal Cannula 3.0 32 05/31/16 19:30 98 Nasal Cannula 3.0 32 05/31/16 16:00 97 05/31/16 16:00 97.9 98 21 140/49 94 Nasal Cannula 3.0 Intake and Output 05/31/16 06/01/16 19:00 07:00 Intake Total 263 ml 110 ml Output Total 300 ml 945 ml Balance -37 ml -835 ml Intake Oral 240 ml IV Total 23 ml 110 ml Output Urine Total 300 ml 945 ml Laboratory Tests 05/31/16 21:30: Arterial Blood pH 7.262L, Arterial Blood Partial Pressure CO2 68.0*H, Arterial Blood Partial Pressure O2 68.1L, Arterial Blood HCO3 30.0H, Arterial Blood Oxygen Saturation 90.7L, Arterial Blood Base Excess 1.8, Jann Test Positive 05/31/16 23:03: Arterial Blood pH 7.225*L, Arterial Blood Partial Pressure CO2 80.2*H, Arterial Blood Partial Pressure O2 103.9H, Arterial Blood HCO3 32.5H, Arterial Blood Oxygen Saturation 97.1, Arterial Blood Base Excess 3.2, Jann Test Positive 06/01/16 00:25: Arterial Blood pH 7.363, Arterial Blood Partial Pressure CO2 57.2*H, Arterial Blood Partial Pressure O2 332.6H, Arterial Blood HCO3 31.8H, Arterial Blood Oxygen Saturation 99.6H, Arterial Blood Base Excess 5.4, Jann Test Positive 06/01/16 04:15: White Blood Count 13.6H, Red Blood Count 3.19L, Hemoglobin 8.9L, Hematocrit 29.4L, Mean Corpuscular Volume 92, Mean Corpuscular Hemoglobin 28.0, Mean Corpuscular Hemoglobin Concent 30.3L, Red Cell Distribution Width 16.6H, Platelet Count 161, Mean Platelet Volume 7.5, Neutrophils (%) (Auto) , Lymphocytes (%) (Auto) , Monocytes (%) (Auto) , Eosinophils (%) (Auto) , Basophils (%) (Auto) , Differential Total Cells Counted 100, Neutrophils % ( Manual) 80H, Lymphocytes % (Manual) 15L, Monocytes % (Manual) 1, Eosinophils % ( Manual) 0, Basophils % (Manual) 0, Band Neutrophils 4, Platelet Estimate Adequate, Platelet Morphology Normal, Hypochromasia 1+, Anisocytosis 1+, Prothrombin Time 27.3H, Prothromb Time International Ratio 2.6H, Sodium Level 140, Potassium Level 5.6H, Chloride Level 98, Carbon Dioxide Level 30, Anion Gap 12, Blood Urea Nitrogen 54H, Creatinine 2.5H, Estimat Glomerular Filtration Rate , Glucose Level 110H, Uric Acid 10.2H, Calcium Level 8.8, Phosphorus Level 3.1, Magnesium Level 2.2, Iron Level 19L, Total Iron Binding Capacity 189L, Percent Iron Saturation 10L, Unsaturated Iron Binding 170, Ferritin 1000H, Total Bilirubin 0.5, Gamma Glutamyl Transpeptidase 148H, Aspartate Amino Transf (AST/SGOT) 302H, Alanine Aminotransferase (ALT/SGPT) 156H, Alkaline Phosphatase 88, C-Reactive Protein, Quantitative 11.2H, Pro-B-Type Natriuretic Peptide [id number], Total Protein 6.0L, Albumin 3.1L, Globulin 2.9, Albumin/Globulin Ratio 1.0 Height (Feet): 5 Height (Inches): 1.00 Weight (Pounds): 150 General Appearance: moderate distress Cardiovascular: tachycardia Respiratory/Chest: decreased breath sounds Abdomen: distended Objective other PE not changed GILLES CUELLAR Jun 01, 2016 12:21
[2016-06-01] MEDS ORDERED: Metoclopramide 10mg/2ml Inj IVP PRN (12:30)
--- NOTE | 2016-06-01 14:03 | Internal Med Progress Note ---
Subjective Date of Service: Jun 01, 2016 Physician Name Brantley,Mateo Attending Physician Emilee Weir Current Medications Medications (Trade) Dose Ordered Sig/Abril Route PRN Reason Start Time Stop Time Status Last Admin Dose Admin Acetaminophen (Tylenol) 650 mg Q6H PRN ORAL Mild Pain/Temp > 100.5 06/01/16 04:15 07/01/16 04:14 Albuterol/ Ipratropium (DuoNeb 0.5-3(2.5)mg/3ml) 3 ml Q4H PRN HHN Shortness of Breath 06/01/16 00:15 06/06/16 00:14 06/01/16 13:05 Amiodarone HCl (Cordarone) 200 mg DAILY ORAL 06/01/16 09:00 07/01/16 08:59 06/01/16 08:12 Bisacodyl (Dulcolax) 10 mg DAILYPRN PRN RECTAL Constipation 06/01/16 09:15 07/01/16 09:14 06/01/16 10:18 Dextrose (Dextrose 50%) STAT PRN IV Hypoglycemia 06/01/16 04:15 07/01/16 04:14 Epoetin Fish (Procrit (for non ESRD use)) 5,000 units MON-WED-FRI SUBQ 06/03/16 21:00 07/03/16 20:59 Furosemide/ Dextrose (Lasix/D5W) 100 ml @ 10 mls/hr Q10H IV 05/31/16 23:45 06/30/16 23:44 06/01/16 09:18 Guaifenesin/ Codeine Phosphate (Robitussin with codeine) 5 ml Q6H PRN ORAL For Cough 06/01/16 04:30 07/01/16 04:29 Insulin Aspart (NovoLOG) BEFORE MEALS AND HS SUBQ 06/01/16 06:30 07/01/16 06:29 06/01/16 12:18 Insulin Detemir (Levemir) 20 units DAILY SUBQ 06/01/16 09:00 07/01/16 08:59 06/01/16 09:17 Metoclopramide HCl (Reglan) 10 mg Q6H PRN IVP Nausea & Vomiting 06/01/16 12:30 07/01/16 12:29 Metolazone (Zaroxolyn) 5 mg BID ORAL 05/31/16 23:45 06/30/16 23:44 06/01/16 09:12 Pantoprazole (Protonix) 40 mg DAILY ORAL 06/01/16 09:00 07/01/16 08:59 06/01/16 08:13 Sitagliptin Phosphate (Januvia) 25 mg DAILY ORAL 06/01/16 09:00 07/01/16 08:59 06/01/16 08:11 Warfarin Sodium (Coumadin per pharmacy) 1 ea DAILY PRN MISC Per rx protocol 06/01/16 09:00 07/01/16 08:59 Warfarin Sodium (Coumadin) 3 mg COUMADIN ONCE ORAL 06/01/16 17:00 06/01/16 17:01 Allergies: Coded Allergies: SPIRONOLACTONE (Unverified Allergy, Intermediate, 05/08/16) ROS Limited/Unobtainable: No Constitutional: Reports: no symptoms HEENT: Reports: no symptoms Cardiovascular: Reports: no symptoms Respiratory: Reports: SOB at rest, SOB with excertion, shortness of breath Gastrointestinal/Abdominal: Reports: no symptoms Genitourinary: Reports: no symptoms Neurologic/Psychiatric: Reports: no symptoms Subjective 85 YO F admitted with shortness of breath. Transferred to ICU overnight due to worsening respiratory failure. ICU. Cover for Int [facility]ho[facility]-Dr Tyler. Requiring BIPAP Objective Last Vital Signs Date Time Temp Pulse Resp B/P Pulse Ox O2 Delivery O2 Flow Rate FiO2 06/01/16 13:06 79 26 99 Full Face 30 06/01/16 12:00 107/41 06/01/16 11:00 97.9 06/01/16 10:00 3.0 Laboratory Tests Test 05/31/16 21:30 05/31/16 23:03 06/01/16 00:25 06/01/16 04:15 Arterial Blood pH 7.262 (7.350-7.450) 7.225 (7.350-7.450) 7.363 (7.350-7.450) Arterial Blood Partial Pressure CO2 68.0 mmHg (35.0-45.0) *H 80.2 mmHg (35.0-45.0) *H 57.2 mmHg (35.0-45.0) *H Arterial Blood Partial Pressure O2 68.1 mmHg (75.0-100.0) L 103.9 mmHg (75.0-100.0) H 332.6 mmHg (75.0-100.0) H Arterial Blood HCO3 30.0 mmol/L (22.0-26.0) H 32.5 mmol/L (22.0-26.0) H 31.8 mmol/L (22.0-26.0) H Arterial Blood Oxygen Saturation 90.7 % (92.0-98.0) L 97.1 % (92.0-98.0) 99.6 % (92.0-98.0) H Arterial Blood Base Excess 1.8 3.2 5.4 Jann Test Positive Positive Positive White Blood Count 13.6 K/UL (4.8-10.8) H Red Blood Count 3.19 M/UL (4.20-5.40) L Hemoglobin 8.9 G/DL (12.0-16.0) L Hematocrit 29.4 % (37.0-47.0) L Mean Corpuscular Volume 92 FL (80-99) Mean Corpuscular Hemoglobin 28.0 PG (27.0-31.0) Mean Corpuscular Hemoglobin Concent 30.3 G/DL (32.0-36.0) L Red Cell Distribution Width 16.6 % (11.6-14.8) H Platelet Count 161 K/UL (150-450) Mean Platelet Volume 7.5 FL (6.5-10.1) Neutrophils (%) (Auto) % (45.0-75.0) Lymphocytes (%) (Auto) % (20.0-45.0) Monocytes (%) (Auto) % (1.0-10.0) Eosinophils (%) (Auto) % (0.0-3.0) Basophils (%) (Auto) % (0.0-2.0) Differential Total Cells Counted 100 Neutrophils % (Manual) 80 % (45-75) H Lymphocytes % (Manual) 15 % (20-45) L Monocytes % (Manual) 1 % (1-10) Eosinophils % (Manual) 0 % (0-3) Basophils % (Manual) 0 % (0-2) Band Neutrophils 4 % (0-8) Platelet Estimate Adequate Platelet Morphology Normal Hypochromasia 1+ Anisocytosis 1+ Prothrombin Time 27.3 SEC (9.30-11.50) H Prothromb Time International Ratio 2.6 (0.9-1.1) H Sodium Level 140 mEQ/L (135-145) Potassium Level 5.6 mEQ/L (3.4-4.9) H Chloride Level 98 mEQ/L (98-107) Carbon Dioxide Level 30 mEQ/L (20-30) Anion Gap 12 (5-15) Blood Urea Nitrogen 54 mg/dL (7-23) H Creatinine 2.5 mg/dL (0.5-0.9) H Estimat Glomerular Filtration Rate mL/min (>60) Glucose Level 110 mg/dL (74-106) H Uric Acid 10.2 mg/dL (3.0-7.5) H Calcium Level 8.8 mg/dL (8.6-10.2) Phosphorus Level 3.1 mg/dL (2.5-4.8) Magnesium Level 2.2 mg/dL (1.7-2.5) Iron Level 19 ug/dL (37-145) L Total Iron Binding Capacity 189 ug/dL (250-400) L Percent Iron Saturation 10 % (15-50) L Unsaturated Iron Binding 170 ug/dL (112-346) Ferritin 1000 ng/mL (13-150) H Total Bilirubin 0.5 mg/dL (0.0-1.2) Gamma Glutamyl Transpeptidase 148 U/L (5-36) H Aspartate Amino Transf (AST/SGOT) 302 U/L (5-40) H Alanine Aminotransferase (ALT/SGPT) 156 U/L (3-33) H Alkaline Phosphatase 88 U/L (35-104) C-Reactive Protein, Quantitative 11.2 mg/dL (< 0.5) H Pro-B-Type Natriuretic Peptide 57060 pg/mL (0-450) H Total Protein 6.0 g/dL (6.6-8.7) L Albumin 3.1 g/dL (3.5-5.2) L Globulin 2.9 g/dL Albumin/Globulin Ratio 1.0 (1.0-2.7) Microbiology Date/Time Source Procedure Growth Status 05/30/16 02:00 Nasal Nares Left MRSA Culture - Final NO METHICILLIN RESISTANT STAPH AUREUS... Complete Intake and Output 05/31/16 06/01/16 19:00 07:00 Intake Total 263 ml 110 ml Output Total 300 ml 945 ml Balance -37 ml -835 ml Intake Oral 240 ml IV Total 23 ml 110 ml Output Urine Total 300 ml 945 ml Objective General Appearance: WD/WN, alert, moderate distress EENT: PERRL/EOMI, normal ENT inspection, TMs normal Neck: non-tender, normal alignment, supple, normal inspection Cardiovascular: normal peripheral pulses, normal rate, regular rhythm, no gallop/murmur, no JVD Respiratory/Chest: BIPAP; chest wall non-tender, respiratory distress, crackles /rales, rhonchi - bilaterally Abdomen: normal bowel sounds, non tender, soft, no organomegaly, no mass Extremities: normal range of motion Edema: moderate edema 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 LVEF 30-35%. Await cardiology consult. Cont lasix and metolazone. (4) Acute respiratory distress (5) COPD (chronic obstructive pulmonary disease) (6) Uncontrolled diabetes mellitus Assessment & Plan: See endocrinology note. Cont januvia, levemir and humolog sliding scale. (7) Atrial fibrillation Assessment & Plan: Cont amiodarone and coumadin. Await cardiology consult. (8) Respiratory failure Assessment & Plan: Cont ICU status; continue BIPAP/full face mask per pulmonary Status: deteriorating MATEO BRANTLEY Jun 01, 2016 14:03
--- NOTE | 2016-06-01 15:56 | Cardiology Progress Note ---
Assessment/Plan Problem List: (1) CHF (congestive heart failure) (2) ATN (acute tubular necrosis) (3) Acute respiratory distress (4) Renal failure (5) HTN (hypertension) Status: not improved, unchanged, deteriorating Status Narrative Pt w/ wheezing/ dyspnea - ? cardiac asthma Ruled out for MT w/ negative troponin levels Assessment/Plan Repeat CXR - ? pulm edema Continue lasix infusion. Follow i/os, wts, renal fxn, lytes closely echo pending to assess LV function, valves. Subjective ROS Limited/Unobtainable: No Subjective dyspneic, wheezing No chest pain Objective Last 24 Hour Vital Signs Date Time Temp Pulse Resp B/P Pulse Ox O2 Delivery O2 Flow Rate FiO2 06/01/16 14:00 75 24 122/53 Bi-pap 30 06/01/16 13:06 79 26 99 Full Face 30 06/01/16 13:00 98.3 79 22 115/50 Bi-pap 30 06/01/16 12:00 30 06/01/16 12:00 82 24 107/41 Bi-pap 30 06/01/16 12:00 82 06/01/16 11:19 96 29 95 Full Face 30 06/01/16 11:00 97.9 85 28 107/44 98 Bi-pap 30 06/01/16 10:00 98 27 97/80 99 Nasal Cannula 3.0 06/01/16 09:03 92 20 100 Nasal Cannula 3.0 32 06/01/16 09:00 86 22 98/42 99 Nasal Cannula 3.0 06/01/16 08:53 90 22 100 Nasal Cannula 3.0 32 06/01/16 08:00 98.6 88 22 113/53 100 Nasal Cannula 3.0 06/01/16 08:00 3.0 06/01/16 08:00 88 06/01/16 07:57 Nasal Cannula 3.0 32 06/01/16 07:57 90 22 100 06/01/16 07:57 100 Nasal Cannula 3.0 32 06/01/16 07:57 90 22 Nasal Cannula 3.0 32 06/01/16 07:00 98.7 86 20 116/43 97 Nasal Cannula 3.0 06/01/16 06:00 77 25 113/39 97 Bi-pap 30 06/01/16 05:16 76 26 100 Full Face 30 06/01/16 05:00 77 24 121/41 100 Bi-pap 50 06/01/16 04:00 50 06/01/16 04:00 77 06/01/16 04:00 98.2 78 24 128/41 100 Bi-pap 50 06/01/16 03:12 70 25 100 Full Face 40 06/01/16 03:00 71 25 92/29 100 Bi-pap 100 06/01/16 02:00 77 17 104/38 100 Bi-pap 100 06/01/16 01:00 82 19 102/28 100 Bi-pap 100 06/01/16 00:40 86 24 100 Full Face 50 06/01/16 00:00 86 06/01/16 00:00 100.2 86 24 96/32 100 Bi-pap 100 06/01/16 00:00 100 05/31/16 23:17 89 28 100 Full Face 100 05/31/16 23:00 84 23 140/50 100 Bi-pap 100 05/31/16 21:45 87 25 100 Full Face 100 05/31/16 20:00 97.8 90 22 106/48 99 Nasal Cannula 3.0 05/31/16 20:00 89 05/31/16 19:30 83 24 98 Nasal Cannula 3.0 32 05/31/16 19:30 Nasal Cannula 3.0 32 05/31/16 19:30 84 20 98 Nasal Cannula 3.0 32 05/31/16 19:30 83 24 Nasal Cannula 3.0 32 05/31/16 19:30 98 Nasal Cannula 3.0 32 05/31/16 16:00 97 05/31/16 16:00 97.9 98 21 140/49 94 Nasal Cannula 3.0 General Appearance: WD/WN, mild distress, obese EENT: PERRL/EOMI Neck: supple, no JVD Rhythm: NSR Cardiovascular: normal rate, regular rhythm, no gallop/murmur Respiratory/Chest: other - bilat expir wheezes Abdomen: normal bowel sounds, non tender Extremities: non-tender, no swelling Intake and Output 05/31/16 06/01/16 19:00 07:00 Intake Total 263 ml 110 ml Output Total 300 ml 945 ml Balance -37 ml -835 ml Intake Oral 240 ml IV Total 23 ml 110 ml Output Urine Total 300 ml 945 ml Laboratory Tests Test 05/31/16 21:30 3/3/17 23:03 06/01/16 00:25 06/01/16 04:15 Arterial Blood pH 7.262 (7.350-7.450) 7.225 (7.350-7.450) 7.363 (7.350-7.450) Arterial Blood Partial Pressure CO2 68.0 mmHg (35.0-45.0) *H 80.2 mmHg (35.0-45.0) *H 57.2 mmHg (35.0-45.0) *H Arterial Blood Partial Pressure O2 68.1 mmHg (75.0-100.0) L 103.9 mmHg (75.0-100.0) H 332.6 mmHg (75.0-100.0) H Arterial Blood HCO3 30.0 mmol/L (22.0-26.0) H 32.5 mmol/L (22.0-26.0) H 31.8 mmol/L (22.0-26.0) H Arterial Blood Oxygen Saturation 90.7 % (92.0-98.0) L 97.1 % (92.0-98.0) 99.6 % (92.0-98.0) H Arterial Blood Base Excess 1.8 3.2 5.4 Jann Test Positive Positive Positive White Blood Count 13.6 K/UL (4.8-10.8) H Red Blood Count 3.19 M/UL (4.20-5.40) L Hemoglobin 8.9 G/DL (12.0-16.0) L Hematocrit 29.4 % (37.0-47.0) L Mean Corpuscular Volume 92 FL (80-99) Mean Corpuscular Hemoglobin 28.0 PG (27.0-31.0) Mean Corpuscular Hemoglobin Concent 30.3 G/DL (32.0-36.0) L Red Cell Distribution Width 16.6 % (11.6-14.8) H Platelet Count 161 K/UL (150-450) Mean Platelet Volume 7.5 FL (6.5-10.1) Neutrophils (%) (Auto) % (45.0-75.0) Lymphocytes (%) (Auto) % (20.0-45.0) Monocytes (%) (Auto) % (1.0-10.0) Eosinophils (%) (Auto) % (0.0-3.0) Basophils (%) (Auto) % (0.0-2.0) Differential Total Cells Counted 100 Neutrophils % (Manual) 80 % (45-75) H Lymphocytes % (Manual) 15 % (20-45) L Monocytes % (Manual) 1 % (1-10) Eosinophils % (Manual) 0 % (0-3) Basophils % (Manual) 0 % (0-2) Band Neutrophils 4 % (0-8) Platelet Estimate Adequate Platelet Morphology Normal Hypochromasia 1+ Anisocytosis 1+ Prothrombin Time 27.3 SEC (9.30-11.50) H Prothromb Time International Ratio 2.6 (0.9-1.1) H Sodium Level 140 mEQ/L (135-145) Potassium Level 5.6 mEQ/L (3.4-4.9) H Chloride Level 98 mEQ/L (98-107) Carbon Dioxide Level 30 mEQ/L (20-30) Anion Gap 12 (5-15) Blood Urea Nitrogen 54 mg/dL (7-23) H Creatinine 2.5 mg/dL (0.5-0.9) H Estimat Glomerular Filtration Rate mL/min (>60) Glucose Level 110 mg/dL (74-106) H Uric Acid 10.2 mg/dL (3.0-7.5) H Calcium Level 8.8 mg/dL (8.6-10.2) Phosphorus Level 3.1 mg/dL (2.5-4.8) Magnesium Level 2.2 mg/dL (1.7-2.5) Iron Level 19 ug/dL (37-145) L Total Iron Binding Capacity 189 ug/dL (250-400) L Percent Iron Saturation 10 % (15-50) L Unsaturated Iron Binding 170 ug/dL (112-346) Ferritin 1000 ng/mL (13-150) H Total Bilirubin 0.5 mg/dL (0.0-1.2) Gamma Glutamyl Transpeptidase 148 U/L (5-36) H Aspartate Amino Transf (AST/SGOT) 302 U/L (5-40) H Alanine Aminotransferase (ALT/SGPT) 156 U/L (3-33) H Alkaline Phosphatase 88 U/L (35-104) C-Reactive Protein, Quantitative 11.2 mg/dL (< 0.5) H Pro-B-Type Natriuretic Peptide 24719 pg/mL (0-450) H Total Protein 6.0 g/dL (6.6-8.7) L Albumin 3.1 g/dL (3.5-5.2) L Globulin 2.9 g/dL Albumin/Globulin Ratio 1.0 (1.0-2.7) Microbiology Date/Time Source Procedure Growth Status 05/30/16 02:00 Nasal Nares Left MRSA Culture - Final NO METHICILLIN RESISTANT STAPH AUREUS... Complete FERNANDA PAGE Jun 01, 2016 15:56
[2016-06-01] MEDS: Lactulose 20gm/30ml UDC ORAL SCH (16:50)
[2016-06-01] MEDS ORDERED: Warfarin Sodium 3mg ORAL ONE (17:00)
[2016-06-01 17:04] LABS: ABG ALLEN TEST POSITIVE; ABG BASE EXCESS 10
[2016-06-02] VITALS (23 sets, daily range): BP systolic 90–151; BP diastolic 33–82
[2016-06-02 06:00] LABS: MEAN CORPUSCULAR HEMOGLOBIN 27.5 PG (27.0-31.0); MEAN CORPUSCULAR HGB CONC 30.2 G/DL (32.0-36.0); MEAN CORPUSCULAR VOLUME 91 FL (80-99); MEAN PLATELET VOLUME 7.8 FL (6.5-10.1); PLATELET COUNT 149 K/UL (150-450); RED BLOOD COUNT 3.17 M/UL (4.20-5.40); RED CELL DISTRIBUTION WIDTH 16.1 % (11.6-14.8); WHITE BLOOD COUNT 11.6 K/UL (4.8-10.8)
[2016-06-02 06:13] LABS: ALANINE AMINOTRANSFERASE 459 U/L (3-33); ANION GAP 12 (5-15); CALCIUM 8.5 mg/dL (8.6-10.2); CARBON DIOXIDE 38 mEQ/L (20-30); CHLORIDE 94 mEQ/L (98-107); CREATININE 2.5 mg/dL (0.5-0.9); HEMOLYSIS 3; PHOSPHORUS 4.5 mg/dL (2.5-4.8); SODIUM 144 mEQ/L (135-145); URIC ACID 11.9 mg/dL (3.0-7.5)
[2016-06-02] MEDS: NovoLOG Insulin Flexpen SUBQ SCH ×4 (06:26→21:36)
[2016-06-02 06:32] LABS: ASPARTATE AMINO TRANSFERASE 810 U/L (5-40)
[2016-06-02 06:48] LABS: INR 2.2 (0.9-1.1); PROTHROMBIN TIME 23.4 SEC (9.30-11.50)
[2016-06-02] MEDS ORDERED: KCl 10% 40mEq/30ml liquid ORAL ONE (09:00)
--- NOTE | 2016-06-02 09:01 | General Progress Note ---
Assessment/Plan Problem List: (1) COPD (chronic obstructive pulmonary disease) ICD Codes: J44.9 - Chronic obstructive pulmonary disease, unspecified SNOMED: 65643351 (2) Dementia ICD Codes: F03.90 - Unspecified dementia without behavioral disturbance SNOMED: 46389012 (3) CHF (congestive heart failure) ICD Codes: I50.9 - Heart failure, unspecified SNOMED: 02619430 (4) ATN (acute tubular necrosis) ICD Codes: N17.0 - Acute kidney failure with tubular necrosis SNOMED: 93387871 (5) Acute respiratory distress ICD Codes: R06.00 - Dyspnea, unspecified SNOMED: 091832219 (6) Uncontrolled diabetes mellitus ICD Codes: E11.65 - Type 2 diabetes mellitus with hyperglycemia SNOMED: 799954945 Assessment/Plan continue Levemir 20 units daily + Januvia 25 mg daily + SSI will consider adding Starlix 60 mg ac tid if mealtime glucose stays elevated Subjective ROS Limited/Unobtainable: Yes Allergies: Coded Allergies: SPIRONOLACTONE (Unverified Allergy, Intermediate, 05/08/16) Subjective transferred to icu yesterday due to respiratory insufficiency - started on bipap awake - being bed Objective Last 24 Hour Vital Signs Date Time Temp Pulse Resp B/P Pulse Ox O2 Delivery O2 Flow Rate FiO2 06/02/16 07:00 70 20 140/59 98 Bi-pap 30 06/02/16 06:00 70 21 144/63 99 Bi-pap 30 06/02/16 05:20 72 40 97 Facial 30 06/02/16 05:00 72 20 104/44 97 Bi-pap 30 06/02/16 04:00 30 06/02/16 04:00 98.4 73 18 126/60 99 Bi-pap 30 06/02/16 04:00 73 06/02/16 02:00 80 25 90/56 100 Room Air 4.0 06/02/16 01:00 85 20 97/37 100 Nasal Cannula 4.0 06/02/16 00:00 98.2 85 25 108/49 100 Nasal Cannula 4.0 06/02/16 00:00 4.0 06/02/16 00:00 78 06/01/16 23:00 78 20 118/44 100 Nasal Cannula 4.0 06/01/16 22:00 83 21 133/60 100 Nasal Cannula 4.0 06/01/16 21:00 81 21 141/58 99 Bi-pap 30 06/01/16 21:00 82 28 99 Facial 30 06/01/16 20:00 76 06/01/16 20:00 30 06/01/16 20:00 98.1 76 17 121/45 98 Bi-pap 30 06/01/16 19:07 Bi-pap 30 06/01/16 19:07 100 Bi-pap 30 06/01/16 19:07 81 25 98 Facial 30 06/01/16 19:06 81 24 Bi-pap 30 06/01/16 19:00 76 16 130/55 98 Bi-pap 30 06/01/16 18:00 115/42 06/01/16 18:00 97.3 78 19 115/42 Bi-pap 30 06/01/16 17:00 97.9 82 24 130/64 Bi-pap 30 06/01/16 16:39 80 25 98 Full Face 30 06/01/16 16:00 82 06/01/16 16:00 75 24 122/53 Bi-pap 30 06/01/16 16:00 30 06/01/16 15:00 98.6 79 19 115/50 Bi-pap 30 06/01/16 14:00 75 24 122/53 Bi-pap 30 06/01/16 13:06 79 26 99 Full Face 30 06/01/16 13:00 98.3 79 22 115/50 Bi-pap 30 06/01/16 12:00 30 06/01/16 12:00 82 24 107/41 Bi-pap 30 06/01/16 12:00 82 06/01/16 11:19 96 29 95 Full Face 30 06/01/16 11:00 97.9 85 28 107/44 98 Bi-pap 30 06/01/16 10:00 98 27 97/80 99 Nasal Cannula 3.0 06/01/16 09:03 92 20 100 Nasal Cannula 3.0 32 06/01/16 09:00 86 22 98/42 99 Nasal Cannula 3.0 Intake and Output 06/01/16 06/02/16 19:00 07:00 Intake Total 470 ml 275 ml Output Total 1395 ml 1635 ml Balance -925 ml -1360 ml Intake Oral 350 ml 175 ml IV Total 120 ml 100 ml Output Urine Total 1395 ml 1635 ml # Bowel Movements 1 Laboratory Tests 06/01/16 16:48: Arterial Blood pH 7.440, Arterial Blood Partial Pressure CO2 53.0H, Arterial Blood Partial Pressure O2 75.0, Arterial Blood HCO3 35.2H, Arterial Blood Oxygen Saturation 94.0, Arterial Blood Base Excess 10, Jann Test Positive 06/02/16 03:35: White Blood Count 11.6H, Red Blood Count 3.17L, Hemoglobin 8.7L, Hematocrit 28.9L, Mean Corpuscular Volume 91, Mean Corpuscular Hemoglobin 27.5, Mean Corpuscular Hemoglobin Concent 30.2L, Red Cell Distribution Width 16.1H, Platelet Count 149L, Mean Platelet Volume 7.8, Neutrophils (%) (Auto) , Lymphocytes (%) (Auto) , Monocytes (%) (Auto) , Eosinophils (%) (Auto) , Basophils (%) (Auto) , Sodium Level 144, Potassium Level 3.0L, Chloride Level 94L, Carbon Dioxide Level 38H, Anion Gap 12, Blood Urea Nitrogen 60H, Creatinine 2.5H, Estimat Glomerular Filtration Rate , Glucose Level 218#H, Uric Acid 11.9H, Calcium Level 8.5L, Phosphorus Level 4.5, Magnesium Level 2.0, Total Bilirubin 0.5, Aspartate Amino Transf (AST/SGOT) 810H, Alanine Aminotransferase (ALT/SGPT) 459H, Alkaline Phosphatase 104, Total Protein 6.0L, Albumin 3.0L, Globulin 3.0, Albumin/Globulin Ratio 1.0 06/02/16 06:20: Prothrombin Time 23.4H, Prothromb Time International Ratio 2.2H Height (Feet): 5 Height (Inches): 1.00 Weight (Pounds): 150 General Appearance: no apparent distress Neck: normal alignment Cardiovascular: normal rate Respiratory/Chest: decreased breath sounds Abdomen: normal bowel sounds Edema: no edema noted Arm (L), no edema noted Arm (R), no edema noted Leg (L), no edema noted Leg (R), no edema noted Pedal (L), no edema noted Pedal (R), no edema noted Generalized Objective Current Medications Medications (Trade) Dose Ordered Sig/Abril Route PRN Reason Start Time Stop Time Status Last Admin Dose Admin Acetaminophen (Tylenol) 650 mg Q6H PRN ORAL Mild Pain/Temp > 100.5 06/01/16 04:15 07/01/16 04:14 Albuterol/ Ipratropium (DuoNeb 0.5-3(2.5)mg/3ml) 3 ml Q4H PRN HHN Shortness of Breath 06/01/16 00:15 06/06/16 00:14 06/01/16 13:05 Amiodarone HCl (Cordarone) 200 mg DAILY ORAL 06/01/16 09:00 07/01/16 08:59 06/01/16 08:12 Bisacodyl (Dulcolax) 10 mg DAILYPRN PRN RECTAL Constipation 06/01/16 09:15 07/01/16 09:14 06/01/16 10:18 Dextrose (Dextrose 50%) STAT PRN IV Hypoglycemia 06/01/16 04:15 07/01/16 04:14 Epoetin Fish (Procrit (for non ESRD use)) 5,000 units FRI-FRI-FRI SUBQ 06/03/16 21:00 07/03/16 20:59 Furosemide/ Dextrose (Lasix/D5W) 100 ml @ 10 mls/hr Q10H IV 05/31/16 23:45 06/30/16 23:44 06/02/16 05:27 Guaifenesin/ Codeine Phosphate (Robitussin with codeine) 5 ml Q6H PRN ORAL For Cough 06/01/16 04:30 07/01/16 04:29 Insulin Aspart (NovoLOG) BEFORE MEALS AND HS SUBQ 06/01/16 06:30 07/01/16 06:29 06/02/16 06:26 Insulin Detemir (Levemir) 20 units DAILY SUBQ 06/01/16 09:00 07/01/16 08:59 06/01/16 09:17 Lactulose (Cephulac) 30 gm THREE TIMES A DAY ORAL 06/01/16 18:00 07/01/16 17:59 06/01/16 16:50 Metoclopramide HCl (Reglan) 10 mg Q6H PRN IVP Nausea & Vomiting 06/01/16 12:30 07/01/16 12:29 Metolazone (Zaroxolyn) 5 mg BID ORAL 05/31/16 23:45 06/30/16 23:44 06/01/16 16:51 Pantoprazole (Protonix) 40 mg DAILY ORAL 06/01/16 09:00 07/01/16 08:59 06/01/16 08:13 Potassium Chloride (KCl 10% 40mEq Oral solution) 40 meq ONCE ONCE ORAL 06/02/16 09:00 06/02/16 09:01 Sitagliptin Phosphate (Januvia) 25 mg DAILY ORAL 06/01/16 09:00 07/01/16 08:59 06/01/16 08:11 Warfarin Sodium (Coumadin per pharmacy) 1 ea DAILY PRN MISC Per rx protocol 06/01/16 09:00 07/01/16 08:59 Warfarin Sodium (Coumadin) 4 mg COUMADIN ONCE PO 06/02/16 17:00 06/02/16 17:01 Item Value Date Time Bedside Blood Glucose 170 mg/dl H 06/02/16 0649 Bedside Blood Glucose 256 mg/dl H 06/01/16 2123 Bedside Blood Glucose 185 mg/dl H 06/01/16 1630 Bedside Blood Glucose 212 mg/dl H 06/01/16 1218 SUSHIL RAMIREZ 5, 2017 09:01
[2016-06-02] MEDS: Lactulose 20gm/30ml UDC ORAL SCH ×3 (09:07→18:00)
[2016-06-02] MEDS: Metolazone 5mg tab ORAL SCH ×2 (09:07→20:56)
[2016-06-02] MEDS: sitaGLIPtin 50mg tab ORAL SCH (09:08)
[2016-06-02] MEDS: Amiodarone 200mg tab ORAL SCH (09:08)
[2016-06-02 09:10] LABS: ABG BASE EXCESS 17.9
[2016-06-02] MEDS: Levemir Flexpen SUBQ SCH (09:17)
--- NOTE | 2016-06-02 10:11 | Diagnostic Imaging Report ---
Indication: Shortness of breath Technique: XRAY CHEST 1 V Comparison: 05/30/16 Findings: Cardiomedial still silhouette is stable. Cardiac postsurgical changes are present. There is redemonstration of mixed interstitial and airspace edema/infiltrates. Small bilateral pleural effusions are again noted. Osseous structures are stable. Impression: No significant change from 05/30/16.
--- NOTE | 2016-06-02 13:29 | General Progress Note ---
Assessment/Plan Status: unchanged Assessment/Plan status; - Renal failure : mainly Chronic , superimposed acute serum Cr rising ! - HyperKalemia Other : - Acute respiratory distress - Acute on chronic diastolic CHF (congestive heart failure)- low Ej Fx - LBBB (left bundle branch block) - Severe anemia - Patient is [employer] - Dementia - COPD (chronic obstructive pulmonary disease) Plan: Monitor renal parameters- Optimize cardiac and pulmonary status- Kidney MISSY- no hydro- cortical thinning-normal size- ( previous admit) Urine eosinophils- Negative 2D Echo 30% Ej Fx Per orders epo , folate, Iron Protonix Subjective ROS Limited/Unobtainable: Yes Allergies: Coded Allergies: SPIRONOLACTONE (Unverified Allergy, Intermediate, 05/08/16) Objective Last 24 Hour Vital Signs Date Time Temp Pulse Resp B/P Pulse Ox O2 Delivery O2 Flow Rate FiO2 06/02/16 12:46 75 25 96 Facial 30 06/02/16 10:44 71 24 96 Facial 30 06/02/16 10:00 75 20 120/45 97 Bi-pap 30 06/02/16 09:30 30 06/02/16 09:00 4.0 06/02/16 09:00 77 22 151/48 100 Bi-pap 30 06/02/16 08:30 68 27 97 Facial 30 06/02/16 08:00 30 06/02/16 08:00 88 06/02/16 08:00 97.9 67 22 140/41 98 Bi-pap 30 06/02/16 07:02 Bi-pap 30 06/02/16 07:02 98 Bi-pap 30 06/02/16 07:02 89 24 98 Facial 30 06/02/16 07:02 89 24 Bi-pap 30 06/02/16 07:00 70 20 140/59 98 Bi-pap 30 06/02/16 06:00 70 21 144/63 99 Bi-pap 30 06/02/16 05:20 72 40 97 Facial 30 06/02/16 05:00 72 20 104/44 97 Bi-pap 30 06/02/16 04:00 30 06/02/16 04:00 98.4 73 18 126/60 99 Bi-pap 30 06/02/16 04:00 73 06/02/16 02:00 80 25 90/56 100 Room Air 4.0 06/02/16 01:00 85 20 97/37 100 Nasal Cannula 4.0 06/02/16 00:00 98.2 85 25 108/49 100 Nasal Cannula 4.0 06/02/16 00:00 4.0 06/02/16 00:00 78 06/01/16 23:00 78 20 118/44 100 Nasal Cannula 4.0 06/01/16 22:00 83 21 133/60 100 Nasal Cannula 4.0 06/01/16 21:00 81 21 141/58 99 Bi-pap 30 06/01/16 21:00 82 28 99 Facial 30 06/01/16 20:00 76 06/01/16 20:00 30 06/01/16 20:00 98.1 76 17 121/45 98 Bi-pap 30 06/01/16 19:07 Bi-pap 30 06/01/16 19:07 100 Bi-pap 30 06/01/16 19:07 81 25 98 Facial 30 06/01/16 19:06 81 24 Bi-pap 30 06/01/16 19:00 76 16 130/55 98 Bi-pap 30 06/01/16 18:00 115/42 06/01/16 18:00 97.3 78 19 115/42 Bi-pap 30 06/01/16 17:00 97.9 82 24 130/64 Bi-pap 30 06/01/16 16:39 80 25 98 Full Face 30 06/01/16 16:00 82 06/01/16 16:00 75 24 122/53 Bi-pap 30 06/01/16 16:00 30 06/01/16 15:00 98.6 79 19 115/50 Bi-pap 30 06/01/16 14:00 75 24 122/53 Bi-pap 30 Intake and Output 06/01/16 06/02/16 19:00 07:00 Intake Total 470 ml 295 ml Output Total 1395 ml 1635 ml Balance -925 ml -1340 ml Intake Oral 350 ml 175 ml IV Total 120 ml 120 ml Output Urine Total 1395 ml 1635 ml # Bowel Movements 1 Laboratory Tests 06/01/16 16:48: Arterial Blood pH 7.440, Arterial Blood Partial Pressure CO2 53.0H, Arterial Blood Partial Pressure O2 75.0, Arterial Blood HCO3 35.2H, Arterial Blood Oxygen Saturation 94.0, Arterial Blood Base Excess 10, Jann Test Positive 06/02/16 03:35: White Blood Count 11.6H, Red Blood Count 3.17L, Hemoglobin 8.7L, Hematocrit 28.9L, Mean Corpuscular Volume 91, Mean Corpuscular Hemoglobin 27.5, Mean Corpuscular Hemoglobin Concent 30.2L, Red Cell Distribution Width 16.1H, Platelet Count 149L, Mean Platelet Volume 7.8, Neutrophils (%) (Auto) , Lymphocytes (%) (Auto) , Monocytes (%) (Auto) , Eosinophils (%) (Auto) , Basophils (%) (Auto) , Sodium Level 144, Potassium Level 3.0L, Chloride Level 94L, Carbon Dioxide Level 38H, Anion Gap 12, Blood Urea Nitrogen 60H, Creatinine 2.5H, Estimat Glomerular Filtration Rate , Glucose Level 218#H, Uric Acid 11.9H, Calcium Level 8.5L, Phosphorus Level 4.5, Magnesium Level 2.0, Total Bilirubin 0.5, Aspartate Amino Transf (AST/SGOT) 810H, Alanine Aminotransferase (ALT/SGPT) 459H, Alkaline Phosphatase 104, Total Protein 6.0L, Albumin 3.0L, Globulin 3.0, Albumin/Globulin Ratio 1.0 06/02/16 04:00: Arterial Blood pH 7.530H, Arterial Blood Partial Pressure CO2 52.0H, Arterial Blood Partial Pressure O2 77.0, Arterial Blood HCO3 42.5H, Arterial Blood Oxygen Saturation 96.0, Arterial Blood Base Excess 17.9, Jann Test 06/02/16 06:20: Prothrombin Time 23.4H, Prothromb Time International Ratio 2.2H Height (Feet): 5 Height (Inches): 1.00 Weight (Pounds): 150 General Appearance: mild distress EENT: other - on BIPAP Cardiovascular: normal rate Respiratory/Chest: decreased breath sounds Abdomen: soft Objective other PE not changed GILLES CUELLAR Jun 02, 2016 13:29
--- NOTE | 2016-06-02 14:34 | Internal Med Progress Note ---
Subjective Date of Service: Jun 02, 2016 Physician Name Brantley,Mateo Attending Physician Emilee Weir Current Medications Medications (Trade) Dose Ordered Sig/Abril Route PRN Reason Start Time Stop Time Status Last Admin Dose Admin Acetaminophen (Tylenol) 650 mg Q6H PRN ORAL Mild Pain/Temp > 100.5 06/01/16 04:15 07/01/16 04:14 Albuterol/ Ipratropium (DuoNeb 0.5-3(2.5)mg/3ml) 3 ml Q4H PRN HHN Shortness of Breath 06/01/16 00:15 06/06/16 00:14 06/01/16 13:05 Allopurinol (Allopurinol) 300 mg DAILY ORAL 06/02/16 14:00 07/02/16 13:59 06/02/16 14:04 Amiodarone HCl (Cordarone) 200 mg DAILY ORAL 06/01/16 09:00 07/01/16 08:59 06/02/16 09:08 Bisacodyl (Dulcolax) 10 mg DAILYPRN PRN RECTAL Constipation 06/01/16 09:15 07/01/16 09:14 06/01/16 10:18 Dextrose (Dextrose 50%) STAT PRN IV Hypoglycemia 06/01/16 04:15 07/01/16 04:14 Epoetin Fish (Procrit (for non ESRD use)) 5,000 units MON-WED-FRI SUBQ 06/03/16 21:00 07/03/16 20:59 Furosemide/ Dextrose (Lasix/D5W) 100 ml @ 10 mls/hr Q10H IV 05/31/16 23:45 06/30/16 23:44 06/02/16 05:27 Guaifenesin/ Codeine Phosphate (Robitussin with codeine) 5 ml Q6H PRN ORAL For Cough 06/01/16 04:30 07/01/16 04:29 Insulin Aspart (NovoLOG) BEFORE MEALS AND HS SUBQ 06/01/16 06:30 07/01/16 06:29 06/02/16 12:16 Insulin Detemir (Levemir) 20 units DAILY SUBQ 06/01/16 09:00 07/01/16 08:59 06/02/16 09:17 Lactulose (Cephulac) 30 gm THREE TIMES A DAY ORAL 06/01/16 18:00 07/01/16 17:59 06/02/16 14:03 Metoclopramide HCl (Reglan) 10 mg Q6H PRN IVP Nausea & Vomiting 06/01/16 12:30 07/01/16 12:29 Metolazone (Zaroxolyn) 5 mg BID ORAL 05/31/16 23:45 06/30/16 23:44 06/02/16 09:07 Pantoprazole (Protonix) 40 mg DAILY ORAL 06/01/16 09:00 07/01/16 08:59 06/02/16 09:07 Sitagliptin Phosphate (Januvia) 25 mg DAILY ORAL 06/01/16 09:00 07/01/16 08:59 06/02/16 09:08 Warfarin Sodium (Coumadin per pharmacy) 1 ea DAILY PRN MISC Per rx protocol 06/01/16 09:00 07/01/16 08:59 Warfarin Sodium (Coumadin) 4 mg COUMADIN ONCE PO 06/02/16 17:00 06/02/16 17:01 Allergies: Coded Allergies: SPIRONOLACTONE (Unverified Allergy, Intermediate, 05/08/16) Subjective 85 YO F admitted with shortness of breath. ICU. Cover for Int Med-Dr Tyler. Requiring BIPAP overnight: now tolerating full face mask Objective Last Vital Signs Date Time Temp Pulse Resp B/P Pulse Ox O2 Delivery O2 Flow Rate FiO2 06/02/16 12:46 75 25 96 Facial 30 06/02/16 10:00 120/45 06/02/16 09:00 4.0 06/02/16 08:00 97.9 Laboratory Tests Test 06/01/16 16:48 06/02/16 03:35 06/02/16 04:00 06/02/16 06:20 Arterial Blood pH 7.440 (7.350-7.450) 7.530 (7.350-7.450) Arterial Blood Partial Pressure CO2 53.0 mmHg (35.0-45.0) H 52.0 mmHg (35.0-45.0) H Arterial Blood Partial Pressure O2 75.0 mmHg (75.0-100.0) 77.0 mmHg (75.0-100.0) Arterial Blood HCO3 35.2 mmol/L (22.0-26.0) H 42.5 mmol/L (22.0-26.0) H Arterial Blood Oxygen Saturation 94.0 % (92.0-98.0) 96.0 % (92.0-98.0) Arterial Blood Base Excess 10 17.9 Jann Test Positive White Blood Count 11.6 K/UL (4.8-10.8) H Red Blood Count 3.17 M/UL (4.20-5.40) L Hemoglobin 8.7 G/DL (12.0-16.0) L Hematocrit 28.9 % (37.0-47.0) L Mean Corpuscular Volume 91 FL (80-99) Mean Corpuscular Hemoglobin 27.5 PG (27.0-31.0) Mean Corpuscular Hemoglobin Concent 30.2 G/DL (32.0-36.0) L Red Cell Distribution Width 16.1 % (11.6-14.8) H Platelet Count 149 K/UL (150-450) L Mean Platelet Volume 7.8 FL (6.5-10.1) Neutrophils (%) (Auto) % (45.0-75.0) Lymphocytes (%) (Auto) % (20.0-45.0) Monocytes (%) (Auto) % (1.0-10.0) Eosinophils (%) (Auto) % (0.0-3.0) Basophils (%) (Auto) % (0.0-2.0) Sodium Level 144 mEQ/L (135-145) Potassium Level 3.0 mEQ/L (3.4-4.9) L Chloride Level 94 mEQ/L (98-107) L Carbon Dioxide Level 38 mEQ/L (20-30) H Anion Gap 12 (5-15) Blood Urea Nitrogen 60 mg/dL (7-23) H Creatinine 2.5 mg/dL (0.5-0.9) H Estimat Glomerular Filtration Rate mL/min (>60) Glucose Level 218 mg/dL (74-106) #H Uric Acid 11.9 mg/dL (3.0-7.5) H Calcium Level 8.5 mg/dL (8.6-10.2) L Phosphorus Level 4.5 mg/dL (2.5-4.8) Magnesium Level 2.0 mg/dL (1.7-2.5) Total Bilirubin 0.5 mg/dL (0.0-1.2) Aspartate Amino Transf (AST/SGOT) 810 U/L (5-40) H Alanine Aminotransferase (ALT/SGPT) 459 U/L (3-33) H Alkaline Phosphatase 104 U/L (35-104) Total Protein 6.0 g/dL (6.6-8.7) L Albumin 3.0 g/dL (3.5-5.2) L Globulin 3.0 g/dL Albumin/Globulin Ratio 1.0 (1.0-2.7) Prothrombin Time 23.4 SEC (9.30-11.50) H Prothromb Time International Ratio 2.2 (0.9-1.1) H Intake and Output 06/01/16 06/02/16 19:00 07:00 Intake Total 470 ml 295 ml Output Total 1395 ml 1635 ml Balance -925 ml -1340 ml Intake Oral 350 ml 175 ml IV Total 120 ml 120 ml Output Urine Total 1395 ml 1635 ml # Bowel Movements 1 Objective General Appearance: WD/WN, alert, moderate distress EENT: PERRL/EOMI, normal ENT inspection, TMs normal Neck: non-tender, normal alignment, supple, normal inspection Cardiovascular: normal peripheral pulses, normal rate, regular rhythm, no gallop/murmur, no JVD Respiratory/Chest: full face mask; chest wall non-tender, respiratory distress , crackles/rales, rhonchi - bilaterally Abdomen: normal bowel sounds, non tender, soft, no organomegaly, no mass Extremities: normal range of motion Edema: moderate edema 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 LVEF 30-35%. Await cardiology consult. Cont lasix and metolazone. (4) Acute respiratory distress (5) COPD (chronic obstructive pulmonary disease) (6) Uncontrolled diabetes mellitus Assessment & Plan: See endocrinology note. Cont januvia, levemir and humolog sliding scale. (7) Atrial fibrillation Assessment & Plan: Cont amiodarone and coumadin. Await cardiology consult. (8) Respiratory failure Assessment & Plan: Cont ICU status; continue BIPAP/full face mask per pulmonary Status: not improved MATEO BRANTLEY Jun 02, 2016 14:34
--- NOTE | 2016-06-02 14:57 | Pulmonolgy Critical Care Note ---
Critical Care - Asmt/Plan Assessment/Plan: ASSESSMENT acute hypoxemic hypercapnic respiratory failure requiring BiPAP bronchospasm CHF acute on chronic chronic cardiomyopathy purulent bronchitis severe anemia ( iron deficiency and of chronic disease) DOOC COPD dementia elevated cEA hyperkalemia acute renal failure on CKD PAF Jehovah witness PLAN OF CARE ICU continue BiPAP ABG this am with less hypercapnia, no acidosis pulmonary toilet CXR and ABG in am initial CXR with CHF 1 dose of Solumedrol today in am low dose bid antitussive prn continue Lasix drip and Metolazone, monitor renal parameters, lytes avoid nephrotic replace K, check K and Mg in am nephro follows renal US on prior admission with evidence of cortical thinning troponin x 2 negative cardio follows patient with known cardiomyopathy rate control with Amiodarone, Coumadin for a/coagulation INR therapeutic monitor HH, continue EPO, off iron supplement ( high ferritin) will deny any transfusion being Jehovah witness BS management with Levemir and SS od insulin, optimize as needed case discussed and evaluated by supervising physician Critical Care - Objective Last 24 Hour Vital Signs Date Time Temp Pulse Resp B/P Pulse Ox O2 Delivery O2 Flow Rate FiO2 06/02/16 12:46 75 25 96 Facial 30 06/02/16 12:00 75 06/02/16 10:44 71 24 96 Facial 30 06/02/16 10:00 75 20 120/45 97 Bi-pap 30 06/02/16 09:30 30 06/02/16 09:00 4.0 06/02/16 09:00 77 22 151/48 100 Bi-pap 30 06/02/16 08:30 68 27 97 Facial 30 06/02/16 08:00 30 06/02/16 08:00 88 06/02/16 08:00 97.9 67 22 140/41 98 Bi-pap 30 06/02/16 07:02 Bi-pap 30 06/02/16 07:02 98 Bi-pap 30 06/02/16 07:02 89 24 98 Facial 30 06/02/16 07:02 89 24 Bi-pap 30 06/02/16 07:00 70 20 140/59 98 Bi-pap 30 06/02/16 06:00 70 21 144/63 99 Bi-pap 30 06/02/16 05:20 72 40 97 Facial 30 06/02/16 05:00 72 20 104/44 97 Bi-pap 30 06/02/16 04:00 30 06/02/16 04:00 98.4 73 18 126/60 99 Bi-pap 30 06/02/16 04:00 73 06/02/16 02:00 80 25 90/56 100 Room Air 4.0 06/02/16 01:00 85 20 97/37 100 Nasal Cannula 4.0 06/02/16 00:00 98.2 85 25 108/49 100 Nasal Cannula 4.0 06/02/16 00:00 4.0 06/02/16 00:00 78 06/01/16 23:00 78 20 118/44 100 Nasal Cannula 4.0 06/01/16 22:00 83 21 133/60 100 Nasal Cannula 4.0 06/01/16 21:00 81 21 141/58 99 Bi-pap 30 06/01/16 21:00 82 28 99 Facial 30 06/01/16 20:00 76 06/01/16 20:00 30 06/01/16 20:00 98.1 76 17 121/45 98 Bi-pap 30 06/01/16 19:07 Bi-pap 30 06/01/16 19:07 100 Bi-pap 30 06/01/16 19:07 81 25 98 Facial 30 06/01/16 19:06 81 24 Bi-pap 30 06/01/16 19:00 76 16 130/55 98 Bi-pap 30 06/01/16 18:00 115/42 06/01/16 18:00 97.3 78 19 115/42 Bi-pap 30 06/01/16 17:00 97.9 82 24 130/64 Bi-pap 30 06/01/16 16:39 80 25 98 Full Face 30 06/01/16 16:00 82 06/01/16 16:00 75 24 122/53 Bi-pap 30 06/01/16 16:00 30 06/01/16 15:00 98.6 79 19 115/50 Bi-pap 30 Objective: Status: awake Condition: critical HEENT: atraumatic, normocephalic, Bipap 20/5 Lungs: rales at bases , some diffused wheezes Heart: HR/BP stable, irregular Abdomen: soft, non-tender Extremities: edema - trace edema BLE Accucheck: 345 Critical Care - Subjective ROS Limited/Unobtainable: Yes Interval Events: afebrile, remains on BiPAP ABG with less hypercapnia, + dyspnea, wheezes Condition: critical EKG Rhythm: Sinus Rhythm FI02: 30 Sputum Amount: None I&O: Intake and Output 06/01/16 06/02/16 19:00 07:00 Intake Total 470 ml 295 ml Output Total 1395 ml 1635 ml Balance -925 ml -1340 ml Intake Oral 350 ml 175 ml IV Total 120 ml 120 ml Output Urine Total 1395 ml 1635 ml # Bowel Movements 1 CXR: 06/02 Cardiomediastinal silhouette is stable. Cardiac postsurgical changes are present. There is remonstration of mixed interstitial and airspace edema/infiltrates. Small bilateral pleural effusions are again noted. Osseous structures are stable. Jose Luis ([facility]),Belia CAVAZOS Jun 02, 2016 14:57
--- NOTE | 2016-06-02 15:01 | Cardiology Progress Note ---
Assessment/Plan Problem List: (1) CHF (congestive heart failure) (2) ATN (acute tubular necrosis) (3) Acute respiratory distress (4) Renal failure (5) HTN (hypertension) Status: stable, progressing Status Narrative Pt has diuresed appx 3 L on iv lasix infusion over past 3 days Bp is borderline 85-90 systolic ECHO shows EF of 30-35%, w/ generalized hypokinesis, but inferior, anterolateral muniz slightly better wall motion. she has pul hypertension, w/ PA pressures 55-60 mm Hg Assessment/Plan Will dc lasix infusion and change to iv lasix 80 mg bid plus metolozone. Will not on linda inh or ARB due to CKD and low BP Supplement K and recheck labs Continue icu care. d/w RN Subjective ROS Limited/Unobtainable: No Subjective Pt w/ dyspnea. No cp Events noted Objective Last 24 Hour Vital Signs Date Time Temp Pulse Resp B/P Pulse Ox O2 Delivery O2 Flow Rate FiO2 06/02/16 12:46 75 25 96 Facial 30 06/02/16 12:00 75 06/02/16 10:44 71 24 96 Facial 30 06/02/16 10:00 75 20 120/45 97 Bi-pap 30 06/02/16 09:30 30 06/02/16 09:00 4.0 06/02/16 09:00 77 22 151/48 100 Bi-pap 30 06/02/16 08:30 68 27 97 Facial 30 06/02/16 08:00 30 06/02/16 08:00 88 06/02/16 08:00 97.9 67 22 140/41 98 Bi-pap 30 06/02/16 07:02 Bi-pap 30 06/02/16 07:02 98 Bi-pap 30 06/02/16 07:02 89 24 98 Facial 30 06/02/16 07:02 89 24 Bi-pap 30 06/02/16 07:00 70 20 140/59 98 Bi-pap 30 06/02/16 06:00 70 21 144/63 99 Bi-pap 30 06/02/16 05:20 72 40 97 Facial 30 06/02/16 05:00 72 20 104/44 97 Bi-pap 30 06/02/16 04:00 30 06/02/16 04:00 98.4 73 18 126/60 99 Bi-pap 30 06/02/16 04:00 73 06/02/16 02:00 80 25 90/56 100 Room Air 4.0 06/02/16 01:00 85 20 97/37 100 Nasal Cannula 4.0 06/02/16 00:00 98.2 85 25 108/49 100 Nasal Cannula 4.0 06/02/16 00:00 4.0 06/02/16 00:00 78 06/01/16 23:00 78 20 118/44 100 Nasal Cannula 4.0 06/01/16 22:00 83 21 133/60 100 Nasal Cannula 4.0 06/01/16 21:00 81 21 141/58 99 Bi-pap 30 06/01/16 21:00 82 28 99 Facial 30 06/01/16 20:00 76 06/01/16 20:00 30 06/01/16 20:00 98.1 76 17 121/45 98 Bi-pap 30 06/01/16 19:07 Bi-pap 30 06/01/16 19:07 100 Bi-pap 30 06/01/16 19:07 81 25 98 Facial 30 06/01/16 19:06 81 24 Bi-pap 30 06/01/16 19:00 76 16 130/55 98 Bi-pap 30 06/01/16 18:00 115/42 06/01/16 18:00 97.3 78 19 115/42 Bi-pap 30 06/01/16 17:00 97.9 82 24 130/64 Bi-pap 30 06/01/16 16:39 80 25 98 Full Face 30 06/01/16 16:00 82 06/01/16 16:00 75 24 122/53 Bi-pap 30 06/01/16 16:00 30 06/01/16 15:00 98.6 79 19 115/50 Bi-pap 30 General Appearance: WD/WN, alert, mild distress EENT: PERRL/EOMI Neck: supple, no JVD Rhythm: NSR Cardiovascular: normal rate, regular rhythm, no gallop/murmur Respiratory/Chest: other - bilateral rhonchi diffusely Abdomen: non tender, soft Extremities: no swelling Intake and Output 06/01/16 06/02/16 19:00 07:00 Intake Total 470 ml 295 ml Output Total 1395 ml 1635 ml Balance -925 ml -1340 ml Intake Oral 350 ml 175 ml IV Total 120 ml 120 ml Output Urine Total 1395 ml 1635 ml # Bowel Movements 1 Laboratory Tests Test 06/01/16 16:48 06/02/16 03:35 06/02/16 04:00 06/02/16 06:20 Arterial Blood pH 7.440 (7.350-7.450) 7.530 (7.350-7.450) Arterial Blood Partial Pressure CO2 53.0 mmHg (35.0-45.0) H 52.0 mmHg (35.0-45.0) H Arterial Blood Partial Pressure O2 75.0 mmHg (75.0-100.0) 77.0 mmHg (75.0-100.0) Arterial Blood HCO3 35.2 mmol/L (22.0-26.0) H 42.5 mmol/L (22.0-26.0) H Arterial Blood Oxygen Saturation 94.0 % (92.0-98.0) 96.0 % (92.0-98.0) Arterial Blood Base Excess 10 17.9 Jann Test Positive White Blood Count 11.6 K/UL (4.8-10.8) H Red Blood Count 3.17 M/UL (4.20-5.40) L Hemoglobin 8.7 G/DL (12.0-16.0) L Hematocrit 28.9 % (37.0-47.0) L Mean Corpuscular Volume 91 FL (80-99) Mean Corpuscular Hemoglobin 27.5 PG (27.0-31.0) Mean Corpuscular Hemoglobin Concent 30.2 G/DL (32.0-36.0) L Red Cell Distribution Width 16.1 % (11.6-14.8) H Platelet Count 149 K/UL (150-450) L Mean Platelet Volume 7.8 FL (6.5-10.1) Neutrophils (%) (Auto) % (45.0-75.0) Lymphocytes (%) (Auto) % (20.0-45.0) Monocytes (%) (Auto) % (1.0-10.0) Eosinophils (%) (Auto) % (0.0-3.0) Basophils (%) (Auto) % (0.0-2.0) Sodium Level 144 mEQ/L (135-145) Potassium Level 3.0 mEQ/L (3.4-4.9) L Chloride Level 94 mEQ/L (98-107) L Carbon Dioxide Level 38 mEQ/L (20-30) H Anion Gap 12 (5-15) Blood Urea Nitrogen 60 mg/dL (7-23) H Creatinine 2.5 mg/dL (0.5-0.9) H Estimat Glomerular Filtration Rate mL/min (>60) Glucose Level 218 mg/dL (74-106) #H Uric Acid 11.9 mg/dL (3.0-7.5) H Calcium Level 8.5 mg/dL (8.6-10.2) L Phosphorus Level 4.5 mg/dL (2.5-4.8) Magnesium Level 2.0 mg/dL (1.7-2.5) Total Bilirubin 0.5 mg/dL (0.0-1.2) Aspartate Amino Transf (AST/SGOT) 810 U/L (5-40) H Alanine Aminotransferase (ALT/SGPT) 459 U/L (3-33) H Alkaline Phosphatase 104 U/L (35-104) Total Protein 6.0 g/dL (6.6-8.7) L Albumin 3.0 g/dL (3.5-5.2) L Globulin 3.0 g/dL Albumin/Globulin Ratio 1.0 (1.0-2.7) Prothrombin Time 23.4 SEC (9.30-11.50) H Prothromb Time International Ratio 2.2 (0.9-1.1) H FERNANDA PAGE Jun 02, 2016 15:01
[2016-06-02] MEDS ORDERED: Solu-MEDROL 125mg Inj IV ONE (15:30)
[2016-06-02] MEDS ORDERED: Warfarin Sodium 4mg PO ONE (17:00)
[2016-06-02 21:14] LABS: ANION GAP 11 (5-15); CALCIUM 8.8 mg/dL (8.6-10.2); CARBON DIOXIDE 39 mEQ/L (20-30); CHLORIDE 94 mEQ/L (98-107); CREATININE 2.2 mg/dL (0.5-0.9); HEMOLYSIS 8; POTASSIUM 3.3 mEQ/L (3.4-4.9); SODIUM 144 mEQ/L (135-145)
[2016-06-03] VITALS (17 sets, daily range): BP systolic 74–134; BP diastolic 29–59
--- NOTE | 2016-06-03 06:11 | General Progress Note ---
Assessment/Plan Problem List: (1) COPD (chronic obstructive pulmonary disease) ICD Codes: J44.9 - Chronic obstructive pulmonary disease, unspecified SNOMED: 82675573 (2) Dementia ICD Codes: F03.90 - Unspecified dementia without behavioral disturbance SNOMED: 87082070 (3) CHF (congestive heart failure) ICD Codes: I50.9 - Heart failure, unspecified SNOMED: 02643720 (4) ATN (acute tubular necrosis) ICD Codes: N17.0 - Acute kidney failure with tubular necrosis SNOMED: 91782090 (5) Acute respiratory distress ICD Codes: R06.00 - Dyspnea, unspecified SNOMED: 882195304 (6) Uncontrolled diabetes mellitus ICD Codes: E11.65 - Type 2 diabetes mellitus with hyperglycemia SNOMED: 873233123 Assessment/Plan glycemic control is exacerbated by IVSM continue Levemir 20 units daily + Januvia 25 mg daily + SSI will add Novolog 5 units ac tid Subjective ROS Limited/Unobtainable: Yes Allergies: Coded Allergies: SPIRONOLACTONE (Unverified Allergy, Intermediate, 05/08/16) Subjective events noted still in icu Objective Last 24 Hour Vital Signs Date Time Temp Pulse Resp B/P Pulse Ox O2 Delivery O2 Flow Rate FiO2 06/03/16 06:00 66 18 118/48 95 Bi-pap 50 06/03/16 05:28 67 22 98 Facial 30 06/03/16 05:00 67 18 118/44 97 Bi-pap 50 06/03/16 04:00 69 06/03/16 04:00 30 06/03/16 04:00 98.1 67 17 127/45 96 Bi-pap 50 06/03/16 03:23 72 18 100 Facial 30 06/03/16 03:00 64 18 97/42 97 Bi-pap 50 06/03/16 02:00 61 18 97/42 100 Bi-pap 50 06/03/16 01:18 64 20 100 Facial 50 06/03/16 01:00 64 18 86/39 100 Bi-pap 50 06/03/16 00:00 98.1 65 18 102/29 100 Bi-pap 50 06/03/16 00:00 70 06/03/16 00:00 30 06/02/16 23:00 69 21 91/45 100 Bi-pap 50 06/02/16 22:37 60 18 100 Facial 50 06/02/16 22:00 65 16 95/33 100 Bi-pap 50 06/02/16 21:30 65 20 100 Facial 50 06/02/16 21:00 98.1 70 21 107/48 100 Bi-pap 50 06/02/16 20:00 73 06/02/16 20:00 72 24 124/72 100 Bi-pap 50 06/02/16 20:00 50 06/02/16 19:30 Bi-pap 06/02/16 19:30 94 Bi-pap 06/02/16 19:30 74 22 94 Facial 50 06/02/16 19:30 Bi-pap 06/02/16 19:00 73 23 120/82 97 Bi-pap 30 06/02/16 18:00 76 20 110/67 97 Bi-pap 30 06/02/16 17:00 78 20 103/33 96 Bi-pap 30 06/02/16 16:47 78 24 96 Facial 30 06/02/16 16:00 78 06/02/16 16:00 30 06/02/16 16:00 78 19 110/69 98 Bi-pap 30 06/02/16 15:00 81 24 97/40 99 Bi-pap 30 06/02/16 14:39 84 29 100 Facial 30 06/02/16 14:00 83 24 90/40 99 Bi-pap 30 06/02/16 13:00 94 18 96/38 98 Bi-pap 30 06/02/16 12:46 75 25 96 Facial 30 06/02/16 12:00 75 06/02/16 12:00 76 23 109/46 98 Bi-pap 30 06/02/16 11:00 73 18 130/52 97 Bi-pap 30 06/02/16 10:44 71 24 96 Facial 30 06/02/16 10:00 75 20 120/45 97 Bi-pap 30 06/02/16 09:30 30 06/02/16 09:00 4.0 06/02/16 09:00 77 22 151/48 100 Bi-pap 30 06/02/16 08:30 68 27 97 Facial 30 06/02/16 08:00 30 06/02/16 08:00 88 06/02/16 08:00 97.9 67 22 140/41 98 Bi-pap 30 06/02/16 07:02 Bi-pap 30 06/02/16 07:02 98 Bi-pap 30 06/02/16 07:02 89 24 98 Facial 30 06/02/16 07:02 89 24 Bi-pap 30 06/02/16 07:00 70 20 140/59 98 Bi-pap 30 Intake and Output 06/02/16 06/03/16 19:00 07:00 Intake Total 840 ml 340 ml Output Total 1875 ml 1245 ml Balance -1035 ml -905 ml Intake Oral 770 ml 340 ml IV Total 70 ml Output Urine Total 1875 ml 1245 ml # Bowel Movements 8 2 Laboratory Tests 06/02/16 06:20: Prothrombin Time 23.4H, Prothromb Time International Ratio 2.2H 06/02/16 20:20: Sodium Level 144, Potassium Level 3.3L, Chloride Level 94L, Carbon Dioxide Level 39H, Anion Gap 11, Blood Urea Nitrogen 62H, Creatinine 2.2H, Estimat Glomerular Filtration Rate , Glucose Level 295H, Calcium Level 8.8 06/03/16 05:20: Prothrombin Time [Pending], Prothromb Time International Ratio [Pending], Sodium Level [Pending], Potassium Level [Pending], Chloride Level [Pending], Carbon Dioxide Level [Pending], Blood Urea Nitrogen [Pending], Creatinine [ Pending], Estimat Glomerular Filtration Rate [Pending], Glucose Level [Pending] , Calcium Level [Pending], White Blood Count [Pending], Red Blood Count [Pending ], Hemoglobin [Pending], Hematocrit [Pending], Mean Corpuscular Volume [Pending] , Mean Corpuscular Hemoglobin [Pending], Mean Corpuscular Hemoglobin Concent [ Pending], Red Cell Distribution Width [Pending], Platelet Count [Pending], Mean Platelet Volume [Pending], Neutrophils (%) (Auto) [Pending], Lymphocytes (%) ( Auto) [Pending], Monocytes (%) (Auto) [Pending], Eosinophils (%) (Auto) [Pending ], Basophils (%) (Auto) [Pending], Magnesium Level [Pending], Total Bilirubin [ Pending], Aspartate Amino Transf (AST/SGOT) [Pending], Alanine Aminotransferase (ALT/SGPT) [Pending], Alkaline Phosphatase [Pending], Total Protein [Pending], Albumin [Pending], Globulin [Pending] Height (Feet): 5 Height (Inches): 1.00 Weight (Pounds): 150 General Appearance: no apparent distress Neck: normal alignment Cardiovascular: normal rate Respiratory/Chest: decreased breath sounds Abdomen: normal bowel sounds Edema: 1+ Arm (L), 1+ Arm (R), 1+ Leg (L), 1+ Leg (R), 1+ Pedal (L), 1+ Pedal ( R), 1+ Generalized Objective Current Medications Medications (Trade) Dose Ordered Sig/Abril Route PRN Reason Start Time Stop Time Status Last Admin Dose Admin Acetaminophen (Tylenol) 650 mg Q6H PRN ORAL Mild Pain/Temp > 100.5 06/01/16 04:15 07/01/16 04:14 Albuterol/ Ipratropium (DuoNeb 0.5-3(2.5)mg/3ml) 3 ml Q4H PRN HHN Shortness of Breath 06/01/16 00:15 06/06/16 00:14 06/01/16 13:05 Allopurinol (Allopurinol) 300 mg DAILY ORAL 06/02/16 14:00 07/02/16 13:59 06/02/16 14:04 Amiodarone HCl (Cordarone) 200 mg DAILY ORAL 06/01/16 09:00 07/01/16 08:59 06/02/16 09:08 Bisacodyl (Dulcolax) 10 mg DAILYPRN PRN RECTAL Constipation 06/01/16 09:15 07/01/16 09:14 06/01/16 10:18 Dextrose (Dextrose 50%) STAT PRN IV Hypoglycemia 06/01/16 04:15 07/01/16 04:14 Epoetin Fish (Procrit (for non ESRD use)) 5,000 units MON-WED-FRI SUBQ 06/03/16 21:00 07/03/16 20:59 Furosemide (Lasix) 80 mg EVERY 12 HOURS IV 06/02/16 21:00 07/02/16 20:59 06/02/16 21:35 Guaifenesin/ Codeine Phosphate (Robitussin with codeine) 5 ml Q6H PRN ORAL For Cough 06/01/16 04:30 07/01/16 04:29 Insulin Aspart (NovoLOG) BEFORE MEALS AND HS SUBQ 06/01/16 06:30 07/01/16 06:29 06/02/16 21:36 Insulin Detemir (Levemir) 20 units DAILY SUBQ 06/01/16 09:00 07/01/16 08:59 06/02/16 09:17 Lactulose (Cephulac) 30 gm THREE TIMES A DAY ORAL 06/01/16 18:00 07/01/16 17:59 06/02/16 14:03 Methylprednisolone Sodium Succinate (Solu-MEDROL) 40 mg EVERY 12 HOURS IVP 06/03/16 09:00 07/03/16 08:59 Metoclopramide HCl (Reglan) 10 mg Q6H PRN IVP Nausea & Vomiting 06/01/16 12:30 07/01/16 12:29 Metolazone (Zaroxolyn) 5 mg BID@0830,2030 ORAL 06/02/16 20:30 07/02/16 20:29 06/02/16 20:56 Pantoprazole (Protonix) 40 mg DAILY ORAL 06/01/16 09:00 07/01/16 08:59 06/02/16 09:07 Sitagliptin Phosphate (Januvia) 25 mg DAILY ORAL 06/01/16 09:00 07/01/16 08:59 06/02/16 09:08 Warfarin Sodium (Coumadin per pharmacy) 1 ea DAILY PRN MISC Per rx protocol 06/01/16 09:00 07/01/16 08:59 Item Value Date Time Bedside Blood Glucose 263 mg/dl H 06/02/16 2136 Bedside Blood Glucose 259 mg/dl H 06/02/16 1801 Bedside Blood Glucose 345 mg/dl H 06/02/16 1216 Bedside Blood Glucose 170 mg/dl H 06/02/16 0917 Bedside Blood Glucose 170 mg/dl H 06/02/16 0649 SUSHIL RAMIREZ 6, 2017 06:11
[2016-06-03 06:16] LABS: MEAN CORPUSCULAR HEMOGLOBIN 27.7 PG (27.0-31.0); MEAN CORPUSCULAR HGB CONC 30.7 G/DL (32.0-36.0); MEAN CORPUSCULAR VOLUME 90 FL (80-99); MEAN PLATELET VOLUME 8.2 FL (6.5-10.1); PLATELET COUNT 185 K/UL (150-450); RED BLOOD COUNT 3.59 M/UL (4.20-5.40); RED CELL DISTRIBUTION WIDTH 16.7 % (11.6-14.8); WHITE BLOOD COUNT 10.2 K/UL (4.8-10.8)
[2016-06-03 06:23] LABS: PROTHROMBIN TIME 20.5 SEC (9.30-11.50)
[2016-06-03] MEDS: NovoLOG Insulin Flexpen SUBQ SCH ×7 (06:30→20:49)
[2016-06-03 06:51] LABS: ALANINE AMINOTRANSFERASE 453 U/L (3-33); ALBUMIN/GLOBULIN RATIO 0.8 (1.0-2.7); ASPARTATE AMINO TRANSFERASE 428 U/L (5-40); CALCIUM 8.8 mg/dL (8.6-10.2); CHLORIDE 94 mEQ/L (98-107); CREATININE 2.1 mg/dL (0.5-0.9); HEMOLYSIS 8; POTASSIUM 3.3 mEQ/L (3.4-4.9); SODIUM 146 mEQ/L (135-145)
[2016-06-03 06:56] LABS: ANION GAP 12 (5-15); CARBON DIOXIDE 40 mEQ/L (20-30)
[2016-06-03] MEDS: Lactulose 20gm/30ml UDC ORAL SCH ×3 (08:29→17:20)
[2016-06-03] MEDS: Metolazone 5mg tab ORAL SCH ×2 (08:30→20:48)
[2016-06-03] MEDS: sitaGLIPtin 50mg tab ORAL SCH (08:30)
[2016-06-03] MEDS: Amiodarone 200mg tab ORAL SCH (08:30)
[2016-06-03] MEDS: Levemir Flexpen SUBQ SCH (08:35)
[2016-06-03] MEDS ORDERED: Potassium Chloride 40 MEQ in D5W 500ml 500 ML IV ONE (09:00)
[2016-06-03] MEDS ORDERED: Solu-MEDROL 40mg Inj IVP SCH ×2 (09:00→21:00)
[2016-06-03 09:56] LABS: ABG ALLEN TEST POSITIVE; ABG BASE EXCESS 21.5; ABG PCO2 57.3 mmHg (35.0-45.0)
--- NOTE | 2016-06-03 11:07 | Pulmonolgy Critical Care Note ---
Critical Care - Asmt/Plan Problems: (1) Acute respiratory distress (2) CHF (congestive heart failure) (3) Atrial fibrillation (4) Dementia (5) HTN (hypertension) (6) Uncontrolled diabetes mellitus (7) Elevated CEA Respiratory: monitor respiratory rate, adjust FIO2, CXR Cardiac: continue to monitor HR/BP Renal: F/U I&O, keep IV fluid, other - continue lasix 80 BId Infectious Disease: check cultures, continue antibiotics Gastrointestinal: continue feedings/current rate Endocrine: monitor blood sugar, continue sliding scale insulin Hematologic: monitor H/H, transfuse if hgb<8.5 Neurologic: PRN Ativan, keep patient comfortable Affect: PRN ativan Prophylaxis: Protonix Disposition: transfer to Notes 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, 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 with: consultants, 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 - Objective Last 24 Hour Vital Signs Date Time Temp Pulse Resp B/P Pulse Ox O2 Delivery O2 Flow Rate FiO2 06/03/16 10:00 77 24 116/30 99 Nasal Cannula 3.0 06/03/16 09:00 73 21 116/55 99 Nasal Cannula 3.0 06/03/16 08:00 97.4 70 17 99/42 100 Nasal Cannula 3.0 06/03/16 08:00 65 06/03/16 08:00 30 06/03/16 07:30 67 21 94 Facial 30 06/03/16 07:00 67 19 112/34 98 Bi-pap 30 06/03/16 06:00 66 18 118/48 95 Bi-pap 30 06/03/16 05:28 67 22 98 Facial 30 06/03/16 05:00 67 18 118/44 97 Bi-pap 30 06/03/16 04:00 69 06/03/16 04:00 30 06/03/16 04:00 98.1 67 17 127/45 96 Bi-pap 30 06/03/16 03:23 72 18 100 Facial 30 06/03/16 03:00 64 18 97/42 97 Bi-pap 50 06/03/16 02:00 61 18 97/42 100 Bi-pap 50 06/03/16 01:18 64 20 100 Facial 50 06/03/16 01:00 64 18 86/39 100 Bi-pap 50 06/03/16 00:00 98.1 65 18 102/29 100 Bi-pap 50 06/03/16 00:00 70 06/03/16 00:00 30 06/02/16 23:00 69 21 91/45 100 Bi-pap 50 06/02/16 22:37 60 18 100 Facial 50 06/02/16 22:00 65 16 95/33 100 Bi-pap 50 06/02/16 21:30 65 20 100 Facial 50 06/02/16 21:00 98.1 70 21 107/48 100 Bi-pap 50 06/02/16 20:00 73 06/02/16 20:00 72 24 124/72 100 Bi-pap 50 06/02/16 20:00 50 06/02/16 19:30 Bi-pap 06/02/16 19:30 94 Bi-pap 06/02/16 19:30 74 22 94 Facial 50 06/02/16 19:30 Bi-pap 06/02/16 19:00 73 23 120/82 97 Bi-pap 30 06/02/16 18:00 76 20 110/67 97 Bi-pap 30 06/02/16 17:00 78 20 103/33 96 Bi-pap 30 06/02/16 16:47 78 24 96 Facial 30 06/02/16 16:00 78 06/02/16 16:00 30 06/02/16 16:00 78 19 110/69 98 Bi-pap 30 06/02/16 15:00 81 24 97/40 99 Bi-pap 30 06/02/16 14:39 84 29 100 Facial 30 06/02/16 14:00 83 24 90/40 99 Bi-pap 30 06/02/16 13:00 94 18 96/38 98 Bi-pap 30 06/02/16 12:46 75 25 96 Facial 30 06/02/16 12:00 75 06/02/16 12:00 76 23 109/46 98 Bi-pap 30 Status: awake Condition: critical, improving HEENT: normocephalic Lungs: rales, rhonchi Heart: HR/BP stable Abdomen: soft, non-tender, feeding tube Extremities: edema Decubiti: location, stage Accucheck: 184 Critical Care - Subjective ICU Day: 3 Interval Events: off bipap tolerating very well. FI02: 30 Vent Support Breath Rate: 18 Sputum Amount: None I&O: Intake and Output 06/02/16 06/03/16 18:59 06:59 Intake Total 850 ml 340 ml Output Total 1850 ml 1395 ml Balance -1000 ml -1055 ml Intake Oral 770 ml 340 ml IV Total 80 ml Output Urine Total 1850 ml 1395 ml # Bowel Movements 8 2 CXR: less pulmonary edema Labs: Laboratory Tests Test 06/02/16 20:20 06/03/16 05:20 06/03/16 09:45 Sodium Level 144 mEQ/L (135-145) 146 mEQ/L (135-145) H Potassium Level 3.3 mEQ/L (3.4-4.9) L 3.3 mEQ/L (3.4-4.9) L Chloride Level 94 mEQ/L (98-107) L 94 mEQ/L (98-107) L Carbon Dioxide Level 39 mEQ/L (20-30) H 40 mEQ/L (20-30) H Anion Gap 11 (5-15) 12 (5-15) Blood Urea Nitrogen 62 mg/dL (7-23) H 60 mg/dL (7-23) H Creatinine 2.2 mg/dL (0.5-0.9) H 2.1 mg/dL (0.5-0.9) H Estimat Glomerular Filtration Rate mL/min (>60) mL/min (>60) Glucose Level 295 mg/dL (74-106) H 211 mg/dL (74-106) H Calcium Level 8.8 mg/dL (8.6-10.2) 8.8 mg/dL (8.6-10.2) White Blood Count 10.2 K/UL (4.8-10.8) Red Blood Count 3.59 M/UL (4.20-5.40) L Hemoglobin 9.9 G/DL (12.0-16.0) L Hematocrit 32.4 % (37.0-47.0) L Mean Corpuscular Volume 90 FL (80-99) Mean Corpuscular Hemoglobin 27.7 PG (27.0-31.0) Mean Corpuscular Hemoglobin Concent 30.7 G/DL (32.0-36.0) L Red Cell Distribution Width 16.7 % (11.6-14.8) H Platelet Count 185 K/UL (150-450) Mean Platelet Volume 8.2 FL (6.5-10.1) Neutrophils (%) (Auto) % (45.0-75.0) Lymphocytes (%) (Auto) % (20.0-45.0) Monocytes (%) (Auto) % (1.0-10.0) Eosinophils (%) (Auto) % (0.0-3.0) Basophils (%) (Auto) % (0.0-2.0) Prothrombin Time 20.5 SEC (9.30-11.50) H Prothromb Time International Ratio 2.0 (0.9-1.1) H Magnesium Level 1.7 mg/dL (1.7-2.5) Total Bilirubin 0.5 mg/dL (0.0-1.2) Aspartate Amino Transf (AST/SGOT) 428 U/L (5-40) H Alanine Aminotransferase (ALT/SGPT) 453 U/L (3-33) H Alkaline Phosphatase 110 U/L (35-104) H Total Protein 6.0 g/dL (6.6-8.7) L Albumin 2.7 g/dL (3.5-5.2) L Globulin 3.3 g/dL Albumin/Globulin Ratio 0.8 (1.0-2.7) L Arterial Blood pH 7.533 (7.350-7.450) Arterial Blood Partial Pressure CO2 57.3 mmHg (35.0-45.0) *H Arterial Blood Partial Pressure O2 113.4 mmHg (75.0-100.0) H Arterial Blood HCO3 47.1 mmol/L (22.0-26.0) H Arterial Blood Oxygen Saturation 98.3 % (92.0-98.0) H Arterial Blood Base Excess 21.5 Jann Test Positive ILIR WALLACE Jun 03, 2016 11:07
--- NOTE | 2016-06-03 12:12 | Cardiology Report ---
APPROVED REPORT EXAM: Two-dimensional and M-mode echocardiogram with Doppler and color Doppler. INDICATION Atherosclerosis M-Mode DIMENSIONS IVSd0.7 (0.7-1.1cm)Left Atrium (MM)4.0 (1.6-4.0cm) LVDd5.6 (3.5-5.6cm)Aortic Root2.3 (2.0-3.7cm) PWd1.0 (0.7-1.1cm)Aortic Cusp Exc.1.5 (1.5-2.0cm) IVSs0.6 cm LVDs4.8 (2.5-4.0cm) PWs0.9 cm Technically difficult study due to poor acoustic windows. Patient on respirator. Mild left ventricular enlargement. Global left ventricular hypokinesis.Septal dyskinesis. Left ventricular ejection fraction estimated to be 20%. No evidence of left ventricular hypertrophy. No evidence of pericardial fat or effusion. Right cardiac chamber sizes are within normal limits. Large left atrial enlargement by 2D. 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 Mitral annulus and aortic root calcification. Pulmonic valve not well visualized. Normal tricuspid valve structure. IVC is normal in size with minimal physiologic collapse. RA pressure of 10mmHg. A color flow and spectral Doppler study was performed and revealed: No aortic regurgitation. No mitral regurgitation. Mitral P1/2 time of 210 m/s is compatible with a mitral valve area of 3.6cm2 Peak mitral valve diastolic gradient of 14 mmHg and a mean gradient of 8 mmHg Left ventricular diastolic dysfunction grade 1. Moderate tricuspid regurgitation. Tricuspid systolic velocities suggests peak right ventricular systolic pressure of 50 mmHg Consistent with moderate pulmonary hypertension. Pulmonic regurgitation present.
--- NOTE | 2016-06-03 12:28 | Internal Med Progress Note ---
Subjective Date of Service: Jun 03, 2016 Physician Name Brantley,Mateo Attending Physician Emilee Weir Current Medications Medications (Trade) Dose Ordered Sig/Abril Route PRN Reason Start Time Stop Time Status Last Admin Dose Admin Acetaminophen (Tylenol) 650 mg Q6H PRN ORAL Mild Pain/Temp > 100.5 06/01/16 04:15 07/01/16 04:14 Albuterol/ Ipratropium (DuoNeb 0.5-3(2.5)mg/3ml) 3 ml Q4H PRN HHN Shortness of Breath 06/01/16 00:15 06/06/16 00:14 06/01/16 13:05 Allopurinol (Allopurinol) 300 mg DAILY ORAL 06/02/16 14:00 07/02/16 13:59 06/03/16 08:30 Amiodarone HCl (Cordarone) 200 mg DAILY ORAL 06/01/16 09:00 07/01/16 08:59 06/03/16 08:30 Bisacodyl (Dulcolax) 10 mg DAILYPRN PRN RECTAL Constipation 06/01/16 09:15 07/01/16 09:14 06/01/16 10:18 Dextrose (Dextrose 50%) STAT PRN IV Hypoglycemia 06/01/16 04:15 07/01/16 04:14 Dextrose STAT PRN IV Hypoglycemia 06/03/16 06:15 07/03/16 06:14 Epoetin Fish (Procrit (for non ESRD use)) 5,000 units FRI-WED-FRI SUBQ 06/03/16 21:00 07/03/16 20:59 Furosemide (Lasix) 80 mg EVERY 12 HOURS IV 06/02/16 21:00 07/02/16 20:59 06/03/16 09:03 Guaifenesin/ Codeine Phosphate (Robitussin with codeine) 5 ml Q6H PRN ORAL For Cough 06/01/16 04:30 07/01/16 04:29 Insulin Aspart (NovoLOG) BEFORE MEALS AND HS SUBQ 06/01/16 06:30 07/01/16 06:29 06/03/16 11:18 Insulin Aspart (NovoLOG) 5 units NOVOTIAC SUBQ 06/03/16 06:30 07/03/16 06:29 06/03/16 11:18 Insulin Detemir (Levemir) 20 units DAILY SUBQ 06/01/16 09:00 07/01/16 08:59 06/03/16 08:35 Lactulose (Cephulac) 30 gm THREE TIMES A DAY ORAL 06/01/16 18:00 07/01/16 17:59 06/03/16 08:29 Methylprednisolone Sodium Succinate (Solu-MEDROL) 20 mg EVERY 12 HOURS IVP 06/03/16 21:00 07/03/16 20:59 Metoclopramide HCl (Reglan) 10 mg Q6H PRN IVP Nausea & Vomiting 06/01/16 12:30 07/01/16 12:29 Metolazone (Zaroxolyn) 5 mg BID@0830,2030 ORAL 06/02/16 20:30 07/02/16 20:29 06/03/16 08:30 Pantoprazole (Protonix) 40 mg DAILY ORAL 06/01/16 09:00 07/01/16 08:59 06/03/16 08:29 Potassium Chloride/Dextrose (KCl/D5W 500ml) 520 ml @ 130 mls/hr ONCE ONCE IV 06/03/16 09:00 06/03/16 12:59 06/03/16 09:03 Sitagliptin Phosphate (Januvia) 25 mg DAILY ORAL 06/01/16 09:00 07/01/16 08:59 06/03/16 08:30 Warfarin Sodium (Coumadin per pharmacy) 1 ea DAILY PRN MISC Per rx protocol 06/01/16 09:00 07/01/16 08:59 Warfarin Sodium (Coumadin) 4 mg COUMADIN ONCE PO 06/03/16 17:00 06/03/16 17:01 Allergies: Coded Allergies: SPIRONOLACTONE (Unverified Allergy, Intermediate, 05/08/16) ROS Limited/Unobtainable: No Subjective 85 YO F admitted with shortness of breath. ICU. Cover for Int Kho[facility]-Dr Tyler. Now tolerating nasal canula Objective Last Vital Signs Date Time Temp Pulse Resp B/P Pulse Ox O2 Delivery O2 Flow Rate FiO2 06/03/16 12:00 97.1 75 26 117/46 100 Nasal Cannula 30.0 06/03/16 08:03 31 Laboratory Tests Test 06/02/16 20:20 06/03/16 05:20 06/03/16 09:45 Sodium Level 144 mEQ/L (135-145) 146 mEQ/L (135-145) H Potassium Level 3.3 mEQ/L (3.4-4.9) L 3.3 mEQ/L (3.4-4.9) L Chloride Level 94 mEQ/L (98-107) L 94 mEQ/L (98-107) L Carbon Dioxide Level 39 mEQ/L (20-30) H 40 mEQ/L (20-30) H Anion Gap 11 (5-15) 12 (5-15) Blood Urea Nitrogen 62 mg/dL (7-23) H 60 mg/dL (7-23) H Creatinine 2.2 mg/dL (0.5-0.9) H 2.1 mg/dL (0.5-0.9) H Estimat Glomerular Filtration Rate mL/min (>60) mL/min (>60) Glucose Level 295 mg/dL (74-106) H 211 mg/dL (74-106) H Calcium Level 8.8 mg/dL (8.6-10.2) 8.8 mg/dL (8.6-10.2) White Blood Count 10.2 K/UL (4.8-10.8) Red Blood Count 3.59 M/UL (4.20-5.40) L Hemoglobin 9.9 G/DL (12.0-16.0) L Hematocrit 32.4 % (37.0-47.0) L Mean Corpuscular Volume 90 FL (80-99) Mean Corpuscular Hemoglobin 27.7 PG (27.0-31.0) Mean Corpuscular Hemoglobin Concent 30.7 G/DL (32.0-36.0) L Red Cell Distribution Width 16.7 % (11.6-14.8) H Platelet Count 185 K/UL (150-450) Mean Platelet Volume 8.2 FL (6.5-10.1) Neutrophils (%) (Auto) % (45.0-75.0) Lymphocytes (%) (Auto) % (20.0-45.0) Monocytes (%) (Auto) % (1.0-10.0) Eosinophils (%) (Auto) % (0.0-3.0) Basophils (%) (Auto) % (0.0-2.0) Prothrombin Time 20.5 SEC (9.30-11.50) H Prothromb Time International Ratio 2.0 (0.9-1.1) H Magnesium Level 1.7 mg/dL (1.7-2.5) Total Bilirubin 0.5 mg/dL (0.0-1.2) Aspartate Amino Transf (AST/SGOT) 428 U/L (5-40) H Alanine Aminotransferase (ALT/SGPT) 453 U/L (3-33) H Alkaline Phosphatase 110 U/L (35-104) H Total Protein 6.0 g/dL (6.6-8.7) L Albumin 2.7 g/dL (3.5-5.2) L Globulin 3.3 g/dL Albumin/Globulin Ratio 0.8 (1.0-2.7) L Arterial Blood pH 7.533 (7.350-7.450) Arterial Blood Partial Pressure CO2 57.3 mmHg (35.0-45.0) *H Arterial Blood Partial Pressure O2 113.4 mmHg (75.0-100.0) H Arterial Blood HCO3 47.1 mmol/L (22.0-26.0) H Arterial Blood Oxygen Saturation 98.3 % (92.0-98.0) H Arterial Blood Base Excess 21.5 Jann Test Positive Intake and Output 06/02/16 06/03/16 19:00 07:00 Intake Total 840 ml 340 ml Output Total 1875 ml 1325 ml Balance -1035 ml -985 ml Intake Oral 770 ml 340 ml IV Total 70 ml Output Urine Total 1875 ml 1325 ml # Bowel Movements 8 2 Objective General Appearance: WD/WN, alert, moderate distress EENT: PERRL/EOMI, normal ENT inspection, TMs normal Neck: non-tender, normal alignment, supple, normal inspection Cardiovascular: normal peripheral pulses, normal rate, regular rhythm, no gallop/murmur, no JVD Respiratory/Chest: Nasal canula; chest wall non-tender, respiratory distress, crackles/rales, rhonchi - bilaterally Abdomen: normal bowel sounds, non tender, soft, no organomegaly, no mass Extremities: normal range of motion Edema: moderate edema 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 LVEF 30-35%. See cardiology Note.. Cont lasix and metolazone. (4) Acute respiratory distress Assessment & Plan: Tolerating nasal canula-see pulmonary note. (5) COPD (chronic obstructive pulmonary disease) (6) Uncontrolled diabetes mellitus Assessment & Plan: See endocrinology note. Cont januvia, levemir and humolog sliding scale. (7) Atrial fibrillation Assessment & Plan: Cont amiodarone and coumadin. Await cardiology consult. (8) Respiratory failure Assessment & Plan: Cont ICU status; continue nasal canula per pulmonary Status: progressing MATEO BRANTLEY Jun 03, 2016 12:28
--- NOTE | 2016-06-03 12:34 | Diagnostic Imaging Report ---
Indication: Dyspnea Comparison: 06/02/16 A single view chest radiograph was obtained. Findings: Pulmonary vascularity and interstitial edema appears slightly improved since the last study. There is evidence of a right pleural effusion. Cardiomegaly is again noted. Impression: Moderate CHF with some improvement from the prior day
--- NOTE | 2016-06-03 13:21 | General Progress Note ---
Assessment/Plan Status: doing well - from respiratory stand, stable - from renal stand Status Narrative Cr 2.1 Assessment/Plan status; - Renal failure : mainly Chronic , superimposed acute serum Cr rising ! now stablized - HyperKalemia, now resolved Other : - Acute respiratory distress - Acute on chronic diastolic CHF (congestive heart failure)- low Ej Fx - LBBB (left bundle branch block) - Severe anemia - Patient is Jain - Dementia - COPD (chronic obstructive pulmonary disease) Plan: Monitor renal parameters- Optimize cardiac and pulmonary status- Kidney MISSY- no hydro- cortical thinning-normal size- ( previous admit) Urine eosinophils- Negative 2D Echo 30% Ej Fx Per orders epo , folate, Iron Protonix Subjective ROS Limited/Unobtainable: No Constitutional: Reports: malaise, weakness Allergies: Coded Allergies: SPIRONOLACTONE (Unverified Allergy, Intermediate, 05/08/16) Objective Last 24 Hour Vital Signs Date Time Temp Pulse Resp B/P Pulse Ox O2 Delivery O2 Flow Rate FiO2 06/03/16 13:00 75 23 109/45 100 Nasal Cannula 3.0 06/03/16 12:00 97.1 75 26 117/46 100 Nasal Cannula 3.0 06/03/16 12:00 75 06/03/16 11:00 80 24 134/52 99 Nasal Cannula 3.0 06/03/16 10:00 77 24 116/30 99 Nasal Cannula 3.0 06/03/16 09:00 73 21 116/55 99 Nasal Cannula 3.0 06/03/16 08:03 Nasal Cannula 3.0 31 06/03/16 08:00 97.4 70 17 99/42 100 Nasal Cannula 3.0 06/03/16 08:00 65 06/03/16 08:00 100 Nasal Cannula 3.0 31 06/03/16 08:00 30 06/03/16 07:30 67 21 94 Facial 30 06/03/16 07:00 67 19 112/34 98 Bi-pap 30 06/03/16 06:00 66 18 118/48 95 Bi-pap 30 06/03/16 05:28 67 22 98 Facial 30 06/03/16 05:00 67 18 118/44 97 Bi-pap 30 06/03/16 04:00 69 06/03/16 04:00 30 06/03/16 04:00 98.1 67 17 127/45 96 Bi-pap 30 06/03/16 03:23 72 18 100 Facial 30 06/03/16 03:00 64 18 97/42 97 Bi-pap 50 06/03/16 02:00 61 18 97/42 100 Bi-pap 50 06/03/16 01:18 64 20 100 Facial 50 06/03/16 01:00 64 18 86/39 100 Bi-pap 50 06/03/16 00:00 98.1 65 18 102/29 100 Bi-pap 50 06/03/16 00:00 70 06/03/16 00:00 30 06/02/16 23:00 69 21 91/45 100 Bi-pap 50 06/02/16 22:37 60 18 100 Facial 50 06/02/16 22:00 65 16 95/33 100 Bi-pap 50 06/02/16 21:30 65 20 100 Facial 50 06/02/16 21:00 98.1 70 21 107/48 100 Bi-pap 50 06/02/16 20:00 73 06/02/16 20:00 72 24 124/72 100 Bi-pap 50 06/02/16 20:00 50 06/02/16 19:30 Bi-pap 06/02/16 19:30 94 Bi-pap 06/02/16 19:30 74 22 94 Facial 50 06/02/16 19:30 Bi-pap 06/02/16 19:00 73 23 120/82 97 Bi-pap 30 06/02/16 18:00 76 20 110/67 97 Bi-pap 30 06/02/16 17:00 78 20 103/33 96 Bi-pap 30 06/02/16 16:47 78 24 96 Facial 30 06/02/16 16:00 78 06/02/16 16:00 30 06/02/16 16:00 78 19 110/69 98 Bi-pap 30 06/02/16 15:00 81 24 97/40 99 Bi-pap 30 06/02/16 14:39 84 29 100 Facial 30 06/02/16 14:00 83 24 90/40 99 Bi-pap 30 Intake and Output 06/02/16 06/03/16 19:00 07:00 Intake Total 840 ml 340 ml Output Total 1875 ml 1325 ml Balance -1035 ml -985 ml Intake Oral 770 ml 340 ml IV Total 70 ml Output Urine Total 1875 ml 1325 ml # Bowel Movements 8 2 Laboratory Tests 06/02/16 20:20: Sodium Level 144, Potassium Level 3.3L, Chloride Level 94L, Carbon Dioxide Level 39H, Anion Gap 11, Blood Urea Nitrogen 62H, Creatinine 2.2H, Estimat Glomerular Filtration Rate , Glucose Level 295H, Calcium Level 8.8 06/03/16 05:20: Sodium Level 146H, Potassium Level 3.3L, Chloride Level 94L, Carbon Dioxide Level 40H, Anion Gap 12, Blood Urea Nitrogen 60H, Creatinine 2.1H, Estimat Glomerular Filtration Rate , Glucose Level 211H, Calcium Level 8.8, White Blood Count 10.2, Red Blood Count 3.59L, Hemoglobin 9.9L, Hematocrit 32.4L, Mean Corpuscular Volume 90, Mean Corpuscular Hemoglobin 27.7, Mean Corpuscular Hemoglobin Concent 30.7L, Red Cell Distribution Width 16.7H, Platelet Count 185 , Mean Platelet Volume 8.2, Neutrophils (%) (Auto) , Lymphocytes (%) (Auto) , Monocytes (%) (Auto) , Eosinophils (%) (Auto) , Basophils (%) (Auto) , Prothrombin Time 20.5H, Prothromb Time International Ratio 2.0H, Magnesium Level 1.7, Total Bilirubin 0.5, Aspartate Amino Transf (AST/SGOT) 428H, Alanine Aminotransferase (ALT/SGPT) 453H, Alkaline Phosphatase 110H, Total Protein 6.0L , Albumin 2.7L, Globulin 3.3, Albumin/Globulin Ratio 0.8L 06/03/16 09:45: Arterial Blood pH 7.533H, Arterial Blood Partial Pressure CO2 57.3*H, Arterial Blood Partial Pressure O2 113.4H, Arterial Blood HCO3 47.1H, Arterial Blood Oxygen Saturation 98.3H, Arterial Blood Base Excess 21.5, Jann Test Positive Height (Feet): 5 Height (Inches): 1.00 Weight (Pounds): 148 General Appearance: other - off bipap Cardiovascular: normal rate Respiratory/Chest: decreased breath sounds Abdomen: soft Objective other PE not changed GILLES CUELLAR Jun 03, 2016 13:21
[2016-06-03] MEDS ORDERED: Metoclopramide 10mg/2ml Inj IVP PRN (16:00)
[2016-06-03] MEDS ORDERED: DuoNeb 0.5-3(2.5)mg/3ml neb HHN PRN (16:15)
[2016-06-03] MEDS ORDERED: Acetaminophen 650mg/20.3ml ORAL PRN (16:15)
[2016-06-03] MEDS ORDERED: guaiFENesin w/Codeine 5ml Liq ud ORAL PRN (16:30)
[2016-06-03] MEDS ORDERED: Warfarin Sodium 4mg PO ONE ×2 (17:00)
--- NOTE | 2016-06-03 20:31 | Cardiology Progress Note ---
Assessment/Plan Assessment/Plan Bronchospam porbable cardiac asthma acute on chf chronic anemia renal failure cm chronci LBBB iron deff coagulopathy hs off dvt s/p ivc filter cad s/p cabg twice MVR bioprosthetic hx of thromboembolic complication previously off anticoagulation jahovah witness pulsatile visible vessel in stomach in 05/2016 start po bumex if not orthostatic in am contienu zoroxolyn on anticoag cr seem better oob Subjective Cardiovascular: Denies: lightheadedness, palpitations Genitourinary: Denies: burning Objective Last 24 Hour Vital Signs Date Time Temp Pulse Resp B/P Pulse Ox O2 Delivery O2 Flow Rate FiO2 06/03/16 20:15 96 Nasal Cannula 3.0 32 06/03/16 20:15 Nasal Cannula 3.0 32 06/03/16 20:15 66 18 Nasal Cannula 3.0 32 06/03/16 20:00 98.2 65 20 113/42 95 Nasal Cannula 3.0 06/03/16 16:00 97.6 74 21 74/ 99 Nasal Cannula 3.0 06/03/16 14:00 69 24 92/59 100 Nasal Cannula 3.0 06/03/16 13:00 75 23 109/45 100 Nasal Cannula 3.0 06/03/16 12:00 97.1 75 26 117/46 100 Nasal Cannula 3.0 06/03/16 12:00 75 06/03/16 11:00 80 24 134/52 99 Nasal Cannula 3.0 06/03/16 10:00 77 24 116/30 99 Nasal Cannula 3.0 06/03/16 09:00 73 21 116/55 99 Nasal Cannula 3.0 06/03/16 08:03 Nasal Cannula 3.0 31 06/03/16 08:00 97.4 70 17 99/42 100 Nasal Cannula 3.0 06/03/16 08:00 65 06/03/16 08:00 100 Nasal Cannula 3.0 31 06/03/16 08:00 30 06/03/16 07:30 67 21 94 Facial 30 06/03/16 07:00 67 19 112/34 98 Bi-pap 30 06/03/16 06:00 66 18 118/48 95 Bi-pap 30 06/03/16 05:28 67 22 98 Facial 30 06/03/16 05:00 67 18 118/44 97 Bi-pap 30 06/03/16 04:00 69 06/03/16 04:00 30 06/03/16 04:00 98.1 67 17 127/45 96 Bi-pap 30 06/03/16 03:23 72 18 100 Facial 30 06/03/16 03:00 64 18 97/42 97 Bi-pap 50 06/03/16 02:00 61 18 97/42 100 Bi-pap 50 06/03/16 01:18 64 20 100 Facial 50 06/03/16 01:00 64 18 86/39 100 Bi-pap 50 06/03/16 00:00 98.1 65 18 102/29 100 Bi-pap 50 06/03/16 00:00 70 06/03/16 00:00 30 06/02/16 23:00 69 21 91/45 100 Bi-pap 50 06/02/16 22:37 60 18 100 Facial 50 06/02/16 22:00 65 16 95/33 100 Bi-pap 50 06/02/16 21:30 65 20 100 Facial 50 06/02/16 21:00 98.1 70 21 107/48 100 Bi-pap 50 General Appearance: no apparent distress, alert Cardiovascular: normal rate, regular rhythm Respiratory/Chest: lungs clear, normal breath sounds Abdomen: normal bowel sounds, non tender, soft Extremities: no swelling Intake and Output 06/02/16 06/03/16 19:00 07:00 Intake Total 840 ml 340 ml Output Total 1875 ml 1325 ml Balance -1035 ml -985 ml Intake Oral 770 ml 340 ml IV Total 70 ml Output Urine Total 1875 ml 1325 ml # Bowel Movements 8 2 Laboratory Tests Test 06/03/16 05:20 06/03/16 09:45 White Blood Count 10.2 K/UL (4.8-10.8) Red Blood Count 3.59 M/UL (4.20-5.40) L Hemoglobin 9.9 G/DL (12.0-16.0) L Hematocrit 32.4 % (37.0-47.0) L Mean Corpuscular Volume 90 FL (80-99) Mean Corpuscular Hemoglobin 27.7 PG (27.0-31.0) Mean Corpuscular Hemoglobin Concent 30.7 G/DL (32.0-36.0) L Red Cell Distribution Width 16.7 % (11.6-14.8) H Platelet Count 185 K/UL (150-450) Mean Platelet Volume 8.2 FL (6.5-10.1) Neutrophils (%) (Auto) % (45.0-75.0) Lymphocytes (%) (Auto) % (20.0-45.0) Monocytes (%) (Auto) % (1.0-10.0) Eosinophils (%) (Auto) % (0.0-3.0) Basophils (%) (Auto) % (0.0-2.0) Prothrombin Time 20.5 SEC (9.30-11.50) H Prothromb Time International Ratio 2.0 (0.9-1.1) H Sodium Level 146 mEQ/L (135-145) H Potassium Level 3.3 mEQ/L (3.4-4.9) L Chloride Level 94 mEQ/L (98-107) L Carbon Dioxide Level 40 mEQ/L (20-30) H Anion Gap 12 (5-15) Blood Urea Nitrogen 60 mg/dL (7-23) H Creatinine 2.1 mg/dL (0.5-0.9) H Estimat Glomerular Filtration Rate mL/min (>60) Glucose Level 211 mg/dL (74-106) H Calcium Level 8.8 mg/dL (8.6-10.2) Magnesium Level 1.7 mg/dL (1.7-2.5) Total Bilirubin 0.5 mg/dL (0.0-1.2) Aspartate Amino Transf (AST/SGOT) 428 U/L (5-40) H Alanine Aminotransferase (ALT/SGPT) 453 U/L (3-33) H Alkaline Phosphatase 110 U/L (35-104) H Total Protein 6.0 g/dL (6.6-8.7) L Albumin 2.7 g/dL (3.5-5.2) L Globulin 3.3 g/dL Albumin/Globulin Ratio 0.8 (1.0-2.7) L Arterial Blood pH 7.533 (7.350-7.450) Arterial Blood Partial Pressure CO2 57.3 mmHg (35.0-45.0) *H Arterial Blood Partial Pressure O2 113.4 mmHg (75.0-100.0) H Arterial Blood HCO3 47.1 mmol/L (22.0-26.0) H Arterial Blood Oxygen Saturation 98.3 % (92.0-98.0) H Arterial Blood Base Excess 21.5 Jann Test Positive GUILLE MEDINA Jun 03, 2016 20:31
[2016-06-03] MEDS: Solu-MEDROL 40mg Inj IVP SCH (20:48)
[2016-06-03] MEDS ORDERED: Epogen (for non ESRD use) SUBQ SCH ×2 (21:00)
[2016-06-04 00:26] VITALS: BP 126/46
[2016-06-04 04:20] VITALS: BP 133/54
[2016-06-04] MEDS: NovoLOG Insulin Flexpen SUBQ SCH ×7 (06:09→21:36)
--- NOTE | 2016-06-04 06:25 | General Progress Note ---
Assessment/Plan Problem List: (1) COPD (chronic obstructive pulmonary disease) ICD Codes: J44.9 - Chronic obstructive pulmonary disease, unspecified SNOMED: 75828673 (2) Dementia ICD Codes: F03.90 - Unspecified dementia without behavioral disturbance SNOMED: 09772913 (3) CHF (congestive heart failure) ICD Codes: I50.9 - Heart failure, unspecified SNOMED: 86646994 (4) ATN (acute tubular necrosis) ICD Codes: N17.0 - Acute kidney failure with tubular necrosis SNOMED: 93775849 (5) Acute respiratory distress ICD Codes: R06.00 - Dyspnea, unspecified SNOMED: 131977463 (6) Uncontrolled diabetes mellitus ICD Codes: E11.65 - Type 2 diabetes mellitus with hyperglycemia SNOMED: 226267381 Assessment/Plan glycemic control is exacerbated by IVSM - dosage reduced to 20 mg every 12 hours continue Levemir 20 units daily + Januvia 25 mg daily + SSI continue Novolog 5 units ac tid Subjective ROS Limited/Unobtainable: Yes Allergies: Coded Allergies: SPIRONOLACTONE (Unverified Allergy, Intermediate, 05/08/16) Subjective events noted transferred out of icu Objective Last 24 Hour Vital Signs Date Time Temp Pulse Resp B/P Pulse Ox O2 Delivery O2 Flow Rate FiO2 06/04/16 04:20 97.0 56 20 133/54 99 Nasal Cannula 2.0 06/04/16 04:00 62 06/04/16 00:26 97.7 64 20 126/46 96 Nasal Cannula 2.0 06/04/16 00:00 67 06/03/16 20:15 96 Nasal Cannula 3.0 32 06/03/16 20:15 Nasal Cannula 3.0 32 06/03/16 20:15 66 18 Nasal Cannula 3.0 32 06/03/16 20:00 98.2 65 20 113/42 95 Nasal Cannula 3.0 06/03/16 20:00 65 06/03/16 16:00 71 06/03/16 16:00 97.6 74 21 74/ 99 Nasal Cannula 3.0 06/03/16 14:00 69 24 92/59 100 Nasal Cannula 3.0 06/03/16 13:00 75 23 109/45 100 Nasal Cannula 3.0 06/03/16 12:00 97.1 75 26 117/46 100 Nasal Cannula 3.0 06/03/16 12:00 75 06/03/16 11:00 80 24 134/52 99 Nasal Cannula 3.0 06/03/16 10:00 77 24 116/30 99 Nasal Cannula 3.0 06/03/16 09:00 73 21 116/55 99 Nasal Cannula 3.0 06/03/16 08:03 Nasal Cannula 3.0 31 06/03/16 08:00 97.4 70 17 99/42 100 Nasal Cannula 3.0 06/03/16 08:00 65 06/03/16 08:00 100 Nasal Cannula 3.0 31 06/03/16 08:00 30 06/03/16 07:30 67 21 94 Facial 30 06/03/16 07:00 67 19 112/34 98 Bi-pap 30 Intake and Output 06/03/16 06/04/16 19:00 07:00 Intake Total 1100 ml Output Total 1550 ml 500 ml Balance -450 ml -500 ml Intake Oral 580 ml IV Total 520 ml Output Urine Total 1550 ml 500 ml Laboratory Tests 06/03/16 09:45: Arterial Blood pH 7.533H, Arterial Blood Partial Pressure CO2 57.3*H, Arterial Blood Partial Pressure O2 113.4H, Arterial Blood HCO3 47.1H, Arterial Blood Oxygen Saturation 98.3H, Arterial Blood Base Excess 21.5, Jann Test Positive Height (Feet): 5 Height (Inches): 1.00 Weight (Pounds): 148 General Appearance: no apparent distress Neck: normal alignment Cardiovascular: normal rate Respiratory/Chest: decreased breath sounds Abdomen: normal bowel sounds Pelvis: normal external exam Edema: no edema noted Arm (L), no edema noted Arm (R), no edema noted Leg (L), no edema noted Leg (R), no edema noted Pedal (L), no edema noted Pedal (R), no edema noted Generalized Objective Current Medications Medications (Trade) Dose Ordered Sig/Abril Route PRN Reason Start Time Stop Time Status Last Admin Dose Admin Acetaminophen (Tylenol) 650 mg Q6H PRN ORAL Mild Pain/Temp > 100.5 06/03/16 16:15 07/03/16 16:14 Albuterol/ Ipratropium (DuoNeb 0.5-3(2.5)mg/3ml) 3 ml Q4H PRN HHN Shortness of Breath 06/03/16 16:15 06/08/16 16:14 Allopurinol (Allopurinol) 300 mg DAILY ORAL 06/04/16 09:00 07/04/16 08:59 Amiodarone HCl (Cordarone) 200 mg DAILY ORAL 06/04/16 09:00 07/04/16 08:59 Bisacodyl (Dulcolax) 10 mg DAILYPRN PRN RECTAL Constipation 06/03/16 16:00 07/03/16 15:59 Dextrose (Dextrose 50%) STAT PRN IV Hypoglycemia 06/03/16 16:00 07/03/16 15:59 Epoetin Fish (Procrit (for non ESRD use)) 5,000 units FRI-FRI-FRI SUBQ 06/03/16 21:00 07/03/16 20:59 06/03/16 21:43 Furosemide (Lasix) 80 mg EVERY 12 HOURS IV 06/03/16 21:00 07/03/16 20:59 06/03/16 20:58 Guaifenesin/ Codeine Phosphate (Robitussin with codeine) 5 ml Q6H PRN ORAL For Cough 06/03/16 16:30 07/03/16 16:29 Insulin Aspart (NovoLOG) BEFORE MEALS AND HS SUBQ 06/03/16 16:30 07/03/16 16:29 06/04/16 06:09 Insulin Aspart (NovoLOG) 5 units NOVOTIAC SUBQ 06/03/16 16:50 07/03/16 16:49 06/03/16 16:02 Insulin Detemir (Levemir) 20 units DAILY SUBQ 06/04/16 09:00 07/04/16 08:59 Lactulose (Cephulac) 30 gm THREE TIMES A DAY ORAL 06/03/16 18:00 07/03/16 17:59 Methylprednisolone Sodium Succinate (Solu-MEDROL) 20 mg EVERY 12 HOURS IVP 06/03/16 21:00 07/03/16 20:59 06/03/16 20:48 Metoclopramide HCl (Reglan) 5 mg Q6H PRN IVP Nausea & Vomiting 06/03/16 16:00 07/03/16 15:59 Metolazone (Zaroxolyn) 5 mg BID@0830,2030 ORAL 06/03/16 20:30 07/03/16 20:29 06/03/16 20:48 Pantoprazole (Protonix) 40 mg DAILY ORAL 06/04/16 09:00 07/04/16 08:59 Sitagliptin Phosphate (Januvia) 25 mg DAILY ORAL 06/04/16 09:00 07/04/16 08:59 Warfarin Sodium (Coumadin per pharmacy) 1 ea DAILY PRN MISC Per rx protocol 06/04/16 09:00 07/04/16 08:59 Item Value Date Time Bedside Blood Glucose 141 mg/dl H 06/04/16 0609 Bedside Blood Glucose 122 mg/dl H 06/03/16 2049 Bedside Blood Glucose 199 mg/dl H 06/03/16 1630 Bedside Blood Glucose 307 mg/dl H 06/03/16 1130 Bedside Blood Glucose 184 mg/dl H 06/03/16 0840 Bedside Blood Glucose 209 mg/dl H 06/03/16 0649 SUSHIL RAMIREZ 7, 2017 06:25
[2016-06-04 08:08] VITALS: BP 124/58
[2016-06-04 08:23] LABS: MEAN CORPUSCULAR HEMOGLOBIN 27.4 PG (27.0-31.0); MEAN CORPUSCULAR HGB CONC 30.5 G/DL (32.0-36.0); MEAN CORPUSCULAR VOLUME 90 FL (80-99); MEAN PLATELET VOLUME 7.6 FL (6.5-10.1); PLATELET COUNT 205 K/UL (150-450); RED BLOOD COUNT 3.83 M/UL (4.20-5.40); RED CELL DISTRIBUTION WIDTH 16.6 % (11.6-14.8); WHITE BLOOD COUNT 9.6 K/UL (4.8-10.8)
[2016-06-04 08:30] LABS: INR 1.9 (0.9-1.1); PROTHROMBIN TIME 19.5 SEC (9.30-11.50)
[2016-06-04] MEDS: Metolazone 5mg tab ORAL SCH ×2 (08:44→21:30)
[2016-06-04 08:52] LABS: ALANINE AMINOTRANSFERASE 322 U/L (3-33); ALBUMIN/GLOBULIN RATIO 0.9 (1.0-2.7); ASPARTATE AMINO TRANSFERASE 178 U/L (5-40); CALCIUM 9.5 mg/dL (8.6-10.2); CHLORIDE 91 mEQ/L (98-107); CREATININE 2.2 mg/dL (0.5-0.9); HEMOLYSIS 3; POTASSIUM 3.4 mEQ/L (3.4-4.9); SODIUM 144 mEQ/L (135-145); TOTAL PROTEIN 6.4 g/dL (6.6-8.7)
[2016-06-04 08:57] LABS: ANION GAP 11 (5-15)
[2016-06-04 09:15] LABS: CARBON DIOXIDE 42 mEQ/L (20-30)
[2016-06-04] MEDS: sitaGLIPtin 50mg tab ORAL SCH (09:20)
[2016-06-04] MEDS: Lactulose 20gm/30ml UDC ORAL SCH ×3 (09:20→18:42)
[2016-06-04] MEDS: Solu-MEDROL 40mg Inj IVP SCH ×2 (09:20→21:31)
[2016-06-04] MEDS: Amiodarone 200mg tab ORAL SCH (09:21)
[2016-06-04] MEDS: Levemir Flexpen SUBQ SCH (09:31)
[2016-06-04 10:49] LABS: BAND NEUTROPHILS % (MANUAL) 1 % (0-8); BASOPHILS % (MANUAL) 0 % (0-2); EOSINOPHILS % (MANUAL) 0 % (0-3); LYMPHOCYTES % (MANUAL) 6 % (20-45); NEUTROPHILS % (MANUAL) 91 % (45-75); PLATELET ESTIMATE ADEQUATE; PLATELET MORPHOLOGY NORMAL; TOTAL CELLS COUNTED 100
[2016-06-04 10:50] LABS: ANISOCYTOSIS 1+
[2016-06-04 10:55] LABS: HYPOCHROMASIA 1+
--- NOTE | 2016-06-04 11:07 | Cardiology Progress Note ---
Assessment/Plan Assessment/Plan Bronchospam porbable cardiac asthma acute on chf chronic anemia renal failure cm chronci LBBB iron deff coagulopathy hs off dvt s/p ivc filter cad s/p cabg twice MVR bioprosthetic hx of thromboembolic complication previously off anticoagulation jahovah witness pulsatile visible vessel in stomach in 05/2016 seem alkalotic may need to hold lasix and give 2 dose of diamox until bicarb less than 40 on zoroxolyn on anticoag cr seem stable oob Subjective Cardiovascular: Denies: chest pain, lightheadedness Respiratory: Reports: shortness of breath - better Gastrointestinal/Abdominal: Denies: abdominal pain Genitourinary: Denies: burning Objective Last 24 Hour Vital Signs Date Time Temp Pulse Resp B/P Pulse Ox O2 Delivery O2 Flow Rate FiO2 06/04/16 08:08 96.8 73 20 124/58 93 Nasal Cannula 3.0 06/04/16 07:43 70 18 Nasal Cannula 3.0 32 06/04/16 07:43 Nasal Cannula 3.0 32 06/04/16 07:43 98 Nasal Cannula 3.0 32 06/04/16 04:20 97.0 56 20 133/54 99 Nasal Cannula 2.0 06/04/16 04:00 62 06/04/16 04:00 56 66 06/04/16 00:26 97.7 64 20 126/46 96 Nasal Cannula 2.0 06/04/16 00:00 67 06/03/16 20:15 96 Nasal Cannula 3.0 32 06/03/16 20:15 Nasal Cannula 3.0 32 06/03/16 20:15 66 18 Nasal Cannula 3.0 32 06/03/16 20:00 98.2 65 20 113/42 95 Nasal Cannula 3.0 06/03/16 20:00 65 06/03/16 16:00 71 06/03/16 16:00 97.6 74 21 74/ 99 Nasal Cannula 3.0 06/03/16 14:00 69 24 92/59 100 Nasal Cannula 3.0 06/03/16 13:00 75 23 109/45 100 Nasal Cannula 3.0 06/03/16 12:00 97.1 75 26 117/46 100 Nasal Cannula 3.0 06/03/16 12:00 75 General Appearance: no apparent distress Neck: supple Cardiovascular: irregularly irregular Respiratory/Chest: crackles/rales, rhonchi - bilaterally Abdomen: normal bowel sounds, non tender, soft Extremities: no swelling Intake and Output 06/03/16 06/04/16 19:00 07:00 Intake Total 1100 ml Output Total 1550 ml 1500 ml Balance -450 ml -1500 ml Intake Oral 580 ml IV Total 520 ml Output Urine Total 1550 ml 1500 ml Laboratory Tests Test 06/04/16 06:59 White Blood Count 9.6 K/UL (4.8-10.8) Red Blood Count 3.83 M/UL (4.20-5.40) L Hemoglobin 10.5 G/DL (12.0-16.0) L Hematocrit 34.4 % (37.0-47.0) L Mean Corpuscular Volume 90 FL (80-99) Mean Corpuscular Hemoglobin 27.4 PG (27.0-31.0) Mean Corpuscular Hemoglobin Concent 30.5 G/DL (32.0-36.0) L Red Cell Distribution Width 16.6 % (11.6-14.8) H Platelet Count 205 K/UL (150-450) Mean Platelet Volume 7.6 FL (6.5-10.1) Neutrophils (%) (Auto) % (45.0-75.0) Lymphocytes (%) (Auto) % (20.0-45.0) Monocytes (%) (Auto) % (1.0-10.0) Eosinophils (%) (Auto) % (0.0-3.0) Basophils (%) (Auto) % (0.0-2.0) Differential Total Cells Counted 100 Neutrophils % (Manual) 91 % (45-75) H Lymphocytes % (Manual) 6 % (20-45) L Monocytes % (Manual) 2 % (1-10) Eosinophils % (Manual) 0 % (0-3) Basophils % (Manual) 0 % (0-2) Band Neutrophils 1 % (0-8) Platelet Estimate Adequate Platelet Morphology Normal Hypochromasia 1+ Anisocytosis 1+ Prothrombin Time 19.5 SEC (9.30-11.50) H Prothromb Time International Ratio 1.9 (0.9-1.1) H Sodium Level 144 mEQ/L (135-145) Potassium Level 3.4 mEQ/L (3.4-4.9) Chloride Level 91 mEQ/L (98-107) L Carbon Dioxide Level 42 mEQ/L (20-30) *H Anion Gap 11 (5-15) Blood Urea Nitrogen 72 mg/dL (7-23) H Creatinine 2.2 mg/dL (0.5-0.9) H Estimat Glomerular Filtration Rate mL/min (>60) Glucose Level 142 mg/dL (74-106) H Calcium Level 9.5 mg/dL (8.6-10.2) Total Bilirubin 0.5 mg/dL (0.0-1.2) Aspartate Amino Transf (AST/SGOT) 178 U/L (5-40) H Alanine Aminotransferase (ALT/SGPT) 322 U/L (3-33) H Alkaline Phosphatase 109 U/L (35-104) H Total Protein 6.4 g/dL (6.6-8.7) L Albumin 3.1 g/dL (3.5-5.2) L Globulin 3.3 g/dL Albumin/Globulin Ratio 0.9 (1.0-2.7) L GUILLE MEDINA Jun 04, 2016 11:07
--- NOTE | 2016-06-04 11:19 | Diagnostic Imaging Report ---
Indication: DYSPNEA Technique: One view of the chest Comparison: 06/03/2016 Findings: Interim further improvement of previously demonstrated interstitial congestion, although interstitial congestion persists. Bilateral pleural effusions persists. The heart remains enlarged. Prior CABG again noted. Impression: Slightly improved but persistent interstitial congestive changes, over one day Persistent bilateral pleural effusions
--- NOTE | 2016-06-04 11:19 | General Progress Note ---
Assessment/Plan Status: stable - serum Cr at 2.2 Status Narrative retaining Co2 Assessment/Plan status; - Renal failure : mainly Chronic , superimposed acute serum Cr rising ! now stablized - HyperKalemia, now resolved Other : - Acute respiratory distress - Acute on chronic diastolic CHF (congestive heart failure)- low Ej Fx - LBBB (left bundle branch block) - Severe anemia - Patient is Yarsanism - Dementia - COPD (chronic obstructive pulmonary disease) Plan: Monitor renal parameters- check UA today K Supplement Optimize cardiac and pulmonary status- Kidney MISSY- no hydro- cortical thinning-normal size- ( previous admit) Urine eosinophils- Negative 2D Echo 30% Ej Fx Per orders epo , folate, Iron Protonix Subjective ROS Limited/Unobtainable: No Constitutional: Reports: malaise, weakness Allergies: Coded Allergies: SPIRONOLACTONE (Unverified Allergy, Intermediate, 05/08/16) Objective Last 24 Hour Vital Signs Date Time Temp Pulse Resp B/P Pulse Ox O2 Delivery O2 Flow Rate FiO2 06/04/16 08:08 96.8 73 20 124/58 93 Nasal Cannula 3.0 06/04/16 07:43 70 18 Nasal Cannula 3.0 32 06/04/16 07:43 Nasal Cannula 3.0 32 06/04/16 07:43 98 Nasal Cannula 3.0 32 06/04/16 04:20 97.0 56 20 133/54 99 Nasal Cannula 2.0 06/04/16 04:00 62 06/04/16 04:00 56 66 06/04/16 00:26 97.7 64 20 126/46 96 Nasal Cannula 2.0 06/04/16 00:00 67 06/03/16 20:15 96 Nasal Cannula 3.0 32 06/03/16 20:15 Nasal Cannula 3.0 32 06/03/16 20:15 66 18 Nasal Cannula 3.0 32 06/03/16 20:00 98.2 65 20 113/42 95 Nasal Cannula 3.0 06/03/16 20:00 65 06/03/16 16:00 71 06/03/16 16:00 97.6 74 21 74/ 99 Nasal Cannula 3.0 06/03/16 14:00 69 24 92/59 100 Nasal Cannula 3.0 06/03/16 13:00 75 23 109/45 100 Nasal Cannula 3.0 06/03/16 12:00 97.1 75 26 117/46 100 Nasal Cannula 3.0 06/03/16 12:00 75 Intake and Output 06/03/16 06/04/16 19:00 07:00 Intake Total 1100 ml Output Total 1550 ml 1500 ml Balance -450 ml -1500 ml Intake Oral 580 ml IV Total 520 ml Output Urine Total 1550 ml 1500 ml Laboratory Tests 06/04/16 06:59: White Blood Count 9.6, Red Blood Count 3.83L, Hemoglobin 10.5L, Hematocrit 34.4L , Mean Corpuscular Volume 90, Mean Corpuscular Hemoglobin 27.4, Mean Corpuscular Hemoglobin Concent 30.5L, Red Cell Distribution Width 16.6H, Platelet Count 205, Mean Platelet Volume 7.6, Neutrophils (%) (Auto) , Lymphocytes (%) (Auto) , Monocytes (%) (Auto) , Eosinophils (%) (Auto) , Basophils (%) (Auto) , Differential Total Cells Counted 100, Neutrophils % ( Manual) 91H, Lymphocytes % (Manual) 6L, Monocytes % (Manual) 2, Eosinophils % ( Manual) 0, Basophils % (Manual) 0, Band Neutrophils 1, Platelet Estimate Adequate, Platelet Morphology Normal, Hypochromasia 1+, Anisocytosis 1+, Prothrombin Time 19.5H, Prothromb Time International Ratio 1.9H, Sodium Level 144, Potassium Level 3.4, Chloride Level 91L, Carbon Dioxide Level 42*H, Anion Gap 11, Blood Urea Nitrogen 72H, Creatinine 2.2H, Estimat Glomerular Filtration Rate , Glucose Level 142H, Calcium Level 9.5, Total Bilirubin 0.5, Aspartate Amino Transf (AST/SGOT) 178H, Alanine Aminotransferase (ALT/SGPT) 322H, Alkaline Phosphatase 109H, Total Protein 6.4L, Albumin 3.1L, Globulin 3.3, Albumin/Globulin Ratio 0.9L Height (Feet): 5 Height (Inches): 1.00 Weight (Pounds): 133 General Appearance: lethargic, confused, mild distress Cardiovascular: regular rhythm Respiratory/Chest: decreased breath sounds Abdomen: soft Edema: 1+ Arm (L), 1+ Arm (R), 1+ Leg (L), 1+ Leg (R), 1+ Pedal (L), 1+ Pedal ( R), 1+ Generalized Objective other PE not changed GILLES CUELLAR Jun 04, 2016 11:19
[2016-06-04 11:28] VITALS: BP 108/58
--- NOTE | 2016-06-04 15:28 | Internal Med Progress Note ---
Subjective Date of Service: Jun 04, 2016 Physician Name Brantley,Mateo Attending Physician Emilee Weir Current Medications Medications (Trade) Dose Ordered Sig/Abril Route PRN Reason Start Time Stop Time Status Last Admin Dose Admin Acetaminophen (Tylenol) 650 mg Q6H PRN ORAL Mild Pain/Temp > 100.5 06/03/16 16:15 07/03/16 16:14 Acetazolamide (Diamox) 250 mg TWICE A DAY ORAL 06/04/16 12:00 06/05/16 11:59 Albuterol/ Ipratropium (DuoNeb 0.5-3(2.5)mg/3ml) 3 ml Q4H PRN HHN Shortness of Breath 06/03/16 16:15 06/08/16 16:14 Allopurinol (Allopurinol) 300 mg DAILY ORAL 06/04/16 09:00 07/04/16 08:59 06/04/16 09:21 Amiodarone HCl (Cordarone) 200 mg DAILY ORAL 06/04/16 09:00 07/04/16 08:59 06/04/16 09:21 Bisacodyl (Dulcolax) 10 mg DAILYPRN PRN RECTAL Constipation 06/03/16 16:00 07/03/16 15:59 Dextrose (Dextrose 50%) STAT PRN IV Hypoglycemia 06/03/16 16:00 07/03/16 15:59 Epoetin Fish (Procrit (for non ESRD use)) 5,000 units MON-WED-FRI SUBQ 06/03/16 21:00 07/03/16 20:59 06/03/16 21:43 Guaifenesin/ Codeine Phosphate (Robitussin with codeine) 5 ml Q6H PRN ORAL For Cough 06/03/16 16:30 07/03/16 16:29 Insulin Aspart (NovoLOG) BEFORE MEALS AND HS SUBQ 06/03/16 16:30 07/03/16 16:29 06/04/16 12:11 Insulin Aspart (NovoLOG) 5 units NOVOTIAC SUBQ 06/03/16 16:50 07/03/16 16:49 06/04/16 12:10 Insulin Detemir (Levemir) 20 units DAILY SUBQ 06/04/16 09:00 07/04/16 08:59 06/04/16 09:31 Lactulose (Cephulac) 30 gm THREE TIMES A DAY ORAL 06/03/16 18:00 07/03/16 17:59 06/04/16 13:30 Methylprednisolone Sodium Succinate (Solu-MEDROL) 20 mg EVERY 12 HOURS IVP 06/03/16 21:00 07/03/16 20:59 06/04/16 09:20 Metoclopramide HCl (Reglan) 5 mg Q6H PRN IVP Nausea & Vomiting 06/03/16 16:00 07/03/16 15:59 Metolazone (Zaroxolyn) 5 mg BID@0830,2030 ORAL 06/03/16 20:30 07/03/16 20:29 06/04/16 08:44 Pantoprazole (Protonix) 40 mg DAILY ORAL 06/04/16 09:00 07/04/16 08:59 06/04/16 09:21 Sitagliptin Phosphate (Januvia) 25 mg DAILY ORAL 06/04/16 09:00 07/04/16 08:59 06/04/16 09:20 Warfarin Sodium (Coumadin per pharmacy) 1 ea DAILY PRN MISC Per rx protocol 06/04/16 09:00 07/04/16 08:59 Warfarin Sodium (Coumadin) 4 mg COUMADIN ONCE PO 06/04/16 17:00 06/04/16 17:01 Allergies: Coded Allergies: SPIRONOLACTONE (Unverified Allergy, Intermediate, 05/08/16) ROS Limited/Unobtainable: No Constitutional: Reports: no symptoms HEENT: Reports: no symptoms Cardiovascular: Reports: no symptoms Respiratory: Reports: shortness of breath Gastrointestinal/Abdominal: Reports: no symptoms Genitourinary: Reports: no symptoms Neurologic/Psychiatric: Reports: no symptoms Subjective 85 YO F admitted with shortness of breath. Now on telemetry. Cover for Int Khoa- Dr Tyler. Tolerating nasal canula Objective Last Vital Signs Date Time Temp Pulse Resp B/P Pulse Ox O2 Delivery O2 Flow Rate FiO2 06/04/16 11:39 71 06/04/16 11:28 97.1 20 108/58 92 Nasal Cannula 3.0 06/04/16 07:43 32 Laboratory Tests Test 06/04/16 06:59 White Blood Count 9.6 K/UL (4.8-10.8) Red Blood Count 3.83 M/UL (4.20-5.40) L Hemoglobin 10.5 G/DL (12.0-16.0) L Hematocrit 34.4 % (37.0-47.0) L Mean Corpuscular Volume 90 FL (80-99) Mean Corpuscular Hemoglobin 27.4 PG (27.0-31.0) Mean Corpuscular Hemoglobin Concent 30.5 G/DL (32.0-36.0) L Red Cell Distribution Width 16.6 % (11.6-14.8) H Platelet Count 205 K/UL (150-450) Mean Platelet Volume 7.6 FL (6.5-10.1) Neutrophils (%) (Auto) % (45.0-75.0) Lymphocytes (%) (Auto) % (20.0-45.0) Monocytes (%) (Auto) % (1.0-10.0) Eosinophils (%) (Auto) % (0.0-3.0) Basophils (%) (Auto) % (0.0-2.0) Differential Total Cells Counted 100 Neutrophils % (Manual) 91 % (45-75) H Lymphocytes % (Manual) 6 % (20-45) L Monocytes % (Manual) 2 % (1-10) Eosinophils % (Manual) 0 % (0-3) Basophils % (Manual) 0 % (0-2) Band Neutrophils 1 % (0-8) Platelet Estimate Adequate Platelet Morphology Normal Hypochromasia 1+ Anisocytosis 1+ Prothrombin Time 19.5 SEC (9.30-11.50) H Prothromb Time International Ratio 1.9 (0.9-1.1) H Sodium Level 144 mEQ/L (135-145) Potassium Level 3.4 mEQ/L (3.4-4.9) Chloride Level 91 mEQ/L (98-107) L Carbon Dioxide Level 42 mEQ/L (20-30) *H Anion Gap 11 (5-15) Blood Urea Nitrogen 72 mg/dL (7-23) H Creatinine 2.2 mg/dL (0.5-0.9) H Estimat Glomerular Filtration Rate mL/min (>60) Glucose Level 142 mg/dL (74-106) H Calcium Level 9.5 mg/dL (8.6-10.2) Total Bilirubin 0.5 mg/dL (0.0-1.2) Aspartate Amino Transf (AST/SGOT) 178 U/L (5-40) H Alanine Aminotransferase (ALT/SGPT) 322 U/L (3-33) H Alkaline Phosphatase 109 U/L (35-104) H Total Protein 6.4 g/dL (6.6-8.7) L Albumin 3.1 g/dL (3.5-5.2) L Globulin 3.3 g/dL Albumin/Globulin Ratio 0.9 (1.0-2.7) L Intake and Output 06/03/16 06/04/16 19:00 07:00 Intake Total 1100 ml Output Total 1550 ml 1500 ml Balance -450 ml -1500 ml Intake Oral 580 ml IV Total 520 ml Output Urine Total 1550 ml 1500 ml Objective General Appearance: WD/WN, alert, moderate distress EENT: PERRL/EOMI, normal ENT inspection, TMs normal Neck: non-tender, normal alignment, supple, normal inspection Cardiovascular: normal peripheral pulses, normal rate, regular rhythm, no gallop/murmur, no JVD Respiratory/Chest: Nasal canula; chest wall non-tender, respiratory distress, crackles/rales, rhonchi - bilaterally Abdomen: normal bowel sounds, non tender, soft, no organomegaly, no mass Extremities: normal range of motion Edema: moderate edema 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 LVEF 30-35%. See cardiology Note.. Cont lasix and metolazone. (4) Acute respiratory distress Assessment & Plan: Tolerating nasal canula-see pulmonary note. (5) COPD (chronic obstructive pulmonary disease) (6) Uncontrolled diabetes mellitus Assessment & Plan: See endocrinology note. Cont januvia, levemir and humolog sliding scale. (7) Atrial fibrillation Assessment & Plan: Cont amiodarone and coumadin. Await cardiology consult. (8) Respiratory failure Assessment & Plan: Tolerating nasal canula Status: progressing MTAEO BRANTLEY Jun 04, 2016 15:28
[2016-06-04 16:00] VITALS: BP 117/52
[2016-06-04] MEDS ORDERED: Warfarin Sodium 4mg PO ONE (17:00)
[2016-06-04 20:00] VITALS: BP 117/38
--- NOTE | 2016-06-04 21:55 | Pulmonology Progress Note ---
Assessment/Plan Problems: (1) Acute respiratory distress (2) Purulent bronchitis (3) Severe anemia (4) Uncontrolled diabetes mellitus (5) COPD (chronic obstructive pulmonary disease) (6) Dementia (7) Elevated CEA Assessment/Plan off lasix add zaroxyline check BNP check sputum keep in teli watch h/h follow bun/creatine check cxr in am social service worker to determine home safety Subjective ROS Limited/Unobtainable: No Interval Events: less short of breath Respiratory: Reports: productive cough Allergies: Coded Allergies: SPIRONOLACTONE (Unverified Allergy, Intermediate, 05/08/16) Objective Last 24 Hour Vital Signs Date Time Temp Pulse Resp B/P Pulse Ox O2 Delivery O2 Flow Rate FiO2 06/04/16 20:00 97.9 71 21 117/38 98 Nasal Cannula 2.0 06/04/16 19:47 99 Nasal Cannula 3.0 32 06/04/16 19:47 Nasal Cannula 3.0 32 06/04/16 19:46 74 18 Nasal Cannula 3.0 32 06/04/16 16:00 96.8 72 21 117/52 99 Nasal Cannula 2.0 06/04/16 11:39 71 06/04/16 11:28 97.1 78 20 108/58 92 Nasal Cannula 3.0 06/04/16 08:08 96.8 73 20 124/58 93 Nasal Cannula 3.0 06/04/16 08:06 70 06/04/16 07:43 70 18 Nasal Cannula 3.0 32 06/04/16 07:43 Nasal Cannula 3.0 32 06/04/16 07:43 98 Nasal Cannula 3.0 32 06/04/16 04:20 97.0 56 20 133/54 99 Nasal Cannula 2.0 06/04/16 04:00 62 06/04/16 04:00 56 66 06/04/16 00:26 97.7 64 20 126/46 96 Nasal Cannula 2.0 06/04/16 00:00 67 Intake and Output 06/03/16 06/04/16 19:00 07:00 Intake Total 1100 ml Output Total 1550 ml 1500 ml Balance -450 ml -1500 ml Intake Oral 580 ml IV Total 520 ml Output Urine Total 1550 ml 1500 ml General Appearance: WD/WN HEENT: normocephalic Respiratory/Chest: chest wall non-tender, lungs clear Breasts: no masses Cardiovascular: normal peripheral pulses Abdomen: normal bowel sounds, soft, non tender Extremities: no cyanosis 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 normal Lymphatic: no neck adenopathy Laboratory Tests 06/04/16 06:59: White Blood Count 9.6, Red Blood Count 3.83L, Hemoglobin 10.5L, Hematocrit 34.4L , Mean Corpuscular Volume 90, Mean Corpuscular Hemoglobin 27.4, Mean Corpuscular Hemoglobin Concent 30.5L, Red Cell Distribution Width 16.6H, Platelet Count 205, Mean Platelet Volume 7.6, Neutrophils (%) (Auto) , Lymphocytes (%) (Auto) , Monocytes (%) (Auto) , Eosinophils (%) (Auto) , Basophils (%) (Auto) , Differential Total Cells Counted 100, Neutrophils % ( Manual) 91H, Lymphocytes % (Manual) 6L, Monocytes % (Manual) 2, Eosinophils % ( Manual) 0, Basophils % (Manual) 0, Band Neutrophils 1, Platelet Estimate Adequate, Platelet Morphology Normal, Hypochromasia 1+, Anisocytosis 1+, Prothrombin Time 19.5H, Prothromb Time International Ratio 1.9H, Sodium Level 144, Potassium Level 3.4, Chloride Level 91L, Carbon Dioxide Level 42*H, Anion Gap 11, Blood Urea Nitrogen 72H, Creatinine 2.2H, Estimat Glomerular Filtration Rate , Glucose Level 142H, Calcium Level 9.5, Total Bilirubin 0.5, Aspartate Amino Transf (AST/SGOT) 178H, Alanine Aminotransferase (ALT/SGPT) 322H, Alkaline Phosphatase 109H, Total Protein 6.4L, Albumin 3.1L, Globulin 3.3, Albumin/Globulin Ratio 0.9L Current Medications Medications (Trade) Dose Ordered Sig/Abril Route PRN Reason Start Time Stop Time Status Last Admin Dose Admin Acetaminophen (Tylenol) 650 mg Q6H PRN ORAL Mild Pain/Temp > 100.5 06/03/16 16:15 07/03/16 16:14 Acetazolamide (Diamox) 250 mg TWICE A DAY ORAL 06/04/16 12:00 06/05/16 11:59 06/04/16 18:42 Albuterol/ Ipratropium (DuoNeb 0.5-3(2.5)mg/3ml) 3 ml Q4H PRN HHN Shortness of Breath 06/03/16 16:15 06/08/16 16:14 Allopurinol (Allopurinol) 300 mg DAILY ORAL 06/04/16 09:00 07/04/16 08:59 06/04/16 09:21 Amiodarone HCl (Cordarone) 200 mg DAILY ORAL 06/04/16 09:00 07/04/16 08:59 06/04/16 09:21 Bisacodyl (Dulcolax) 10 mg DAILYPRN PRN RECTAL Constipation 06/03/16 16:00 07/03/16 15:59 Dextrose (Dextrose 50%) STAT PRN IV Hypoglycemia 06/03/16 16:00 07/03/16 15:59 Epoetin Fish (Procrit (for non ESRD use)) 5,000 units FRI-FRI-FRI SUBQ 06/03/16 21:00 07/03/16 20:59 06/03/16 21:43 Guaifenesin/ Codeine Phosphate (Robitussin with codeine) 5 ml Q6H PRN ORAL For Cough 06/03/16 16:30 07/03/16 16:29 Insulin Aspart (NovoLOG) BEFORE MEALS AND HS SUBQ 06/03/16 16:30 07/03/16 16:29 06/04/16 21:36 Insulin Aspart (NovoLOG) 5 units NOVOTIAC SUBQ 06/03/16 16:50 07/03/16 16:49 06/04/16 17:23 Insulin Detemir (Levemir) 20 units DAILY SUBQ 06/04/16 09:00 07/04/16 08:59 06/04/16 09:31 Lactulose (Cephulac) 30 gm THREE TIMES A DAY ORAL 06/03/16 18:00 07/03/16 17:59 06/04/16 18:42 Methylprednisolone Sodium Succinate (Solu-MEDROL) 20 mg EVERY 12 HOURS IVP 06/03/16 21:00 07/03/16 20:59 06/04/16 21:31 Metoclopramide HCl (Reglan) 5 mg Q6H PRN IVP Nausea & Vomiting 06/03/16 16:00 07/03/16 15:59 Metolazone (Zaroxolyn) 5 mg BID@0830,2030 ORAL 06/03/16 20:30 07/03/16 20:29 06/04/16 21:30 Pantoprazole (Protonix) 40 mg DAILY ORAL 06/04/16 09:00 07/04/16 08:59 06/04/16 09:21 Sitagliptin Phosphate (Januvia) 25 mg DAILY ORAL 06/04/16 09:00 07/04/16 08:59 06/04/16 09:20 Warfarin Sodium (Coumadin per pharmacy) 1 ea DAILY PRN MISC Per rx protocol 06/04/16 09:00 07/04/16 08:59 ILIR WALLACE Jun 04, 2016 21:54
[2016-06-05 00:24] VITALS: BP 103/47
[2016-06-05 04:21] VITALS: BP 117/68
[2016-06-05] MEDS: NovoLOG Insulin Flexpen SUBQ SCH ×6 (06:38→17:06)
[2016-06-05 07:50] VITALS: BP 137/55
[2016-06-05 07:54] LABS: MEAN CORPUSCULAR HEMOGLOBIN 27.3 PG (27.0-31.0); MEAN CORPUSCULAR HGB CONC 30.2 G/DL (32.0-36.0); MEAN CORPUSCULAR VOLUME 90 FL (80-99); MEAN PLATELET VOLUME 7.4 FL (6.5-10.1); PLATELET COUNT 203 K/UL (150-450); RED BLOOD COUNT 3.92 M/UL (4.20-5.40); RED CELL DISTRIBUTION WIDTH 16.2 % (11.6-14.8); WHITE BLOOD COUNT 9.5 K/UL (4.8-10.8)
[2016-06-05 08:08] LABS: INR 2.4 (0.9-1.1)
[2016-06-05] MEDS: Metolazone 5mg tab ORAL SCH (08:09)
[2016-06-05 08:20] LABS: ALANINE AMINOTRANSFERASE 244 U/L (3-33); ALBUMIN/GLOBULIN RATIO 1.2 (1.0-2.7); ASPARTATE AMINO TRANSFERASE 106 U/L (5-40); CALCIUM 9.3 mg/dL (8.6-10.2); CHLORIDE 94 mEQ/L (98-107); CREATININE 2.2 mg/dL (0.5-0.9); HEMOLYSIS 9; SODIUM 146 mEQ/L (135-145); TOTAL PROTEIN 5.8 g/dL (6.6-8.7)
[2016-06-05 08:26] LABS: ANION GAP 11 (5-15)
[2016-06-05 08:28] LABS: CARBON DIOXIDE 41 mEQ/L (20-30)
[2016-06-05] MEDS: Amiodarone 200mg tab ORAL SCH (08:47)
[2016-06-05] MEDS: sitaGLIPtin 50mg tab ORAL SCH (08:47)
[2016-06-05] MEDS: Solu-MEDROL 40mg Inj IVP SCH (08:47)
[2016-06-05] MEDS: Lactulose 20gm/30ml UDC ORAL SCH ×3 (08:48→17:06)
[2016-06-05] MEDS: Levemir Flexpen SUBQ SCH (08:55)
--- NOTE | 2016-06-05 09:42 | General Progress Note ---
Assessment/Plan Problem List: (1) COPD (chronic obstructive pulmonary disease) ICD Codes: J44.9 - Chronic obstructive pulmonary disease, unspecified SNOMED: 43591403 (2) Dementia ICD Codes: F03.90 - Unspecified dementia without behavioral disturbance SNOMED: 82879801 (3) CHF (congestive heart failure) ICD Codes: I50.9 - Heart failure, unspecified SNOMED: 44872562 (4) ATN (acute tubular necrosis) ICD Codes: N17.0 - Acute kidney failure with tubular necrosis SNOMED: 28902304 (5) Acute respiratory distress ICD Codes: R06.00 - Dyspnea, unspecified SNOMED: 890452042 (6) Uncontrolled diabetes mellitus ICD Codes: E11.65 - Type 2 diabetes mellitus with hyperglycemia SNOMED: 533712936 Assessment/Plan glycemic control is exacerbated by IVSM - most likely dosage will be reduced today continue Levemir 20 units daily + Januvia 25 mg daily + SSI continue Novolog 5 units ac tid Subjective ROS Limited/Unobtainable: Yes Allergies: Coded Allergies: SPIRONOLACTONE (Unverified Allergy, Intermediate, 05/08/16) Subjective events noted Objective Last 24 Hour Vital Signs Date Time Temp Pulse Resp B/P Pulse Ox O2 Delivery O2 Flow Rate FiO2 06/05/16 08:00 65 06/05/16 07:55 64 06/05/16 07:50 96.6 64 18 137/55 100 Nasal Cannula 3.0 06/05/16 04:21 97.3 71 20 117/68 100 Nasal Cannula 2.0 06/05/16 04:00 57 06/05/16 00:24 97.3 56 20 103/47 100 Nasal Cannula 2.0 06/05/16 00:00 54 06/04/16 22:00 70 75 06/04/16 20:00 97.9 71 21 117/38 98 Nasal Cannula 2.0 06/04/16 20:00 72 06/04/16 19:47 99 Nasal Cannula 3.0 32 06/04/16 19:47 Nasal Cannula 3.0 32 06/04/16 19:46 74 18 Nasal Cannula 3.0 32 06/04/16 16:00 68 06/04/16 16:00 96.8 72 21 117/52 99 Nasal Cannula 2.0 06/04/16 11:39 71 06/04/16 11:28 97.1 78 20 108/58 92 Nasal Cannula 3.0 Intake and Output 06/04/16 06/05/16 19:00 07:00 Intake Total 240 ml Output Total 300 ml Balance -60 ml Intake Oral 240 ml Output Urine Total 300 ml # Bowel Movements 13 Laboratory Tests 06/05/16 06:40: White Blood Count 9.5, Red Blood Count 3.92L, Hemoglobin 10.7L, Hematocrit 35.5L , Mean Corpuscular Volume 90, Mean Corpuscular Hemoglobin 27.3, Mean Corpuscular Hemoglobin Concent 30.2L, Red Cell Distribution Width 16.2H, Platelet Count 203, Mean Platelet Volume 7.4, Neutrophils (%) (Auto) , Lymphocytes (%) (Auto) , Monocytes (%) (Auto) , Eosinophils (%) (Auto) , Basophils (%) (Auto) , Neutrophils % (Manual) [Pending], Lymphocytes % (Manual) [Pending], Platelet Estimate [Pending], Platelet Morphology [Pending], Prothrombin Time 25.0H, Prothromb Time International Ratio 2.4H, Sodium Level 146H, Potassium Level 4.0, Chloride Level 94L, Carbon Dioxide Level 41*H, Anion Gap 11, Blood Urea Nitrogen 82H, Creatinine 2.2H, Estimat Glomerular Filtration Rate , Glucose Level 211H, Calcium Level 9.3, Total Bilirubin 0.4, Aspartate Amino Transf (AST/SGOT) 106H, Alanine Aminotransferase (ALT/SGPT) 244H, Alkaline Phosphatase 138H, Pro-B-Type Natriuretic Peptide 62833Q, Total Protein 5.8L, Albumin 3.2L, Globulin 2.6, Albumin/Globulin Ratio 1.2 Height (Feet): 5 Height (Inches): 1.00 Weight (Pounds): 151 General Appearance: no apparent distress Neck: normal alignment Cardiovascular: normal rate Respiratory/Chest: decreased breath sounds Abdomen: normal bowel sounds Edema: 1+ Arm (L), 1+ Arm (R), 1+ Leg (L), 1+ Leg (R), 1+ Pedal (L), 1+ Pedal ( R), 1+ Generalized Objective Current Medications Medications (Trade) Dose Ordered Sig/Abril Route PRN Reason Start Time Stop Time Status Last Admin Dose Admin Acetaminophen (Tylenol) 650 mg Q6H PRN ORAL Mild Pain/Temp > 100.5 06/03/16 16:15 07/03/16 16:14 Acetazolamide (Diamox) 250 mg TWICE A DAY ORAL 06/04/16 12:00 06/05/16 11:59 06/05/16 08:53 Albuterol/ Ipratropium (DuoNeb 0.5-3(2.5)mg/3ml) 3 ml Q4H PRN HHN Shortness of Breath 06/03/16 16:15 06/08/16 16:14 Allopurinol (Allopurinol) 300 mg DAILY ORAL 06/04/16 09:00 07/04/16 08:59 06/05/16 08:47 Amiodarone HCl (Cordarone) 200 mg DAILY ORAL 06/04/16 09:00 07/04/16 08:59 06/05/16 08:47 Bisacodyl (Dulcolax) 10 mg DAILYPRN PRN RECTAL Constipation 06/03/16 16:00 07/03/16 15:59 Dextrose (Dextrose 50%) STAT PRN IV Hypoglycemia 06/03/16 16:00 07/03/16 15:59 Epoetin Fish (Procrit (for non ESRD use)) 5,000 units FRI-WED-FRI SUBQ 06/03/16 21:00 07/03/16 20:59 06/03/16 21:43 Guaifenesin/ Codeine Phosphate (Robitussin with codeine) 5 ml Q6H PRN ORAL For Cough 06/03/16 16:30 07/03/16 16:29 Insulin Aspart (NovoLOG) BEFORE MEALS AND HS SUBQ 06/03/16 16:30 07/03/16 16:29 06/05/16 06:38 Insulin Aspart (NovoLOG) 5 units NOVOTIAC SUBQ 06/03/16 16:50 07/03/16 16:49 06/05/16 06:39 Insulin Detemir (Levemir) 20 units DAILY SUBQ 06/04/16 09:00 07/04/16 08:59 06/05/16 08:55 Lactulose (Cephulac) 30 gm THREE TIMES A DAY ORAL 06/03/16 18:00 07/03/16 17:59 06/04/16 18:42 Methylprednisolone Sodium Succinate (Solu-MEDROL) 20 mg EVERY 12 HOURS IVP 06/03/16 21:00 07/03/16 20:59 06/05/16 08:47 Metoclopramide HCl (Reglan) 5 mg Q6H PRN IVP Nausea & Vomiting 06/03/16 16:00 07/03/16 15:59 Metolazone (Zaroxolyn) 5 mg BID@0830,2030 ORAL 06/03/16 20:30 07/03/16 20:29 06/05/16 08:09 Pantoprazole (Protonix) 40 mg DAILY ORAL 06/04/16 09:00 07/04/16 08:59 06/05/16 08:47 Sitagliptin Phosphate (Januvia) 25 mg DAILY ORAL 06/04/16 09:00 07/04/16 08:59 06/05/16 08:47 Warfarin Sodium (Coumadin per pharmacy) 1 ea DAILY PRN MISC Per rx protocol 06/04/16 09:00 07/04/16 08:59 Item Value Date Time Bedside Blood Glucose 300 mg/dl H 06/05/16 0855 Bedside Blood Glucose 215 mg/dl H 06/05/16 0639 Bedside Blood Glucose 183 mg/dl H 06/04/16 2136 Bedside Blood Glucose 301 mg/dl H 06/04/16 1723 Bedside Blood Glucose 299 mg/dl H 06/04/16 1211 Bedside Blood Glucose 267 mg/dl H 06/04/16 0931 Bedside Blood Glucose 141 mg/dl H 06/04/16 0609 SUSHIL RAMIREZ 8, 2017 09:42
[2016-06-05 10:03] LABS: BAND NEUTROPHILS % (MANUAL) 1 % (0-8); BASOPHILS % (MANUAL) 0 % (0-2); EOSINOPHILS % (MANUAL) 0 % (0-3); LYMPHOCYTES % (MANUAL) 9 % (20-45); NEUTROPHILS % (MANUAL) 88 % (45-75); PLATELET ESTIMATE ADEQUATE; PLATELET MORPHOLOGY NORMAL; TOTAL CELLS COUNTED 100
[2016-06-05 10:05] LABS: ANISOCYTOSIS 1+; HYPOCHROMASIA 1+
[2016-06-05 10:08] LABS: POIKILOCYTOSIS 1+
--- NOTE | 2016-06-05 10:25 | Internal Med Progress Note ---
Subjective Date of Service: Jun 05, 2016 Physician Name Brantley,Mateo Attending Physician Emilee Weir Current Medications Medications (Trade) Dose Ordered Sig/Abril Route PRN Reason Start Time Stop Time Status Last Admin Dose Admin Acetaminophen (Tylenol) 650 mg Q6H PRN ORAL Mild Pain/Temp > 100.5 06/03/16 16:15 07/03/16 16:14 Acetazolamide (Diamox) 250 mg TWICE A DAY ORAL 06/04/16 12:00 06/05/16 11:59 06/05/16 08:53 Albuterol/ Ipratropium (DuoNeb 0.5-3(2.5)mg/3ml) 3 ml Q4H PRN HHN Shortness of Breath 06/03/16 16:15 06/08/16 16:14 Allopurinol (Allopurinol) 300 mg DAILY ORAL 06/04/16 09:00 07/04/16 08:59 06/05/16 08:47 Amiodarone HCl (Cordarone) 200 mg DAILY ORAL 06/04/16 09:00 07/04/16 08:59 06/05/16 08:47 Bisacodyl (Dulcolax) 10 mg DAILYPRN PRN RECTAL Constipation 06/03/16 16:00 07/03/16 15:59 Dextrose (Dextrose 50%) STAT PRN IV Hypoglycemia 06/03/16 16:00 07/03/16 15:59 Epoetin Fish (Procrit (for non ESRD use)) 5,000 units FRI-WED-FRI SUBQ 06/03/16 21:00 07/03/16 20:59 06/03/16 21:43 Guaifenesin/ Codeine Phosphate (Robitussin with codeine) 5 ml Q6H PRN ORAL For Cough 06/03/16 16:30 07/03/16 16:29 Insulin Aspart (NovoLOG) BEFORE MEALS AND HS SUBQ 06/03/16 16:30 07/03/16 16:29 06/05/16 06:38 Insulin Aspart (NovoLOG) 5 units NOVOTIAC SUBQ 06/03/16 16:50 07/03/16 16:49 06/05/16 06:39 Insulin Detemir (Levemir) 20 units DAILY SUBQ 06/04/16 09:00 07/04/16 08:59 06/05/16 08:55 Lactulose (Cephulac) 30 gm THREE TIMES A DAY ORAL 06/03/16 18:00 07/03/16 17:59 06/04/16 18:42 Methylprednisolone Sodium Succinate (Solu-MEDROL) 20 mg EVERY 12 HOURS IVP 06/03/16 21:00 07/03/16 20:59 06/05/16 08:47 Metoclopramide HCl (Reglan) 5 mg Q6H PRN IVP Nausea & Vomiting 06/03/16 16:00 07/03/16 15:59 Metolazone (Zaroxolyn) 5 mg BID@0830,2030 ORAL 06/03/16 20:30 07/03/16 20:29 06/05/16 08:09 Pantoprazole (Protonix) 40 mg DAILY ORAL 06/04/16 09:00 07/04/16 08:59 06/05/16 08:47 Sitagliptin Phosphate (Januvia) 25 mg DAILY ORAL 06/04/16 09:00 07/04/16 08:59 06/05/16 08:47 Warfarin Sodium (Coumadin per pharmacy) 1 ea DAILY PRN MISC Per rx protocol 06/04/16 09:00 07/04/16 08:59 Allergies: Coded Allergies: SPIRONOLACTONE (Unverified Allergy, Intermediate, 05/08/16) ROS Limited/Unobtainable: No Constitutional: Reports: no symptoms HEENT: Reports: no symptoms Cardiovascular: Reports: no symptoms Respiratory: Reports: cough Genitourinary: Reports: no symptoms Subjective 85 YO F admitted with shortness of breath. Now on telemetry. Cover for Int Med- Dr Tyler. Tolerating nasal canula. C/O cough Objective Last Vital Signs Date Time Temp Pulse Resp B/P Pulse Ox O2 Delivery O2 Flow Rate FiO2 06/05/16 08:00 65 06/05/16 07:50 96.6 18 137/55 100 Nasal Cannula 3.0 06/04/16 19:47 32 Laboratory Tests Test 06/05/16 06:40 White Blood Count 9.5 K/UL (4.8-10.8) Red Blood Count 3.92 M/UL (4.20-5.40) L Hemoglobin 10.7 G/DL (12.0-16.0) L Hematocrit 35.5 % (37.0-47.0) L Mean Corpuscular Volume 90 FL (80-99) Mean Corpuscular Hemoglobin 27.3 PG (27.0-31.0) Mean Corpuscular Hemoglobin Concent 30.2 G/DL (32.0-36.0) L Red Cell Distribution Width 16.2 % (11.6-14.8) H Platelet Count 203 K/UL (150-450) Mean Platelet Volume 7.4 FL (6.5-10.1) Neutrophils (%) (Auto) % (45.0-75.0) Lymphocytes (%) (Auto) % (20.0-45.0) Monocytes (%) (Auto) % (1.0-10.0) Eosinophils (%) (Auto) % (0.0-3.0) Basophils (%) (Auto) % (0.0-2.0) Differential Total Cells Counted 100 Neutrophils % (Manual) 88 % (45-75) H Lymphocytes % (Manual) 9 % (20-45) L Monocytes % (Manual) 2 % (1-10) Eosinophils % (Manual) 0 % (0-3) Basophils % (Manual) 0 % (0-2) Band Neutrophils 1 % (0-8) Platelet Estimate Adequate Platelet Morphology Normal Hypochromasia 1+ Poikilocytosis 1+ Anisocytosis 1+ Prothrombin Time 25.0 SEC (9.30-11.50) H Prothromb Time International Ratio 2.4 (0.9-1.1) H Sodium Level 146 mEQ/L (135-145) H Potassium Level 4.0 mEQ/L (3.4-4.9) Chloride Level 94 mEQ/L (98-107) L Carbon Dioxide Level 41 mEQ/L (20-30) *H Anion Gap 11 (5-15) Blood Urea Nitrogen 82 mg/dL (7-23) H Creatinine 2.2 mg/dL (0.5-0.9) H Estimat Glomerular Filtration Rate mL/min (>60) Glucose Level 211 mg/dL (74-106) H Calcium Level 9.3 mg/dL (8.6-10.2) Total Bilirubin 0.4 mg/dL (0.0-1.2) Aspartate Amino Transf (AST/SGOT) 106 U/L (5-40) H Alanine Aminotransferase (ALT/SGPT) 244 U/L (3-33) H Alkaline Phosphatase 138 U/L (35-104) H Pro-B-Type Natriuretic Peptide 92653 pg/mL (0-450) H Total Protein 5.8 g/dL (6.6-8.7) L Albumin 3.2 g/dL (3.5-5.2) L Globulin 2.6 g/dL Albumin/Globulin Ratio 1.2 (1.0-2.7) Intake and Output 06/04/16 06/05/16 19:00 07:00 Intake Total 240 ml Output Total 300 ml Balance -60 ml Intake Oral 240 ml Output Urine Total 300 ml # Bowel Movements 13 Objective General Appearance: WD/WN, alert, moderate distress EENT: PERRL/EOMI, normal ENT inspection, TMs normal Neck: non-tender, normal alignment, supple, normal inspection Cardiovascular: normal peripheral pulses, normal rate, regular rhythm, no gallop/murmur, no JVD Respiratory/Chest: Nasal canula; chest wall non-tender, respiratory distress, crackles/rales, rhonchi - bilaterally Abdomen: normal bowel sounds, non tender, soft, no organomegaly, no mass Extremities: normal range of motion Edema: moderate edema Neurologic: electrophysiology nurse practitioner II-XII grossly normal, no motor/sensory deficits Skin: normal pigmentation, warm/dry Assessment/Plan Problem List: (1) Renal failure (2) HTN (hypertension) (3) CHF (congestive heart failure) Assessment & Plan: BNP > 32,000. LVEF 30-35%. See cardiology Note.. Cont lasix and metolazone. (4) Acute respiratory distress Assessment & Plan: Tolerating nasal canula-see pulmonary note. (5) COPD (chronic obstructive pulmonary disease) (6) Uncontrolled diabetes mellitus Assessment & Plan: See endocrinology note. Cont januvia, levemir and humolog sliding scale. (7) Atrial fibrillation Assessment & Plan: Cont amiodarone and coumadin. Await cardiology consult. (8) Respiratory failure Assessment & Plan: Tolerating nasal canula (9) Asthma, cardiac Assessment & Plan: See cardiology note. Status: stable MATEO BRANTLEY Jun 05, 2016 10:25
[2016-06-05 11:18] VITALS: BP 140/52
--- NOTE | 2016-06-05 11:46 | Consultation ---
Consult Note Consult Note CONSULTING SPECIALTY: PODIATRY CONSULTING PHYSICIAN: Julio Carlos DPM covering for Karson Campbell DPM REASON FOR CONSULT: LEFT LEG ULCER HISTORY OF PRESENT ILLNESS: Patient is a Malian speaker but is unable to communicate effectively. Therefore the history was obtained from reviewing the chart. Patient has a history of left lateral lower leg ulcer of unknown etiology and time. Daily wound care has been implemented. She was admitted to the hospital on 05/29/16 for shortness of breath PAST MEDICAL HISTORY: CHF, COPD, renal failure, T2DM, anemia, HTN, DVT with history of IVC placement, and dementia SOCIAL HISTORY: Patient is and was transferred from a SNF. No current alcohol, tobacco, or illicit drug use Coded Allergies: SPIRONOLACTONE (Unverified Allergy, Intermediate, 05/08/16) Objective Objective Exam Last 24 Hour Vital Signs Date Time Temp Pulse Resp B/P Pulse Ox O2 Delivery O2 Flow Rate FiO2 06/05/16 08:00 65 06/05/16 07:55 64 06/05/16 07:50 96.6 64 18 137/55 100 Nasal Cannula 3.0 06/05/16 04:21 97.3 71 20 117/68 100 Nasal Cannula 2.0 06/05/16 04:00 57 06/05/16 00:24 97.3 56 20 103/47 100 Nasal Cannula 2.0 06/05/16 00:00 54 06/04/16 22:00 70 75 06/04/16 20:00 97.9 71 21 117/38 98 Nasal Cannula 2.0 06/04/16 20:00 72 06/04/16 19:47 99 Nasal Cannula 3.0 32 06/04/16 19:47 Nasal Cannula 3.0 32 06/04/16 19:46 74 18 Nasal Cannula 3.0 32 06/04/16 16:00 68 06/04/16 16:00 96.8 72 21 117/52 99 Nasal Cannula 2.0 06/04/16 11:39 71 06/04/16 11:28 97.1 78 20 108/58 92 Nasal Cannula 3.0 Laboratory Tests Test 06/05/16 06:40 White Blood Count 9.5 K/UL (4.8-10.8) Red Blood Count 3.92 M/UL (4.20-5.40) L Hemoglobin 10.7 G/DL (12.0-16.0) L Hematocrit 35.5 % (37.0-47.0) L Mean Corpuscular Volume 90 FL (80-99) Mean Corpuscular Hemoglobin 27.3 PG (27.0-31.0) Mean Corpuscular Hemoglobin Concent 30.2 G/DL (32.0-36.0) L Red Cell Distribution Width 16.2 % (11.6-14.8) H Platelet Count 203 K/UL (150-450) Mean Platelet Volume 7.4 FL (6.5-10.1) Neutrophils (%) (Auto) % (45.0-75.0) Lymphocytes (%) (Auto) % (20.0-45.0) Monocytes (%) (Auto) % (1.0-10.0) Eosinophils (%) (Auto) % (0.0-3.0) Basophils (%) (Auto) % (0.0-2.0) Differential Total Cells Counted 100 Neutrophils % (Manual) 88 % (45-75) H Lymphocytes % (Manual) 9 % (20-45) L Monocytes % (Manual) 2 % (1-10) Eosinophils % (Manual) 0 % (0-3) Basophils % (Manual) 0 % (0-2) Band Neutrophils 1 % (0-8) Platelet Estimate Adequate Platelet Morphology Normal Hypochromasia 1+ Poikilocytosis 1+ Anisocytosis 1+ Prothrombin Time 25.0 SEC (9.30-11.50) H Prothromb Time International Ratio 2.4 (0.9-1.1) H Sodium Level 146 mEQ/L (135-145) H Potassium Level 4.0 mEQ/L (3.4-4.9) Chloride Level 94 mEQ/L (98-107) L Carbon Dioxide Level 41 mEQ/L (20-30) *H Anion Gap 11 (5-15) Blood Urea Nitrogen 82 mg/dL (7-23) H Creatinine 2.2 mg/dL (0.5-0.9) H Estimat Glomerular Filtration Rate mL/min (>60) Glucose Level 211 mg/dL (74-106) H Calcium Level 9.3 mg/dL (8.6-10.2) Total Bilirubin 0.4 mg/dL (0.0-1.2) Aspartate Amino Transf (AST/SGOT) 106 U/L (5-40) H Alanine Aminotransferase (ALT/SGPT) 244 U/L (3-33) H Alkaline Phosphatase 138 U/L (35-104) H Pro-B-Type Natriuretic Peptide 67781 pg/mL (0-450) H Total Protein 5.8 g/dL (6.6-8.7) L Albumin 3.2 g/dL (3.5-5.2) L Globulin 2.6 g/dL Albumin/Globulin Ratio 1.2 (1.0-2.7) URIC ACID: 11.9 HbA1c: 6.4 (05/11/16) Microbiology Date/Time Source Procedure Growth Status 05/30/16 02:00 Nasal Nares Left MRSA Culture - Final NO METHICILLIN RESISTANT STAPH AUREUS... Complete Exam Narrative Left lateral leg ulcer with two areas of partial thickness ulceration measuring approximately 1cm x 1cm each. Mild serosanguineous drainage noted. Mild erythema surrounding the wounds. No purulence or malodor noted. Scaly exfoliating skin surrounding the wound. Pain with palpation of the periwound area. Patient has thin skin. Pedal pulses are non palpable. Bilateral bunion and hammertoes 2-5. . Assessment/Plan ASSESSMENT: - Left leg diabetic ulcer. Does not appear clinically infected - Peripheral vascular disease - Anemia - T2DM - Gout PLAN: - Start daily dressing changes using mupirocin and cover with adpatic, 4x4 gauze , and kerlix - Continue to offload heels - Continue allopurinol Julio Carlos DPM Jun 05, 2016 11:46
--- NOTE | 2016-06-05 14:08 | General Progress Note ---
Assessment/Plan Status: stable - from renal stand point Assessment/Plan status; - Renal failure : mainly Chronic , superimposed acute serum Cr rising ! now stablized - HyperKalemia, now resolved Other : - Acute respiratory distress - Acute on chronic diastolic CHF (congestive heart failure)- low Ej Fx - LBBB (left bundle branch block) - Severe anemia - Patient is Holiness - Dementia - COPD (chronic obstructive pulmonary disease) Plan: Monitor renal parameters- check UA - reordered ! K Supplement as needed Optimize cardiac and pulmonary status- Kidney MISSY- no hydro- cortical thinning-normal size- ( previous admit) Urine eosinophils- Negative 2D Echo 30% Ej Fx Per orders epo , folate, Iron Protonix Subjective ROS Limited/Unobtainable: No Constitutional: Reports: malaise, weakness Allergies: Coded Allergies: SPIRONOLACTONE (Unverified Allergy, Intermediate, 05/08/16) Objective Last 24 Hour Vital Signs Date Time Temp Pulse Resp B/P Pulse Ox O2 Delivery O2 Flow Rate FiO2 06/05/16 12:36 100 Nasal Cannula 3.0 32 06/05/16 12:36 Nasal Cannula 3.0 32 06/05/16 12:35 68 18 Nasal Cannula 3.0 32 06/05/16 11:57 61 06/05/16 11:18 96.9 66 18 140/52 100 Nasal Cannula 3.0 06/05/16 08:02 69 06/05/16 08:00 65 06/05/16 07:55 64 06/05/16 07:50 96.6 64 18 137/55 100 Nasal Cannula 3.0 06/05/16 04:21 97.3 71 20 117/68 100 Nasal Cannula 2.0 06/05/16 04:00 57 06/05/16 00:24 97.3 56 20 103/47 100 Nasal Cannula 2.0 06/05/16 00:00 54 06/04/16 22:00 70 75 06/04/16 20:00 97.9 71 21 117/38 98 Nasal Cannula 2.0 06/04/16 20:00 72 06/04/16 19:47 99 Nasal Cannula 3.0 32 06/04/16 19:47 Nasal Cannula 3.0 32 06/04/16 19:46 74 18 Nasal Cannula 3.0 32 06/04/16 16:00 68 06/04/16 16:00 96.8 72 21 117/52 99 Nasal Cannula 2.0 Intake and Output 06/04/16 06/05/16 19:00 07:00 Intake Total 240 ml Output Total 300 ml Balance -60 ml Intake Oral 240 ml Output Urine Total 300 ml # Bowel Movements 13 Laboratory Tests 06/05/16 06:40: White Blood Count 9.5, Red Blood Count 3.92L, Hemoglobin 10.7L, Hematocrit 35.5L , Mean Corpuscular Volume 90, Mean Corpuscular Hemoglobin 27.3, Mean Corpuscular Hemoglobin Concent 30.2L, Red Cell Distribution Width 16.2H, Platelet Count 203, Mean Platelet Volume 7.4, Neutrophils (%) (Auto) , Lymphocytes (%) (Auto) , Monocytes (%) (Auto) , Eosinophils (%) (Auto) , Basophils (%) (Auto) , Differential Total Cells Counted 100, Neutrophils % ( Manual) 88H, Lymphocytes % (Manual) 9L, Monocytes % (Manual) 2, Eosinophils % ( Manual) 0, Basophils % (Manual) 0, Band Neutrophils 1, Platelet Estimate Adequate, Platelet Morphology Normal, Hypochromasia 1+, Poikilocytosis 1+, Anisocytosis 1+, Prothrombin Time 25.0H, Prothromb Time International Ratio 2.4H , Sodium Level 146H, Potassium Level 4.0, Chloride Level 94L, Carbon Dioxide Level 41*H, Anion Gap 11, Blood Urea Nitrogen 82H, Creatinine 2.2H, Estimat Glomerular Filtration Rate , Glucose Level 211H, Calcium Level 9.3, Total Bilirubin 0.4, Aspartate Amino Transf (AST/SGOT) 106H, Alanine Aminotransferase (ALT/SGPT) 244H, Alkaline Phosphatase 138H, Pro-B-Type Natriuretic Peptide 98358P, Total Protein 5.8L, Albumin 3.2L, Globulin 2.6, Albumin/Globulin Ratio 1.2 Height (Feet): 5 Height (Inches): 1.00 Weight (Pounds): 151 General Appearance: no apparent distress, lethargic Cardiovascular: normal rate Respiratory/Chest: decreased breath sounds Abdomen: soft Objective other PE not changed GILLES CUELLAR Jun 05, 2016 14:08
--- NOTE | 2016-06-05 14:44 | Diagnostic Imaging Report ---
Indication: Dyspnea Comparison: 06/04/16 A single view chest radiograph was obtained. Findings: Cardiomegaly and interstitial opacities again noted. There is no change. Impression: Suspected mild CHF
--- NOTE | 2016-06-05 14:59 | Pulmonology Progress Note ---
Assessment/Plan Problems: (1) Acute respiratory distress (2) Purulent bronchitis (3) Severe anemia (4) Uncontrolled diabetes mellitus (5) COPD (chronic obstructive pulmonary disease) (6) Dementia (7) Elevated CEA Assessment/Plan add zaroxyline check BNP check sputum keep in teli watch h/h follow bun/creatine check cxr in am dc planning to [facility] daughters can't take care of her home Subjective Interval Events: sitting up on the age of the bed Allergies: Coded Allergies: SPIRONOLACTONE (Unverified Allergy, Intermediate, 05/08/16) Objective Last 24 Hour Vital Signs Date Time Temp Pulse Resp B/P Pulse Ox O2 Delivery O2 Flow Rate FiO2 06/05/16 12:36 100 Nasal Cannula 3.0 32 06/05/16 12:36 Nasal Cannula 3.0 32 06/05/16 12:35 68 18 Nasal Cannula 3.0 32 06/05/16 11:57 61 06/05/16 11:18 96.9 66 18 140/52 100 Nasal Cannula 3.0 06/05/16 08:02 69 06/05/16 08:00 65 06/05/16 07:55 64 06/05/16 07:50 96.6 64 18 137/55 100 Nasal Cannula 3.0 06/05/16 04:21 97.3 71 20 117/68 100 Nasal Cannula 2.0 06/05/16 04:00 57 06/05/16 00:24 97.3 56 20 103/47 100 Nasal Cannula 2.0 06/05/16 00:00 54 06/04/16 22:00 70 75 06/04/16 20:00 97.9 71 21 117/38 98 Nasal Cannula 2.0 06/04/16 20:00 72 06/04/16 19:47 99 Nasal Cannula 3.0 32 06/04/16 19:47 Nasal Cannula 3.0 32 06/04/16 19:46 74 18 Nasal Cannula 3.0 32 06/04/16 16:00 68 06/04/16 16:00 96.8 72 21 117/52 99 Nasal Cannula 2.0 Intake and Output 06/04/16 06/05/16 19:00 07:00 Intake Total 240 ml Output Total 300 ml Balance -60 ml Intake Oral 240 ml Output Urine Total 300 ml # Bowel Movements 13 General Appearance: WD/WN HEENT: normocephalic, atraumatic Respiratory/Chest: chest wall non-tender, accessory muscle use Cardiovascular: normal peripheral pulses, normal rate Neurologic/Psychiatric: home care and home health aides teacher II-XII grossly normal Laboratory Tests 06/05/16 06:40: White Blood Count 9.5, Red Blood Count 3.92L, Hemoglobin 10.7L, Hematocrit 35.5L , Mean Corpuscular Volume 90, Mean Corpuscular Hemoglobin 27.3, Mean Corpuscular Hemoglobin Concent 30.2L, Red Cell Distribution Width 16.2H, Platelet Count 203, Mean Platelet Volume 7.4, Neutrophils (%) (Auto) , Lymphocytes (%) (Auto) , Monocytes (%) (Auto) , Eosinophils (%) (Auto) , Basophils (%) (Auto) , Differential Total Cells Counted 100, Neutrophils % ( Manual) 88H, Lymphocytes % (Manual) 9L, Monocytes % (Manual) 2, Eosinophils % ( Manual) 0, Basophils % (Manual) 0, Band Neutrophils 1, Platelet Estimate Adequate, Platelet Morphology Normal, Hypochromasia 1+, Poikilocytosis 1+, Anisocytosis 1+, Prothrombin Time 25.0H, Prothromb Time International Ratio 2.4H , Sodium Level 146H, Potassium Level 4.0, Chloride Level 94L, Carbon Dioxide Level 41*H, Anion Gap 11, Blood Urea Nitrogen 82H, Creatinine 2.2H, Estimat Glomerular Filtration Rate , Glucose Level 211H, Calcium Level 9.3, Total Bilirubin 0.4, Aspartate Amino Transf (AST/SGOT) 106H, Alanine Aminotransferase (ALT/SGPT) 244H, Alkaline Phosphatase 138H, Pro-B-Type Natriuretic Peptide 42840K, Total Protein 5.8L, Albumin 3.2L, Globulin 2.6, Albumin/Globulin Ratio 1.2 Current Medications Medications (Trade) Dose Ordered Sig/Abril Route PRN Reason Start Time Stop Time Status Last Admin Dose Admin Acetaminophen (Tylenol) 650 mg Q6H PRN ORAL Mild Pain/Temp > 100.5 06/03/16 16:15 07/03/16 16:14 Albuterol/ Ipratropium (DuoNeb 0.5-3(2.5)mg/3ml) 3 ml Q4H PRN HHN Shortness of Breath 06/03/16 16:15 06/08/16 16:14 Allopurinol (Allopurinol) 300 mg DAILY ORAL 06/04/16 09:00 07/04/16 08:59 06/05/16 08:47 Amiodarone HCl (Cordarone) 200 mg DAILY ORAL 06/04/16 09:00 07/04/16 08:59 06/05/16 08:47 Bisacodyl (Dulcolax) 10 mg DAILYPRN PRN RECTAL Constipation 06/03/16 16:00 07/03/16 15:59 Dextrose (Dextrose 50%) STAT PRN IV Hypoglycemia 06/03/16 16:00 07/03/16 15:59 Epoetin Fish (Procrit (for non ESRD use)) 5,000 units FRI-FRI-FRI SUBQ 06/03/16 21:00 07/03/16 20:59 06/03/16 21:43 Guaifenesin/ Codeine Phosphate (Robitussin with codeine) 5 ml Q6H PRN ORAL For Cough 06/03/16 16:30 07/03/16 16:29 Insulin Aspart (NovoLOG) BEFORE MEALS AND HS SUBQ 06/03/16 16:30 07/03/16 16:29 06/05/16 11:31 Insulin Aspart (NovoLOG) 5 units NOVOTIAC SUBQ 06/03/16 16:50 07/03/16 16:49 06/05/16 11:32 Insulin Detemir (Levemir) 20 units DAILY SUBQ 06/04/16 09:00 07/04/16 08:59 06/05/16 08:55 Lactulose (Cephulac) 30 gm THREE TIMES A DAY ORAL 06/03/16 18:00 07/03/16 17:59 06/04/16 18:42 Methylprednisolone Sodium Succinate (Solu-MEDROL) 20 mg EVERY 12 HOURS IVP 06/03/16 21:00 07/03/16 20:59 06/05/16 08:47 Metoclopramide HCl (Reglan) 5 mg Q6H PRN IVP Nausea & Vomiting 06/03/16 16:00 07/03/16 15:59 Metolazone (Zaroxolyn) 5 mg BID@0830,2030 ORAL 06/03/16 20:30 07/03/16 20:29 06/05/16 08:09 Mupirocin (Bactroban Oint) 1 applic DAILY TOPIC 06/06/16 09:00 06/11/16 08:59 Pantoprazole (Protonix) 40 mg DAILY ORAL 06/04/16 09:00 07/04/16 08:59 06/05/16 08:47 Sitagliptin Phosphate (Januvia) 25 mg DAILY ORAL 06/04/16 09:00 07/04/16 08:59 06/05/16 08:47 Warfarin Sodium (Coumadin per pharmacy) 1 ea DAILY PRN MISC Per rx protocol 06/04/16 09:00 07/04/16 08:59 Warfarin Sodium (Coumadin) 3 mg COUMADIN ORAL 06/05/16 17:00 06/10/16 16:59 ILIR WALLACE Jun 05, 2016 14:59
[2016-06-05 16:00] VITALS: BP 125/51
[2016-06-05 16:51] LABS: APPEARANCE,URINE CLEAR; KETONES,URINE NEGATIVE (NEGATIVE); LEUKOCYTE ESTERASE ,URINE 3+ (NEGATIVE); NITRITE,URINE NEGATIVE (NEGATIVE); PH,URINE 8 (4.5-8.0); PROTEIN,URINE 1+ (NEGATIVE); UROBILINOGEN,URINE NORMAL MG/DL (0.0-1.0)
[2016-06-05] MEDS ORDERED: Warfarin Sodium 3mg ORAL SCH (17:00)
[2016-06-05 17:01] LABS: SQUAMOUS EPITHELIAL CELL,UR FEW /LPF (NONE/OCC)
[2016-06-05 17:02] LABS: BACTERIA,URINE FEW /HPF
[2016-06-05] MEDS ORDERED: Epogen (for non ESRD use) SUBQ SCH (21:00)
--- NOTE | 2016-06-06 19:36 | Discharge Summary ---
Discharge Summary Hospital Course Date of Admission May 29, 2016 at 23:50 Date of Discharge Jun 05, 2016 at 19:00 Admitting Diagnosis HPI Mayte Johnson is a 85 year old female who was admitted on May 29, 2016 at 23:50 for Shortness Of Breath, Chronic Obstructive Pulmonary Hospital Course [id number] Discharge Discharge Disposition Patient was discharged to SNF/Subacute Facility(03) Discharge Diagnoses: Holli Healy NP Jun 06, 2016 19:36
--- NOTE | 2016-06-07 01:48 | Discharge Summary 2 SIG ---
DATE OF ADMISSION: 05/29/2016 DATE OF DISCHARGE: 06/05/2016 CONSULTANTS: 1. Lul Alex M.D. 2. Owen Bee M.D. 3. Chris Gan M.D. 4. Ronald Duffy M.D. 5. Julio Carlos DPM. BRIEF HOSPITAL COURSE: The patient is an 85-year-old female, who was recently admitted to [facility] and is currently a resident of rehabilitation center [facility] [place], was taken to ED for shortness of breath. Initially presented to [facility] and was transferred to [place] due to insurance purposes. She had a chest x-ray that showed pulmonary vascular congestion consistent with congestive heart failure. She was admitted to intensive care unit and was given Lasix drip and metolazone. She presented with acute respiratory failure and was placed on BiPAP and was given antitussives and IV Solu-Medrol. 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 Intravenous iron was discontinued, secondary to high ferritin level. Echocardiogram done showed ejection fraction of 20% with global left ventricular hypokinesis. Blood sugars were monitored. Glycemic control was exacerbated by intravenous Solu-Medrol, dosage was reduced and was continued on Levemir, Januvia, and NovoLog. Lasix drip was discontinued. The patient was tolerating nasal cannula. Podiatry was consulted for evaluation of left leg ulcer and daily wound care was given. The patient had acute on chronic renal failure, unable to give JULI inhibitors and angiotensin receptor blockers. Urine eosinophil was negative. Serum creatinine stabilized. Family unable to take care of her at home. The patient was discharged to SNF. FINAL DIAGNOSES: 1. Acute respiratory failure. 2. Purulent bronchitis. 3. Acute anemia. 4. Diabetes mellitus, out of control. 5. Chronic obstructive pulmonary disease. 6. Dementia. 7. Acute on chronic renal failure. 8. Hyperkalemia. 9. Acute on chronic systolic heart failure. 10. Ischemic cardiomyopathy. 11. Dementia. 12. Left leg diabetic ulcer, present on admission. 13. Atrial fibrillation. Emilee Weir M.D. I have been assigned to dictate discharge summary on this account and I was not involved in the patient's management. Holli Healy N.P. DR: JACKELYN JOB#: [id number] CC: HENRY
== END 2016-06-05 19:00 | DRG 291 ==
LOC: 2E 23:50 → ICU 05-31 22:28 → 2E 06-03 15:08
PROC: 5A0945Z Assistance with Respiratory Ventilation, 24-96 Consecutive Hours (ICD-10-PCS; principal; 2016-05-31)
DX: I13.0 Hypertensive heart and chronic kidney disease with heart failure and stage 1 through stage 4 chronic kidney disease, or unspecified chronic kidney disease (principal); I50.33 Acute on chronic diastolic (congestive) heart failure; N17.0 Acute kidney failure with tubular necrosis; J96.02 Acute respiratory failure with hypercapnia; D68.9 Coagulation defect, unspecified; L97.929 Non-pressure chronic ulcer of unspecified part of left lower leg with unspecified severity; J44.9 Chronic obstructive pulmonary disease, unspecified; I44.7 Left bundle-branch block, unspecified; N18.9 Chronic kidney disease, unspecified; F03.90 Unspecified dementia, unspecified severity, without behavioral disturbance, psychotic disturbance, mood disturbance, and anxiety; R97.0 Elevated carcinoembryonic antigen [CEA]; E11.65 Type 2 diabetes mellitus with hyperglycemia; E11.22 Type 2 diabetes mellitus with diabetic chronic kidney disease; E87.5 Hyperkalemia; D50.9 Iron deficiency anemia, unspecified; I48.91 Unspecified atrial fibrillation; I25.10 Atherosclerotic heart disease of native coronary artery without angina pectoris; Z95.1 Presence of aortocoronary bypass graft; I25.5 Ischemic cardiomyopathy; E11.622 Type 2 diabetes mellitus with other skin ulcer; Z99.81 Dependence on supplemental oxygen; Z95.2 Presence of prosthetic heart valve
CPT/HCPCS: 36415; 36600; 71010; 80048; 80053; 81001; 82728; 82803; 82962; 82977; 83540; 83550; 83735; 83880; 84100; 84484; 84550; 85007; 85025; 85610; 86140; 87081; 93005; 93306; 94640; 94660; 94664; 94760; J1815; J7620; S5561

== ENCOUNTER 2016-08-07 14:44 | Inpatient (IN) | payer MEDICARE, OTHER ==
[~2016-08-07] VITALS: Ht 157.5 cm; Wt 60.1 kg
[~2016-08-07 14:44] MED LIST changes: +COUMADIN7.5 MG ORAL; +FERROUS SULFAT325 M2 ORAL; +FLEET ENEMA133 M1 RC; +JANUVIA100 MG PO; +LOSARTAN POTASS50 MG PO; +MOM30 ML ORAL; +PANTOPRAZOLE SO20 MG ORAL; +TYLENOL650 MG/20. ORAL; +ZOFRAN4 M1 ORAL
[2016-08-07] MEDS ORDERED: ADVAIR 250-501 EACH INH (14:48)
[2016-08-07] MEDS ORDERED: ALBUTEROL SULF8.5 GM INH (14:48)
[2016-08-07] MEDS ORDERED: NOVOLIN R100 UNIT/1 SUBQ (14:48)
[2016-08-07] MEDS ORDERED: CARVEDILOL3.125 MG ORAL (14:48)
[2016-08-07] MEDS ORDERED: GLIPIZIDE5 MG ORAL (14:48)
[2016-08-07] MEDS ORDERED: DuoNeb 0.5-3(2.5)mg/3ml neb ONE (14:50)
[2016-08-07] MEDS ORDERED: Cefepime HCl 1 GM in NS 55 ML IV SCH (15:00)
[2016-08-07] MEDS ORDERED: metroNIDAZOLE 500mg 100 ML IV SCH (15:00)
[2016-08-07] MEDS ORDERED: DuoNeb 0.5-3(2.5)mg/3ml neb HHN ONE (15:00)
[2016-08-07 15:38] LABS: BASOPHILS % (AUTO) 0.6 % (0.0-2.0); EOSINOPHILS % (AUTO) 0.3 % (0.0-3.0); LYMPHOCYTES % (AUTO) 23.1 % (20.0-45.0); MEAN CORPUSCULAR HEMOGLOBIN 26.7 PG (27.0-31.0); MEAN CORPUSCULAR HGB CONC 29.7 G/DL (32.0-36.0); MEAN CORPUSCULAR VOLUME 90 FL (80-99); MEAN PLATELET VOLUME 6.5 FL (6.5-10.1); MONOCYTES % (AUTO) 5.1 % (1.0-10.0); NEUTROPHILS % (AUTO) 70.9 % (45.0-75.0); PLATELET COUNT 192 K/UL (150-450); RED BLOOD COUNT 3.19 M/UL (4.20-5.40); RED CELL DISTRIBUTION WIDTH 17.1 % (11.6-14.8); WHITE BLOOD COUNT 10.9 K/UL (4.8-10.8)
[2016-08-07] MEDS ORDERED: Cefepime 1gm vial ONE (15:50)
[2016-08-07 15:51] LABS: TROPONIN I < 0.30 ng/mL (<=0.30)
[2016-08-07 15:56] VITALS: BP 131/42
[2016-08-07 16:01] LABS: INR 2.3 (0.9-1.1)
[2016-08-07 16:08] LABS: APPEARANCE,URINE CLEAR; KETONES,URINE NEGATIVE (NEGATIVE); LEUKOCYTE ESTERASE ,URINE 1+ (NEGATIVE); NITRITE,URINE POSITIVE (NEGATIVE); PH,URINE 5 (4.5-8.0); PROTEIN,URINE 1+ (NEGATIVE); UROBILINOGEN,URINE NORMAL MG/DL (0.0-1.0)
[2016-08-07 16:17] LABS: CHLORIDE 103 mEQ/L (98-107); POTASSIUM 5.4 mEQ/L (3.4-4.9); SODIUM 142 mEQ/L (135-145)
[2016-08-07 16:18] LABS: ALANINE AMINOTRANSFERASE 15 U/L (3-33); ALBUMIN/GLOBULIN RATIO 1.1 (1.0-2.7); ANION GAP 16 (5-15); ASPARTATE AMINO TRANSFERASE 33 U/L (5-40); CALCIUM 9.2 mg/dL (8.6-10.2); CARBON DIOXIDE 18 mEQ/L (20-30); CKMB 1.7 ng/mL (< 3.8); CREATININE 2.2 mg/dL (0.5-0.9); HEMOLYSIS 103; TOTAL PROTEIN 5.4 g/dL (6.6-8.7)
[2016-08-07 16:23] LABS: BACTERIA,URINE FEW /HPF; RBC,URINE 0-2 /HPF (0 - 2); SQUAMOUS EPITHELIAL CELL,UR FEW /LPF (NONE/OCC); WBC,URINE 0-2 /HPF (0 - 2)
[2016-08-07 16:30] VITALS: BP 133/41
[2016-08-07] MEDS ORDERED: DuoNeb 0.5-3(2.5)mg/3ml neb HHN PRN (16:45)
[2016-08-07] MEDS ORDERED: Miralax 17gm pkt ORAL PRN (16:45)
[2016-08-07 17:30] VITALS: BP 124/84
[2016-08-07 18:00] VITALS: BP 133/56
--- NOTE | 2016-08-07 18:08 | Emergency Room Report ---
History of Present Illness General Chief Complaint: Upper Respiratory Illness Source: Patient, EMS Present Illness HPI This is an 86-year-old female who presented after increased difficulty breathing. Patient reportedly had prior history of COPD as well as CHF. Patient had been brought in from home. Patient not been having any fever. She had increased difficulty breathing. She reportedly was taking diuretics. The patient denied any vomiting or chest pain currently. She had gradual onset of symptoms. The patient was noted to have increased orthopnea. Allergies: Coded Allergies: SPIRONOLACTONE (Unverified Allergy, Intermediate, 05/08/16) Patient History Past Medical History: see triage record, CHF, COPD Reviewed Nursing Documentation: PMH: Agreed, PSxH: Agreed Nursing Documentation-PMH Hx Cardiac Problems: Yes - CHF Hx Hypertension: Yes Hx Asthma: Yes Hx COPD: Yes Hx Diabetes: Yes Hx Cancer: No Hx Gastrointestinal Problems: Yes Hx Neurological Problems: No Review of Systems All Other Systems: negative except mentioned in HPI Physical Exam Vital Signs Date Time Temp Pulse Resp B/P Pulse Ox O2 Delivery O2 Flow Rate FiO2 08/07/16 14:39 98.2 89 20 156/92 99 Room Air 08/07/16 14:55 2.0 28 Sp02 EP Interpretation: reviewed, normal General Appearance: normal inspection, alert, GCS 15, moderate distress Head: atraumatic ENT: normal ENT inspection, hearing grossly normal, normal voice Neck: normal inspection, full range of motion, supple, no bony tend Respiratory: normal inspection, no retraction, rales Cardiovascular #1: regular rate, rhythm, no edema Gastrointestinal: normal inspection, normal bowel sounds, non tender, soft, no guarding, no hernia Genitourinary: no CVA tenderness Musculoskeletal: normal inspection, back normal, normal range of motion Neurologic: normal inspection, alert, oriented x3, responsive, wic site coordinator III-XII nml as tested, speech normal Psychiatric: normal inspection, judgement/insight normal, mood/affect normal Skin: normal inspection, normal color, no rash Medical Decision Making Diagnostic Impression: Primary Impression: CHF (congestive heart failure) Additional Impression: Atrial fibrillation ER Course Patient is a 86-year-old female here for shortness of breath.Differential included but was not limited to anemia, pneumonia, pneumothorax, myocardial infarction, pericardial effusion, congestive heart failure, acidosis. Because of complexity of patient's case laboratory testing and imaging studies were ordered. The laboratory studies are notable for elevated BNP as well as elevated BUN/ creatinine. Patient noted be mildly hyperkalemic and patient was given IV Lasix. Chest x-ray one view interpreted by me showed cardiomegaly with a right pleural effusion. Dr. Weir was contacted for inpatient management due to complexity of medical condition. Labs Test 08/07/16 15:17 08/07/16 15:45 White Blood Count 10.9 K/UL (4.8-10.8) Red Blood Count 3.19 M/UL (4.20-5.40) Hemoglobin 8.5 G/DL (12.0-16.0) Hematocrit 28.6 % (37.0-47.0) Mean Corpuscular Volume 90 FL (80-99) Mean Corpuscular Hemoglobin 26.7 PG (27.0-31.0) Mean Corpuscular Hemoglobin Concent 29.7 G/DL (32.0-36.0) Red Cell Distribution Width 17.1 % (11.6-14.8) Platelet Count 192 K/UL (150-450) Mean Platelet Volume 6.5 FL (6.5-10.1) Neutrophils (%) (Auto) 70.9 % (45.0-75.0) Lymphocytes (%) (Auto) 23.1 % (20.0-45.0) Monocytes (%) (Auto) 5.1 % (1.0-10.0) Eosinophils (%) (Auto) 0.3 % (0.0-3.0) Basophils (%) (Auto) 0.6 % (0.0-2.0) Prothrombin Time 24.0 SEC (9.30-11.50) Prothromb Time International Ratio 2.3 (0.9-1.1) Activated Partial Thromboplast Time 30 SEC (23-33) Sodium Level 142 mEQ/L (135-145) Potassium Level 5.4 mEQ/L (3.4-4.9) Chloride Level 103 mEQ/L (98-107) Carbon Dioxide Level 18 mEQ/L (20-30) Anion Gap 16 (5-15) Blood Urea Nitrogen 57 mg/dL (7-23) Creatinine 2.2 mg/dL (0.5-0.9) Estimat Glomerular Filtration Rate mL/min (>60) Glucose Level 144 mg/dL (74-106) Lactic Acid Level 1.10 mmol/L (0.66-2.22) Calcium Level 9.2 mg/dL (8.6-10.2) Total Bilirubin 0.2 mg/dL (0.0-1.2) Aspartate Amino Transf (AST/SGOT) 33 U/L (5-40) Alanine Aminotransferase (ALT/SGPT) 15 U/L (3-33) Alkaline Phosphatase 92 U/L (35-104) Total Creatine Kinase 26 U/L (26-140) Creatine Kinase MB 1.7 ng/mL (< 3.8) Creatine Kinase MB Relative Index 6.5 Troponin I < 0.30 ng/mL (<=0.30) Pro-B-Type Natriuretic Peptide 12083 pg/mL (0-450) Total Protein 5.4 g/dL (6.6-8.7) Albumin 2.9 g/dL (3.5-5.2) Globulin 2.5 g/dL Albumin/Globulin Ratio 1.1 (1.0-2.7) Urine Color Pale yellow Urine Appearance Clear Urine pH 5 (4.5-8.0) Urine Specific [place] 1.020 (1.005-1.035) Urine Protein 1+ (NEGATIVE) Urine Glucose (UA) Negative (NEGATIVE) Urine Ketones Negative (NEGATIVE) Urine Occult Blood 1+ (NEGATIVE) Urine Nitrite Positive (NEGATIVE) Urine Bilirubin Negative (NEGATIVE) Urine Urobilinogen Normal MG/DL (0.0-1.0) Urine Leukocyte Esterase 1+ (NEGATIVE) Urine RBC 0-2 /HPF (0 - 2) Urine WBC 0-2 /HPF (0 - 2) Urine Squamous Epithelial Cells Few /LPF (NONE/OCC) Urine Bacteria Few /HPF (NONE) Chest X-Ray Diagnostic Results EP Interpretation: Yes Findings: no pneumothorax, other - cardiomegaly, right effusion Number of Views: 1 Last Vital Signs Date Time Temp Pulse Resp B/P Pulse Ox O2 Delivery O2 Flow Rate FiO2 08/07/16 17:48 55 20 133/46 99 Nasal Cannula 2.0 08/07/16 15:56 98.1 08/07/16 15:15 94 Status: unchanged Disposition: ADMITTED INPATIENT Condition: Serious Referrals: ILIR WEIR (PCP) Pa Puente August 07, 2016 18:08
[2016-08-07 20:17] VITALS: BP 127/51
[2016-08-07] MEDS: NovoLOG Insulin Flexpen SUBQ SCH (21:00)
[2016-08-07] MEDS: Heparin 5000 units/ml inj SUBQ SCH (21:31)
--- NOTE | 2016-08-07 23:15 | History and Physical ---
History of Present Illness General Date patient seen: August 07, 2016 Reason for Hospitalization: Upper Respiratory Illness Present Illness HPI 86-year-old female with hx of diastolic heart failure, COPD, renal insufficiency presented to ER with CC of increased difficulty breathing. Patient not been having any fever. She had increased difficulty breathing. She reportedly was taking diuretics. But her doctor decrease the dose recently. She had gradual onset of symptoms. she was diagnosed to have respiratory failure with pulmonary edema and effusion. Allergies: Coded Allergies: SPIRONOLACTONE (Verified Allergy, Intermediate, 08/08/16) Medication History Scheduled Albuterol Sulfate* (Albuterol Sulfate Mdi*), 2 PUFF INH Q3H, (Reported) Amiodarone Hcl* (Pacerone*), 200 MG ORAL DAILY Carvedilol* (Carvedilol*), Unknown Dose ORAL DAILY, (Reported) Ferrous Sulfate (Ferrous Sulfate), 325 MG ORAL DAILY, (Reported) Fluticasone/Salmeterol (Advair 250-50 Diskus), 1 PUFF INH EVERY 12 HOURS, ( Reported) Furosemide* (Lasix*), 20 MG ORAL DAILY, (Reported) Glipizide* (Glipizide*), Unknown Dose ORAL BIDAC, (Reported) Insulin Aspart (Novolog Flexpen), 0 UNITS SUBQ BEFORE MEALS AND HS Insulin Regular, Human* (Novolin R*), Unknown Dose SUBQ .SLIDING SCALE, ( Reported) Losartan Potassium* (Losartan Potassium*), 50 MG PO DAILY, (Reported) Magnesium Hydroxide (Milk of Magnesia), 30 ML ORAL DAILY, (Reported) Na Phos,M-B/Na Phos,Di-Ba (Fleet Enema), 118 ML RC PRN, (Reported) Pantoprazole (Pantoprazole), 40 MG ORAL EVERY 12 HOURS, (Reported) Sitagliptin (Januvia), 100 MG PO DAILY, (Reported) Warfarin Sod (Coumadin*), 3 MG ORAL DAILY, (Reported) Scheduled PRN Acetaminophen (Acetaminophen), 650 MG ORAL Q6H PRN for Mild Pain/Temp > 100.5, ( Reported) Ondansetron (Zofran), 4 MG ORAL Q6H PRN for Nausea & Vomiting, (Reported) Patient History Healthcare decision maker KARISHMA RECINOS Resuscitation status Advanced Directive on File Past Medical/Surgical History Past Medical/Surgical History: (1) CHF (congestive heart failure) (2) Atrial fibrillation (3) Peripheral vascular disease (4) Renal failure (5) Severe anemia (6) Elevated CEA (7) COPD (chronic obstructive pulmonary disease) Review of Systems All Other Systems: negative except mentioned in HPI Physical Exam General Appearance: WD/WN Lines, tubes and drains: peripheral HEENT: normocephalic, atraumatic Neck: normal alignment Respiratory/Chest: rhonchi - left, rhonchi - right Abdomen: normal bowel sounds, non tender Genitourinary/Rectal: normal genital exam, normal rectal exam Extremities: normal range of motion, non-tender 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 II-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 grossly normal Last 24 Hour Vital Signs Date Time Temp Pulse Resp B/P Pulse Ox O2 Delivery O2 Flow Rate FiO2 08/07/16 20:17 96.7 58 20 127/51 100 Room Air 08/07/16 19:50 58 18 Room Air 08/07/16 18:00 97.7 67 20 133/56 98 Nasal Cannula 2.0 08/07/16 17:48 55 20 133/46 99 Nasal Cannula 2.0 08/07/16 16:30 54 14 133/41 100 Nasal Cannula 2.0 08/07/16 15:56 98.1 52 18 131/42 98 Room Air 08/07/16 15:15 53 22 Nasal Cannula 94 08/07/16 14:55 28 08/07/16 14:55 52 24 96 Nasal Cannula 2.0 28 08/07/16 14:55 52 24 Nasal Cannula 2.0 28 08/07/16 14:39 98.2 89 20 156/92 99 Room Air Laboratory Tests Test 08/07/16 15:17 08/07/16 15:45 White Blood Count 10.9 K/UL (4.8-10.8) H Red Blood Count 3.19 M/UL (4.20-5.40) L Hemoglobin 8.5 G/DL (12.0-16.0) L Hematocrit 28.6 % (37.0-47.0) L Mean Corpuscular Volume 90 FL (80-99) Mean Corpuscular Hemoglobin 26.7 PG (27.0-31.0) L Mean Corpuscular Hemoglobin Concent 29.7 G/DL (32.0-36.0) L Red Cell Distribution Width 17.1 % (11.6-14.8) H Platelet Count 192 K/UL (150-450) Mean Platelet Volume 6.5 FL (6.5-10.1) Neutrophils (%) (Auto) 70.9 % (45.0-75.0) Lymphocytes (%) (Auto) 23.1 % (20.0-45.0) Monocytes (%) (Auto) 5.1 % (1.0-10.0) Eosinophils (%) (Auto) 0.3 % (0.0-3.0) Basophils (%) (Auto) 0.6 % (0.0-2.0) Prothrombin Time 24.0 SEC (9.30-11.50) H Prothromb Time International Ratio 2.3 (0.9-1.1) H Activated Partial Thromboplast Time 30 SEC (23-33) Sodium Level 142 mEQ/L (135-145) Potassium Level 5.4 mEQ/L (3.4-4.9) H Chloride Level 103 mEQ/L (98-107) Carbon Dioxide Level 18 mEQ/L (20-30) L Anion Gap 16 (5-15) H Blood Urea Nitrogen 57 mg/dL (7-23) H Creatinine 2.2 mg/dL (0.5-0.9) H Estimat Glomerular Filtration Rate mL/min (>60) Glucose Level 144 mg/dL (74-106) H Lactic Acid Level 1.10 mmol/L (0.66-2.22) Calcium Level 9.2 mg/dL (8.6-10.2) Total Bilirubin 0.2 mg/dL (0.0-1.2) Aspartate Amino Transf (AST/SGOT) 33 U/L (5-40) Alanine Aminotransferase (ALT/SGPT) 15 U/L (3-33) Alkaline Phosphatase 92 U/L (35-104) Total Creatine Kinase 26 U/L (26-140) Creatine Kinase MB 1.7 ng/mL (< 3.8) Creatine Kinase MB Relative Index 6.5 Troponin I < 0.30 ng/mL (<=0.30) Pro-B-Type Natriuretic Peptide 78221 pg/mL (0-450) H Total Protein 5.4 g/dL (6.6-8.7) L Albumin 2.9 g/dL (3.5-5.2) L Globulin 2.5 g/dL Albumin/Globulin Ratio 1.1 (1.0-2.7) Urine Color Pale yellow Urine Appearance Clear Urine pH 5 (4.5-8.0) Urine Specific [place] 1.020 (1.005-1.035) Urine Protein 1+ (NEGATIVE) H Urine Glucose (UA) Negative (NEGATIVE) Urine Ketones Negative (NEGATIVE) Urine Occult Blood 1+ (NEGATIVE) H Urine Nitrite Positive (NEGATIVE) H Urine Bilirubin Negative (NEGATIVE) Urine Urobilinogen Normal MG/DL (0.0-1.0) Urine Leukocyte Esterase 1+ (NEGATIVE) H Urine RBC 0-2 /HPF (0 - 2) Urine WBC 0-2 /HPF (0 - 2) Urine Squamous Epithelial Cells Few /LPF (NONE/OCC) Urine Bacteria Few /HPF (NONE) Microbiology Date/Time Source Procedure Growth Status 08/07/16 15:17 Nasal Nares Influenza Types A,B Antigen (ARETHA) - Final Complete Height (Feet): 5 Height (Inches): 2.00 Weight (Pounds): 150 Medications Current Medications Medications (Trade) Dose Ordered Sig/Abril Route PRN Reason Start Time Stop Time Status Last Admin Dose Admin Acetaminophen (Tylenol) 650 mg Q4H PRN ORAL T>100.5 08/07/16 16:45 09/06/16 16:44 Albuterol/ Ipratropium (DuoNeb 0.5-3(2.5)mg/3ml) 3 ml Q4H PRN HHN Shortness of Breath 08/07/16 16:45 08/12/16 16:44 Amiodarone HCl (Cordarone) 200 mg DAILY ORAL 08/08/16 09:00 09/07/16 08:59 Carvedilol (Coreg) 3.125 mg EVERY 12 HOURS ORAL 08/08/16 09:00 09/07/16 08:59 Dextrose (Dextrose 50%) STAT PRN IV Hypoglycemia 08/07/16 16:45 09/06/16 16:44 Furosemide (Lasix) 40 mg EVERY 8 HOURS IV 08/07/16 22:00 09/06/16 21:59 08/07/16 21:36 Heparin Sodium (Porcine) (Heparin 5000 units/ml) 5,000 units EVERY 12 HOURS SUBQ 08/07/16 21:00 09/06/16 20:59 08/07/16 21:31 Insulin Aspart (NovoLOG) BEFORE MEALS AND HS SUBQ 08/07/16 21:00 09/06/16 20:59 Ondansetron HCl (Zofran) 4 mg Q6H PRN IVP Nausea & Vomiting 08/07/16 16:45 09/06/16 16:44 Polyethylene Glycol (Miralax) 17 gm DAILYPRN PRN ORAL Constipation 08/07/16 16:45 09/06/16 16:44 Temazepam (Restoril) 15 mg HSPRN PRN ORAL Insomnia 08/07/16 21:00 08/14/16 20:59 Warfarin Sodium (Coumadin) 3 mg COUMADIN ORAL 08/08/16 17:00 08/13/16 16:59 Assessment/Plan Problem List: (1) Acute respiratory distress ICD Codes: R06.00 - Dyspnea, unspecified SNOMED: 506067152 (2) ATN (acute tubular necrosis) ICD Codes: N17.0 - Acute kidney failure with tubular necrosis SNOMED: 82900892 (3) Dementia ICD Codes: F03.90 - Unspecified dementia without behavioral disturbance SNOMED: 78535517 (4) Severe anemia ICD Codes: D64.9 - Anemia, unspecified SNOMED: 191440666 (5) COPD (chronic obstructive pulmonary disease) ICD Codes: J44.9 - Chronic obstructive pulmonary disease, unspecified SNOMED: 19460387 Assessment/Plan diuretics cardiac evaluation respiratory treatment check electrolytes anemia work up stool for occult blood ILIR WALLACE August 07, 2016 23:15
[2016-08-08] VITALS (8 sets, daily range): BP systolic 97–124; BP diastolic 32–54
[2016-08-08] MEDS: NovoLOG Insulin Flexpen SUBQ SCH ×4 (06:28→21:43)
[2016-08-08 08:00] LABS: BASOPHILS % (AUTO) 1.2 % (0.0-2.0); EOSINOPHILS % (AUTO) 2.5 % (0.0-3.0); LYMPHOCYTES % (AUTO) 32.3 % (20.0-45.0); MEAN CORPUSCULAR HEMOGLOBIN 26.4 PG (27.0-31.0); MEAN CORPUSCULAR HGB CONC 30.6 G/DL (32.0-36.0); MEAN CORPUSCULAR VOLUME 86 FL (80-99); MEAN PLATELET VOLUME 6.8 FL (6.5-10.1); MONOCYTES % (AUTO) 6.1 % (1.0-10.0); NEUTROPHILS % (AUTO) 57.8 % (45.0-75.0); PLATELET COUNT 196 K/UL (150-450); RED CELL DISTRIBUTION WIDTH 16.5 % (11.6-14.8); WHITE BLOOD COUNT 8.3 K/UL (4.8-10.8)
[2016-08-08 08:28] LABS: TROPONIN I < 0.30 ng/mL (<=0.30)
[2016-08-08 08:54] LABS: ANION GAP 15 (5-15); CALCIUM 9.3 mg/dL (8.6-10.2); CARBON DIOXIDE 21 mEQ/L (20-30); CHLORIDE 109 mEQ/L (98-107); CREATININE 2.4 mg/dL (0.5-0.9); HEMOLYSIS 4; POTASSIUM 5.5 mEQ/L (3.4-4.9); SODIUM 145 mEQ/L (135-145)
[2016-08-08] MEDS: Amiodarone 200mg tab ORAL SCH (09:02)
[2016-08-08] MEDS: Heparin 5000 units/ml inj SUBQ SCH ×2 (09:06→21:42)
--- NOTE | 2016-08-08 10:14 | Diagnostic Imaging Report ---
Indication: Chest Pain Comparison: 06/05/16 A single view chest radiograph was obtained. Findings: Suspicion of bilateral pleural effusions. Interstitial edema appears worse currently. Vascularity is prominent and ill-defined. The heart is enlarged. Bones are osteopenic. Impression: CHF. Bilateral pleural effusions
--- NOTE | 2016-08-08 12:07 | Diagnostic Imaging Report ---
APPROVED REPORT CPT Code: 72239 Present Symptoms Lower Extremity Pain: Bilateral Ulcer: Left Shortness of breath RIGHT LEG: Venous imaging reveals a patent deep venous system. There is no evidence of thrombus within the femoral, popliteal or tibial segments. The greater saphenous vein is also within normal limits. Doppler indicates normal spontaneous flow within these segments. LEFT LEG: Venous imaging reveals a patent deep venous system. There is no evidence of thrombus within the femoral or popliteal segments. The greater saphenous vein is also within normal limits. Doppler indicates normal spontaneous flow within these segments. Left calf veins were not visualized due to bandages.
--- NOTE | 2016-08-08 12:44 | Cardiology Report ---
APPROVED REPORT EKG Measurement Heart [id number] Sinus bradycardia with 1st degree AV block Left bundle branch block Abnormal ECG
--- NOTE | 2016-08-08 13:14 | Diagnostic Imaging Report ---
Indication: Dyspnea Comparison: 08/07/16 A single view chest radiograph was obtained. Findings: Interstitial edema noted. Bilateral pleural effusion suspected especially on the right. There is no interval change. Impression: No significant change.
--- NOTE | 2016-08-08 13:51 | Pulmonology Progress Note ---
Assessment/Plan Problems: (1) Acute respiratory distress (2) ATN (acute tubular necrosis) (3) Dementia (4) Severe anemia (5) COPD (chronic obstructive pulmonary disease) Assessment/Plan change to laxis drip awaiting echo results check bnp, cxr cardio evaluation renal function stable Subjective ROS Limited/Unobtainable: No Constitutional: Reports: no symptoms Respiratory: Reports: no symptoms Cardiovascular: Reports: no symptoms Allergies: Coded Allergies: SPIRONOLACTONE (Verified Allergy, Intermediate, 08/08/16) Objective Last 24 Hour Vital Signs Date Time Temp Pulse Resp B/P Pulse Ox O2 Delivery O2 Flow Rate FiO2 08/08/16 12:00 98.1 67 17 107/47 99 Nasal Cannula 2.0 59 08/08/16 09:10 62 19 Nasal Cannula 2.0 28 08/08/16 09:02 63 124/48 08/08/16 08:00 98.1 63 18 124/48 99 Room Air 63 08/08/16 08:00 61 08/08/16 04:06 99.0 59 20 110/46 98 Nasal Cannula 2.0 08/08/16 04:00 57 08/08/16 00:16 98.6 53 20 113/54 100 Room Air 08/08/16 00:00 57 08/07/16 20:17 96.7 58 20 127/51 100 Room Air 08/07/16 20:00 56 08/07/16 19:50 58 18 Room Air 08/07/16 19:00 59 08/07/16 18:00 97.7 67 20 133/56 98 Nasal Cannula 2.0 08/07/16 17:48 55 20 133/46 99 Nasal Cannula 2.0 08/07/16 16:30 54 14 133/41 100 Nasal Cannula 2.0 08/07/16 15:56 98.1 52 18 131/42 98 Room Air 08/07/16 15:15 53 22 Nasal Cannula 94 08/07/16 14:55 28 08/07/16 14:55 52 24 96 Nasal Cannula 2.0 28 08/07/16 14:55 52 24 Nasal Cannula 2.0 28 08/07/16 14:39 98.2 89 20 156/92 99 Room Air Intake and Output 08/07/16 08/08/16 19:00 07:00 # Voids 1 3 General Appearance: WD/WN HEENT: normocephalic Respiratory/Chest: chest wall non-tender, lungs clear, decreased breath sounds , accessory muscle use Cardiovascular: normal peripheral pulses Abdomen: normal bowel sounds, soft, non tender Genitourinary: normal external genitalia Microbiology Date/Time Source Procedure Growth Status 08/07/16 15:17 Nasal Nares Influenza Types A,B Antigen (ARETHA) - Final Complete Laboratory Tests 08/07/16 15:17: White Blood Count 10.9H, Red Blood Count 3.19L, Hemoglobin 8.5L, Hematocrit 28.6L, Mean Corpuscular Volume 90, Mean Corpuscular Hemoglobin 26.7L, Mean Corpuscular Hemoglobin Concent 29.7L, Red Cell Distribution Width 17.1H, Platelet Count 192, Mean Platelet Volume 6.5, Neutrophils (%) (Auto) 70.9, Lymphocytes (%) (Auto) 23.1, Monocytes (%) (Auto) 5.1, Eosinophils (%) (Auto) 0.3, Basophils (%) (Auto) 0.6, Prothrombin Time 24.0H, Prothromb Time International Ratio 2.3H, Activated Partial Thromboplast Time 30, Sodium Level 142, Potassium Level 5.4H, Chloride Level 103, Carbon Dioxide Level 18L, Anion Gap 16H, Blood Urea Nitrogen 57H, Creatinine 2.2H, Estimat Glomerular Filtration Rate , Glucose Level 144H, Lactic Acid Level 1.10, Calcium Level 9.2 , Total Bilirubin 0.2, Aspartate Amino Transf (AST/SGOT) 33, Alanine Aminotransferase (ALT/SGPT) 15, Alkaline Phosphatase 92, Total Creatine Kinase 26, Creatine Kinase MB 1.7, Creatine Kinase MB Relative Index 6.5, Troponin I < 0.30, Pro-B-Type Natriuretic Peptide 73234B, Total Protein 5.4L, Albumin 2.9L, Globulin 2.5, Albumin/Globulin Ratio 1.1 08/07/16 15:45: Urine Color Pale yellow, Urine Appearance Clear, Urine pH 5, Urine Specific Felt 1.020, Urine Protein 1+H, Urine Glucose (UA) Negative, Urine Ketones Negative, Urine Occult Blood 1+H, Urine Nitrite PositiveH, Urine Bilirubin Negative, Urine Urobilinogen Normal, Urine Leukocyte Esterase 1+H, Urine RBC 0-2 , Urine WBC 0-2, Urine Squamous Epithelial Cells Few, Urine Bacteria Few 08/08/16 07:05: White Blood Count 8.3, Red Blood Count 3.10L, Hemoglobin 8.2L, Hematocrit 26.8L , Mean Corpuscular Volume 86, Mean Corpuscular Hemoglobin 26.4L, Mean Corpuscular Hemoglobin Concent 30.6L, Red Cell Distribution Width 16.5H, Platelet Count 196, Mean Platelet Volume 6.8, Neutrophils (%) (Auto) 57.8, Lymphocytes (%) (Auto) 32.3, Monocytes (%) (Auto) 6.1, Eosinophils (%) (Auto) 2.5, Basophils (%) (Auto) 1.2, Sodium Level 145, Potassium Level 5.5H, Chloride Level 109H, Carbon Dioxide Level 21, Anion Gap 15, Blood Urea Nitrogen 58H, Creatinine 2.4H, Estimat Glomerular Filtration Rate , Glucose Level 71L, Calcium Level 9.3, Troponin I < 0.30, Albumin 2.9L, Phosphorus Level 4.0 Current Medications Medications (Trade) Dose Ordered Sig/Abril Route PRN Reason Start Time Stop Time Status Last Admin Dose Admin Acetaminophen (Tylenol) 650 mg Q4H PRN ORAL T>100.5 08/07/16 16:45 09/06/16 16:44 Albuterol/ Ipratropium (DuoNeb 0.5-3(2.5)mg/3ml) 3 ml Q4H PRN HHN Shortness of Breath 08/07/16 16:45 08/12/16 16:44 Amiodarone HCl (Cordarone) 200 mg DAILY ORAL 08/08/16 09:00 09/07/16 08:59 08/08/16 09:02 Carvedilol (Coreg) 3.125 mg EVERY 12 HOURS ORAL 08/08/16 09:00 09/07/16 08:59 08/08/16 09:02 Dextrose (Dextrose 50%) STAT PRN IV Hypoglycemia 08/07/16 16:45 09/06/16 16:44 Furosemide (Lasix) 40 mg EVERY 8 HOURS IV 08/07/16 22:00 09/06/16 21:59 08/08/16 06:12 Heparin Sodium (Porcine) (Heparin 5000 units/ml) 5,000 units EVERY 12 HOURS SUBQ 08/07/16 21:00 09/06/16 20:59 08/08/16 09:06 Insulin Aspart (NovoLOG) BEFORE MEALS AND HS SUBQ 08/07/16 21:00 09/06/16 20:59 08/08/16 11:47 Ondansetron HCl (Zofran) 4 mg Q6H PRN IVP Nausea & Vomiting 08/07/16 16:45 09/06/16 16:44 Polyethylene Glycol (Miralax) 17 gm DAILYPRN PRN ORAL Constipation 08/07/16 16:45 09/06/16 16:44 Temazepam (Restoril) 15 mg HSPRN PRN ORAL Insomnia 08/07/16 21:00 08/14/16 20:59 Warfarin Sodium (Coumadin) 3 mg COUMADIN ORAL 08/08/16 17:00 08/13/16 16:59 ILIR WALLACE August 08, 2016 13:51
--- NOTE | 2016-08-08 15:42 | Wound Care Consultation ---
Wound Assessment Wound Assessment : Wound Present on Admission: Yes New Wound: No Status Change of Wound: No Wound Location Body Site Modif: left, lower, posterior Wound Location Body Site: leg Wound Type: lesion-etiology unknown Kiera Test: Does not Kiera Wound Thickness: Full Thickness Wound Length: 5.5 Wound Width: 3.0 Wound Depth: utd Percent of Wound [place]/Red: 80 Percent of Wound Bed Yellow/Wh: 20 Wound Drainage Description: Serosanguineous Wound Drainage Amount: Moderate Wound Drainage Odor: None/Absent Tissue Surrounding Wound: Macerated Wound General Appearance: Reddened, Draining Wound Comment #1 Left lower posterior leg open wound etiology unknown #2 Scattered ecchymosis on both upper extremities Recommendation -Left lower posterior leg open wound Cleanse with saline, pat dry, apply Silvasorb gel, apply calcium alginate, secure with bordered gauze daily and PRN soiled/dislodged -Keep clean and dry -Turn and reposition -Offload both heels -Heel protector on both heels -Optimize nutrition -Assess and f/u accordingly for any changes JOSE ARMANDO NELSON RN August 08, 2016 15:41
[2016-08-08 16:32] LABS: INR 2.3 (0.9-1.1); PROTHROMBIN TIME 24.2 SEC (9.30-11.50)
[2016-08-08] MEDS ORDERED: Warfarin Sodium 3mg ORAL SCH (17:00)
[2016-08-09 03:50] VITALS: BP 104/43
[2016-08-09] MEDS: NovoLOG Insulin Flexpen SUBQ SCH ×4 (06:33→20:27)
[2016-08-09 07:37] LABS: BASOPHILS % (AUTO) 0.9 % (0.0-2.0); EOSINOPHILS % (AUTO) 2.2 % (0.0-3.0); LYMPHOCYTES % (AUTO) 46.8 % (20.0-45.0); MEAN CORPUSCULAR HEMOGLOBIN 27.2 PG (27.0-31.0); MEAN CORPUSCULAR HGB CONC 31.5 G/DL (32.0-36.0); MEAN CORPUSCULAR VOLUME 86 FL (80-99); MONOCYTES % (AUTO) 5.8 % (1.0-10.0); NEUTROPHILS % (AUTO) 44.3 % (45.0-75.0); PLATELET COUNT 183 K/UL (150-450); RED BLOOD COUNT 3.02 M/UL (4.20-5.40); RED CELL DISTRIBUTION WIDTH 16.4 % (11.6-14.8); WHITE BLOOD COUNT 10.4 K/UL (4.8-10.8)
[2016-08-09 07:50] LABS: INR 2.4 (0.9-1.1); PROTHROMBIN TIME 24.7 SEC (9.30-11.50)
[2016-08-09 07:58] LABS: TROPONIN I < 0.30 ng/mL (<=0.30)
[2016-08-09 08:00] VITALS: BP 117/60
[2016-08-09 08:05] LABS: ALANINE AMINOTRANSFERASE 19 U/L (3-33); ALBUMIN/GLOBULIN RATIO 0.9 (1.0-2.7); ANION GAP 17 (5-15); ASPARTATE AMINO TRANSFERASE 41 U/L (5-40); CALCIUM 9.4 mg/dL (8.6-10.2); CARBON DIOXIDE 22 mEQ/L (20-30); CHLORIDE 102 mEQ/L (98-107); CREATININE 2.8 mg/dL (0.5-0.9); HEMOLYSIS 2; POTASSIUM 5.5 mEQ/L (3.4-4.9); SODIUM 141 mEQ/L (135-145); TOTAL PROTEIN 6.1 g/dL (6.6-8.7)
[2016-08-09] MEDS: Amiodarone 200mg tab ORAL SCH (08:25)
[2016-08-09] MEDS: Heparin 5000 units/ml inj SUBQ SCH ×2 (08:29→20:28)
[2016-08-09 12:09] VITALS: BP 104/44
--- NOTE | 2016-08-09 13:49 | Pulmonology Progress Note ---
Assessment/Plan Problems: (1) Acute respiratory distress (2) ATN (acute tubular necrosis) (3) Dementia (4) Severe anemia (5) COPD (chronic obstructive pulmonary disease) Assessment/Plan on laxis drip awaiting echo results check bnp, cxr daily cardio evaluation watch renal function stable Subjective ROS Limited/Unobtainable: No Interval Events: less short of breath Allergies: Coded Allergies: SPIRONOLACTONE (Verified Allergy, Intermediate, 08/08/16) Objective Last 24 Hour Vital Signs Date Time Temp Pulse Resp B/P Pulse Ox O2 Delivery O2 Flow Rate FiO2 08/09/16 12:09 98.1 61 20 104/44 100 Nasal Cannula 2.0 08/09/16 08:28 58 117/60 08/09/16 08:00 97.3 58 20 117/60 100 Nasal Cannula 2.0 08/09/16 08:00 61 08/09/16 07:30 Nasal Cannula 2.0 28 08/09/16 07:30 60 20 Nasal Cannula 2.0 28 08/09/16 07:30 98 Nasal Cannula 2.0 28 08/09/16 04:00 64 08/09/16 03:50 98.3 63 17 104/43 95 Nasal Cannula 2.0 08/09/16 00:00 52 08/08/16 23:50 98.6 58 17 104/40 99 Nasal Cannula 2.0 08/08/16 21:00 60 97/49 08/08/16 20:50 Nasal Cannula 2.0 28 08/08/16 20:50 98 Nasal Cannula 2.0 28 08/08/16 20:50 60 18 Nasal Cannula 2.0 28 08/08/16 20:17 97/49 08/08/16 20:06 97.5 59 18 102/32 98 Nasal Cannula 2.0 08/08/16 20:00 53 08/08/16 17:17 Nasal Cannula 2.0 28 08/08/16 17:17 99 Nasal Cannula 2.0 28 08/08/16 16:00 58 08/08/16 16:00 97.5 58 17 114/45 100 Nasal Cannula 2.0 58 Intake and Output 08/08/16 08/09/16 19:00 07:00 Intake Total 440 ml 110 ml Balance 440 ml 110 ml Intake Oral 430 ml IV Total 10 ml 110 ml # Voids 3 4 General Appearance: WD/WN HEENT: atraumatic Respiratory/Chest: crackles/rales Cardiovascular: normal peripheral pulses, normal rate Abdomen: normal bowel sounds, soft, non tender Genitourinary: normal external genitalia Extremities: no cyanosis 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/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 normal, no motor/sensory deficits Microbiology Date/Time Source Procedure Growth Status 08/07/16 15:39 Blood Blood Culture - Preliminary NO GROWTH AFTER 24 HOURS Resulted 08/07/16 15:17 Blood Blood Culture - Preliminary NO GROWTH AFTER 24 HOURS Resulted 08/08/16 13:00 Wound Gram Stain - Final Resulted 08/08/16 13:00 Wound Wound Culture - Preliminary NO GROWTH AFTER 24 HOURS Resulted 08/07/16 15:17 Nasal Nares Influenza Types A,B Antigen (ARETHA) - Final Complete Laboratory Tests 08/08/16 15:30: Prothrombin Time 24.2H, Prothromb Time International Ratio 2.3H 08/09/16 06:35: Prothrombin Time 24.7H, Prothromb Time International Ratio 2.4H, White Blood Count 10.4, Red Blood Count 3.02L, Hemoglobin 8.2L, Hematocrit 26.1L, Mean Corpuscular Volume 86, Mean Corpuscular Hemoglobin 27.2, Mean Corpuscular Hemoglobin Concent 31.5L, Red Cell Distribution Width 16.4H, Platelet Count 183 , Mean Platelet Volume 7.0, Neutrophils (%) (Auto) 44.3L, Lymphocytes (%) (Auto ) 46.8H, Monocytes (%) (Auto) 5.8, Eosinophils (%) (Auto) 2.2, Basophils (%) ( Auto) 0.9, Sodium Level 141, Potassium Level 5.5H, Chloride Level 102, Carbon Dioxide Level 22, Anion Gap 17H, Blood Urea Nitrogen 69H, Creatinine 2.8H, Estimat Glomerular Filtration Rate , Glucose Level 137H, Calcium Level 9.4, Total Bilirubin 0.2, Aspartate Amino Transf (AST/SGOT) 41H, Alanine Aminotransferase (ALT/SGPT) 19, Alkaline Phosphatase 90, Troponin I < 0.30, Pro- B-Type Natriuretic Peptide 04062O, Total Protein 6.1L, Albumin 2.9L, Globulin 3.2, Albumin/Globulin Ratio 0.9L Current Medications Medications (Trade) Dose Ordered Sig/Abril Route PRN Reason Start Time Stop Time Status Last Admin Dose Admin Acetaminophen (Tylenol) 650 mg Q4H PRN ORAL T>100.5 08/07/16 16:45 09/06/16 16:44 Albuterol/ Ipratropium (DuoNeb 0.5-3(2.5)mg/3ml) 3 ml Q4H PRN HHN Shortness of Breath 08/07/16 16:45 08/12/16 16:44 Amiodarone HCl (Cordarone) 200 mg DAILY ORAL 08/08/16 09:00 09/07/16 08:59 08/09/16 08:25 Carvedilol (Coreg) 3.125 mg EVERY 12 HOURS ORAL 08/08/16 09:00 09/07/16 08:59 08/08/16 09:02 Dextrose STAT PRN IV Hypoglycemia 08/07/16 16:45 09/06/16 16:44 Furosemide/ Dextrose (Lasix/D5W) 100 ml @ 10 mls/hr Q10H IV 08/08/16 15:00 09/07/16 14:59 08/09/16 11:13 Heparin Sodium (Porcine) (Heparin 5000 units/ml) 5,000 units EVERY 12 HOURS SUBQ 08/07/16 21:00 09/06/16 20:59 08/08/16 21:42 Insulin Aspart (NovoLOG) BEFORE MEALS AND HS SUBQ 08/07/16 21:00 09/06/16 20:59 08/09/16 11:33 Ondansetron HCl (Zofran) 4 mg Q6H PRN IVP Nausea & Vomiting 08/07/16 16:45 09/06/16 16:44 Polyethylene Glycol (Miralax) 17 gm DAILYPRN PRN ORAL Constipation 08/07/16 16:45 09/06/16 16:44 Temazepam (Restoril) 15 mg HSPRN PRN ORAL Insomnia 08/07/16 21:00 08/14/16 20:59 Warfarin Sodium (Coumadin) 3 mg COUMADIN ORAL 08/08/16 17:00 08/13/16 16:59 08/08/16 16:50 ILIR WALLACE August 09, 2016 13:49
--- NOTE | 2016-08-09 14:02 | Cardiology Report ---
APPROVED REPORT EXAM: Two-dimensional and M-mode echocardiogram with Doppler and color Doppler. INDICATION Left Ventricular Function. M-Mode DIMENSIONS IVSd1.0 (0.7-1.1cm)Left Atrium (MM)4.6 (1.6-4.0cm) LVDd5.6 (3.5-5.6cm)Aortic Root2.9 (2.0-3.7cm) PWd1.0 (0.7-1.1cm)Aortic Cusp Exc.1.6 (1.5-2.0cm) IVSs1.4 cm LVDs4.8 (2.5-4.0cm) PWs1.9 cm Technically difficult study due to poor acoustical windows and patient's position. Mild left ventricular enlargement. Global left ventricular hypokinesis.Septal dyskinesis. Left ventricular ejection fraction estimated to be 20 %. No Evidence of left ventricular hypertrophy. No evidence of pericardial effusion. Right cardiac chamber sizes are within normal limits. Right Atrial chamber size are within normal limits. Large Left atrial enlargement by 2D. Focal aortic valve sclerosis with adequate cusp excursion. Mitral valve prosthesis is seen and appears to move appropriately. Mitral annulus and aortic root calcification. Normal pulmonic valve structure. Normal tricuspid valve structure. IVC at normal size with / without physiologic collapse. RA pressure 10mmHg. A color flow and spectral Doppler study was performed and revealed: Mild to Moderate aortic regurgitation. No Mitral regurgitation. Mitral P1/2 time of 140m/s is compatible with a mitral valve area of 1.6cm2. Peak mitral valve diastolic gradient of 14mmHg and a mean gradient of 5mmHg. Mitral diastolic velocities suggest reduced left ventricular relaxation c/w mild LV diastolic dysfunction (Grade I ). Mild, tricuspid regurgitation. Tricuspid systolic velocities suggests peak right ventricular systolic pressure of 37mmHg Pulmonic regurgitation present.
--- NOTE | 2016-08-09 14:22 | General Progress Note ---
Progress Note Progress Note [id number] full note dictated HENRRY WOLFF August 09, 2016 14:22
[2016-08-09 16:00] VITALS: BP 108/60
[2016-08-09 20:00] VITALS: BP 94/62
[2016-08-09 20:53] LABS: CREATININE, RANDOM URINE 24.1 mg/dL
--- NOTE | 2016-08-09 22:29 | Consultation ---
DATE OF CONSULTATION: 08/09/2016 NEPHROLOGY CONSULTATION CONSULTING PHYSICIAN: Valeria Garcia M.D. REFERRING PHYSICIAN: Emilee Weir M.D. REASON FOR CONSULTATION: Acute renal failure. HISTORY OF PRESENT ILLNESS: The patient is an 86-year-old very pleasant female with past medical history significant for history of congestive heart failure, chronic obstructive pulmonary disease, and history of chronic kidney disease stage 4 to 5. Based on the reports, I have the patient was admitted in past in [facility] in 2016. About a year ago, the patient had a creatinine as high as 3. She basically went home on May of 2016 with creatinine of 2.2. She presented to [facility] on 08/08/2016 with a chief complaint of increasing of shortness of breath, orthopnea, and decreased exercise tolerance. She denies having any fever or chills. She progressively got short of breath to the point not able to get short of breath in walking to the bathroom. She was admitted with diagnosis of congestive heart failure, was admitted in the hospital. Over the course of hospital admission, the patient's creatinine continues to increase and arising. I was called for management of renal disease and electrolyte imbalance. PAST MEDICAL HISTORY: 1. History of hypertension. 2. History of chronic obstructive pulmonary disease. 3. History of chronic kidney disease stage 4. 4. History of anemia of chronic kidney disease. 5. History of dyslipidemia. 6. History of atrial fibrillation. 7. History of congestive heart failure. ALLERGIES: Allergic to spironolactone. MEDICATIONS: Home medications are includin. Albuterol and Atrovent as needed. 2. Amiodarone 200 mg p.o. daily. 3. Carvedilol 12.5 mg p.o. daily. 4. Iron sulfate. 5. Advair one puff b.i.d. 6. Furosemide 20 mg daily. 7. Glipizide 10 mg daily. 8. Insulin regular three times a day. 9. Insulin Lantus once at night. 10. Losartan 50 mg p.o. daily. 11. Januvia 100 mg p.o. daily. 12. Warfarin 3 mg by mouth daily. REVIEW OF SYSTEMS: General: She complain of generalized weakness. Denied any fever, chills, or night sweats. Head And Neck: Denies any dysphagia, odynophagia, blurry vision, headache, neck stiffness. Pulmonary: Complained of shortness of breath. No cough. No sputum. Cardiovascular: No chest pain. No palpitations. Gastrointestinal: Denies any nausea, vomiting, diarrhea, hematemesis, or hematochezia. Genitourinary: Denies any dysuria, frequency, hematuria. Musculoskeletal: She complained of generalized weakness. Denies any localized weakness or numbness. PHYSICAL EXAMINATION: VITAL SIGNS: The patient has temperature of 98.0, pulse of 63, blood pressure of 104/43. HEENT: Head and neck, no JVP. No LAD. No thyromegaly. Extraocular movement intact. Pupils are reactive to light and accommodation. LUNGS: Clear to auscultation. CARDIAC: Regular rate and rhythm. S1 and S2. No murmur. No rub. ABDOMEN: Soft, nontender, and nondistended. EXTREMITIES: No edema. No clubbing. No cyanosis. LABORATORY AND DIAGNOSTIC DATA: WBC count of 10.4, hemoglobin of 8.2, hematocrit of 26, platelet count of 183,000. Chemistry reveals sodium 141, potassium 5.5, chloride 102, bicarb 22, BUN of 69, creatinine of 2.8, glucose of 137. Calcium of 9.4. AST of 41, ALT of 19, alkaline phosphatase 90. BNP . Total protein of 6.1, albumin of 2.9. Urinalysis revealed specific gravity of 1.015, pH of 6, blood 1+, nitrite positive, WBC 0 to 2, RBCs 0 to 2. ASSESSMENT: 1. Acute renal failure. 2. Chronic kidney disease. 3. Congestive heart failure exacerbation. 4. Chronic obstructive pulmonary disease. 5. Atrial fibrillation. 6. Diabetes. 7. . PLAN: Plan for the patient to check the Inputs and outputs. Monitor renal function and electrolytes closely. I would daily weight. Avoid any NSAID or nephrotoxic. Check hemoglobin A1c. Recommended for this patient, recommended A1c is 6 to 7. Check the lipid profile. Monitor renal function and electrolytes closely. No NSAID. Check calcium, phosphorous, PTH for evaluation of renal osteodystrophy. At the end, I would like to thank, Dr. Weir, for allowing me to participate in the care of this patient. Valeria Garcia M.D. DR: Yang JOB#: [id number] CC:
[2016-08-10] VITALS: BP 119/52
[2016-08-10 04:00] VITALS: BP 136/50
[2016-08-10] MEDS: NovoLOG Insulin Flexpen SUBQ SCH ×4 (06:04→22:01)
[2016-08-10 08:00] VITALS: BP 93/57
[2016-08-10 08:16] LABS: BASOPHILS % (AUTO) 0.9 % (0.0-2.0); EOSINOPHILS % (AUTO) 2.6 % (0.0-3.0); LYMPHOCYTES % (AUTO) 39.4 % (20.0-45.0); MEAN CORPUSCULAR HEMOGLOBIN 26.6 PG (27.0-31.0); MEAN CORPUSCULAR VOLUME 86 FL (80-99); MEAN PLATELET VOLUME 6.8 FL (6.5-10.1); MONOCYTES % (AUTO) 5.7 % (1.0-10.0); NEUTROPHILS % (AUTO) 51.3 % (45.0-75.0); PLATELET COUNT 210 K/UL (150-450); RED BLOOD COUNT 3.48 M/UL (4.20-5.40); RED CELL DISTRIBUTION WIDTH 16.1 % (11.6-14.8); WHITE BLOOD COUNT 10.7 K/UL (4.8-10.8)
[2016-08-10 08:29] LABS: PROTHROMBIN TIME 20.3 SEC (9.30-11.50)
[2016-08-10 09:00] LABS: ALANINE AMINOTRANSFERASE 19 U/L (3-33); ALBUMIN/GLOBULIN RATIO 0.9 (1.0-2.7); ANION GAP 18 (5-15); ASPARTATE AMINO TRANSFERASE 40 U/L (5-40); CALCIUM 9.8 mg/dL (8.6-10.2); CARBON DIOXIDE 23 mEQ/L (20-30); CHLORIDE 99 mEQ/L (98-107); CREATININE 3.3 mg/dL (0.5-0.9); HEMOLYSIS 38; POTASSIUM 5.3 mEQ/L (3.4-4.9); SODIUM 140 mEQ/L (135-145); TOTAL PROTEIN 6.6 g/dL (6.6-8.7)
[2016-08-10] MEDS: Amiodarone 200mg tab ORAL SCH (09:11)
[2016-08-10] MEDS: Heparin 5000 units/ml inj SUBQ SCH ×2 (09:14→20:55)
[2016-08-10 12:00] VITALS: BP 103/47
[2016-08-10 16:00] VITALS: BP 115/48
[2016-08-10 16:14] LABS: MICROALBUMIN/CREATININE RATIO <13.6 mg/g creat (0.0-30.0)
--- NOTE | 2016-08-10 16:50 | Cardiology Progress Note ---
Subjective Subjective [id number] Objective Last 24 Hour Vital Signs Date Time Temp Pulse Resp B/P Pulse Ox O2 Delivery O2 Flow Rate FiO2 08/10/16 12:00 67 08/10/16 12:00 97.5 80 17 103/47 97 Nasal Cannula 2.0 83 08/10/16 09:00 64 93/57 08/10/16 08:00 97.0 64 18 93/57 Nasal Cannula 2.0 98 08/10/16 08:00 73 08/10/16 04:00 98.1 60 20 136/50 100 Nasal Cannula 2.0 08/10/16 04:00 59 08/10/16 00:00 57 08/10/16 00:00 97.5 60 20 119/52 100 Nasal Cannula 2.0 08/09/16 20:30 65 94/62 08/09/16 20:00 98.2 65 20 94/62 98 Nasal Cannula 2.0 08/09/16 20:00 60 08/09/16 18:58 98 Nasal Cannula 2.0 28 08/09/16 18:58 Nasal Cannula 2.0 28 08/09/16 18:58 64 18 Nasal Cannula 2.0 28 Intake and Output 08/09/16 08/10/16 19:00 07:00 Intake Total 360 ml 230 ml Balance 360 ml 230 ml Intake Oral 360 ml 120 ml IV Total 110 ml # Voids 4 3 # Bowel Movements 1 Laboratory Tests Test 08/09/16 19:20 08/10/16 07:30 Urine Eosinophils None seen Urine Random Creatinine 22.0 mg/dL (Not Estab.) Urine Random Microalbumin <3.0 ug/mL (Not Estab.) Urine Random Total Protein 4 mg/dL Urine Random Sodium 120 mmol/L Urine Creatinine 24.1 mg/dL Urine Microalbumin/Creatinine Ratio <13.6 mg/g creat White Blood Count 10.7 K/UL (4.8-10.8) Red Blood Count 3.48 M/UL (4.20-5.40) L Hemoglobin 9.3 G/DL (12.0-16.0) L Hematocrit 29.9 % (37.0-47.0) L Mean Corpuscular Volume 86 FL (80-99) Mean Corpuscular Hemoglobin 26.6 PG (27.0-31.0) L Mean Corpuscular Hemoglobin Concent 31.0 G/DL (32.0-36.0) L Red Cell Distribution Width 16.1 % (11.6-14.8) H Platelet Count 210 K/UL (150-450) Mean Platelet Volume 6.8 FL (6.5-10.1) Neutrophils (%) (Auto) 51.3 % (45.0-75.0) Lymphocytes (%) (Auto) 39.4 % (20.0-45.0) Monocytes (%) (Auto) 5.7 % (1.0-10.0) Eosinophils (%) (Auto) 2.6 % (0.0-3.0) Basophils (%) (Auto) 0.9 % (0.0-2.0) Prothrombin Time 20.3 SEC (9.30-11.50) H Prothromb Time International Ratio 2.0 (0.9-1.1) H Sodium Level 140 mEQ/L (135-145) Potassium Level 5.3 mEQ/L (3.4-4.9) H Chloride Level 99 mEQ/L (98-107) Carbon Dioxide Level 23 mEQ/L (20-30) Anion Gap 18 (5-15) H Blood Urea Nitrogen 78 mg/dL (7-23) H Creatinine 3.3 mg/dL (0.5-0.9) H Estimat Glomerular Filtration Rate mL/min (>60) Glucose Level 115 mg/dL (74-106) H Calcium Level 9.8 mg/dL (8.6-10.2) Total Bilirubin 0.3 mg/dL (0.0-1.2) Aspartate Amino Transf (AST/SGOT) 40 U/L (5-40) Alanine Aminotransferase (ALT/SGPT) 19 U/L (3-33) Alkaline Phosphatase 89 U/L (35-104) Pro-B-Type Natriuretic Peptide 11040 pg/mL (0-450) H Total Protein 6.6 g/dL (6.6-8.7) Albumin 3.2 g/dL (3.5-5.2) L Globulin 3.4 g/dL Albumin/Globulin Ratio 0.9 (1.0-2.7) L Microbiology Date/Time Source Procedure Growth Status 08/08/16 13:00 Wound Gram Stain - Final Resulted 08/08/16 13:00 Wound Culture - Preliminary Ilana Albicans Resulted KARINE MEJIA August 10, 2016 16:50
--- NOTE | 2016-08-10 17:05 | Nephrology Progress Note ---
Assessment/Plan Assessment 1. Acute renal failure. 2. Chronic kidney disease. 3. Congestive heart failure exacerbation. 4. Chronic obstructive pulmonary disease. 5. Atrial fibrillation. 6. Diabetes. 7.hyperkalemia improving Plan plan to continue lasix daily wt low k diet monitoring renal function avoid NSAID Subjective Constitutional: Reports: malaise, weakness HEENT: Reports: no symptoms Genitourinary: Reports: no symptoms Neurologic/Psychiatric: Reports: no symptoms Subjective no acute events feeling better less SOB Objective Objective Last 24 Hour Vital Signs Date Time Temp Pulse Resp B/P Pulse Ox O2 Delivery O2 Flow Rate FiO2 08/10/16 16:00 97.6 76 17 115/48 97 Nasal Cannula 2.0 17 08/10/16 12:00 67 08/10/16 12:00 97.5 80 17 103/47 97 Nasal Cannula 2.0 83 08/10/16 09:00 64 93/57 08/10/16 08:00 97.0 64 18 93/57 Nasal Cannula 2.0 98 08/10/16 08:00 73 08/10/16 04:00 98.1 60 20 136/50 100 Nasal Cannula 2.0 08/10/16 04:00 59 08/10/16 00:00 57 08/10/16 00:00 97.5 60 20 119/52 100 Nasal Cannula 2.0 08/09/16 20:30 65 94/62 08/09/16 20:00 98.2 65 20 94/62 98 Nasal Cannula 2.0 08/09/16 20:00 60 08/09/16 18:58 98 Nasal Cannula 2.0 28 08/09/16 18:58 Nasal Cannula 2.0 28 08/09/16 18:58 64 18 Nasal Cannula 2.0 28 Intake and Output 08/09/16 08/10/16 19:00 07:00 Intake Total 360 ml 230 ml Balance 360 ml 230 ml Intake Oral 360 ml 120 ml IV Total 110 ml # Voids 4 3 # Bowel Movements 1 Laboratory Tests 08/09/16 19:20: Urine Eosinophils None seen, Urine Random Creatinine 22.0, Urine Random Microalbumin <3.0, Urine Random Total Protein 4, Urine Random Sodium 120, Urine Creatinine 24.1, Urine Microalbumin/Creatinine Ratio <13.6 08/10/16 07:30: White Blood Count 10.7, Red Blood Count 3.48L, Hemoglobin 9.3L, Hematocrit 29.9L , Mean Corpuscular Volume 86, Mean Corpuscular Hemoglobin 26.6L, Mean Corpuscular Hemoglobin Concent 31.0L, Red Cell Distribution Width 16.1H, Platelet Count 210, Mean Platelet Volume 6.8, Neutrophils (%) (Auto) 51.3, Lymphocytes (%) (Auto) 39.4, Monocytes (%) (Auto) 5.7, Eosinophils (%) (Auto) 2.6, Basophils (%) (Auto) 0.9, Prothrombin Time 20.3H, Prothromb Time International Ratio 2.0H, Sodium Level 140, Potassium Level 5.3H, Chloride Level 99, Carbon Dioxide Level 23, Anion Gap 18H, Blood Urea Nitrogen 78H, Creatinine 3.3H, Estimat Glomerular Filtration Rate , Glucose Level 115H, Calcium Level 9.8, Total Bilirubin 0.3, Aspartate Amino Transf (AST/SGOT) 40, Alanine Aminotransferase (ALT/SGPT) 19, Alkaline Phosphatase 89, Pro-B-Type Natriuretic Peptide 34021X, Total Protein 6.6, Albumin 3.2L, Globulin 3.4, Albumin/Globulin Ratio 0.9L Height (Feet): 5 Height (Inches): 2.00 Weight (Pounds): 125 Objective HEENT: Head and neck, no JVP. No LAD. No thyromegaly. Extraocular movement intact. Pupils are reactive to light and accommodation. LUNGS: Clear to auscultation. CARDIAC: Regular rate and rhythm. S1 and S2. No murmur. No rub. ABDOMEN: Soft, nontender, and nondistended. EXTREMITIES: No edema. No clubbing. No cyanosis HENRRY WOLFF August 10, 2016 17:05
[2016-08-10 20:00] VITALS: BP 98/44
[2016-08-11] VITALS: BP 102/44
--- NOTE | 2016-08-11 02:08 | Consultation ---
DATE OF CONSULTATION: 08/10/2016 CARDIOLOGY CONSULTATION IDENTIFICATION DATA: This is an 86-year-old, female. REASON FOR EVALUATION: Shortness of breath. HISTORY OF PRESENT ILLNESS: Taken from talking to the patient and reviewing the chart. The patient unfortunately is extremely a poor historian. She is not giving any history. She said she had two heart surgeries and the last one was maybe 5 years ago, but she is not sure exactly and she does not know which kind of surgery she had. The patient is not sure if she takes any medications at home. She is not aware of her medical disease, diagnosis or condition. MEDICATIONS: She is at present time taking amiodarone, carvedilol, subcutaneous heparin, and IV furosemide. Her Is and Os were registered probably not accurately because the patient is incontinent and she is on diapers. SOCIAL HISTORY: She lives with her daughters who take care of her. Habits, no history of drinking, smoking, or drug abuse. REVIEW OF SYSTEM: Very minimal. The patient says that she was short of breath and she is less short of breath today. The patient said that she does not have any chest pain, no PND, or orthopnea. No fever. PHYSICAL EXAMINATION: GENERAL: This is a chronic ill appearing, elderly female, lying in bed. She is not orthopneic. VITAL SIGNS: Her blood pressure was 100/40, heart rate is 80, and oxygen saturation on 2 liters of oxygen 97%. She is afebrile. She appears to be pale. HEENT: PERRLA. EOMI. NECK: Neck veins are distended up to 12 cm. LUNGS: She has scattered rales bilaterally. She had midsternal scar. HEART: Regular with extremely distant S1. ABDOMEN: Obese and soft. Tender in the right upper quadrant. Liver is palpable approximately 3 cm. Bowel sounds are present. EXTREMITIES: Lower extremities, no edema. Distal pulses palpable. NEUROLOGICAL: She appears to be without lateralized neurologic deficit, but she is not very well oriented and probably has chronic memory issues. LABORATORY AND DIAGNOSTIC DATA: Her chest x-ray upon admission revealed presence of bilateral pleural effusion and CHF. Her EKG shows sinus bradycardia with a first-degree AV block and with sinus rhythm with wide QRS, sinus bradycardia and left bundle-branch block pattern with repolarization abnormalities typical for right bundle branch block. The chest x-ray showed bilateral infiltrates suggestive of congestive heart failure and cardiomegaly and there are signs of heart surgery possible twice because of so many josef and probably bypass. I do not see that there is a possible prosthetic valve ring on chest x-ray I cannot say for sure. Her INR was 2.4 to 2. Her creatinine was 2.8 to 3.3 and BUN was 58 going up to 78 and potassium was 5.3. Albumin is 2.9. Hemoglobin 9.3, WBC is 10.7, and platelets 210,000. IMPRESSION AND RECOMMENDATION: An echocardiogram revealed presence of dilated left ventricle for ejection fraction and prosthetic valve in mitral position, but it is not clear what kind of procedures I would think this is probably bioprosthesis. So, this patient with evidence of congestive heart failure and also renal insufficiency with worsening renal function, she is on amiodarone. She is in sinus rhythm. I am going only to order thyroid function for this patient and I cannot start her on JULI inhibitor or ARBs because of kidney problems and I cannot start her on beta-blockers either because of bradycardia probably caused by amiodarone. So, at the present time, she is stable and we need to get more history potentially try to get report of her last coronary angiogram where she might need another coronary angiogram if she is ischemic so maybe family can give more information about her baseline ejection fraction and about when her last coronary angiogram was done. We are going to try to get this information. Cynthia Green M.D. DR: LEXIE JOB#: [id number] CC:
[2016-08-11 04:00] VITALS: BP 111/56
[2016-08-11] MEDS: NovoLOG Insulin Flexpen SUBQ SCH ×4 (06:30→21:25)
[2016-08-11 08:00] VITALS: BP 98/41
[2016-08-11 08:07] LABS: BASOPHILS % (AUTO) 0.8 % (0.0-2.0); EOSINOPHILS % (AUTO) 2.2 % (0.0-3.0); LYMPHOCYTES % (AUTO) 44.4 % (20.0-45.0); MEAN CORPUSCULAR HEMOGLOBIN 26.7 PG (27.0-31.0); MEAN CORPUSCULAR VOLUME 86 FL (80-99); MONOCYTES % (AUTO) 6.3 % (1.0-10.0); NEUTROPHILS % (AUTO) 46.2 % (45.0-75.0); PLATELET COUNT 189 K/UL (150-450); RED BLOOD COUNT 3.69 M/UL (4.20-5.40); RED CELL DISTRIBUTION WIDTH 16.4 % (11.6-14.8); WHITE BLOOD COUNT 9.8 K/UL (4.8-10.8)
[2016-08-11 08:25] LABS: INR 1.6 (0.9-1.1); PROTHROMBIN TIME 16.8 SEC (9.30-11.50)
[2016-08-11] MEDS: Amiodarone 200mg tab ORAL SCH (08:28)
[2016-08-11 08:30] LABS: ALANINE AMINOTRANSFERASE 17 U/L (3-33); ALBUMIN/GLOBULIN RATIO 0.7 (1.0-2.7); ANION GAP 20 (5-15); ASPARTATE AMINO TRANSFERASE 29 U/L (5-40); CALCIUM 9.7 mg/dL (8.6-10.2); CARBON DIOXIDE 21 mEQ/L (20-30); CHLORIDE 96 mEQ/L (98-107); CREATININE 3.5 mg/dL (0.5-0.9); HEMOLYSIS 12; POTASSIUM 5.2 mEQ/L (3.4-4.9); SODIUM 137 mEQ/L (135-145); TOTAL PROTEIN 6.7 g/dL (6.6-8.7)
[2016-08-11] MEDS: Heparin 5000 units/ml inj SUBQ SCH ×2 (08:30→21:26)
[2016-08-11 12:00] VITALS: BP 106/46
--- NOTE | 2016-08-11 15:42 | Pulmonology Progress Note ---
Assessment/Plan Problems: (1) Acute respiratory distress (2) ATN (acute tubular necrosis) (3) Dementia (4) Severe anemia (5) COPD (chronic obstructive pulmonary disease) Assessment/Plan off laxis echo EF of 20% check bnp, cxr daily cardio evaluation appreciated avoid nephrotoxic Subjective ROS Limited/Unobtainable: No Interval Events: late note for 08/10, less short of breath, Allergies: Coded Allergies: SPIRONOLACTONE (Verified Allergy, Intermediate, 08/08/16) Objective Last 24 Hour Vital Signs Date Time Temp Pulse Resp B/P Pulse Ox O2 Delivery O2 Flow Rate FiO2 08/11/16 12:00 63 08/11/16 12:00 98.1 69 18 106/46 Nasal Cannula 2.0 100 08/11/16 08:28 62 98/41 08/11/16 08:00 97.7 62 18 98/41 Nasal Cannula 2.0 100 08/11/16 08:00 60 08/11/16 07:10 66 17 Nasal Cannula 2.0 28 08/11/16 07:10 99 Nasal Cannula 2.0 28 08/11/16 07:10 Nasal Cannula 2.0 28 08/11/16 05:55 65 08/11/16 04:00 97.5 66 18 111/56 100 Nasal Cannula 2.0 08/11/16 00:00 97.9 60 18 102/44 100 Nasal Cannula 2.0 08/11/16 00:00 62 08/10/16 20:54 86 115/48 08/10/16 20:24 86 08/10/16 20:21 86 08/10/16 20:14 98 Nasal Cannula 2.0 28 08/10/16 20:14 Nasal Cannula 2.0 28 08/10/16 20:14 63 18 Nasal Cannula 2.0 28 08/10/16 20:00 99.7 68 20 98/44 100 Nasal Cannula 2.0 68 08/10/16 16:00 97.6 76 17 115/48 97 Nasal Cannula 2.0 17 08/10/16 16:00 66 Intake and Output 08/10/16 08/11/16 19:00 07:00 Intake Total 120 ml Output Total 2 ml Balance 120 ml -2 ml IV Total 120 ml Output Urine Total 2 ml # Voids 5 # Bowel Movements 2 1 General Appearance: WD/WN HEENT: normocephalic Respiratory/Chest: chest wall non-tender, lungs clear Cardiovascular: normal peripheral pulses Abdomen: normal bowel sounds, soft, non tender Genitourinary: normal external genitalia Neurologic/Psychiatric: wet machine tender II-XII grossly normal Lymphatic: no neck adenopathy Laboratory Tests 08/11/16 07:25: White Blood Count 9.8, Red Blood Count 3.69L, Hemoglobin 9.8L, Hematocrit 31.8L , Mean Corpuscular Volume 86, Mean Corpuscular Hemoglobin 26.7L, Mean Corpuscular Hemoglobin Concent 31.0L, Red Cell Distribution Width 16.4H, Platelet Count 189, Mean Platelet Volume 7.0, Neutrophils (%) (Auto) 46.2, Lymphocytes (%) (Auto) 44.4, Monocytes (%) (Auto) 6.3, Eosinophils (%) (Auto) 2.2, Basophils (%) (Auto) 0.8, Prothrombin Time 16.8H, Prothromb Time International Ratio 1.6H, Sodium Level 137, Potassium Level 5.2H, Chloride Level 96L, Carbon Dioxide Level 21, Anion Gap 20H, Blood Urea Nitrogen 89H, Creatinine 3.5H, Estimat Glomerular Filtration Rate , Glucose Level 157H, Calcium Level 9.7, Total Bilirubin 0.3, Aspartate Amino Transf (AST/SGOT) 29, Alanine Aminotransferase (ALT/SGPT) 17, Alkaline Phosphatase 101, Pro-B-Type Natriuretic Peptide 9416H, Total Protein 6.7, Albumin 2.9L, Globulin 3.8, Albumin/Globulin Ratio 0.7L Current Medications Medications (Trade) Dose Ordered Sig/Abril Route PRN Reason Start Time Stop Time Status Last Admin Dose Admin Acetaminophen (Tylenol) 650 mg Q4H PRN ORAL T>100.5 08/07/16 16:45 09/06/16 16:44 Albuterol/ Ipratropium (DuoNeb 0.5-3(2.5)mg/3ml) 3 ml Q4H PRN HHN Shortness of Breath 08/07/16 16:45 08/12/16 16:44 Amiodarone HCl (Cordarone) 200 mg DAILY ORAL 08/08/16 09:00 09/07/16 08:59 08/11/16 08:28 Carvedilol (Coreg) 3.125 mg EVERY 12 HOURS ORAL 08/08/16 09:00 09/07/16 08:59 08/10/16 20:54 Dextrose (Dextrose 50%) STAT PRN IV Hypoglycemia 08/07/16 16:45 09/06/16 16:44 Heparin Sodium (Porcine) (Heparin 5000 units/ml) 5,000 units EVERY 12 HOURS SUBQ 08/07/16 21:00 09/06/16 20:59 08/11/16 08:30 Insulin Aspart (NovoLOG) BEFORE MEALS AND HS SUBQ 08/07/16 21:00 09/06/16 20:59 08/11/16 11:43 Ondansetron HCl (Zofran) 4 mg Q6H PRN IVP Nausea & Vomiting 08/07/16 16:45 09/06/16 16:44 Polyethylene Glycol (Miralax) 17 gm DAILYPRN PRN ORAL Constipation 08/07/16 16:45 09/06/16 16:44 Temazepam (Restoril) 15 mg HSPRN PRN ORAL Insomnia 08/07/16 21:00 08/14/16 20:59 ILIR WALLACE August 11, 2016 15:42
--- NOTE | 2016-08-11 15:55 | Cardiology Progress Note ---
Assessment/Plan Assessment/Plan Agree with d/c antibiotics renal is following electrolytes every day Subjective Subjective The patient is resting in bed, lethargic, arousable denies chest pain but confused Objective Last 24 Hour Vital Signs Date Time Temp Pulse Resp B/P Pulse Ox O2 Delivery O2 Flow Rate FiO2 08/11/16 12:00 63 08/11/16 12:00 98.1 69 18 106/46 Nasal Cannula 2.0 100 08/11/16 08:28 62 98/41 08/11/16 08:00 97.7 62 18 98/41 Nasal Cannula 2.0 100 08/11/16 08:00 60 08/11/16 07:10 66 17 Nasal Cannula 2.0 28 08/11/16 07:10 99 Nasal Cannula 2.0 28 08/11/16 07:10 Nasal Cannula 2.0 28 08/11/16 05:55 65 08/11/16 04:00 97.5 66 18 111/56 100 Nasal Cannula 2.0 08/11/16 00:00 97.9 60 18 102/44 100 Nasal Cannula 2.0 08/11/16 00:00 62 08/10/16 20:54 86 115/48 08/10/16 20:24 86 08/10/16 20:21 86 08/10/16 20:14 98 Nasal Cannula 2.0 28 08/10/16 20:14 Nasal Cannula 2.0 28 08/10/16 20:14 63 18 Nasal Cannula 2.0 28 08/10/16 20:00 99.7 68 20 98/44 100 Nasal Cannula 2.0 68 08/10/16 16:00 97.6 76 17 115/48 97 Nasal Cannula 2.0 17 08/10/16 16:00 66 General Appearance: other - looks chronically ill EENT: PERRL/EOMI Neck: JVD Rhythm: NSR Cardiovascular: regular rhythm Respiratory/Chest: crackles/rales Abdomen: soft Extremities: trace edema Intake and Output 08/10/16 08/11/16 19:00 07:00 Intake Total 120 ml Output Total 2 ml Balance 120 ml -2 ml IV Total 120 ml Output Urine Total 2 ml # Voids 5 # Bowel Movements 2 1 Laboratory Tests Test 08/11/16 07:25 White Blood Count 9.8 K/UL (4.8-10.8) Red Blood Count 3.69 M/UL (4.20-5.40) L Hemoglobin 9.8 G/DL (12.0-16.0) L Hematocrit 31.8 % (37.0-47.0) L Mean Corpuscular Volume 86 FL (80-99) Mean Corpuscular Hemoglobin 26.7 PG (27.0-31.0) L Mean Corpuscular Hemoglobin Concent 31.0 G/DL (32.0-36.0) L Red Cell Distribution Width 16.4 % (11.6-14.8) H Platelet Count 189 K/UL (150-450) Mean Platelet Volume 7.0 FL (6.5-10.1) Neutrophils (%) (Auto) 46.2 % (45.0-75.0) Lymphocytes (%) (Auto) 44.4 % (20.0-45.0) Monocytes (%) (Auto) 6.3 % (1.0-10.0) Eosinophils (%) (Auto) 2.2 % (0.0-3.0) Basophils (%) (Auto) 0.8 % (0.0-2.0) Prothrombin Time 16.8 SEC (9.30-11.50) H Prothromb Time International Ratio 1.6 (0.9-1.1) H Sodium Level 137 mEQ/L (135-145) Potassium Level 5.2 mEQ/L (3.4-4.9) H Chloride Level 96 mEQ/L (98-107) L Carbon Dioxide Level 21 mEQ/L (20-30) Anion Gap 20 (5-15) H Blood Urea Nitrogen 89 mg/dL (7-23) H Creatinine 3.5 mg/dL (0.5-0.9) H Estimat Glomerular Filtration Rate mL/min (>60) Glucose Level 157 mg/dL (74-106) H Calcium Level 9.7 mg/dL (8.6-10.2) Total Bilirubin 0.3 mg/dL (0.0-1.2) Aspartate Amino Transf (AST/SGOT) 29 U/L (5-40) Alanine Aminotransferase (ALT/SGPT) 17 U/L (3-33) Alkaline Phosphatase 101 U/L (35-104) Pro-B-Type Natriuretic Peptide 9416 pg/mL (0-450) H Total Protein 6.7 g/dL (6.6-8.7) Albumin 2.9 g/dL (3.5-5.2) L Globulin 3.8 g/dL Albumin/Globulin Ratio 0.7 (1.0-2.7) L KARINE MEJIA August 11, 2016 15:55
[2016-08-11 16:00] VITALS: BP 100/72
--- NOTE | 2016-08-11 18:02 | Consultation ---
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 Will follow GEORGIE HOLLOWAY August 11, 2016 18:02
[2016-08-11 20:00] VITALS: BP 105/72
--- NOTE | 2016-08-11 21:59 | Consultation ---
DATE OF CONSULTATION: 08/11/2016 CONSULTING PHYSICIAN: Saud Arias M.D. REFERRING PHYSICIAN: Emilee Weir M.D. REASON FOR CONSULTATION: Bacteremia. HISTORY OF PRESENT ILLNESS: This is an 86-year-old female with history of with congestive heart failure and chronic obstructive pulmonary disease admitted on August 07, 2016 with shortness of breath. Chest x-ray was consistent with congestive heart failure. BNP was elevated. Troponins are negative x3. She had a mild leukocytosis on admission, that is now resolved. She has been afebrile. Admission blood cultures are growing gram-positive cocci in 1/4 sets after 72 hours. ID is now consulted to assist in management. PAST MEDICAL HISTORY: 1. Chronic obstructive pulmonary disease. 2. Chronic systolic and diastolic congestive heart failure. 3. Chronic kidney disease, stage 4. 4. Diabetes. 5. Atrial fibrillation. 6. Dementia. 7. Urinary incontinence. PAST SURGICAL HISTORY: Mitral valve replacement with bioprosthetic valve. FAMILY HISTORY: Noncontributory. SOCIAL HISTORY: The patient's family involved in her care. No active tobacco, alcohol, or illicit drug abuse. ALLERGIES: Spironolactone. MEDICATIONS: 1. Status post cefepime. 2. Status post Flagyl. 3. Amiodarone. 4. Subcutaneous heparin. REVIEW OF SYSTEMS: Unable to obtain. PHYSICAL EXAMINATION: VITAL SIGNS: Maximum temperature 98.1, blood pressure 100/72, heart rate in the 60s, and respiratory rate 18. Saturating 96% on two liters nasal cannula. GENERAL: No apparent distress. Nontoxic appearing. CARDIOVASCULAR: Regular rate and rhythm. No murmurs. PULMONARY: Coarse breath sounds bilaterally. ABDOMEN: Bowel sounds present. Soft, nondistended, and nontender. EXTREMITIES: Edema present. Left foot is bandaged. LABORATORY DATA: White blood cell count 9.8, hemoglobin 9.8, and platelets 189,000. Sodium 137, potassium 5.2, chloride 96, bicarbonate 21, BUN 89, and creatinine 3.5. INR 1.6. Liver function tests within normal limits. BNP 9416. Troponin negative x3. MICROBIOLOGY: 1. August 08, 2016 - wound culture of the left lower extremity less than 1+ Ilana albicans. 2. August 07, 2016 - blood culture gram-positive cocci in clusters in 1/4 bottles after 72 hours. 3. August 07, 2016 - influenza screen negative. IMAGIN. August 08, 2016 - echocardiogram, ejection fraction of 20% with grade 1 diastolic dysfunction, bioprosthetic mitral valve, and mild to moderate aortic regurgitation. 2. August 08, 2016 - bilateral lower extremity Doppler ultrasound negative for DVT. 3. August 08, 2016 - chest x-ray with interstitial edema and bilateral pleural effusions. ASSESSMENT: 1. Gram-positive cocci in clusters bacteremia in 1/4 sets after 72 hours, most likely represents contaminant. Culture and sensitivity is pending. An echocardiogram is negative for vegetations. 2. Chronic left lower extremity wound, not grossly infected. Wound culture is growing less than 1+ yeast, which represents colonization. 3. Negative influenza screen. 4. Afebrile without leukocytosis. 5. Acute on chronic systolic and diastolic congestive heart failure exacerbation with down trending BNP. Echocardiogram shows an ejection fraction of 20% and grade 1 diastolic dysfunction, bioprosthetic mitral valve and mild to moderate aortic regurgitation. 6. Acute renal failure on chronic kidney disease, stage 4. 7. Atrial fibrillation, on Coumadin. 8. Status post bioprosthetic mitral valve replacement. 9. Dementia. 10. Vancomycin-resistant Enterococcus colonized. 11. No antibiotic allergies. 12. Full Code. PLAN: 1. Monitor the patient off of antibiotics. 2. Follow up final cultures. 3. Monitor CBC and temperatures and re-culture if acute change. 4. Monitor BMP. 5. Monitor chest x-ray. Thank you. We will follow. Saud Arias M.D. DR: MAHAMED JOB#: [id number] CC: Emilee Weir M.D.; Fax#: [phone] Smith, M.D. Andrea Zarate M.D; Fax#: [phone]
--- NOTE | 2016-08-11 23:15 | Nephrology Progress Note ---
Assessment/Plan Assessment 1. Acute renal failure. 2. Chronic kidney disease. 3. Congestive heart failure exacerbation. 4. Chronic obstructive pulmonary disease. 5. Atrial fibrillation. 6. Diabetes. 7.hyperkalemia improving Plan plan hold lasix renal function now is worsen daily wt low k diet monitoring renal function avoid NSAID Subjective Constitutional: Reports: malaise, weakness HEENT: Reports: no symptoms Genitourinary: Reports: no symptoms Neurologic/Psychiatric: Reports: no symptoms Subjective no acute events feeling better less SOB Objective Objective Last 24 Hour Vital Signs Date Time Temp Pulse Resp B/P Pulse Ox O2 Delivery O2 Flow Rate FiO2 08/11/16 20:00 97.9 58 16 105/72 100 Nasal Cannula 2.0 28 08/11/16 19:09 53 18 Nasal Cannula 2.0 28 08/11/16 19:09 Nasal Cannula 2.0 28 08/11/16 19:09 100 Nasal Cannula 2.0 28 08/11/16 16:00 96.0 74 18 100/72 Nasal Cannula 2.0 96 08/11/16 16:00 70 08/11/16 12:00 63 08/11/16 12:00 98.1 69 18 106/46 Nasal Cannula 2.0 100 08/11/16 08:28 62 98/41 08/11/16 08:00 97.7 62 18 98/41 Nasal Cannula 2.0 100 08/11/16 08:00 60 08/11/16 07:10 66 17 Nasal Cannula 2.0 28 08/11/16 07:10 99 Nasal Cannula 2.0 28 08/11/16 07:10 Nasal Cannula 2.0 28 08/11/16 05:55 65 08/11/16 04:00 97.5 66 18 111/56 100 Nasal Cannula 2.0 08/11/16 00:00 97.9 60 18 102/44 100 Nasal Cannula 2.0 08/11/16 00:00 62 Intake and Output 08/10/16 08/11/16 19:00 07:00 Intake Total 120 ml Output Total 2 ml Balance 120 ml -2 ml IV Total 120 ml Output Urine Total 2 ml # Voids 5 # Bowel Movements 2 1 Laboratory Tests 08/11/16 07:25: White Blood Count 9.8, Red Blood Count 3.69L, Hemoglobin 9.8L, Hematocrit 31.8L , Mean Corpuscular Volume 86, Mean Corpuscular Hemoglobin 26.7L, Mean Corpuscular Hemoglobin Concent 31.0L, Red Cell Distribution Width 16.4H, Platelet Count 189, Mean Platelet Volume 7.0, Neutrophils (%) (Auto) 46.2, Lymphocytes (%) (Auto) 44.4, Monocytes (%) (Auto) 6.3, Eosinophils (%) (Auto) 2.2, Basophils (%) (Auto) 0.8, Prothrombin Time 16.8H, Prothromb Time International Ratio 1.6H, Sodium Level 137, Potassium Level 5.2H, Chloride Level 96L, Carbon Dioxide Level 21, Anion Gap 20H, Blood Urea Nitrogen 89H, Creatinine 3.5H, Estimat Glomerular Filtration Rate , Glucose Level 157H, Calcium Level 9.7, Total Bilirubin 0.3, Aspartate Amino Transf (AST/SGOT) 29, Alanine Aminotransferase (ALT/SGPT) 17, Alkaline Phosphatase 101, Pro-B-Type Natriuretic Peptide 9416H, Total Protein 6.7, Albumin 2.9L, Globulin 3.8, Albumin/Globulin Ratio 0.7L Height (Feet): 5 Height (Inches): 2.00 Weight (Pounds): 125 Objective HEENT: Head and neck, no JVP. No LAD. No thyromegaly. Extraocular movement intact. Pupils are reactive to light and accommodation. LUNGS: Clear to auscultation. CARDIAC: Regular rate and rhythm. S1 and S2. No murmur. No rub. ABDOMEN: Soft, nontender, and nondistended. EXTREMITIES: No edema. No clubbing. No cyanosis HENRRY WOLFF August 11, 2016 23:15
[2016-08-12] VITALS: BP 96/50
[2016-08-12] MEDS ORDERED: DuoNeb 0.5-3(2.5)mg/3ml neb HHN PRN (00:45)
[2016-08-12 04:00] VITALS: BP 116/50
[2016-08-12] MEDS: NovoLOG Insulin Flexpen SUBQ SCH ×4 (06:16→20:38)
[2016-08-12 07:19] LABS: BASOPHILS % (AUTO) 0.9 % (0.0-2.0); EOSINOPHILS % (AUTO) 2.7 % (0.0-3.0); LYMPHOCYTES % (AUTO) 46.1 % (20.0-45.0); MEAN CORPUSCULAR HEMOGLOBIN 27.7 PG (27.0-31.0); MEAN CORPUSCULAR HGB CONC 32.4 G/DL (32.0-36.0); MEAN CORPUSCULAR VOLUME 86 FL (80-99); MEAN PLATELET VOLUME 7.3 FL (6.5-10.1); MONOCYTES % (AUTO) 7.2 % (1.0-10.0); NEUTROPHILS % (AUTO) 43.1 % (45.0-75.0); PLATELET COUNT 171 K/UL (150-450); RED BLOOD COUNT 2.93 M/UL (4.20-5.40); RED CELL DISTRIBUTION WIDTH 16.4 % (11.6-14.8); WHITE BLOOD COUNT 8.8 K/UL (4.8-10.8)
[2016-08-12 07:25] LABS: ALANINE AMINOTRANSFERASE 13 U/L (3-33); ALBUMIN/GLOBULIN RATIO 1.1 (1.0-2.7); ANION GAP 19 (5-15); ASPARTATE AMINO TRANSFERASE 23 U/L (5-40); CALCIUM 9.4 mg/dL (8.6-10.2); CARBON DIOXIDE 22 mEQ/L (20-30); CHLORIDE 99 mEQ/L (98-107); CREATININE 3.6 mg/dL (0.5-0.9); HEMOLYSIS 1; POTASSIUM 4.6 mEQ/L (3.4-4.9); SODIUM 140 mEQ/L (135-145); TOTAL PROTEIN 6.1 g/dL (6.6-8.7)
[2016-08-12 07:41] LABS: INR 1.5 (0.9-1.1); PROTHROMBIN TIME 15.6 SEC (9.30-11.50)
[2016-08-12 08:00] VITALS: BP 98/33
[2016-08-12] MEDS: Amiodarone 200mg tab ORAL SCH (09:00)
--- NOTE | 2016-08-12 09:06 | Infectious Diseases Prog Note ---
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 // A-fib, on coumadin // SP bioprosthetic MVR // Dementia // VRE colonized // No ABX allergies // Full Code PLAN: - start IV Zyvox d# 1 ( await final Cx report ) ( 08/07 SP cefepime, flagyl d# 1 ) - f/u final cultures ( called Microlab ) - monitor CBC, temperatures, re-culture if acute change - monitor BMP - monitor CXR Subjective Constitutional: Denies: anorexia, chills, drenching sweats, fatigue, fever, no symptoms, other Allergies: Coded Allergies: SPIRONOLACTONE (Verified Allergy, Intermediate, 08/08/16) Objective Vital Signs Last 24 Hour Vital Signs Date Time Temp Pulse Resp B/P Pulse Ox O2 Delivery O2 Flow Rate FiO2 08/12/16 08:00 98.1 59 18 98/33 94 Room Air 08/12/16 04:00 97.5 98 16 116/50 98 Nasal Cannula 08/12/16 00:00 97.3 16 96/50 99 Nasal Cannula 08/11/16 20:00 97.9 58 16 105/72 100 Nasal Cannula 2.0 28 08/11/16 19:09 53 18 Nasal Cannula 2.0 28 08/11/16 19:09 Nasal Cannula 2.0 28 08/11/16 19:09 100 Nasal Cannula 2.0 28 08/11/16 16:00 96.0 74 18 100/72 Nasal Cannula 2.0 96 08/11/16 16:00 70 08/11/16 12:00 63 08/11/16 12:00 98.1 69 18 106/46 Nasal Cannula 2.0 100 Height (Feet): 5 Height (Inches): 2.00 Weight (Pounds): 132 HEENT: anicteric Respiratory/Chest: respiratory distress Cardiovascular: regularly irregular Abdomen: no organomegaly Laboratory Tests Test 08/12/16 05:10 White Blood Count 8.8 K/UL (4.8-10.8) Red Blood Count 2.93 M/UL (4.20-5.40) L Hemoglobin 8.1 G/DL (12.0-16.0) L Hematocrit 25.1 % (37.0-47.0) L Mean Corpuscular Volume 86 FL (80-99) Mean Corpuscular Hemoglobin 27.7 PG (27.0-31.0) Mean Corpuscular Hemoglobin Concent 32.4 G/DL (32.0-36.0) Red Cell Distribution Width 16.4 % (11.6-14.8) H Platelet Count 171 K/UL (150-450) Mean Platelet Volume 7.3 FL (6.5-10.1) Neutrophils (%) (Auto) 43.1 % (45.0-75.0) L Lymphocytes (%) (Auto) 46.1 % (20.0-45.0) H Monocytes (%) (Auto) 7.2 % (1.0-10.0) Eosinophils (%) (Auto) 2.7 % (0.0-3.0) Basophils (%) (Auto) 0.9 % (0.0-2.0) Prothrombin Time 15.6 SEC (9.30-11.50) H Prothromb Time International Ratio 1.5 (0.9-1.1) H Sodium Level 140 mEQ/L (135-145) Potassium Level 4.6 mEQ/L (3.4-4.9) Chloride Level 99 mEQ/L (98-107) Carbon Dioxide Level 22 mEQ/L (20-30) Anion Gap 19 (5-15) H Blood Urea Nitrogen 98 mg/dL (7-23) H Creatinine 3.6 mg/dL (0.5-0.9) H Estimat Glomerular Filtration Rate mL/min (>60) Glucose Level 159 mg/dL (74-106) H Calcium Level 9.4 mg/dL (8.6-10.2) Total Bilirubin 0.3 mg/dL (0.0-1.2) Aspartate Amino Transf (AST/SGOT) 23 U/L (5-40) Alanine Aminotransferase (ALT/SGPT) 13 U/L (3-33) Alkaline Phosphatase 86 U/L (35-104) Pro-B-Type Natriuretic Peptide 7134 pg/mL (0-450) H Total Protein 6.1 g/dL (6.6-8.7) L Albumin 3.3 g/dL (3.5-5.2) L Globulin 2.8 g/dL Albumin/Globulin Ratio 1.1 (1.0-2.7) Current Medications Medications (Trade) Dose Ordered Sig/Abril Route PRN Reason Start Time Stop Time Status Last Admin Dose Admin Acetaminophen (Tylenol) 650 mg Q4H PRN ORAL T>100.5 08/12/16 00:45 09/11/16 00:44 Albuterol/ Ipratropium (DuoNeb 0.5-3(2.5)mg/3ml) 3 ml Q4H PRN HHN Shortness of Breath 08/12/16 00:45 08/17/16 00:44 Amiodarone HCl (Cordarone) 200 mg DAILY ORAL 08/12/16 09:00 09/11/16 08:59 Dextrose (Dextrose 50%) STAT PRN IV Hypoglycemia 08/12/16 16:45 09/11/16 16:44 Heparin Sodium (Porcine) (Heparin 5000 units/ml) 5,000 units EVERY 12 HOURS SUBQ 08/12/16 09:00 09/11/16 08:59 Insulin Aspart (NovoLOG) BEFORE MEALS AND HS SUBQ 08/12/16 06:30 09/11/16 06:29 08/12/16 06:16 Ondansetron HCl (Zofran) 4 mg Q6H PRN IVP Nausea & Vomiting 08/12/16 04:45 09/11/16 04:44 Polyethylene Glycol (Miralax) 17 gm DAILYPRN PRN ORAL Constipation 08/12/16 16:45 09/11/16 16:44 Temazepam (Restoril) 15 mg HSPRN PRN ORAL Insomnia 08/12/16 21:00 08/19/16 20:59 LULU PIEDRA M.D. August 12, 2016 09:06
[2016-08-12] MEDS: Heparin 5000 units/ml inj SUBQ SCH ×2 (09:11→20:37)
[2016-08-12] MEDS ORDERED: NS 275ml ONE ×2 (10:00→21:28)
[2016-08-12] MEDS ORDERED: Tubing IV Secondary IV ONE ×2 (10:00→21:28)
--- NOTE | 2016-08-12 11:06 | Diagnostic Imaging Report ---
Indication: Dyspnea Comparison: 08/08/16 A single view chest radiograph was obtained. Findings: Interstitial edema suspected though improved from the prior study. There is blunting of the right costophrenic angle. Sternotomy is noted. Heart is enlarged. Impression: Mild interstitial edema improved from the previous occasion. Suspect a small right pleural effusion
[2016-08-12 12:00] VITALS: BP 118/74
[2016-08-12 16:00] VITALS: BP 97/41
--- NOTE | 2016-08-12 16:12 | Nephrology Progress Note ---
Assessment/Plan Assessment 1. Acute renal failure.now creatinine is stabilizing 2. Chronic kidney disease. 3. Congestive heart failure exacerbation. 4. Chronic obstructive pulmonary disease. 5. Atrial fibrillation. 6. Diabetes. 7.hyperkalemia improving Plan plan start epogen chec iron panel hold lasix renal function now is worsen daily wt low k diet monitoring renal function avoid NSAID Subjective Constitutional: Reports: malaise, weakness HEENT: Reports: no symptoms Genitourinary: Reports: no symptoms Neurologic/Psychiatric: Reports: no symptoms Subjective no acute events feeling better less SOB Objective Objective Last 24 Hour Vital Signs Date Time Temp Pulse Resp B/P Pulse Ox O2 Delivery O2 Flow Rate FiO2 08/12/16 12:00 97.2 78 19 118/74 98 Room Air 08/12/16 08:00 98.1 59 18 98/33 94 Room Air 08/12/16 07:28 99 Nasal Cannula 2.0 28 08/12/16 07:28 Nasal Cannula 2.0 28 08/12/16 07:28 59 19 Nasal Cannula 2.0 28 08/12/16 04:00 97.5 98 16 116/50 98 Nasal Cannula 08/12/16 00:00 97.3 16 96/50 99 Nasal Cannula 08/11/16 20:00 97.9 58 16 105/72 100 Nasal Cannula 2.0 28 08/11/16 19:09 53 18 Nasal Cannula 2.0 28 08/11/16 19:09 Nasal Cannula 2.0 28 08/11/16 19:09 100 Nasal Cannula 2.0 28 Intake and Output 08/11/16 08/12/16 19:00 07:00 Intake Total 100 ml Balance 100 ml IV Total 100 ml # Voids 3 1 Laboratory Tests 08/12/16 05:10: White Blood Count 8.8, Red Blood Count 2.93L, Hemoglobin 8.1L, Hematocrit 25.1L , Mean Corpuscular Volume 86, Mean Corpuscular Hemoglobin 27.7, Mean Corpuscular Hemoglobin Concent 32.4, Red Cell Distribution Width 16.4H, Platelet Count 171, Mean Platelet Volume 7.3, Neutrophils (%) (Auto) 43.1L, Lymphocytes (%) (Auto) 46.1H, Monocytes (%) (Auto) 7.2, Eosinophils (%) (Auto) 2.7, Basophils (%) (Auto) 0.9, Prothrombin Time 15.6H, Prothromb Time International Ratio 1.5H, Sodium Level 140, Potassium Level 4.6, Chloride Level 99, Carbon Dioxide Level 22, Anion Gap 19H, Blood Urea Nitrogen 98H, Creatinine 3.6H, Estimat Glomerular Filtration Rate , Glucose Level 159H, Calcium Level 9.4 , Total Bilirubin 0.3, Aspartate Amino Transf (AST/SGOT) 23, Alanine Aminotransferase (ALT/SGPT) 13, Alkaline Phosphatase 86, Pro-B-Type Natriuretic Peptide 7134H, Total Protein 6.1L, Albumin 3.3L, Globulin 2.8, Albumin/Globulin Ratio 1.1 Height (Feet): 5 Height (Inches): 2.00 Weight (Pounds): 132 Objective HEENT: Head and neck, no JVP. No LAD. No thyromegaly. Extraocular movement intact. Pupils are reactive to light and accommodation. LUNGS: Clear to auscultation. CARDIAC: Regular rate and rhythm. S1 and S2. No murmur. No rub. ABDOMEN: Soft, nontender, and nondistended. EXTREMITIES: No edema. No clubbing. No cyanosis HENRRY WOLFF August 12, 2016 16:12
[2016-08-12] MEDS ORDERED: Miralax 17gm pkt ORAL PRN (16:45)
--- NOTE | 2016-08-12 18:57 | Cardiology Progress Note ---
Assessment/Plan Assessment/Plan acute on chf chronic anemia renal failure cm chronci LBBB hs off dvt s/p ivc filter cad s/p cabg twice MVR bioprosthetic hx of thromboembolic complication previously off anticoagulation jahovah witness pulsatile visible vessel in stomach in 05/2016 cr worse now off diurtic is not on anticogulation consider resuming in light of prostheric valve if ok with all her hgb seems to be stable will d/w dr barrera if he is aware of nay recnt contraindications ekg sinus Subjective Cardiovascular: Denies: chest pain, lightheadedness, palpitations Respiratory: Denies: shortness of breath Gastrointestinal/Abdominal: Denies: abdominal pain Genitourinary: Denies: burning Objective Last 24 Hour Vital Signs Date Time Temp Pulse Resp B/P Pulse Ox O2 Delivery O2 Flow Rate FiO2 08/12/16 16:00 97.0 72 16 97/41 Nasal Cannula 2.0 100 08/12/16 12:00 97.2 78 19 118/74 98 Room Air 08/12/16 08:00 98.1 59 18 98/33 94 Room Air 08/12/16 07:28 99 Nasal Cannula 2.0 28 08/12/16 07:28 Nasal Cannula 2.0 28 08/12/16 07:28 59 19 Nasal Cannula 2.0 28 08/12/16 04:00 97.5 98 16 116/50 98 Nasal Cannula 08/12/16 00:00 97.3 16 96/50 99 Nasal Cannula 08/11/16 20:00 97.9 58 16 105/72 100 Nasal Cannula 2.0 28 08/11/16 19:09 53 18 Nasal Cannula 2.0 28 08/11/16 19:09 Nasal Cannula 2.0 28 08/11/16 19:09 100 Nasal Cannula 2.0 28 General Appearance: no apparent distress, alert Neck: no JVD Cardiovascular: normal rate Respiratory/Chest: lungs clear Abdomen: normal bowel sounds, non tender, soft Extremities: no swelling Intake and Output 08/11/16 08/12/16 19:00 07:00 Intake Total 100 ml Balance 100 ml IV Total 100 ml # Voids 3 1 Laboratory Tests Test 08/12/16 05:10 White Blood Count 8.8 K/UL (4.8-10.8) Red Blood Count 2.93 M/UL (4.20-5.40) L Hemoglobin 8.1 G/DL (12.0-16.0) L Hematocrit 25.1 % (37.0-47.0) L Mean Corpuscular Volume 86 FL (80-99) Mean Corpuscular Hemoglobin 27.7 PG (27.0-31.0) Mean Corpuscular Hemoglobin Concent 32.4 G/DL (32.0-36.0) Red Cell Distribution Width 16.4 % (11.6-14.8) H Platelet Count 171 K/UL (150-450) Mean Platelet Volume 7.3 FL (6.5-10.1) Neutrophils (%) (Auto) 43.1 % (45.0-75.0) L Lymphocytes (%) (Auto) 46.1 % (20.0-45.0) H Monocytes (%) (Auto) 7.2 % (1.0-10.0) Eosinophils (%) (Auto) 2.7 % (0.0-3.0) Basophils (%) (Auto) 0.9 % (0.0-2.0) Prothrombin Time 15.6 SEC (9.30-11.50) H Prothromb Time International Ratio 1.5 (0.9-1.1) H Sodium Level 140 mEQ/L (135-145) Potassium Level 4.6 mEQ/L (3.4-4.9) Chloride Level 99 mEQ/L (98-107) Carbon Dioxide Level 22 mEQ/L (20-30) Anion Gap 19 (5-15) H Blood Urea Nitrogen 98 mg/dL (7-23) H Creatinine 3.6 mg/dL (0.5-0.9) H Estimat Glomerular Filtration Rate mL/min (>60) Glucose Level 159 mg/dL (74-106) H Calcium Level 9.4 mg/dL (8.6-10.2) Total Bilirubin 0.3 mg/dL (0.0-1.2) Aspartate Amino Transf (AST/SGOT) 23 U/L (5-40) Alanine Aminotransferase (ALT/SGPT) 13 U/L (3-33) Alkaline Phosphatase 86 U/L (35-104) Pro-B-Type Natriuretic Peptide 7134 pg/mL (0-450) H Total Protein 6.1 g/dL (6.6-8.7) L Albumin 3.3 g/dL (3.5-5.2) L Globulin 2.8 g/dL Albumin/Globulin Ratio 1.1 (1.0-2.7) GUILLE MEDINA August 12, 2016 18:57
--- NOTE | 2016-08-12 19:23 | Pulmonology Progress Note ---
Assessment/Plan Problems: (1) Acute respiratory distress (2) ATN (acute tubular necrosis) (3) Dementia (4) Severe anemia (5) COPD (chronic obstructive pulmonary disease) Assessment/Plan off laxis echo EF of 20% check bnp, cxr daily cardio evaluation appreciated avoid nephrotoxic Albumin 25% gentle IV hydration hold lasix avoid nephrotoxics Subjective ROS Limited/Unobtainable: No Interval Events: no Shortness of breath. doing better Allergies: Coded Allergies: SPIRONOLACTONE (Verified Allergy, Intermediate, 08/08/16) Objective Last 24 Hour Vital Signs Date Time Temp Pulse Resp B/P Pulse Ox O2 Delivery O2 Flow Rate FiO2 08/12/16 16:00 97.0 72 16 97/41 Nasal Cannula 2.0 100 08/12/16 12:00 97.2 78 19 118/74 98 Room Air 08/12/16 08:00 98.1 59 18 98/33 94 Room Air 08/12/16 07:28 99 Nasal Cannula 2.0 28 08/12/16 07:28 Nasal Cannula 2.0 28 08/12/16 07:28 59 19 Nasal Cannula 2.0 28 08/12/16 04:00 97.5 98 16 116/50 98 Nasal Cannula 08/12/16 00:00 97.3 16 96/50 99 Nasal Cannula 08/11/16 20:00 97.9 58 16 105/72 100 Nasal Cannula 2.0 28 Intake and Output 08/11/16 08/12/16 19:00 07:00 Intake Total 100 ml Balance 100 ml IV Total 100 ml # Voids 3 1 Objective General Appearance: WD/WN Lines, tubes and drains: peripheral HEENT: normocephalic Neck: non-tender Respiratory/Chest: chest wall non-tender, lungs clear Cardiovascular/Chest: normal peripheral pulses, normal rate Abdomen: normal bowel sounds Extremities: normal range of motion Laboratory Tests 08/12/16 05:10: White Blood Count 8.8, Red Blood Count 2.93L, Hemoglobin 8.1L, Hematocrit 25.1L , Mean Corpuscular Volume 86, Mean Corpuscular Hemoglobin 27.7, Mean Corpuscular Hemoglobin Concent 32.4, Red Cell Distribution Width 16.4H, Platelet Count 171, Mean Platelet Volume 7.3, Neutrophils (%) (Auto) 43.1L, Lymphocytes (%) (Auto) 46.1H, Monocytes (%) (Auto) 7.2, Eosinophils (%) (Auto) 2.7, Basophils (%) (Auto) 0.9, Prothrombin Time 15.6H, Prothromb Time International Ratio 1.5H, Sodium Level 140, Potassium Level 4.6, Chloride Level 99, Carbon Dioxide Level 22, Anion Gap 19H, Blood Urea Nitrogen 98H, Creatinine 3.6H, Estimat Glomerular Filtration Rate , Glucose Level 159H, Calcium Level 9.4 , Total Bilirubin 0.3, Aspartate Amino Transf (AST/SGOT) 23, Alanine Aminotransferase (ALT/SGPT) 13, Alkaline Phosphatase 86, Pro-B-Type Natriuretic Peptide 7134H, Total Protein 6.1L, Albumin 3.3L, Globulin 2.8, Albumin/Globulin Ratio 1.1 Current Medications Medications (Trade) Dose Ordered Sig/Abril Route PRN Reason Start Time Stop Time Status Last Admin Dose Admin Acetaminophen (Tylenol) 650 mg Q4H PRN ORAL T>100.5 08/12/16 00:45 09/11/16 00:44 Albuterol/ Ipratropium (DuoNeb 0.5-3(2.5)mg/3ml) 3 ml Q4H PRN HHN Shortness of Breath 08/12/16 00:45 08/17/16 00:44 Amiodarone HCl (Cordarone) 200 mg DAILY ORAL 08/12/16 09:00 09/11/16 08:59 Dextrose (Dextrose 50%) STAT PRN IV Hypoglycemia 08/12/16 16:45 09/11/16 16:44 Epoetin Fish (Procrit (for non ESRD use)) 7,000 units FRI-FRI-FRI SUBQ 08/12/16 21:00 09/11/16 20:59 Heparin Sodium (Porcine) (Heparin 5000 units/ml) 5,000 units EVERY 12 HOURS SUBQ 08/12/16 09:00 09/11/16 08:59 08/12/16 09:11 Insulin Aspart (NovoLOG) BEFORE MEALS AND HS SUBQ 08/12/16 06:30 09/11/16 06:29 08/12/16 17:15 Linezolid (Zyvox) 300 ml @ 300 mls/hr Q12HR IVPB 08/12/16 11:00 08/19/16 10:59 08/12/16 11:14 Ondansetron HCl (Zofran) 4 mg Q6H PRN IVP Nausea & Vomiting 08/12/16 04:45 09/11/16 04:44 Polyethylene Glycol (Miralax) 17 gm DAILYPRN PRN ORAL Constipation 08/12/16 16:45 09/11/16 16:44 Temazepam 15 mg 15 mg HSPRN PRN ORAL Insomnia 08/12/16 21:00 08/19/16 20:59 ILIR WALLACE August 12, 2016 19:23
[2016-08-12 20:00] VITALS: BP 122/49
[2016-08-12] MEDS ORDERED: Epogen (for non ESRD use) SUBQ SCH (21:00)
[2016-08-12] MEDS ORDERED: Warfarin Sodium 4mg PO ONE (21:00)
[2016-08-13] VITALS: BP 106/36
[2016-08-13 04:00] VITALS: BP 114/39
[2016-08-13] MEDS: NovoLOG Insulin Flexpen SUBQ SCH ×3 (06:09→17:10)
[2016-08-13 07:45] LABS: BASOPHILS % (AUTO) 0.9 % (0.0-2.0); EOSINOPHILS % (AUTO) 4.6 % (0.0-3.0); LYMPHOCYTES % (AUTO) 45.9 % (20.0-45.0); MEAN CORPUSCULAR HEMOGLOBIN 26.8 PG (27.0-31.0); MEAN CORPUSCULAR HGB CONC 30.5 G/DL (32.0-36.0); MEAN CORPUSCULAR VOLUME 88 FL (80-99); MEAN PLATELET VOLUME 7.4 FL (6.5-10.1); MONOCYTES % (AUTO) 7.3 % (1.0-10.0); NEUTROPHILS % (AUTO) 41.4 % (45.0-75.0); PLATELET COUNT 180 K/UL (150-450); RED BLOOD COUNT 3.05 M/UL (4.20-5.40); RED CELL DISTRIBUTION WIDTH 16.6 % (11.6-14.8); WHITE BLOOD COUNT 9.1 K/UL (4.8-10.8)
[2016-08-13 07:54] LABS: INR 1.3 (0.9-1.1); PROTHROMBIN TIME 13.3 SEC (9.30-11.50)
--- NOTE | 2016-08-13 08:00 | Nephrology Progress Note ---
Assessment/Plan Assessment 1. Acute renal failure.now creatinine is stabilizing 2. Chronic kidney disease. 3. Congestive heart failure exacerbation. 4. Chronic obstructive pulmonary disease. 5. Atrial fibrillation. 6. Diabetes. 7.hyperkalemia improving Plan plan fallow up with urine study start epogen repeat urine study hold lasix renal function now is worsen daily wt low k diet monitoring renal function avoid NSAID Subjective Constitutional: Reports: no symptoms HEENT: Reports: no symptoms Genitourinary: Reports: no symptoms Neurologic/Psychiatric: Reports: no symptoms Subjective no acute events feeling better less SOB good appetite no other complaints Objective Objective Last 24 Hour Vital Signs Date Time Temp Pulse Resp B/P Pulse Ox O2 Delivery O2 Flow Rate FiO2 08/13/16 04:00 97.7 20 114/39 100 Nasal Cannula 2.0 08/13/16 00:00 98.1 18 106/36 100 Nasal Cannula 2.0 08/12/16 20:10 Nasal Cannula 2.0 28 08/12/16 20:10 100 Nasal Cannula 2.0 28 08/12/16 20:09 60 18 Nasal Cannula 2.0 28 08/12/16 20:00 97.2 20 122/49 100 Nasal Cannula 2.0 08/12/16 16:00 97.0 72 16 97/41 Nasal Cannula 2.0 100 08/12/16 12:00 97.2 78 19 118/74 98 Room Air 08/12/16 08:00 98.1 59 18 98/33 94 Room Air Intake and Output 08/12/16 08/13/16 19:00 07:00 Intake Total 975 ml Balance 975 ml IV Total 975 ml # Voids 2 # Bowel Movements 2 Laboratory Tests 08/13/16 07:30: White Blood Count 9.1, Red Blood Count 3.05L, Hemoglobin 8.2L, Hematocrit 26.8L , Mean Corpuscular Volume 88, Mean Corpuscular Hemoglobin 26.8L, Mean Corpuscular Hemoglobin Concent 30.5L, Red Cell Distribution Width 16.6H, Platelet Count 180, Mean Platelet Volume 7.4, Neutrophils (%) (Auto) 41.4L, Lymphocytes (%) (Auto) 45.9H, Monocytes (%) (Auto) 7.3, Eosinophils (%) (Auto) 4.6H, Basophils (%) (Auto) 0.9, Prothrombin Time [Pending], Prothromb Time International Ratio [Pending], Sodium Level [Pending], Potassium Level [Pending] , Chloride Level [Pending], Carbon Dioxide Level [Pending], Blood Urea Nitrogen [Pending], Creatinine [Pending], Estimat Glomerular Filtration Rate [Pending], Glucose Level [Pending], Calcium Level [Pending], Iron Level [Pending], Unsaturated Iron Binding [Pending], Total Bilirubin [Pending], Aspartate Amino Transf (AST/SGOT) [Pending], Alanine Aminotransferase (ALT/SGPT) [Pending], Alkaline Phosphatase [Pending], Pro-B-Type Natriuretic Peptide [Pending], Total Protein [Pending], Albumin [Pending], Globulin [Pending] Height (Feet): 5 Height (Inches): 2.00 Weight (Pounds): 132 Objective HEENT: Head and neck, no JVP. No LAD. No thyromegaly. Extraocular movement intact. Pupils are reactive to light and accommodation. LUNGS: Clear to auscultation. CARDIAC: Regular rate and rhythm. S1 and S2. No murmur. No rub. ABDOMEN: Soft, nontender, and nondistended. EXTREMITIES: No edema. No clubbing. No cyanosis HENRRY WOLFF August 13, 2016 08:00
[2016-08-13 08:10] LABS: ALANINE AMINOTRANSFERASE 15 U/L (3-33); ALBUMIN/GLOBULIN RATIO 1.3 (1.0-2.7); ANION GAP 17 (5-15); ASPARTATE AMINO TRANSFERASE 32 U/L (5-40); CALCIUM 9.6 mg/dL (8.6-10.2); CARBON DIOXIDE 21 mEQ/L (20-30); CHLORIDE 101 mEQ/L (98-107); CREATININE 2.9 mg/dL (0.5-0.9); HEMOLYSIS 2; POTASSIUM 4.4 mEQ/L (3.4-4.9); SODIUM 139 mEQ/L (135-145); TOTAL PROTEIN 6.4 g/dL (6.6-8.7)
[2016-08-13 08:17] LABS: HEMOLYSIS 4; IRON 53 ug/dL (37-145); TOTAL IRON BINDING CAPACITY 165 ug/dL (250-400)
[2016-08-13 08:20] VITALS: BP 112/55
[2016-08-13] MEDS: Amiodarone 200mg tab ORAL SCH ×2 (09:00→13:20)
[2016-08-13 09:20] VITALS: BP 103/39
[2016-08-13] MEDS: Heparin 5000 units/ml inj SUBQ SCH (09:50)
--- NOTE | 2016-08-13 10:06 | Infectious Diseases Prog Note ---
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 // A-fib, on coumadin // SP bioprosthetic MVR // Dementia // VRE colonized // No ABX allergies // Full Code PLAN: - start IV Zyvox d# 2 ( await final Cx report ) ( 08/07 SP cefepime, flagyl d# 1 ) - f/u final cultures - monitor CBC, temperatures, re-culture if acute change - monitor BMP - monitor CXR Subjective Constitutional: Denies: anorexia, chills, drenching sweats, fatigue, fever, no symptoms, other Allergies: Coded Allergies: SPIRONOLACTONE (Verified Allergy, Intermediate, 08/08/16) Objective Vital Signs Last 24 Hour Vital Signs Date Time Temp Pulse Resp B/P Pulse Ox O2 Delivery O2 Flow Rate FiO2 08/13/16 08:20 97.7 66 20 112/55 100 Nasal Cannula 2.0 08/13/16 04:00 97.7 20 114/39 100 Nasal Cannula 2.0 08/13/16 00:00 98.1 18 106/36 100 Nasal Cannula 2.0 08/12/16 20:10 Nasal Cannula 2.0 28 08/12/16 20:10 100 Nasal Cannula 2.0 28 08/12/16 20:09 60 18 Nasal Cannula 2.0 28 08/12/16 20:00 97.2 20 122/49 100 Nasal Cannula 2.0 08/12/16 16:00 97.0 72 16 97/41 Nasal Cannula 2.0 100 08/12/16 12:00 97.2 78 19 118/74 98 Room Air Height (Feet): 5 Height (Inches): 2.00 Weight (Pounds): 132 HEENT: atraumatic Respiratory/Chest: lungs clear Cardiovascular: normal rate Abdomen: soft, non tender Microbiology Date/Time Source Procedure Growth Status 08/11/16 16:16 Blood Blood Culture - Preliminary NO GROWTH AFTER 24 HOURS Resulted 08/11/16 16:10 Blood Blood Culture - Preliminary NO GROWTH AFTER 24 HOURS Resulted Laboratory Tests Test 08/13/16 07:30 White Blood Count 9.1 K/UL (4.8-10.8) Red Blood Count 3.05 M/UL (4.20-5.40) L Hemoglobin 8.2 G/DL (12.0-16.0) L Hematocrit 26.8 % (37.0-47.0) L Mean Corpuscular Volume 88 FL (80-99) Mean Corpuscular Hemoglobin 26.8 PG (27.0-31.0) L Mean Corpuscular Hemoglobin Concent 30.5 G/DL (32.0-36.0) L Red Cell Distribution Width 16.6 % (11.6-14.8) H Platelet Count 180 K/UL (150-450) Mean Platelet Volume 7.4 FL (6.5-10.1) Neutrophils (%) (Auto) 41.4 % (45.0-75.0) L Lymphocytes (%) (Auto) 45.9 % (20.0-45.0) H Monocytes (%) (Auto) 7.3 % (1.0-10.0) Eosinophils (%) (Auto) 4.6 % (0.0-3.0) H Basophils (%) (Auto) 0.9 % (0.0-2.0) Prothrombin Time 13.3 SEC (9.30-11.50) H Prothromb Time International Ratio 1.3 (0.9-1.1) H Sodium Level 139 mEQ/L (135-145) Potassium Level 4.4 mEQ/L (3.4-4.9) Chloride Level 101 mEQ/L (98-107) Carbon Dioxide Level 21 mEQ/L (20-30) Anion Gap 17 (5-15) H Blood Urea Nitrogen 84 mg/dL (7-23) H Creatinine 2.9 mg/dL (0.5-0.9) H Estimat Glomerular Filtration Rate mL/min (>60) Glucose Level 105 mg/dL (74-106) Calcium Level 9.6 mg/dL (8.6-10.2) Iron Level 53 ug/dL (37-145) Total Iron Binding Capacity 165 ug/dL (250-400) L Percent Iron Saturation 32 % (15-50) Unsaturated Iron Binding 112 ug/dL (112-346) Total Bilirubin 0.3 mg/dL (0.0-1.2) Aspartate Amino Transf (AST/SGOT) 32 U/L (5-40) Alanine Aminotransferase (ALT/SGPT) 15 U/L (3-33) Alkaline Phosphatase 73 U/L (35-104) Pro-B-Type Natriuretic Peptide 7534 pg/mL (0-450) H Total Protein 6.4 g/dL (6.6-8.7) L Albumin 3.7 g/dL (3.5-5.2) Globulin 2.7 g/dL Albumin/Globulin Ratio 1.3 (1.0-2.7) Current Medications Medications (Trade) Dose Ordered Sig/Abril Route PRN Reason Start Time Stop Time Status Last Admin Dose Admin Acetaminophen (Tylenol) 650 mg Q4H PRN ORAL T>100.5 08/12/16 00:45 09/11/16 00:44 Albuterol/ Ipratropium (DuoNeb 0.5-3(2.5)mg/3ml) 3 ml Q4H PRN HHN Shortness of Breath 08/12/16 00:45 08/17/16 00:44 Amiodarone HCl (Cordarone) 200 mg DAILY ORAL 08/12/16 09:00 09/11/16 08:59 Dextrose (Dextrose 50%) STAT PRN IV Hypoglycemia 08/12/16 16:45 09/11/16 16:44 Epoetin Fish 7000 units 7,000 units FRI-FRI-FRI SUBQ 08/12/16 21:00 09/11/16 20:59 08/12/16 20:39 Heparin Sodium (Porcine) (Heparin 5000 units/ml) 5,000 units EVERY 12 HOURS SUBQ 08/12/16 09:00 09/11/16 08:59 08/13/16 09:50 Insulin Aspart (NovoLOG) BEFORE MEALS AND HS SUBQ 08/12/16 06:30 09/11/16 06:29 08/13/16 06:09 Linezolid (Zyvox) 300 ml @ 300 mls/hr Q12HR IVPB 08/12/16 11:00 08/19/16 10:59 08/13/16 09:48 Ondansetron HCl (Zofran) 4 mg Q6H PRN IVP Nausea & Vomiting 08/12/16 04:45 09/11/16 04:44 Polyethylene Glycol (Miralax) 17 gm DAILYPRN PRN ORAL Constipation 08/12/16 16:45 09/11/16 16:44 Sodium Chloride (0.45% NS 1000ml) 1,000 ml @ 75 mls/hr [id number] IV 08/12/16 20:00 09/11/16 19:59 08/13/16 09:48 Temazepam 15 mg 15 mg HSPRN PRN ORAL Insomnia 08/12/16 21:00 08/19/16 20:59 Warfarin Sodium (Coumadin per pharmacy) 1 ea DAILY PRN MISC Per rx protocol 08/12/16 19:30 09/11/16 19:29 LULU PIEDRA M.D. August 13, 2016 10:05
[2016-08-13 11:50] VITALS: BP 126/51
[2016-08-13] MEDS ORDERED: AMIODARONE HCL100 MG ORAL (12:58)
--- NOTE | 2016-08-13 14:58 | Pulmonology Progress Note ---
Assessment/Plan Problems: (1) Acute respiratory distress (2) ATN (acute tubular necrosis) (3) Dementia (4) Severe anemia (5) COPD (chronic obstructive pulmonary disease) Assessment/Plan off laxis echo EF of 20% bun/creatinine better cardio evaluation appreciated avoid nephrotoxic s/p Albumin 25% dc home with hospice Subjective ROS Limited/Unobtainable: No Interval Events: doing much better Allergies: Coded Allergies: SPIRONOLACTONE (Verified Allergy, Intermediate, 08/08/16) Objective Last 24 Hour Vital Signs Date Time Temp Pulse Resp B/P Pulse Ox O2 Delivery O2 Flow Rate FiO2 08/13/16 11:50 97.9 71 20 126/51 97 Nasal Cannula 2.0 08/13/16 09:20 59 103/39 08/13/16 08:20 97.7 66 20 112/55 100 Nasal Cannula 2.0 08/13/16 08:20 Nasal Cannula 2.0 28 08/13/16 08:20 99 Nasal Cannula 2.0 28 08/13/16 08:20 62 18 Nasal Cannula 2.0 28 08/13/16 04:00 97.7 20 114/39 100 Nasal Cannula 2.0 08/13/16 00:00 98.1 18 106/36 100 Nasal Cannula 2.0 08/12/16 20:10 Nasal Cannula 2.0 28 08/12/16 20:10 100 Nasal Cannula 2.0 28 08/12/16 20:09 60 18 Nasal Cannula 2.0 28 08/12/16 20:00 97.2 20 122/49 100 Nasal Cannula 2.0 08/12/16 16:00 97.0 72 16 97/41 Nasal Cannula 2.0 100 Intake and Output 08/12/16 08/13/16 19:00 07:00 Intake Total 975 ml Balance 975 ml IV Total 975 ml # Voids 2 # Bowel Movements 2 Objective General Appearance: WD/WN Lines, tubes and drains: peripheral HEENT: normocephalic Neck: non-tender Respiratory/Chest: chest wall non-tender, lungs clear Cardiovascular/Chest: normal peripheral pulses, normal rate Abdomen: normal bowel sounds Extremities: normal range of motion Microbiology Date/Time Source Procedure Growth Status 08/11/16 16:16 Blood Blood Culture - Preliminary NO GROWTH AFTER 24 HOURS Resulted 08/11/16 16:10 Blood Blood Culture - Preliminary NO GROWTH AFTER 24 HOURS Resulted Laboratory Tests 08/13/16 07:30: White Blood Count 9.1, Red Blood Count 3.05L, Hemoglobin 8.2L, Hematocrit 26.8L , Mean Corpuscular Volume 88, Mean Corpuscular Hemoglobin 26.8L, Mean Corpuscular Hemoglobin Concent 30.5L, Red Cell Distribution Width 16.6H, Platelet Count 180, Mean Platelet Volume 7.4, Neutrophils (%) (Auto) 41.4L, Lymphocytes (%) (Auto) 45.9H, Monocytes (%) (Auto) 7.3, Eosinophils (%) (Auto) 4.6H, Basophils (%) (Auto) 0.9, Prothrombin Time 13.3H, Prothromb Time International Ratio 1.3H, Sodium Level 139, Potassium Level 4.4, Chloride Level 101, Carbon Dioxide Level 21, Anion Gap 17H, Blood Urea Nitrogen 84H, Creatinine 2.9H, Estimat Glomerular Filtration Rate , Glucose Level 105, Calcium Level 9.6, Iron Level 53, Total Iron Binding Capacity 165L, Percent Iron Saturation 32, Unsaturated Iron Binding 112, Total Bilirubin 0.3, Aspartate Amino Transf (AST/SGOT) 32, Alanine Aminotransferase (ALT/SGPT) 15, Alkaline Phosphatase 73, Pro-B-Type Natriuretic Peptide 7534H, Total Protein 6.4L, Albumin 3.7, Globulin 2.7, Albumin/Globulin Ratio 1.3 Current Medications Medications (Trade) Dose Ordered Sig/Abril Route PRN Reason Start Time Stop Time Status Last Admin Dose Admin Acetaminophen (Tylenol) 650 mg Q4H PRN ORAL T>100.5 08/12/16 00:45 09/11/16 00:44 Albuterol/ Ipratropium (DuoNeb 0.5-3(2.5)mg/3ml) 3 ml Q4H PRN HHN Shortness of Breath 08/12/16 00:45 08/17/16 00:44 Amiodarone HCl (Cordarone) 200 mg DAILY ORAL 08/12/16 09:00 09/11/16 08:59 08/13/16 13:20 Dextrose (Dextrose 50%) STAT PRN IV Hypoglycemia 08/12/16 16:45 09/11/16 16:44 Epoetin Fish (Procrit (for non ESRD use)) 7,000 units FRI SUBQ 08/12/16 21:00 09/11/16 20:59 08/12/16 20:39 Heparin Sodium (Porcine) (Heparin 5000 units/ml) 5,000 units EVERY 12 HOURS SUBQ 08/12/16 09:00 09/11/16 08:59 08/13/16 09:50 Insulin Aspart (NovoLOG) BEFORE MEALS AND HS SUBQ 08/12/16 06:30 09/11/16 06:29 08/13/16 12:35 Linezolid (Zyvox) 300 ml @ 300 mls/hr Q12HR IVPB 08/12/16 11:00 08/19/16 10:59 08/13/16 09:48 Ondansetron HCl (Zofran) 4 mg Q6H PRN IVP Nausea & Vomiting 08/12/16 04:45 09/11/16 04:44 Polyethylene Glycol (Miralax) 17 gm DAILYPRN PRN ORAL Constipation 08/12/16 16:45 09/11/16 16:44 Temazepam 15 mg 15 mg HSPRN PRN ORAL Insomnia 08/12/16 21:00 08/19/16 20:59 Warfarin Sodium (Coumadin per pharmacy) 1 ea DAILY PRN MISC Per rx protocol 08/12/16 19:30 09/11/16 19:29 Warfarin Sodium (Coumadin) 4 mg COUMADIN ONCE PO 08/13/16 17:00 08/13/16 17:01 ILIR WALLACE August 13, 2016 14:58
[2016-08-13 15:38] VITALS: BP 109/45
--- NOTE | 2016-08-13 16:43 | Cardiology Progress Note ---
Assessment/Plan Assessment/Plan acute on chf chronic anemia renal failure cm chronci LBBB hs off dvt s/p ivc filter cad s/p cabg twice MVR bioprosthetic hx of thromboembolic complication previously off anticoagulation jahovah witness pulsatile visible vessel in stomach in 05/2016 cr worse now off diuretic resume anticaogulation , her hgb seems to be stable d/w dr barrera Subjective Cardiovascular: Denies: chest pain, lightheadedness Respiratory: Denies: shortness of breath Gastrointestinal/Abdominal: Denies: abdominal pain Objective Last 24 Hour Vital Signs Date Time Temp Pulse Resp B/P Pulse Ox O2 Delivery O2 Flow Rate FiO2 08/13/16 15:38 98.2 64 20 109/45 98 Nasal Cannula 2.0 08/13/16 11:50 97.9 71 20 126/51 97 Nasal Cannula 2.0 08/13/16 09:20 59 103/39 08/13/16 08:20 97.7 66 20 112/55 100 Nasal Cannula 2.0 08/13/16 08:20 Nasal Cannula 2.0 28 08/13/16 08:20 99 Nasal Cannula 2.0 28 08/13/16 08:20 62 18 Nasal Cannula 2.0 28 08/13/16 04:00 97.7 20 114/39 100 Nasal Cannula 2.0 08/13/16 00:00 98.1 18 106/36 100 Nasal Cannula 2.0 08/12/16 20:10 Nasal Cannula 2.0 28 08/12/16 20:10 100 Nasal Cannula 2.0 28 08/12/16 20:09 60 18 Nasal Cannula 2.0 28 08/12/16 20:00 97.2 20 122/49 100 Nasal Cannula 2.0 General Appearance: alert Neck: supple Cardiovascular: normal rate Respiratory/Chest: crackles/rales - left base Abdomen: normal bowel sounds, non tender, soft Extremities: no swelling Intake and Output 08/12/16 08/13/16 18:59 06:59 Intake Total 975 ml Balance 975 ml IV Total 975 ml # Voids 2 # Bowel Movements 2 Laboratory Tests Test 08/13/16 07:30 White Blood Count 9.1 K/UL (4.8-10.8) Red Blood Count 3.05 M/UL (4.20-5.40) L Hemoglobin 8.2 G/DL (12.0-16.0) L Hematocrit 26.8 % (37.0-47.0) L Mean Corpuscular Volume 88 FL (80-99) Mean Corpuscular Hemoglobin 26.8 PG (27.0-31.0) L Mean Corpuscular Hemoglobin Concent 30.5 G/DL (32.0-36.0) L Red Cell Distribution Width 16.6 % (11.6-14.8) H Platelet Count 180 K/UL (150-450) Mean Platelet Volume 7.4 FL (6.5-10.1) Neutrophils (%) (Auto) 41.4 % (45.0-75.0) L Lymphocytes (%) (Auto) 45.9 % (20.0-45.0) H Monocytes (%) (Auto) 7.3 % (1.0-10.0) Eosinophils (%) (Auto) 4.6 % (0.0-3.0) H Basophils (%) (Auto) 0.9 % (0.0-2.0) Prothrombin Time 13.3 SEC (9.30-11.50) H Prothromb Time International Ratio 1.3 (0.9-1.1) H Sodium Level 139 mEQ/L (135-145) Potassium Level 4.4 mEQ/L (3.4-4.9) Chloride Level 101 mEQ/L (98-107) Carbon Dioxide Level 21 mEQ/L (20-30) Anion Gap 17 (5-15) H Blood Urea Nitrogen 84 mg/dL (7-23) H Creatinine 2.9 mg/dL (0.5-0.9) H Estimat Glomerular Filtration Rate mL/min (>60) Glucose Level 105 mg/dL (74-106) Calcium Level 9.6 mg/dL (8.6-10.2) Iron Level 53 ug/dL (37-145) Total Iron Binding Capacity 165 ug/dL (250-400) L Percent Iron Saturation 32 % (15-50) Unsaturated Iron Binding 112 ug/dL (112-346) Total Bilirubin 0.3 mg/dL (0.0-1.2) Aspartate Amino Transf (AST/SGOT) 32 U/L (5-40) Alanine Aminotransferase (ALT/SGPT) 15 U/L (3-33) Alkaline Phosphatase 73 U/L (35-104) Pro-B-Type Natriuretic Peptide 7534 pg/mL (0-450) H Total Protein 6.4 g/dL (6.6-8.7) L Albumin 3.7 g/dL (3.5-5.2) Globulin 2.7 g/dL Albumin/Globulin Ratio 1.3 (1.0-2.7) Microbiology Date/Time Source Procedure Growth Status 08/11/16 16:16 Blood Blood Culture - Preliminary NO GROWTH AFTER 24 HOURS Resulted 08/11/16 16:10 Blood Blood Culture - Preliminary NO GROWTH AFTER 24 HOURS Resulted GUILLE MEDINA August 13, 2016 16:43
[2016-08-13] MEDS ORDERED: Warfarin Sodium 4mg PO ONE (17:00)
[2016-08-13] MEDS ORDERED: 1/2 NS 1000ml IV ONE (19:04)
--- NOTE | 2016-08-14 20:06 | Discharge Summary ---
Discharge Summary Hospital Course Date of Admission August 07, 2016 at 15:12 Date of Discharge August 13, 2016 at 19:05 Admitting Diagnosis copd exacerbation HPI Mayte Johnson is a 86 year old female who was admitted on August 07, 2016 at 15: 12 for Chronic Obstructive Pulmonary Disease Exacerbation Hospital Course [id number] Discharge Discharge Disposition Patient was discharged to Home (01) Discharge Diagnoses: Holli Healy NP August 14, 2016 20:06
--- NOTE | 2016-08-15 08:32 | Discharge Summary 2 SIG ---
DATE OF ADMISSION: 08/07/2016 DATE OF DISCHARGE: 08/13/2016 CONSULTANTS: 1. Chris Gan M.D. 2. Andrea Zarate M.D. 3. Valeria Garcia M.D. BRIEF HOSPITAL COURSE: The patient is an 86-year-old female with a history of diastolic heart failure, COPD, and renal insufficiency, presented to the ED complaining of increased difficulty breathing. The patient denies fever and had gradual onset of symptoms. She presented to ED and on evaluation, laboratories showed elevated BNP and renal function. She was noted to be mildly hyperkalemic and was given IV Lasix. Chest x-ray showed cardiomegaly with right pleural effusion. The patient was admitted to telemetry. She was seen by Dr. Garcia for an evaluation of renal failure. She was recently admitted in May 2016 with a creatinine of 2.2, creatinine had been rising. She was seen by Cardiology consult. EKG showed sinus bradycardia with first-degree AV block and sinus rhythm with wide QRS. Echocardiogram revealed dilated left ventricle. LVEF of 20%. No evidence of pericardial effusion. No evidence of left ventricular hypertrophy. She was given diuresis. She had a history of DVT, status post IVC filter and had a history of thromboembolic complication and has been off anticoagulation. She has a mitral valve bioprosthetic and she was resumed anticoagulation. Diuretics were eventually discontinued as creatinine worsened. She was also followed by Infectious Disease specialist for evaluation of bacteremia as blood culture done on admission showed gram-positive cocci 1/. Repeat cultures were negative. Renal function down trended. The patient's subsequent chest x-ray showed improved interstitial edema. She was seen by a wound care nurse as she came in with open wounds on the left lower leg. Wound Care was provided. The wound culture showed growth of yeast, which is probable of colonizer. The patient was eventually discharged home. FINAL DIAGNOSES: 1. Acute respiratory distress. 2. [id number] systolic and diastolic congestive heart failure in exacerbation. 3. Acute renal failure on chronic kidney disease stage 4. 4. Atrial fibrillation, on Coumadin. 5. Status post bioprosthetic mitral valve replacement. 6. Acute tubular necrosis. 7. Dementia. 8. Anemia. 9. Hyperkalemia. 10. 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 11. Coronary artery disease, status post coronary artery bypass graft twice. 12. Mosque. 13. Left bundle-branch block. 14. Chronic leg wound, not grossly infected, present on admission. 15. Cardiomyopathy. I have been assigned to dictate discharge summary on this account and I was not involved in the patient's management. Emilee Weir M.D. I have been assigned to dictate discharge summary on this account and I was not involved in the patient's management. Holli Healy N.P. DR: Hallie JOB#: [id number] CC:
== END 2016-08-13 19:05 | disposition home or self-care (01) | DRG 291 ==
LOC: EDBD 14:44 → EMR 14:55 → 2E 15:12 → EDBEDREQ 16:03 → 4E 08-11 23:53
DX: I50.43 Acute on chronic combined systolic (congestive) and diastolic (congestive) heart failure (principal); N17.0 Acute kidney failure with tubular necrosis; F03.90 Unspecified dementia, unspecified severity, without behavioral disturbance, psychotic disturbance, mood disturbance, and anxiety; D64.9 Anemia, unspecified; E11.9 Type 2 diabetes mellitus without complications; I12.9 Hypertensive chronic kidney disease with stage 1 through stage 4 chronic kidney disease, or unspecified chronic kidney disease; N18.4 Chronic kidney disease, stage 4 (severe); I42.9 Cardiomyopathy, unspecified; J44.9 Chronic obstructive pulmonary disease, unspecified; I48.91 Unspecified atrial fibrillation; Z88.8 Allergy status to other drugs, medicaments and biological substances; Z79.4 Long term (current) use of insulin; R00.1 Bradycardia, unspecified; I44.0 Atrioventricular block, first degree; Z86.718 Personal history of other venous thrombosis and embolism; E87.5 Hyperkalemia; I25.10 Atherosclerotic heart disease of native coronary artery without angina pectoris; Z95.1 Presence of aortocoronary bypass graft; I44.7 Left bundle-branch block, unspecified; I35.1 Nonrheumatic aortic (valve) insufficiency; Z95.2 Presence of prosthetic heart valve
CPT/HCPCS: 36415; 71010; 80048; 80053; 80069; 81003; 82043; 82044; 82550; 82553; 82570; 82962; 83540; 83550; 83605; 83880; 84300; 84443; 84484; 85025; 85610; 85730; 86710; 87040; 87070; 87081; 87181; 87205; 89050; 93005; 93306; 93970; 94640; 94664; 94760; J1815; J7620